=== PATIENT | female | born 1960 | race Caucasian/White ===

== ENCOUNTER 2016-05-03 05:48 | Outpatient (CLI) | payer OTHER ==
[~2016-05-03] VITALS: Ht 165.1 cm; Wt 91.6 kg
[~2016-05-03 05:48] MED LIST: ASPI-983 PO; CYAN100T PO; DULO60CA6 PO; ESTR1TAB27 PO; GABA-488 PO; LISI1TAB6 PO; MELO7.5T46 PO; MILN100T PO; MULT1TAB69 PO; NITR0.4T SL; OMEG-160 PO; ONDN4T PO; OXYC5TAB71 PO; PANT40TA2 PO; PANT40TA3 PO; PRAV20TA3 PO; SUCR1ORA5 PO; TRAM50TA2 PO
--- OUTSIDE RECORDS SUMMARY | 2016-05-03 05:52 | XMS REPORT | Continuity of Care Document ---
Author Author [facility] Organization [facility] Address Unknown Phone Unavailable Care Team Providers Care Artist'S Model Name Role Phone Seth Goodman PCP [phone] Source Comments Some departments are not documenting in the electronic medical record. If you do not see the information that you expected, contact Release of Information in the Health Information Management department at [phone] for further assistance in locating additional records.[facility] Active Allergies and Adverse Reactions Allergen Noted Date Severity Reactions Comments Penicillins 09/01/2013 HIVES Patient states has tolerated keflex Sulfa (Sulfonamide 09/01/2013 HIVES Antibiotics) Current Medications Prescription Sig. Disp. Refills Start End Date Status Date traMADol (ULTRAM) 50 mg Take 50 mg by mouth every Active tablet 6 hours as needed. milnacipran(+) (SAVELLA) Take 100 mg by mouth Active 100 mg tablet twice daily. pseudoephedrine (SUDAFED) Take 60 mg by mouth every Active 60 mg tablet 6 hours as needed. gabapentin (NEURONTIN) Take 300 mg by mouth Active 300 mg capsule twice daily. DULoxetine DR (CYMBALTA) Take 60 mg by mouth twice Active 60 mg capsule daily. meloxicam (MOBIC) 7.5 mg Take 7.5 mg by mouth Active tablet daily. ondansetron (ZOFRAN) 4 mg Take 4 mg by mouth every Active tablet 8 hours as needed. loratadine (CLARITIN) 10 Take 10 mg by mouth daily Active mg tablet as needed. fish oil /omega-3 fatty Take 1 Cap by mouth Active acids (SEA-OMEGA) daily. 340/1000 mg capsule aspirin EC 81 mg tablet Take 81 mg by mouth Active daily. cyanocobalamin(+) Take 100 mcg by mouth Active (VITAMIN B-12) 100 mcg daily. tablet sucralfate (CARAFATE) 1 Take 1 g by mouth four Active gram tablet times daily. vitamins, multiple cap Take 1 Cap by mouth Active daily. senna/docusate Take 1 Tab by mouth twice 60 Tab 1 09/17/19 Active (SENOKOT-S) 8.6/50 mg daily. 14 tablet oxyCODONE (ROXICODONE) 5 Take 1-3 Tabs by mouth 60 Tab 0 10/08/19 Active mg tablet every 4 hours as needed 14 for Pain estradiol (ESTRACE) 1 mg Take 1 Tab by mouth 90 Tab 3 03/15/20 Active tablet daily. 14 PANTOPRAZOLE SODIUM Take by mouth daily. Active (PROTONIX PO) NITROGLYCERIN (NITRO-TIME Take 0.4 mg by mouth as Active PO) Needed. lisinopril (PRINIVIL; Take 1 Tab by mouth 30 Tab 11 09/27/19 Active ZESTRIL) 10 mg tablet daily. 16 metoprolol tartrate Take 1 Tab by mouth twice 180 Tab 3 12/13/19 Active (LOPRESSOR) 50 mg tablet daily. 16 levothyroxine (SYNTHROID) Take 1 Tab by mouth 30 Tab 3 12/13/19 Active 50 mcg tablet daily. 16 potassium chloride SR Take 10 mEq by mouth 01/30/20 Active (K-DUR) 20 mEq tablet daily. Take with a meal 16 and a full glass of water. Active Problems Problem Noted Date Residual hemorrhoidal skin tags 04/20/2016 Hematuria 04/20/2016 Left lower quadrant pain 09/16/2015 Intractable vomiting with nausea 09/16/2015 Palpitation 09/09/2015 Overview: 09/09/15 Holter Monitor: 48-hour Holter monitor demonstrates underlying sinus rhythm with a heart rate between 53 and 142 beat per minute with an average heart rate of 83 beats per minute. Frequent atrial ectopy (862 in 48 hours) with 11 runs of supraventricular tachycardia, the longest run was 14 beats and maximum heart rate was 177 beats per minute. These appear to be atrial tachycardia. There was frequent ventricular ectopy (436 in 48 hours). No episodes of atrial flutter, atrial fibrillation or ventricular tachycardia. No diary was submitted. Essential hypertension with goal blood pressure less than 140/90 09/09/2015 Family history of heart disease 09/09/2015 Overview: Sister ICD in her 60's and mother ICD in her 50's Chest pain 09/06/2015 Overview: 09/08/13 Echo ([facility]): EF 60%. Mild mitral and tricuspid valve regurgitation. PAP=30 mmHg. 09/08/13 Lexiscan Myoview Stress Test ([facility]): EF 57%. Subtle abnormality in the inferoapical segment with no significant ischemia or infarction. 08/22/15 Echo ([facility]): EF 60%. Left atrium is mildly dilated. Mild mitral and tricuspid regurgitation. 08/29/15 Lexiscan Myoview Stress Test ([facility]): EF 67%. No significant ischemia or infarction. 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 History of Present Illness: Sherly Silvestre is a 55 y.o. 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 1. The patient began to have back pain and blood in her urine on August 21, 2013. She was evaluated the next day and work-up for possible kidney stone was begun. CT on August 24, 2013 revealed a moderate hiatal hernia, a massive 30 x 14 x 33 cm complex fluid collection in the abdomen and pelvis as well as right hydronephrosis. No free fluid was noted, and there was no adenopathy. CA-125 level was normal at 22. 2. She was referred here for management and underwent exploratory laparotomy, left salpingo-oophorectomy, removal of the right pelvic sidewall cyst, and biopsy of the sigmoid colon epiploica on September 14, 2013. Frozen section indicated a benign process, but final pathology revealed a focus of borderline malignancy. 3. The patient presents today for routine cancer surveillance. Denies bleeding, discharge, pain and bloating. NO changes in bowel or urianry habits. Continues to have intermittent chest pain (h/o angina) and found to have irregular heartbeat at PCP on EKG. Being referred to [facility] in [place]. Lab Results Component Value Date CA125 15 09/16/2015 Mammo: 03/2015 birad 1 DEXA: 06/17/15 normal Colonoscopy: 12/18/13 negative with repeat 5 years. PCP: Dr. Goodman PLAN: 1. Ms. Edward Silvestre is a 55 yo female with h/o borderline tumor of the L ovary. 2. Presents for 2.5 year surveillance visit. 3. RUBEN today. 4. CA125 is 5. Discussed possible symptoms of cancer recurrence, such as cough, chest pain, early satiety, abdominal pain/bloating, N/V, vaginal bleeding/discharge or change in bowel/bladder habits, dizziness, WALTER. 6. Recommend daily exercise, diet high in fruits and vegetables, annual visits with PCP including updated vaccination and routine screening (mammogram, DEXA and colonoscopy). 7. RV 6 months Constipation 10/07/2013 Resolved Problems Problem Noted Date Resolved Date Edema 12/14/2014 03/25/2015 Mucinous cystadenoma 09/14/2013 03/25/2015 Other screening mammogram 09/11/2013 03/25/2015 Most Recent Encounters Date Type Specialty Providers Description 05/02/2016 Telephone Oncology Pratibha Matamoros PA 05/02/2016 Telephone Oncology Pratibha Matamoros PA Patient Questions - Sherly would like the name and phone number of who Pratibha wants her to see for her bladder issues. 04/23/2016 Telephone Oncology Pratibha Matamoros PA Results - Sherly called to ask that most recent lab, radiology, and office note be faxed to Dr. Nam's office as he is who she will see for the recommended colonoscopy. I told ehr that this would be done this AM as requested. 04/20/2016 Telephone Oncology Pratibha Matamoros PA Results 04/19/2016 Hospital Radiology Pratibha Matamoros PA Encounter 04/19/2016 Office Visit Oncology Pratibha Matamoros PA Hematuria ( Primary Dx); Lower abdominal pain; Abnormal finding on imaging; Ovarian cancer, unspecified laterality (HCC); Residual hemorrhoidal skin tags 04/19/2016 Screening Form 04/10/2016 Orders Only Oncology Pratibha Matamoros PA Ovarian ca, unspecified laterality (HCC) (Primary Dx) 02/28/2016 Telephone Oncology Brooks Vasquez MD Appointment - reschedule MD to SENIOR ACCOUNT CLERK. 02/16/2016 Telephone Cardiology Agnieszka Ambrosio RN Follow-up Phone Call - overdue labs-BMP (lab orders mailed, phone disconnected) Social History Tobacco Use Types Packs/Day Years Used Date Current Every Day Smoker Cigarettes 0.5 5 Smokeless Tobacco: Never Used Tobacco Cessation: Counseling Given: Yes Comments: Alcohol Use Drinks/Week oz/Week Comments No 0 Standard 0.0 about 1-2 times per year drinks or equivalent Last Filed Vital Signs Vital Sign Reading Time Taken Blood Pressure 125/75 04/19/2016 12:49 PM SENIOR MANAGER Pulse 108 04/19/2016 12:49 PM SENIOR MANAGER Temperature 37.1 C (98.8 F) 04/19/2016 12:49 PM SENIOR MANAGER Respiratory Rate 18 06/23/2014 11:04 AM CDT Height 1.6 m (5' 3") 04/19/2016 12:49 PM SENIOR MANAGER Weight 91.445 kg (201 lb 9.6 oz) 04/19/2016 12:49 PM SENIOR MANAGER Body Mass Index 35.72 04/19/2016 12:49 PM SENIOR MANAGER Oxygen Saturation 100% 04/19/2016 12:49 PM SENIOR MANAGER Plan of Care Date Type Specialty Providers Description 05/25/2016 Appointment Cardiology Garrett Suárez MD [address] [place] [address] [phone] (Fax) 05/28/2016 Appointment Oncology 05/28/2016 Appointment Oncology Pratibha Matamoros PA [address] [place] [address] [phone] (Fax) Health Maintenance Due Date Last Done Comments Hepatitis C Screening 1960 Physical (Comprehensive) 07/12/1966 Exam Pertussis Vaccine 07/12/1970 Tetanus Vaccine 07/12/1976 Cervical Cancer Screening 07/12/1980 Influenza Vaccine 12/15/2015 Breast Cancer Screening 03/25/2016 03/25/2015, 09/14/2013 Colorectal Cancer 12/19/2023 12/18/2013 Screening Results from Last [address] CHEST W CONTRAST (04/19/2016 3:18 PM) Impressions CHEST: 1.Unchanged size of the right middle lobe pulmonary nodule which is unchanged dating back to 2013 compatible with a small noncalcified granuloma or scar. Two additional pulmonary nodules are identified, which may represent additional small noncalcified granulomas or scarring. Although, no prior CT chest is available for comparison. Follow-up CT chest in 6-12 months recommended to evaluate for more long-term stability. 2.No thoracic lymphadenopathy. 3.Moderate hiatal hernia with fluid-filled esophagus suggestive of reflux. 4.Increased attenuation 1.6 cm nodule within the left thyroid lobe, incompletely characterized by CT. Correlation with thyroid ultrasound is recommended for further evaluation. ABDOMEN AND PELVIS: 1.Previous hysterectomy. No discrete pelvic mass or abdominopelvic lymphadenopathy. 2.Development of 1 cm low-attenuation lesion about the inferior pole of the right kidney which is too small to characterize. This may be a small renal cyst or renal neoplasm. Follow-up CT or renal ultrasound in 6 months recommended to evaluate for stability. By my electronic signature, I attest that I have personally reviewed the images for this examination and formulated the interpretations and opinions expressed in this report Finalized by DANIEL WISDOM M.D. on 04/19/2016 4:52 PM. Dictated by Max Azevedo M.D. on 04/19/2016 3:[address] CHEST, ABDOMEN AND PELVIS WITH CONTRAST CLINICAL HISTORY: 55-year-old female, ovarian cancer (unspecified laterality) lower abdominal pain , hematuria, lung nodules seen on CT in 2015. TECHNIQUE: Multiple contiguous axial images were obtained through the chest, abdomen and pelvis following the administration of IV contrast material. Noncontrast as well as portal venous and delayed phase imaging was obtained through the abdomen. Post processing coronal and sagittal reconstruction images were made from the axial images. COMPARISON: CT the abdomen and pelvis from December 14, 2014. IV CONTRAST: Isovue-370 BOWEL CONTRAST: Water CHEST FINDINGS: Lower Neck: Partially visualized 1.6 cm increased attenuation nodule within the left thyroid lobe (series 4 image one). Axilla, Mediastinum and Farideh: No axillary, mediastinal, or hilar lymphadenopathy. Fluid distends the majority of the esophagus. There is a moderate-sized hiatal hernia with mildly distended, fluid-filled esophagus. Heart and Great Vessels: The heart is normal in size. The thoracic aorta is normal in caliber. No pericardial effusion. Airway, Lungs and Pleura: The central airways are widely patent. There has been no change in size of a 0.5 cm pulmonary nodule within the anterior right middle lobe since at least 08/24/2013 (series 4 image 35) compatible with benign scar or noncalcified granuloma. Two additional sub-5 mm nodules are noted (series 4 image 20 and 23). No pleural effusion, pneumothorax, or lobar consolidation. Mild bibasilar atelectasis. Chest Wall and Osseous Structures: Thoracic spondylosis with right convex curvature centered at the T10 vertebral body. No destructive osseous lesions are identified. ABDOMEN AND PELVIS FINDINGS: Liver and Biliary system: The liver is normal in size. No focal hepatic lesions are identified. There is redemonstration of a geographic area of low density along the fissure ligamentum teres hepatis, which remains compatible with an area of focal fatty infiltration or benign perfusion alteration. The gallbladder is surgically absent. There is unchanged minimal biliary ductal ectasia. The main portal vein is patent. Spleen: Unremarkable. Adrenal Glands and Kidneys: The adrenal glands are unremarkable. Unchanged right mid pole renal cyst and cortical scarring in the lower pole right kidney. Resolution of right hydronephrosis. There has been development of 1.0 cm, exophytic, low-attenuation lesion about the inferior pole of the right kidney, which is too small to characterize (series 4 image 90). The left kidney is unremarkable. Pancreas and Retroperitoneum: The pancreas is unremarkable. No retroperitoneal lymphadenopathy. Aorta and Major Vessels: The abdominal aorta and major branch vessels are normal in caliber, with trace atherosclerotic plaque.. Bowel, Mesentery and Peritoneal space: Hiatal hernia. Loops of large and small bowel are normal in caliber. No obstruction or ascites. Pelvis: The mildly distended urinary bladder is unremarkable. Previous hysterectomy. The vaginal cuff is unremarkable. No pelvic lymphadenopathy is identified. Abdominal wall and Osseous Structures: There is mild diastasis of the rectus abdominous muscles, with herniation of nonobstructed large and small bowel, as well as a small amount of omental fat through the defect. Small, fat-containing umbilical hernia. There is moderate thoracolumbar spondylosis. Procedure Note Interface, Radiant Results - Jes Apr 19, 2016 4:[address] CHEST, ABDOMEN AND PELVIS WITH CONTRAST CLINICAL HISTORY: 55-year-old female, ovarian cancer (unspecified laterality) lower abdominal pain, hematuria, lung nodules seen on CT in 2014. TECHNIQUE: Multiple contiguous axial images were obtained through the chest, abdomen and pelvis following the administration of IV contrast material. Noncontrast as well as portal venous and delayed phase imaging was obtained through the abdomen. Post processing coronal and sagittal reconstruction images were made from the axial images. COMPARISON: CT the abdomen and pelvis from December 14, 2014. IV CONTRAST: Isovue-370 BOWEL CONTRAST: Water CHEST FINDINGS: Lower Neck: Partially visualized 1.6 cm increased attenuation nodule within the left thyroid lobe (series 4 image one). Axilla, Mediastinum and Farideh: No axillary, mediastinal, or hilar lymphadenopathy. Fluid distends the majority of the esophagus. There is a moderate-sized hiatal hernia with mildly distended, fluid-filled esophagus. Heart and Great Vessels: The heart is normal in size. The thoracic aorta is normal in caliber. No pericardial effusion. Airway, Lungs and Pleura: The central airways are widely patent. There has been no change in size of a 0.5 cm pulmonary nodule within the anterior right middle lobe since at least 08/24/2013 (series 4 image 35) compatible with benign scar or noncalcified granuloma. Two additional sub-5 mm nodules are noted (series 4 image 20 and 23). No pleural effusion, pneumothorax, or lobar consolidation. Mild bibasilar atelectasis. Chest Wall and Osseous Structures: Thoracic spondylosis with right convex curvature centered at the T10 vertebral body. No destructive osseous lesions are identified. ABDOMEN AND PELVIS FINDINGS: Liver and Biliary system: The liver is normal in size. No focal hepatic lesions are identified. There is redemonstration of a geographic area of low density along the fissure ligamentum teres hepatis, which remains compatible with an area of focal fatty infiltration or benign perfusion alteration. The gallbladder is surgically absent. There is unchanged minimal biliary ductal ectasia. The main portal vein is patent. Spleen: Unremarkable. Adrenal Glands and Kidneys: The adrenal glands are unremarkable. Unchanged right mid pole renal cyst and cortical scarring in the lower pole right kidney. Resolution of right hydronephrosis. There has been development of 1.0 cm, exophytic, low-attenuation lesion about the inferior pole of the right kidney, which is too small to characterize (series 4 image 90). The left kidney is unremarkable. Pancreas and Retroperitoneum: The pancreas is unremarkable. No retroperitoneal lymphadenopathy. Aorta and Major Vessels: The abdominal aorta and major branch vessels are normal in caliber, with trace atherosclerotic plaque.. Bowel, Mesentery and Peritoneal space: Hiatal hernia. Loops of large and small bowel are normal in caliber. No obstruction or ascites. Pelvis: The mildly distended urinary bladder is unremarkable. Previous hysterectomy. The vaginal cuff is unremarkable. No pelvic lymphadenopathy is identified. Abdominal wall and Osseous Structures: There is mild diastasis of the rectus abdominous muscles, with herniation of nonobstructed large and small bowel, as well as a small amount of omental fat through the defect. Small, fat-containing umbilical hernia. There is moderate thoracolumbar spondylosis. IMPRESSION CHEST: 1. Unchanged size of the right middle lobe pulmonary nodule which is unchanged dating back to 2013 compatible with a small noncalcified granuloma or scar. Two additional pulmonary nodules are identified, which may represent additional small noncalcified granulomas or scarring. Although, no prior CT chest is available for comparison. Follow-up CT chest in 6-12 months recommended to evaluate for more long-term stability. 2. No thoracic lymphadenopathy. 3. Moderate hiatal hernia with fluid-filled esophagus suggestive of reflux. 4. Increased attenuation 1.6 cm nodule within the left thyroid lobe, incompletely characterized by CT. Correlation with thyroid ultrasound is recommended for further evaluation. ABDOMEN AND PELVIS: 1. Previous hysterectomy. No discrete pelvic mass or abdominopelvic lymphadenopathy. 2. Development of 1 cm low-attenuation lesion about the inferior pole of the right kidney which is too small to characterize. This may be a small renal cyst or renal neoplasm. Follow-up CT or renal ultrasound in 6 months recommended to evaluate for stability. By my electronic signature, I attest that I have personally reviewed the images for this examination and formulated the interpretations and opinions expressed in this report Finalized by DANIEL WISDOM M.D. on 04/19/2016 4:52 PM. Dictated by Max Azevedo M.D. on 04/19/2016 3:[address] ABD/PELV W CONTRAST (04/19/2016 3:18 PM) Impressions CHEST: 1.Unchanged size of the right middle lobe pulmonary nodule which is unchanged dating back to 2013 compatible with a small noncalcified granuloma or scar. Two additional pulmonary nodules are identified, which may represent additional small noncalcified granulomas or scarring. Although, no prior CT chest is available for comparison. Follow-up CT chest in 6-12 months recommended to evaluate for more long-term stability. 2.No thoracic lymphadenopathy. 3.Moderate hiatal hernia with fluid-filled esophagus suggestive of reflux. 4.Increased attenuation 1.6 cm nodule within the left thyroid lobe, incompletely characterized by CT. Correlation with thyroid ultrasound is recommended for further evaluation. ABDOMEN AND PELVIS: 1.Previous hysterectomy. No discrete pelvic mass or abdominopelvic lymphadenopathy. 2.Development of 1 cm low-attenuation lesion about the inferior pole of the right kidney which is too small to characterize. This may be a small renal cyst or renal neoplasm. Follow-up CT or renal ultrasound in 6 months recommended to evaluate for stability. By my electronic signature, I attest that I have personally reviewed the images for this examination and formulated the interpretations and opinions expressed in this report Finalized by DANIEL WISDOM M.D. on 04/19/2016 4:52 PM. Dictated by Max Azevedo M.D. on 04/19/2016 3:[address] CHEST, ABDOMEN AND PELVIS WITH CONTRAST CLINICAL HISTORY: 55-year-old female, ovarian cancer (unspecified laterality) lower abdominal pain , hematuria, lung nodules seen on CT in 2014. TECHNIQUE: Multiple contiguous axial images were obtained through the chest, abdomen and pelvis following the administration of IV contrast material. Noncontrast as well as portal venous and delayed phase imaging was obtained through the abdomen. Post processing coronal and sagittal reconstruction images were made from the axial images. COMPARISON: CT the abdomen and pelvis from December 14, 2014. IV CONTRAST: Isovue-370 BOWEL CONTRAST: Water CHEST FINDINGS: Lower Neck: Partially visualized 1.6 cm increased attenuation nodule within the left thyroid lobe (series 4 image one). Axilla, Mediastinum and Farideh: No axillary, mediastinal, or hilar lymphadenopathy. Fluid distends the majority of the esophagus. There is a moderate-sized hiatal hernia with mildly distended, fluid-filled esophagus. Heart and Great Vessels: The heart is normal in size. The thoracic aorta is normal in caliber. No pericardial effusion. Airway, Lungs and Pleura: The central airways are widely patent. There has been no change in size of a 0.5 cm pulmonary nodule within the anterior right middle lobe since at least 08/24/2013 (series 4 image 35) compatible with benign scar or noncalcified granuloma. Two additional sub-5 mm nodules are noted (series 4 image 20 and 23). No pleural effusion, pneumothorax, or lobar consolidation. Mild bibasilar atelectasis. Chest Wall and Osseous Structures: Thoracic spondylosis with right convex curvature centered at the T10 vertebral body. No destructive osseous lesions are identified. ABDOMEN AND PELVIS FINDINGS: Liver and Biliary system: The liver is normal in size. No focal hepatic lesions are identified. There is redemonstration of a geographic area of low density along the fissure ligamentum teres hepatis, which remains compatible with an area of focal fatty infiltration or benign perfusion alteration. The gallbladder is surgically absent. There is unchanged minimal biliary ductal ectasia. The main portal vein is patent. Spleen: Unremarkable. Adrenal Glands and Kidneys: The adrenal glands are unremarkable. Unchanged right mid pole renal cyst and cortical scarring in the lower pole right kidney. Resolution of right hydronephrosis. There has been development of 1.0 cm, exophytic, low-attenuation lesion about the inferior pole of the right kidney, which is too small to characterize (series 4 image 90). The left kidney is unremarkable. Pancreas and Retroperitoneum: The pancreas is unremarkable. No retroperitoneal lymphadenopathy. Aorta and Major Vessels: The abdominal aorta and major branch vessels are normal in caliber, with trace atherosclerotic plaque.. Bowel, Mesentery and Peritoneal space: Hiatal hernia. Loops of large and small bowel are normal in caliber. No obstruction or ascites. Pelvis: The mildly distended urinary bladder is unremarkable. Previous hysterectomy. The vaginal cuff is unremarkable. No pelvic lymphadenopathy is identified. Abdominal wall and Osseous Structures: There is mild diastasis of the rectus abdominous muscles, with herniation of nonobstructed large and small bowel, as well as a small amount of omental fat through the defect. Small, fat-containing umbilical hernia. There is moderate thoracolumbar spondylosis. Procedure Note Interface, Radiant Results - [facility] Apr 19, 2016 4:[address] CHEST, ABDOMEN AND PELVIS WITH CONTRAST CLINICAL HISTORY: 55-year-old female, ovarian cancer (unspecified laterality) lower abdominal pain, hematuria, lung nodules seen on CT in 2014. TECHNIQUE: Multiple contiguous axial images were obtained through the chest, abdomen and pelvis following the administration of IV contrast material. Noncontrast as well as portal venous and delayed phase imaging was obtained through the abdomen. Post processing coronal and sagittal reconstruction images were made from the axial images. COMPARISON: CT the abdomen and pelvis from December 14, 2014. IV CONTRAST: [id number] BOWEL CONTRAST: Water CHEST FINDINGS: Lower Neck: Partially visualized 1.6 cm increased attenuation nodule within the left thyroid lobe (series 4 image one). Axilla, Mediastinum and Farideh: No axillary, mediastinal, or hilar lymphadenopathy. Fluid distends the majority of the esophagus. There is a moderate-sized hiatal hernia with mildly distended, fluid-filled esophagus. Heart and Great Vessels: The heart is normal in size. The thoracic aorta is normal in caliber. No pericardial effusion. Airway, Lungs and Pleura: The central airways are widely patent. There has been no change in size of a 0.5 cm pulmonary nodule within the anterior right middle lobe since at least 08/24/2013 (series 4 image 35) compatible with benign scar or noncalcified granuloma. Two additional sub-5 mm nodules are noted (series 4 image 20 and 23). No pleural effusion, pneumothorax, or lobar consolidation. Mild bibasilar atelectasis. Chest Wall and Osseous Structures: Thoracic spondylosis with right convex curvature centered at the T10 vertebral body. No destructive osseous lesions are identified. ABDOMEN AND PELVIS FINDINGS: Liver and Biliary system: The liver is normal in size. No focal hepatic lesions are identified. There is redemonstration of a geographic area of low density along the fissure ligamentum teres hepatis, which remains compatible with an area of focal fatty infiltration or benign perfusion alteration. The gallbladder is surgically absent. There is unchanged minimal biliary ductal ectasia. The main portal vein is patent. Spleen: Unremarkable. Adrenal Glands and Kidneys: The adrenal glands are unremarkable. Unchanged right mid pole renal cyst and cortical scarring in the lower pole right kidney. Resolution of right hydronephrosis. There has been development of 1.0 cm, exophytic, low-attenuation lesion about the inferior pole of the right kidney, which is too small to characterize (series 4 image 90). The left kidney is unremarkable. Pancreas and Retroperitoneum: The pancreas is unremarkable. No retroperitoneal lymphadenopathy. Aorta and Major Vessels: The abdominal aorta and major branch vessels are normal in caliber, with trace atherosclerotic plaque.. Bowel, Mesentery and Peritoneal space: Hiatal hernia. Loops of large and small bowel are normal in caliber. No obstruction or ascites. Pelvis: The mildly distended urinary bladder is unremarkable. Previous hysterectomy. The vaginal cuff is unremarkable. No pelvic lymphadenopathy is identified. Abdominal wall and Osseous Structures: There is mild diastasis of the rectus abdominous muscles, with herniation of nonobstructed large and small bowel, as well as a small amount of omental fat through the defect. Small, fat-containing umbilical hernia. There is moderate thoracolumbar spondylosis. IMPRESSION CHEST: 1. Unchanged size of the right middle lobe pulmonary nodule which is unchanged dating back to 2014 compatible with a small noncalcified granuloma or scar. Two additional pulmonary nodules are identified, which may represent additional small noncalcified granulomas or scarring. Although, no prior CT chest is available for comparison. Follow-up CT chest in 6-12 months recommended to evaluate for more long-term stability. 2. No thoracic lymphadenopathy. 3. Moderate hiatal hernia with fluid-filled esophagus suggestive of reflux. 4. Increased attenuation 1.6 cm nodule within the left thyroid lobe, incompletely characterized by CT. Correlation with thyroid ultrasound is recommended for further evaluation. ABDOMEN AND PELVIS: 1. Previous hysterectomy. No discrete pelvic mass or abdominopelvic lymphadenopathy. 2. Development of 1 cm low-attenuation lesion about the inferior pole of the right kidney which is too small to characterize. This may be a small renal cyst or renal neoplasm. Follow-up CT or renal ultrasound in 6 months recommended to evaluate for stability. By my electronic signature, I attest that I have personally reviewed the images for this examination and formulated the interpretations and opinions expressed in this report Finalized by DANIEL WISDOM M.D. on 04/19/2016 4:52 PM. Dictated by Mxa Azevedo M.D. on 04/19/2016 3:49 PM. URINALYSIS, MICROSCOPIC (04/19/2016 12:29 PM) Component Value Range WBCs,UA 0-2 0-2 /HPF RBCs,UA 0-2 0-3 /HPF MucousUA TRACE Bacteria,UA FEW (A) NEG-NEG Squamous Epithelial Cells 0-2 0-5 Hyaline Cast 0-2 URINALYSIS DIPSTICK (04/19/2016 12:29 PM) Component Value Range Color,UA YELLOW Turbidity,UA CLEAR CLEAR-CLEAR Specific [place]-Urine 1.020 1.003-1.035 pH,UA 5.0 5.0-8.0 Protein,UA NEG NEG-NEG Glucose,UA NEG NEG-NEG Ketones,UA NEG NEG-NEG Bilirubin,UA NEG NEG-NEG Blood,UA 1+ (A) NEG-NEG Urobilinogen,UA NORMAL NORM-NORMAL Nitrite,UA NEG NEG-NEG Leukocytes,UA NEG NEG-NEG Urine Ascorbic Acid, UA NEG NEG-NEG CBC AND DIFF (04/19/2016 12:29 PM) Component Value Range White Blood Cells 12.2 (H) 4.5-11.0 K/UL RBC 5.31 (H) 4.0-5.0 M/UL Hemoglobin 14.3 12.0-15.0 GM/DL Hematocrit 43.5 36-45 % MCV 81.9 80-100 FL MCH 26.8 26-34 PG MCHC 32.7 32.0-36.0 G/DL RDW 12.8 11-15 % Platelet Count 310 150-400 K/UL MPV 7.4 7-11 FL Neutrophils 77 41-77 % Lymphocytes 15 (L) 24-44 % Monocytes 7 4-12 % Eosinophils 1 0-5 % Basophils 0 0-2 % Absolute Neutrophil Count 9.30 (H) 1.8-7.0 K/UL Absolute Lymph Count 1.80 1.0-4.8 K/UL Absolute Monocyte Count 0.80 0-0.80 K/UL Absolute Eosinophil Count 0.20 0-0.45 K/UL Absolute Basophil Count 0.10 0-0.20 K/UL Specimen Blood CA125 (04/19/2016 12:29 PM) Component Value Range CA-125 20 <35 U/ml Specimen Blood BASIC METABOLIC PANEL (04/19/2016 12:29 PM) Component Value Range Sodium 133 (L) 137-147 MMOL/L Potassium 4.1 3.5-5.1 MMOL/L Chloride 101 98-110 MMOL/L CO2 27 21-30 MMOL/L Anion Gap 5 3-12 Glucose 104 (H) 70-100 MG/DL Blood Urea Nitrogen 17 7-25 MG/DL Creatinine 0.91 0.4-1.00 MG/DL Calcium 9.5 8.5-10.6 MG/DL eGFR Non >60Comment: >60 mL/min The eGFR is not validated for use in drug dosing adjustments. Continue to use estimated creatinine clearance per dosing reference text. Please contact the Clinical Pharmacist for questions. eGFR >60Comment: >60 mL/min The eGFR is not validated for use in drug dosing adjustments. Continue to use estimated creatinine clearance per dosing reference text. Please contact the Clinical Pharmacist for questions. Specimen Blood
[2016-05-03] MEDS ORDERED: PANT40TA3 PO (15:28)
[2016-05-03] MEDS ORDERED: METO-451 PO (15:28)
[2016-05-03] MEDS ORDERED: POTA-51 PO (15:28)
[2016-05-03] MEDS ORDERED: LORA10CA PO (15:28)
[2016-05-03] MEDS ORDERED: LEVO50TA6 PO (15:28)
== END 2016-05-03 15:29 ==
LOC: PREOP 05:48
PROVIDERS: ATTEND Surgery
DX: Z01.818 Encounter for other preprocedural examination (principal); Z12.11 Encounter for screening for malignant neoplasm of colon

== ENCOUNTER 2016-05-08 07:25 | Day surgery (SDC) | payer OTHER ==
[~2016-05-08] VITALS: Ht 165.1 cm; Wt 91.6 kg
[~2016-05-08 07:25] MED LIST changes: +LEVO50TA6 PO; +LORA10CA PO; +METO-451 PO; +NS IV 1000 ML 1,000 ML ONE; +POTA-51 PO
--- OUTSIDE RECORDS SUMMARY | 2016-05-08 07:29 | XMS REPORT | Continuity of Care Document ---
Author Author [facility] Organization [facility] Address Unknown Phone Unavailable Care Team Providers Care Wicker Molded Candles Name Role Phone Seth Goodman PCP [phone] Source Comments Some departments are not documenting in the electronic medical record. If you do not see the information that you expected, contact Release of Information in the Health Information Management department at [phone] for further assistance in locating additional records.[facility] Active Allergies and Adverse Reactions Allergen Noted [...] Chest pain 09/06/2015 Overview: 09/08/13 Echo ([facility]): EF 60%. Mild mitral and tricuspid valve regurgitation. PAP=30 mmHg. 09/08/13 Lexiscan Myoview Stress Test ([facility]): EF 57%. Subtle abnormality in the inferoapical segment with no significant ischemia or infarction. 08/22/15 Echo ([facility]): EF 60%. Left atrium is mildly dilated. Mild mitral and tricuspid regurgitation. 08/29/15 Lexiscan Myoview Stress Test ([facility]): EF 67%. No significant ischemia or [...] at PCP on EKG. Being referred to [facility] in [place]. Lab Results Component Value Date CA125 15 [...] Vasquez MD Appointment - reschedule MD to MEDICAL OFFICE MANAGER. 02/16/2016 Telephone Cardiology Agnieszka Ambrosio RN Follow-up [...] Taken Blood Pressure 125/75 04/19/2016 12:49 PM CODE INSPECTOR Pulse 108 04/19/2016 12:49 PM CODE INSPECTOR Temperature 37.1 C (98.8 F) 04/19/2016 12:49 PM CODE INSPECTOR Respiratory Rate 18 06/23/2014 11:04 AM CDT Height 1.6 m (5' 3") 04/19/2016 12:49 PM CODE INSPECTOR Weight 91.445 kg (201 lb 9.6 oz) 04/19/2016 12:49 PM CODE INSPECTOR Body Mass Index 35.72 04/19/2016 12:49 PM CODE INSPECTOR Oxygen Saturation 100% 04/19/2016 12:49 PM CODE INSPECTOR Plan of Care Date Type Specialty Providers Description 05/25/2016 Appointment Cardiology Garrett Suárez MD [address] [place] [address] [phone] (Fax) 05/28/2016 Appointment Oncology 05/28/2016 Appointment Oncology Pratibha Matamoros PA [address] [place] [address] [phone] (Fax) Health Maintenance Due Date Last Done [...] - Jes Apr 19, 2016 4:[address] CHEST, ABDOMEN AND PELVIS WITH CONTRAST [...] spondylosis. Procedure Note Interface, Radiant Results - [facility] Apr 19, 2016 4:[address] CHEST, ABDOMEN AND PELVIS WITH CONTRAST [...] Max Azevedo M.D. on 04/19/2016 3:49 PM. URINALYSIS, MICROSCOPIC (04/19/2016 12:29 PM) Component Value Range WBCs,UA 0-2 0-2 /HPF RBCs,UA 0-2 0-3 /HPF MucousUA TRACE Bacteria,UA FEW (A) NEG-NEG Squamous Epithelial Cells 0-2 0-5 Hyaline Cast 0-2 URINALYSIS DIPSTICK (04/19/2016 12:29 PM) Component Value Range Color,UA YELLOW Turbidity,UA CLEAR CLEAR-CLEAR Specific [place]-Urine 1.020 1.003-1.035 pH,UA 5.0 5.0-8.0 Protein,UA NEG [...]
--- OUTSIDE RECORDS SUMMARY | 2016-05-08 07:30 | XMS REPORT | Continuity of Care Document ---
Author Author [facility] Organization [facility] Address Unknown Phone Unavailable Care Team Providers Care Substitute Nurse Name Role Phone Seth Goodman PCP [phone] Source Comments Some departments are not documenting in the electronic medical record. If you do not see the information that you expected, contact Release of Information in the Health Information Management department at [phone] for further assistance in locating additional records.[facility] Active Allergies and Adverse Reactions Allergen [...] Chest pain 09/06/2015 Overview: 09/08/13 Echo ([facility]): EF 60%. Mild mitral and tricuspid valve regurgitation. PAP=30 mmHg. 09/08/13 Lexiscan Myoview Stress Test ([facility]): EF 57%. Subtle abnormality in the inferoapical segment with no significant ischemia or infarction. 08/22/15 Echo ([facility]): EF 60%. Left atrium is mildly dilated. Mild mitral and tricuspid regurgitation. 08/29/15 Lexiscan Myoview Stress Test ([facility]): EF 67%. No significant ischemia or [...] at PCP on EKG. Being referred to [facility] in [place]. Lab Results Component Value Date CA125 15 [...] Vasquez MD Appointment - reschedule MD to RESIN MAKER. 02/16/2016 Telephone Cardiology Agnieszka Ambrosio RN Follow-up [...] Taken Blood Pressure 125/75 04/19/2016 12:49 PM HISTORIOGRAPHY PROFESSOR Pulse 108 04/19/2016 12:49 PM HISTORIOGRAPHY PROFESSOR Temperature 37.1 C (98.8 F) 04/19/2016 12:49 PM HISTORIOGRAPHY PROFESSOR Respiratory Rate 18 06/23/2014 11:04 AM CDT Height 1.6 m (5' 3") 04/19/2016 12:49 PM HISTORIOGRAPHY PROFESSOR Weight 91.445 kg (201 lb 9.6 oz) 04/19/2016 12:49 PM HISTORIOGRAPHY PROFESSOR Body Mass Index 35.72 04/19/2016 12:49 PM HISTORIOGRAPHY PROFESSOR Oxygen Saturation 100% 04/19/2016 12:49 PM HISTORIOGRAPHY PROFESSOR Plan of Care Date Type Specialty Providers Description 05/25/2016 Appointment Cardiology Garrett Suárez MD [address] [place] [address] [phone] (Fax) 05/28/2016 Appointment Oncology 05/28/2016 Appointment Oncology Pratibha Matamoros PA [address] [place] [address] [phone] (Fax) Health Maintenance Due Date Last Done [...] - Jes Apr 19, 2016 4:[address] CHEST, ABDOMEN AND PELVIS WITH CONTRAST [...] spondylosis. Procedure Note Interface, Radiant Results - [facility] Apr 19, 2016 4:[address] CHEST, ABDOMEN AND PELVIS WITH CONTRAST [...] Range Color,UA YELLOW Turbidity,UA CLEAR CLEAR-CLEAR Specific [place]-Urine 1.020 1.003-1.035 pH,UA 5.0 5.0-8.0 Protein,UA NEG [...]
[2016-05-08] MEDS ORDERED: NS IV 1000 ML 1,000 ML IV STA (07:47)
[2016-05-08 08:05] VITALS: BP 135/84
[2016-05-08] MEDS ORDERED: proPOfol 200 MG/20 ML (DIPRIVAN) VIAL IV ONE (08:07)
[2016-05-08] MEDS ORDERED: MIDAZOLAM 2 MG/2 ML (VERSED) VIAL ONE (08:07)
[2016-05-08] MEDS ORDERED: ESMOLOL 100 MG/10 ML (BREVIBLOC) VIAL ONE (08:08)
--- NOTE | 2016-05-08 08:17 | Progress Note-Pre Operative ---
Pre-Operative Progress Note H&P Reviewed The H&P was reviewed, patient examined and no changes noted. Date H&P Reviewed: May 08, 2016 Time H&P Reviewed: 08:16 Pre-Operative Diagnosis: history ovarian cancer, hematuria YARELY PALEMR DO May 08, 2016 08:17
--- NOTE | 2016-05-08 08:46 | Progress Note-Post Operative ---
Post-Operative Progess Note Pre-Operative Diagnosis history ovarian cancer, hematuria Post-Operative Diagnosis normal colon Post-Op Procedure Note Date of Procedure: May 08, 2016 Name of Procedure: colonoscopy Procedure Note/Findings see note Anesthesia Type per block chopper hand Estimated blood loss (mL): none YARELY PALMER DO May 08, 2016 08:45
--- NOTE | 2016-05-08 08:48 | Discharge Inst-Simple/Standard ---
Discharge Inst-Standard Patient Instructions/Follow Up Plan of Care/Instructions/FU: Repeat colonoscopy in 10 years unless family history of colon cancer or personal history of colon polyps which would be 5 years. Any problems before that be seen at that time. Activity as Tolerated: Yes Discharge Diet: Regular Diet YARELY PALMER DO May 08, 2016 08:48
[2016-05-08 09:05] VITALS: BP 117/82
[2016-05-08 09:30] VITALS: BP 128/70
[2016-05-08 09:36] VITALS: BP 128/70
--- NOTE | 2016-05-08 10:41 | OPERATIVE REPORT ---
PROCEDURE PHYSICIAN: YARELY PALMER DATE OF PROCEDURE: 05/08/2016 PREOPERATIVE DIAGNOSIS: History of ovarian cancer and hematuria. POSTOPERATIVE DIAGNOSIS: Normal colon. PROCEDURE: Colonoscopy. SURGEON: Cyril. ANESTHESIA: Per TANNING CONSULTANT. ESTIMATED BLOOD LOSS: None. COMPLICATIONS: None. INDICATIONS: The patient is a 55-year-old female with a history of ovarian cancer. The patient's oncologist is requesting a colonoscopy be performed. The patient was explained risk and benefits of the procedure and wished to proceed with the procedure. Consent was signed on the chart. PROCEDURE: The patient was taken to the endoscopy suite, placed in left lateral recumbent position. Timeout was performed. The scope was inserted in the rectum and advanced all the way cecum with minimal difficulty. Prep was adequate. There were no polyps, masses, ulcerations within the cecum. The scope was then slowly retracted back. There were no polyps, masses, ulcerations within the, ascending colon, transverse colon, descending colon and sigmoid colon. The scope was continued be retracted back in the rectum, where it was also retroflexed noting no further pathology. The scope was returned to the scope was returned to its normal position and slowly withdrawn until completely removed. The patient tolerated the procedure well without any complications. She was taken to recovery room in stable condition. RECOMMENDATIONS: The patient needs repeat colonoscopy in 10 years unless family history of colon cancer or personal history of polyps which would then be 5 years. If she has any problems prior to that, she should be reevaluated at that time. Job ID: [id number] Dictated Date: 05/08/2016 08:50:56 Warehouse Incentive Selector Date: 05/08/2016 10:37:58 / dora
== END 2016-05-08 09:35 | disposition home or self-care (01) ==
LOC: SDC 07:25
PROVIDERS: ATTEND Surgery
DX: Z12.11 Encounter for screening for malignant neoplasm of colon (principal); R31.9 Hematuria, unspecified; Z85.43 Personal history of malignant neoplasm of ovary

== ENCOUNTER 2016-09-10 12:40 | Inpatient (IN) | payer OTHER ==
[2016-09-10] VITALS (7 sets, daily range): BP systolic 113–158; BP diastolic 74–106
[~2016-09-10] VITALS: Ht 165.1 cm; Wt 96.6 kg
[~2016-09-10 12:40] MED LIST changes: -NS IV 1000 ML 1,000 ML ONE
[2016-09-10 13:01] LABS: BASOPHILS % (AUTO) 0 % (0-10); EOSINOPHILS # (AUTO) 0.2 10^3/uL (0.0-0.3); EOSINOPHILS % (AUTO) 4 % (0-10); LYMPHOCYTES # (AUTO) 1.6 X 10^3 (1.0-4.0); LYMPHOCYTES % (AUTO) 32 % (12-44); MEAN CORPUSCULAR HEMOGLOBIN 28 PG (25-34); MEAN CORPUSCULAR HGB CONC 33 G/DL (32-36); MEAN CORPUSCULAR VOLUME 83 FL (80-99); MEAN PLATELET VOLUME 9.4 FL (7.4-10.4); MONOCYTES # (AUTO) 0.4 X 10^3 (0.0-1.0); MONOCYTES % (AUTO) 8 % (0-12); NEUTROPHILS # (AUTO) 2.9 X 10^3 (1.8-7.8); NEUTROPHILS % (AUTO) 57 % (42-75); PLATELET COUNT 231 10^3/uL (130-400); RED BLOOD COUNT 4.97 10^6/uL (4.35-5.85); RED CELL DISTRIBUTION WIDTH 13.1 % (10.0-14.5); WHITE BLOOD COUNT 5.2 10^3/uL (4.3-11.0)
[2016-09-10 13:10] LABS: PROTHROMBIN TIME PATIENT 13.2 SEC (12.2-14.7)
--- NOTE | 2016-09-10 13:14 | Diagnostic Imaging Report ---
CLINICAL INDICATION: Patient with weakness and blurred vision x2 days. EXAM: Portable chest x-ray upright view. COMPARISONS: Chest x-ray dated 09/28/2015. FINDINGS: Lungs/pleura: Slight low lung volumes are seen. Lungs are clear. There is no pneumothorax. There is no pleural effusion. Mediastinum: Unremarkable. Pulmonary vasculature: Unremarkable. Heart: Unremarkable. Bones/extrathoracic soft tissue: Unremarkable. IMPRESSION: Slight low lung volumes are seen. Otherwise, there is no radiographic evidence of acute cardiopulmonary process. Dictated by: Dictated on workstation # [id number]
[2016-09-10 13:20] LABS: ALANINE AMINOTRANSFERASE 18 U/L (0-55); ALBUMIN 3.9 G/DL (3.2-4.5); ANION GAP 11 MMOL/L (5-14); ASPARTATE AMINO TRANSFERASE 19 U/L (5-34); BILIRUBIN,TOTAL 0.5 MG/DL (0.1-1.0); BLOOD UREA NITROGEN 6 MG/DL (7-18); BUN/CREATININE RATIO 8; CALCIUM 9.1 MG/DL (8.5-10.1); CARBON DIOXIDE 22 MMOL/L (21-32); CHLORIDE 110 MMOL/L (98-107); CREATININE SERUM 0.71 MG/DL (0.60-1.30); GFR ESTIMATED > 60; GLUCOSE 127 MG/DL (70-105); POTASSIUM 2.8 MMOL/L (3.6-5.0); SODIUM 143 MMOL/L (135-145); TOTAL PROTEIN 6.9 G/DL (6.4-8.2)
--- NOTE | 2016-09-10 13:20 | Diagnostic Imaging Report ---
EXAMINATION: CT of the head without contrast. INDICATION: Weakness, blurred vision. TECHNIQUE: Contiguous axial sections were taken through the skull. COMPARISON: There are no prior studies available for comparison. FINDINGS: There is no mass, shift of the midline, or hemorrhage to suggest an acute intracranial abnormality. The normal tentorial blush is noted. There is no sign of an asymmetric hyperdense vessel. The ventricles are not abnormally dilated. There is mild cortical atrophy present. The degree of atrophy is consistent with the patient's age. The bone windows show no sign of a fracture or of a destructive lesion. The orbits are symmetrical and within normal limits. The sinuses were not visualized in their entirety. Where visualized, there is no acute abnormality. IMPRESSION: 1. There is no evidence for an acute intracranial abnormality and there is no sign of a mass lesion. 2. If clinical concern regarding an underlying abnormality persists, then MRI would be recommended for further study. Dictated by: Dictated on workstation # [id number]
[2016-09-10 13:26] LABS: TROPONIN I < 0.30 NG/ML (<0.30)
[2016-09-10] MEDS ORDERED: SENN-40 PO (13:52)
[2016-09-10 14:09] LABS: BILIRUBIN,URINE NEGATIVE (NEGATIVE); KETONES,URINE NEGATIVE (NEGATIVE); LEUKOCYTE ESTERASE ,URINE 1+ (NEGATIVE); NITRITE,URINE NEGATIVE (NEGATIVE); PH,URINE 6 (5-9); PROTEIN,URINE 1+ (NEGATIVE); UROBILINOGEN,URINE NORMAL (NORMAL)
[2016-09-10] MEDS ORDERED: NS W/KCL 20 MEQ/L 1,000 ML IV ONE (15:00)
[2016-09-10] MEDS ORDERED: ONDANSETRON 4 MG/2 ML (SDV) Z0FRAN ONE (15:29)
[2016-09-10 15:47] LABS: THYROID STIMULATING HORMONE 4.4 UIU/ML (0.35-4.94)
--- NOTE | 2016-09-10 15:48 | Diagnostic Imaging Report ---
CLINICAL INDICATION: Patient brought in for weakness status post fall left shoulder pain and left knee pain. EXAM: X-ray of the pelvis AP view. COMPARISON: None. FINDINGS: There is no evidence of acute fracture or dislocation. There is no significant bone or joint abnormality. Sacroiliac joints are unremarkable. Likely phleboliths seen in the pelvis. IMPRESSION: There is no acute fracture or dislocation. Dictated by: Dictated on workstation # [id number]
--- NOTE | 2016-09-10 15:51 | Diagnostic Imaging Report ---
CLINICAL INDICATION: Patient brought in for weakness. Patient is status post fall. EXAMINATION: X-ray of the left knee, three views. COMPARISON: CT scan of the left lower extremity dated 01/20/2015. FINDINGS: There are postop changes to the left knee with screws involving the distal femur and proximal tibia regions consistent with ACL repair. There appears that the proximal is partially within the bone is noted on the prior CT scan and appears similar. There is no acute fracture or dislocation. There are severely hypertrophic tricompartmental spurs seen. There is [id number] medial compartment narrowing and mild lateral compartment narrowing. There is no significant left knee effusion. There is prepatellar soft tissue swelling. Again seen large cystic mass posterior to the knee noted on the prior CT scan. There is chronic calcification seen posterior to the knee and adjacent to medial and lateral compartments which may represent loose bodies. There is increased calcification in medial and lateral meniscal regions which can be seen with chondrocalcinosis and is noted on the prior CT scan. IMPRESSION: 1: There is no evidence of acute fracture or dislocation. 2: There is severe tricompartmental osteoarthritis of the left knee. 3: Again noted postop changes to the left knee consistent with ACL repair. Of note the femoral screw is partially within the bone. 4: Again seen complex cystic mass posterior to the knee seen on prior imaging. Dictated by: Dictated on workstation # [id number]
--- NOTE | 2016-09-10 15:55 | Diagnostic Imaging Report ---
EXAM: Left shoulder at 3:25. INDICATION: Left shoulder pain. 3 views were obtained. FINDINGS: There is no fracture, dislocation or acute bony abnormality evident. There is only mild degenerative disease of the glenohumeral joint but the humeral head is somewhat more superior in position with respect to the glenoid than usually seen. This appearance may be secondary to an injury to the rotator cuff. There is also at least moderate degenerative disease of the acromioclavicular joint. The soft tissues are unremarkable. IMPRESSION: 1. There is no evidence for acute bony abnormality. 2. If there is clinical concern regarding injury to the rotator cuff, then MRI would be recommended for further study. Dictated by: Dictated on workstation # [id number]
--- NOTE | 2016-09-10 16:04 | Diagnostic Imaging Report ---
CLINICAL INDICATION: Patient status post fall three days ago. EXAM: Axial CT scan of cervical spine without contrast. Coronal and sagittal reformatted images are created. COMPARISON: None. FINDINGS: There is no acute cervical spine fracture or dislocation. There is small anterior spurs involving the mid to lower cervical spine. There is no significant central spinal canal or bony neural foramen narrowing. There is no significant neck soft tissue abnormality. There is no prevertebral soft tissue swelling. Lung apices are clear. IMPRESSION: 1: Minimal cervical spine degenerative disease with no acute fracture or dislocation. Dictated by: Dictated on workstation # [id number]
[2016-09-10] MEDS ORDERED: PROMETHAZINE INJ 25 MG/ML (PHENERGAN) AMP IVP ONE (16:15)
--- NOTE | 2016-09-10 16:27 | ED Neurological Problem ---
General Chief Complaint: Neurological Problems Stated Complaint: FALL, DAZED, SLURRED SPEECH Nursing Triage Note: Pt. has been experiencing left sided weakness x 3 days that has become progressively worse. Pt. advises she fell asleep and believes she awoke on saturday. Pt. is A&O at this time but lethargic. Pt. was taken to CT upon inital arrival to the department at 1243. Nursing Sepsis Screen: No Definite Risk Source: patient, family Exam Limitations: no limitations History of Present Illness Time seen by provider: 12:43 Initial Comments This 56-year-old woman presents to the emergency room accompanied by family with complaints of left-sided weakness and slurred speech. Stroke activation was paged and patient was taken promptly to CT. Patient believes her symptoms actually started on evening (3 or 4 days ago). She remembers attending a local [employer] and returning home. As far as she can recollect she fell asleep on and did not wake up until Saturday. She has a lapse of memory during that period of time. She assumes that she fell as she has left shoulder pain, left knee pain, and sore spots on her head. She also reports neck pain. Her cervical spine was tender on palpation and a c-collar was placed. She believes she ate and changed her clothes on Saturday and Saturday. She remembers being functional within the home on Saturday. Her son came to the home today and patient would not come to the door. After some effort, he was able to get her to unlock the back door. She was ambulatory at that time but son reports her speech was slurred, she appeared dizzy and weak, and was very drowsy. Patient denies any drug or alcohol use. She does take narcotics but denies overuse. She reports feeling diaphoretic and chilled on Saturday but denies any other symptoms of acute infectious illness. NIH stroke score was 8. Patient's family reports she had a visit to nephrology at [facility] last week for hematuria. Allergies and Home Medications Allergies Coded Allergies: Penicillins (Verified Allergy, Intermediate, RASH, 09/10/16) Uncoded Allergies: SULFA (Allergy, Mild, diarrhea, 09/10/16) Home Medications Aspirin 81 Mg Tablet.dr, 81 MG PO HS, (Reported) Cyanocobalamin 100 Mcg Tablet, 100 MCG PO DAILY, (Reported) Duloxetine HCl 60 Mg Capsule.dr, 60 MG PO BID, (Reported) Estradiol 1 Mg Tablet, 1 MG PO HS, (Reported) Gabapentin 300 Mg Capsule, 300 MG PO BID, (Reported) Levothyroxine Sodium 50 Mcg Tablet, 50 MCG PO DAILY, (Reported) Lisinopril/Hydrochlorothiazide 1 Each Tablet, 1 TAB PO HS, (Reported) Loratadine 10 Mg Capsule, 10 MG PO DAILY PRN for allergy, (Reported) Meloxicam 7.5 Mg Tablet, 7.5 MG PO HS, (Reported) Metoprolol Tartrate 50 Mg Tablet, 50 MG PO DAILY, (Reported) Milnacipran HCl 100 Mg Tablet, 100 MG PO BID, (Reported) Multivitamin 1 Each Tablet, 1 TAB PO HS, (Reported) Nitroglycerin 0.4 Mg Tab.subl, 0.4 MG SL UD PRN for CHEST PAIN, (Reported) DISSOLVE 1 TAB UNDER TONGUE EVERY 5 MINUTES / NOT TO EXCEED 3 DOSES IN 15 MINUTES Collins-3/Dha/Epa/Fish Oil 1 Each Capsule, 1,000 MG PO DAILY, (Reported) Ondansetron HCl 4 Mg Tab, 4 MG PO Q8H PRN for NAUSEA/VOMITING, (Reported) Oxycodone HCl 5 Mg Tablet, 5 MG PO Q6H PRN for PAIN, (Reported) Pantoprazole Sodium 40 Mg Tablet.dr, 40 MG PO BID, (Reported) Potassium Chloride 20 Meq Tablet.er, 20 MEQ PO DAILY, (Reported) Pravastatin Sodium 20 Mg Tablet, 20 MG PO DAILY, (Reported) Sennosides/Docusate Sodium 1 Each Tablet, 1 EACH PO, (Reported) Sucralfate 1 Gm/10 Ml Oral.susp, 10 ML PO BID, (Reported) Tramadol HCl 50 Mg Tablet, 50 MG PO Q6H PRN for PAIN, (Reported) Constitutional: see HPI Eyes: No Symptoms Reported Ears, Nose, Mouth, Throat: no symptoms reported Respiratory: no symptoms reported Cardiovascular: no symptoms reported Gastrointestinal: no symptoms reported Genitourinary: no symptoms reported : No Musculoskeletal: see HPI Skin: no symptoms reported Psychiatric/Neurological: See HPI Endocrine: No Symptoms Reported Hematologic/Lymphatic: No Symptoms Reported Past Arerpcu-Eofmbc-Yfxqrr Hx Patient Social History Alcohol Use: Denies Use Recreational Drug Use: No Smoking Status: Current Everyday Smoker Type Used: Cigarettes Recent Foreign Travel: No Contact w/Someone Who Travel: No Recent Infectious Disease Expo: No Recent Hopitalizations: No Seasonal Allergies Seasonal Allergies: Yes Surgeries HX Surgeries: Yes (left knee reconstruction, Ovarian tumor removed) Surgeries: Gallbladder, Hysterectomy Respiratory Hx Respiratory Disorders: No Cardiovascular Hx Cardiac Disorders: Yes Cardiac Disorders: Coronary Artery Disease, Hypertension Neurological Hx Neurological Disorders: Yes Neurological Disorders: TIA Genitourinary Hx Genitourinary Disorders: Yes (Hematuria) Gastrointestinal Hx Gastrointestinal Disorders: Yes Gastrointestinal Disorders: Gastroesophageal Reflux, Hiatal Hernia, Irritable Bowel Musculoskeletal Hx Musculoskeletal Disorders: No Endocrine Hx Endocrine Disorders: Yes Endocrine Disorders: Hypothyroidsim HEENT HX ENT Disorders: No Cancer Hx Cancer: Yes Cancer: Ovarian (Ovarian tumor resected, unknown if malignant) Psychosocial Hx Psychiatric Problems: Yes Behavioral Health Disorders: Depression Integumentary HX Skin/Integumentary Disorder: No Blood Transfusions Hx Blood Disorders: Yes (elevated red blood cells) Physical Exam Vital Signs Vital Sign - Last 12Hours 09/10/16 13:04 Temp 98.9 Pulse 91 Resp 14 B/P (MAP) 147/106 Pulse Ox 98 O2 Delivery Room Air Capillary Refill : Less Than 3 Seconds General Appearance: WD/WN, no apparent distress HEENT: PERRL/EOMI, normal ENT inspection, TMs normal, pharynx normal Neck: supple, normal inspection, No carotid bruit, tender midline (Over cervical spine) Respiratory: lungs clear, normal breath sounds, no respiratory distress, no accessory muscle use Cardiovascular: regular rate, rhythm, no edema, no murmur Gastrointestinal: normal bowel sounds, non tender, soft Back: normal inspection Extremities: no pedal edema, other (Left knee with mild tenderness over the joint space and mild pain with range of motion. Left shoulder with mild tenderness to palpation and mild pain with range of motion.) Neurologic/Psychiatric: alert, normal mood/affect, oriented x 3, motor weakness , No sensory deficit Crainal Nerves: normal hearing, normal speech, PERRL Coordination/Gait: ABN nose to finger (L) Motor/Sensory: weak motor strength LUE, weak motor strength LLE Skin: normal color, warm/dry Stroke NIH Stroke Scale Assessment Level of Consciousness: 0=Alert Level of Consciousness-Questio: 0=Answers both month/age LOC Commands: 0=Performs both tasks Gaze: 0=Normal Visual Garcia: 0=No visual loss Facial Movement (Facial Paresi: 2=Partial paralysis Motor Function-Arms Right: 0=No drift Motor Function-Arms Left: 1=Drift Motor Function-Legs Right: 0=No drift Motor Function-Legs Left: 2=Some effort/gravity Limb Ataxia: 1=Present in one limb Sensory: 1=Mild to Moderate loss Best Language: 0=No aphasia Dysarthria: 1=Mild to moderate loss Extinction & Inattention: 0=No abnormality NIH Stroke Scale Score: 8 Progress/Results/Core Measures Results/Orders Lab Results Laboratory Tests Test 09/10/16 12:54 09/10/16 13:00 09/10/16 14:03 Range/Units White Blood Count 5.2 4.3-11.0 10^3/uL Red Blood Count 4.97 4.35-5.85 10^6/uL Hemoglobin 13.8 11.5-16.0 G/DL Hematocrit 41 35-52 % Mean Corpuscular Volume 83 80-99 FL Mean Corpuscular Hemoglobin 28 25-34 PG Mean Corpuscular Hemoglobin Concent 33 32-36 G/DL Red Cell Distribution Width 13.1 10.0-14.5 % Platelet Count 231 130-400 10^3/uL Mean Platelet Volume 9.4 7.4-10.4 FL Neutrophils (%) (Auto) 57 42-75 % Lymphocytes (%) (Auto) 32 12-44 % Monocytes (%) (Auto) 8 0-12 % Eosinophils (%) (Auto) 4 0-10 % Basophils (%) (Auto) 0 0-10 % Neutrophils # (Auto) 2.9 1.8-7.8 X 10^3 Lymphocytes # (Auto) 1.6 1.0-4.0 X 10^3 Monocytes # (Auto) 0.4 0.0-1.0 X 10^3 Eosinophils # (Auto) 0.2 0.0-0.3 10^3/uL Basophils # (Auto) 0.0 0.0-0.1 10^3/uL Prothrombin Time 13.2 12.2-14.7 SEC INR Comment 1.0 0.8-1.4 Activated Partial Thromboplast Time 27 24-35 SEC D-Dimer 0.70 H 0.00-0.49 UG/ML Sodium Level 143 135-145 MMOL/L Potassium Level 2.8 L 3.6-5.0 MMOL/L Chloride Level 110 H 98-107 MMOL/L Carbon Dioxide Level 22 21-32 MMOL/L Anion Gap 11 5-14 MMOL/L Blood Urea Nitrogen 6 L 7-18 MG/DL Creatinine 0.71 0.60-1.30 MG/DL Estimat Glomerular Filtration Rate > 60 BUN/Creatinine Ratio 8 Glucose Level 127 H 70-105 MG/DL Calcium Level 9.1 8.5-10.1 MG/DL Total Bilirubin 0.5 0.1-1.0 MG/DL Aspartate Amino Transf (AST/SGOT) 19 5-34 U/L Alanine Aminotransferase (ALT/SGPT) 18 0-55 U/L Alkaline Phosphatase 65 40-136 U/L Total Creatine Kinase 42 29-168 U/L Troponin I < 0.30 <0.30 NG/ML Total Protein 6.9 6.4-8.2 G/DL Albumin 3.9 3.2-4.5 G/DL Thyroid Stimulating Hormone (TSH) 4.40 0.35-4.94 UIU/ML Free Thyroxine 1.05 0.70-1.48 NG/DL Glucometer 121 H 70-110 MG/DL Urine Color YELLOW Urine Clarity CLEAR Urine pH 6 5-9 Urine Specific [place] 1.025 H 1.016-1.022 Urine Protein 1+ H NEGATIVE Urine Glucose (UA) NEGATIVE NEGATIVE Urine Ketones NEGATIVE NEGATIVE Urine Nitrite NEGATIVE NEGATIVE Urine Bilirubin NEGATIVE NEGATIVE Urine Urobilinogen NORMAL NORMAL MG/DL Urine Leukocyte Esterase 1+ H NEGATIVE Urine RBC (Auto) 2+ H NEGATIVE Urine RBC RARE /HPF Urine WBC NONE /HPF Urine Crystals N /LPF Urine Bacteria TRACE /HPF Urine Casts NONE /LPF Urine Mucus NEGATIVE /LPF Urine Culture Indicated NO Urine Opiates Screen NEGATIVE NEGATIVE Urine Oxycodone Screen NEGATIVE NEGATIVE Urine Methadone Screen NEGATIVE NEGATIVE Urine Propoxyphene Screen NEGATIVE NEGATIVE Urine Barbiturates Screen NEGATIVE NEGATIVE Ur Tricyclic Antidepressants Screen NEGATIVE NEGATIVE Urine Phencyclidine Screen NEGATIVE NEGATIVE Urine Amphetamines Screen NEGATIVE NEGATIVE Urine Methamphetamines Screen NEGATIVE NEGATIVE Urine Benzodiazepines Screen NEGATIVE NEGATIVE Urine Cocaine Screen NEGATIVE NEGATIVE Urine Cannabinoids Screen NEGATIVE NEGATIVE My Orders Orders - ALVA MARCUS MD Cbc With Automated Diff (09/10/16 12:47) Protime With Inr (09/10/16 12:47) Partial Thromboplastin Time (09/10/16 12:47) Comprehensive Metabolic Panel (09/10/16 12:47) Fibrin Degradation Products (09/10/16 12:47) Troponin I (09/10/16 12:47) Ua Culture If Indicated (09/10/16 12:47) Chest 1 View, Ap/Pa Only (09/10/16 12:47) Accucheck Stat ONCE (09/10/16 12:47) Saline Lock/Iv-Start (09/10/16 12:47) Vital Signs-Stroke Q1H (09/10/16 12:47) O2 (09/10/16 12:47) Intake & Output 06,14,22 (09/10/16 12:47) Monitor-Rhythm Ecg Trace Only (09/10/16 12:47) Dysphagia Screening Tool (09/10/16 12:47) Ns W/Kcl 20 Meq/L (Ns Iv W/Kcl 20 Meq/L) (09/10/16 15:00) Thyroid Stimulating Hormone (09/10/16 15:06) Free T4 (Free Thyroxine) (09/10/16 15:06) Creatine Kinase (09/10/16 15:06) Shoulder, Left, 3 Views (09/10/16 15:06) Knee, Left, 3 Views (09/10/16 15:06) Pelvis (09/10/16 15:06) Drug Screen Stat (Urine) (09/10/16 15:06) Ct Cervical Spine Wo (09/10/16 15:12) Ondansetron Injection (Zofran Injectio (09/10/16 15:29) Promethazine Injection (Phenergan Injec (09/10/16 16:15) Medications Given in ED Current Medications Medications Dose Ordered Sig/Damion Route Start Time Stop Time Status Last Admin Dose Admin Ondansetron HCl 4 mg STK-MED ONCE .ROUTE 09/10/16 15:29 09/10/16 15:33 DC 09/10/16 15:56 8 MG Potassium Chloride/Sodium Chloride 1,000 ml @ 500 mls/hr Q2H ONCE IV 09/10/16 15:00 09/10/16 16:59 DC 09/10/16 15:02 500 MLS/HR Promethazine HCl 12.5 mg ONCE ONCE IVP 09/10/16 16:15 09/10/16 16:16 DC 09/10/16 16:26 12.5 MG Vital Signs/I&O Vital Sign - Last 12Hours 09/10/16 09/10/16 09/10/16 13:04 13:04 13:04 Temp 98.9 Pulse 91 81 Resp 14 14 B/P (MAP) 147/106 147/106 Pulse Ox 98 98 98 O2 Delivery Room Air Room Air Blood Pressure Mean: 120 Point of Care Testing Finger Stick Blood Glucose: 121 Progress Note : Progress Note CT imaging was negative. Patient was found to have a significant hypokalemia. IV replacement was initiated in the ER. Patient had left-sided weakness of both the upper and lower extremity. Left shoulder and left knee were also sore. They were x-rayed and no acute injuries were identified. Patient did not have any slurred speech for this provider. NIH stroke score was 8 as obtained by nursing staff. Repeat was the same. Patient was not a TPA candidate as onset of symptoms may have been as long as 3 or 4 days ago. Patient's symptoms seem to be improving at the time of admission. Her weakness may be multifactorial. An acute neurologic event has not been ruled out but hypokalemia may be a contributing factor. Narcotic use may also be a contributing factor. Case was reviewed with Dr. Edwards who agrees with admission. MRI of the head with contrast will be ordered in the morning. Since no pathology on the ovarian tumor resected is available, small neoplasm of the head should be ruled out with MRI with contrast. Patient had been taken directly to CT upon presentation. After returning to the room and assessment was complete, a c-collar was placed. She was sent back to CT to have the C- spine cleared because of history of possible fall and neck pain. ECG Initial ECG Impression Date: September 10, 2016 Initial ECG Impression Time: 12:58 Initial ECG Rate: 73 Initial ECG Rhythm: Normal Sinus Initial ECG Intervals: Normal Initial ECG Impression: Normal Diagnostic Imaging Diagonstic Imaging: CT Plain Films/CT/US/NM/MRI: head Comments CT head viewed by me and report reviewed. See report below: NAME: JESSICA EATON [facility] REC#: [id number] PT STATUS: ADM IN : 1960 PHYSICIAN: GIAN OCHOA ADMIT DATE: 09/10/16 Signed Date of Exam: 09/10/16 CT HEAD WO-R/O STROKE EXAMINATION: CT of the head without contrast. INDICATION: Weakness, blurred vision. TECHNIQUE: Contiguous axial sections were taken through the skull. COMPARISON: There are no prior studies available for comparison. FINDINGS: There is no mass, shift of the midline, or hemorrhage to suggest an acute intracranial abnormality. The normal tentorial blush is noted. There is no sign of an asymmetric hyperdense vessel. The ventricles are not abnormally dilated. There is mild cortical atrophy present. The degree of atrophy is consistent with the patient's age. The bone windows show no sign of a fracture or of a destructive lesion. The orbits are symmetrical and within normal limits. The sinuses were not visualized in their entirety. Where visualized, there is no acute abnormality. IMPRESSION: 1. There is no evidence for an acute intracranial abnormality and there is no sign of a mass lesion. 2. If clinical concern regarding an underlying abnormality persists, then MRI would be recommended for further study. Dictated by: Dictated on workstation # [id number] Dict: 09/10/16 1312 Trans: 09/10/161808 Interpreted by: THEODORE GALLAGHER MD Electronically signed by: THEODORE GALLAGHER MD 09/10/161808 Diagonstic Imaging: Xray Plain Films/CT/US/NM/MRI: chest Comments Chest x-ray viewed by me and report reviewed. See report below: NAME: JESSICA EATON [facility] REC#: [id number] PT STATUS: ADM IN : 1960 PHYSICIAN: ALVA MARCUS MD ADMIT DATE: 09/10/16 Signed Date of Exam: 09/10/16 CHEST 1 VIEW, AP/PA ONLY CLINICAL INDICATION: Patient with weakness and blurred vision x2 days. EXAM: Portable chest x-ray upright view. COMPARISONS: Chest x-ray dated 09/28/2015. FINDINGS: Lungs/pleura: Slight low lung volumes are seen. Lungs are clear. There is no pneumothorax. There is no pleural effusion. Mediastinum: Unremarkable. Pulmonary vasculature: Unremarkable. Heart: Unremarkable. Bones/extrathoracic soft tissue: Unremarkable. IMPRESSION: Slight low lung volumes are seen. Otherwise, there is no radiographic evidence of acute cardiopulmonary process. Dictated by: Dictated on workstation # [id number] Dict: 09/10/16 1310 Trans: 09/10/161757 Interpreted by: ROHIT JUSTICE MD Electronically signed by: ROHIT JUSTICE MD 09/10/161757 Diagonstic Imaging: Xray Plain Films/CT/US/NM/MRI: other (Left shoulder) Comments Left shoulder x-ray viewed by me and report reviewed. See report below: NAME: JESSICA EATON [facility] REC#: [id number] PT STATUS: ADM IN : 1960 PHYSICIAN: ALVA MARCUS MD ADMIT DATE: 09/10/16 Signed Date of Exam: 09/10/16 SHOULDER, LEFT, 3 VIEWS EXAM: Left shoulder at 3:25. INDICATION: Left shoulder pain. 3 views were obtained. FINDINGS: There is no fracture, dislocation or acute bony abnormality evident. There is only mild degenerative disease of the glenohumeral joint but the humeral head is somewhat more superior in position with respect to the glenoid than usually seen. This appearance may be secondary to an injury to the rotator cuff. There is also at least moderate degenerative disease of the acromioclavicular joint. The soft tissues are unremarkable. IMPRESSION: 1. There is no evidence for acute bony abnormality. 2. If there is clinical concern regarding injury to the rotator cuff, then MRI would be recommended for further study. Dictated by: Dictated on workstation # [id number] Dict: 09/10/16 1537 Trans: 09/10/16 183 Interpreted by: THEODORE GALLAGHER MD Electronically signed by: THEODORE GALLAGHER MD 09/10/16 183 Diagonstic Imaging: Xray Plain Films/CT/US/NM/MRI: pelvis Comments Pelvis x-ray viewed by me and report reviewed. See report below: NAME: JESSICA EATON [facility] REC#: [id number] PT STATUS: ADM IN : 1960 PHYSICIAN: ALVA MARCUS MD ADMIT DATE: 09/10/16 Signed Date of Exam: 09/10/16 PELVIS CLINICAL INDICATION: Patient brought in for weakness status post fall left shoulder pain and left knee pain. EXAM: X-ray of the pelvis AP view. COMPARISON: None. FINDINGS: There is no evidence of acute fracture or dislocation. There is no significant bone or joint abnormality. Sacroiliac joints are unremarkable. Likely phleboliths seen in the pelvis. IMPRESSION: There is no acute fracture or dislocation. Dictated by: Dictated on workstation # [id number] Dict: 09/10/16 1540 Trans: 09/10/161806 Interpreted by: ROHIT JUSTICE MD Electronically signed by: ROHIT JUSTICE MD 09/10/161806 Diagonstic Imaging: Xray Plain Films/CT/US/NM/MRI: knee Comments Left knee x-ray viewed by me and report reviewed. See report below: NAME: JESSICA EATON [facility] REC#: [id number] PT STATUS: ADM IN : 1960 PHYSICIAN: ALVA MARCUS MD ADMIT DATE: 09/10/16 Signed Date of Exam: 09/10/16 KNEE, LEFT, 3 VIEWS CLINICAL INDICATION: Patient brought in for weakness. Patient is status post fall. EXAMINATION: X-ray of the left knee, three views. COMPARISON: CT scan of the left lower extremity dated 01/20/2015. FINDINGS: There are postop changes to the left knee with screws involving the distal femur and proximal tibia regions consistent with ACL repair. There appears that the proximal is partially within the bone is noted on the prior CT scan and appears similar. There is no acute fracture or dislocation. There are severely hypertrophic tricompartmental spurs seen. There is [id number]-[id number] medial compartment narrowing and mild lateral compartment narrowing. There is no significant left knee effusion. There is prepatellar soft tissue swelling. Again seen large cystic mass posterior to the knee noted on the prior CT scan. There is chronic calcification seen posterior to the knee and adjacent to medial and lateral compartments which may represent loose bodies. There is increased calcification in medial and lateral meniscal regions which can be seen with chondrocalcinosis and is noted on the prior CT scan. IMPRESSION: 1: There is no evidence of acute fracture or dislocation. 2: There is severe tricompartmental osteoarthritis of the left knee. 3: Again noted postop changes to the left knee consistent with ACL repair. Of note the femoral screw is partially within the bone. 4: Again seen complex cystic mass posterior to the knee seen on prior imaging. Dictated by: Dictated on workstation # [id number] Dict: 09/10/16 1534 Trans: 09/10/161806 Interpreted by: ROHIT JUSTICE MD Electronically signed by: ROHIT JUSTICE MD 09/10/161806 Diagonstic Imaging: CT Plain Films/CT/US/NM/MRI: c-spine Comments CT C-spine viewed by me and report reviewed. See report below: NAME: JESISCA EATON [facility] REC#: [id number] PT STATUS: ADM IN : 1960 PHYSICIAN: ALVA MARCUS MD ADMIT DATE: 09/10/16 Signed Date of Exam: 09/10/16 CT CERVICAL SPINE WO CLINICAL INDICATION: Patient status post fall three days ago. EXAM: Axial CT scan of cervical spine without contrast. Coronal and sagittal reformatted images are created. COMPARISON: None. FINDINGS: There is no acute cervical spine fracture or dislocation. There is small anterior spurs involving the mid to lower cervical spine. There is no significant central spinal canal or bony neural foramen narrowing. There is no significant neck soft tissue abnormality. There is no prevertebral soft tissue swelling. Lung apices are clear. IMPRESSION: 1: Minimal cervical spine degenerative disease with no acute fracture or dislocation. Dictated by: Dictated on workstation # [id number] Dict: 09/10/16 1556 Trans: 09/10/161758 Interpreted by: ROHIT JUSTICE MD Electronically signed by: ROHIT JUSTICE MD 09/10/161758 Departure Communication Time/Spoke to Admitting Phy: 16:[address] Rika Edwards Impression Impression: Primary Impression: Left-sided weakness Additional Impressions: Hypokalemia Nausea Neck pain Left shoulder pain Qualified Codes: M25.512 - Pain in left shoulder Left knee pain Qualified Codes: M25.562 - Pain in left knee Retrograde amnesia Disposition: ADMITTED INPATIENT Condition: Improved Decision to Admit Reason: Admit from ER (General) Decision to Admit/Date: September 10, 2016 Departure-Patient Inst. Decision time for Depature: 15:30 Referrals: MUSHTAQ QUINTANA MD (PCP/Family) Primary Care Physician ALVA MARCUS MD September 10, 2016 16:27
[2016-09-10] MEDS ORDERED: PROMETHAZINE INJ 25 MG/ML (PHENERGAN) AMP IVP PRN ×2 (18:00→22:00)
[2016-09-10] MEDS ORDERED: ASPIRIN 325 MG (5 GR) TABLET PO ONE (18:00)
[2016-09-10] MEDS ORDERED: ONDANSETRON 4 MG/2 ML (SDV) Z0FRAN IVP PRN (18:00)
[2016-09-10] MEDS ORDERED: D5 1/2 NS W/KCL 40 MEQ/L 1,000 ML IV ONE (20:06)
[2016-09-10] MEDS ORDERED: CATHETER FLUSH 10 ML SYR IV PRN (21:30)
[2016-09-10] MEDS: D5 1/2 NS W/KCL 40 MEQ/L 1,000 ML IV SCH (22:23)
[2016-09-10] MEDS: CATHETER FLUSH 10 ML SYR IV SCH (22:23)
[2016-09-11] MEDS ORDERED: PROMETHAZINE INJ 25 MG/ML (PHENERGAN) AMP IVP PRN
[2016-09-11 03:55] VITALS: BP 112/73
[2016-09-11] MEDS: D5 1/2 NS W/KCL 40 MEQ/L 1,000 ML IV SCH ×4 (04:25→22:04)
[2016-09-11 05:37] LABS: BASOPHILS % (AUTO) 0 % (0-10); EOSINOPHILS # (AUTO) 0.2 10^3/uL (0.0-0.3); EOSINOPHILS % (AUTO) 4 % (0-10); LYMPHOCYTES # (AUTO) 1.7 X 10^3 (1.0-4.0); LYMPHOCYTES % (AUTO) 37 % (12-44); MEAN CORPUSCULAR HEMOGLOBIN 28 PG (25-34); MEAN CORPUSCULAR HGB CONC 33 G/DL (32-36); MEAN CORPUSCULAR VOLUME 85 FL (80-99); MEAN PLATELET VOLUME 10.2 FL (7.4-10.4); MONOCYTES # (AUTO) 0.4 X 10^3 (0.0-1.0); MONOCYTES % (AUTO) 9 % (0-12); NEUTROPHILS # (AUTO) 2.3 X 10^3 (1.8-7.8); NEUTROPHILS % (AUTO) 50 % (42-75); PLATELET COUNT 205 10^3/uL (130-400); RED BLOOD COUNT 3.95 10^6/uL (4.35-5.85); WHITE BLOOD COUNT 4.5 10^3/uL (4.3-11.0)
[2016-09-11 06:02] LABS: ANION GAP 7 MMOL/L (5-14); BLOOD UREA NITROGEN 7 MG/DL (7-18); BUN/CREATININE RATIO 10; CALCIUM 8.2 MG/DL (8.5-10.1); CARBON DIOXIDE 23 MMOL/L (21-32); CHLORIDE 113 MMOL/L (98-107); CREATININE SERUM 0.68 MG/DL (0.60-1.30); GFR ESTIMATED > 60; GLUCOSE 108 MG/DL (70-105); POTASSIUM 3.5 MMOL/L (3.6-5.0); SODIUM 143 MMOL/L (135-145)
[2016-09-11] MEDS: CATHETER FLUSH 10 ML SYR IV SCH ×2 (06:27→13:13)
[2016-09-11 08:00] VITALS: BP 130/74
[2016-09-11] MEDS ORDERED: ASPIRIN 325 MG (5 GR) TABLET PO SCH (09:00)
[2016-09-11] MEDS ORDERED: GADOBUTROL 10 MMOL/10 ML (GADAVIST) VIAL IV ONE (09:45)
--- NOTE | 2016-09-11 10:17 | Diagnostic Imaging Report ---
PROCEDURE: MR imaging of the brain with and without contrast. TECHNIQUE: Multiplanar, multisequence MR imaging of the brain was performed with and without contrast. INDICATION: Left-sided weakness. CONTRAST: 9 mL of Gadovist was administered intravenously. FINDINGS: There is no diffusion restriction to suggest an acute infarct or other diffusion abnormality. The brain parenchyma demonstrates normal signal in the hidalgo and white matter. There is no hydrocephalus. No extra-axial fluid collection. No enhancing mass is seen. The pituitary gland is normal in size. No hypothalamic or pineal region mass. The central vascular flow-voids appear grossly unremarkable. The internal auditory canals and inner ear structures appear grossly unremarkable. IMPRESSION: No acute infarct or enhancing mass. Unremarkable exam. Dictated by: Dictated on workstation # [id number]
--- NOTE | 2016-09-11 10:21 | History & Physical-Hospitalist ---
HPI History of Present Illness: HPI/Chief Complaint CC: Left-sided weakness with possible fall HPI: This is a 56-year-old white female of [facility] but smokes actively the presented to the emergency room with left-sided weakness of unknown duration. Apparently the family found her down had a possible fall at home and was unable to obtain any exact details regarding when the neurological deficit occurred that she reported left-sided weakness that was not there before and was assessed in the emergency room found to be not a TPA thrombolytic candidate so she was admitted placed nothing by mouth MRI has just been completed and neurological deficit the remains his left upper and lower extremity weakness 3/5. I counseled her on smoking cessation and ordered carotid ultrasound in cardiology consultation. Source: patient Exam Limitations: no limitations Date Seen 09/11/16 Attending Physician Rika Edwards MD PCP Seth Goodman MD Referring Physician Date of Admission September 10, 2016 at 16:28 Home Medications & Allergies Home Medications Reviewed patient Home Medication Reconciliation Form Allergies Allergies Coded Allergies Penicillins (Verified Allergy, Intermediate, RASH, 09/10/16) Uncoded Allergies SULFA ( Allergy, Mild, diarrhea, 09/10/16) Past [id number] Hx Patient Social History Employed/Student: unemployed Alcohol Use: Denies Use Recreational Drug Use: No Smoking Status: Current Everyday Smoker Type Used: Cigarettes Physical Abuse Screen: No Sexual Abuse: No Recent Foreign Travel: No Contact w/other who traveled: No Recent Hopitalizations: No Recent Infectious Disease Expo: No Seasonal Allergies Seasonal Allergies: Yes Surgeries HX Surgeries: Yes (left knee reconstruction, Ovarian tumor removed) Surgeries: Gallbladder, Hysterectomy Respiratory Hx Respiratory Disorders: No Cardiovascular Hx Cardiovascular Disorders: Yes Cardiac Disorders: Coronary Artery Disease, Hypertension Neurological Hx Neurological Disorders: Yes Neurological Disorders: TIA Reproductive System Female Reproductive Disorders: Ovarian Cyst Genitourinary Hx Genitourinary Disorders: Yes (Hematuria) Gastrointestinal Hx Gastrointestinal Disorders: Yes Gastrointestinal Disorders: Gastroesophageal Reflux, Hiatal Hernia, Irritable Bowel Musculoskeletal Hx Musculoskeletal Disorders: No Musculoskeletal Disorders: Fibromyalgia Endocrine Hx Endocrine Disorders: Yes Endocrine Disorders: Hypothyroidsim HEENT HX ENT Disorders: No Cancer Hx Cancer: Yes Cancer: Ovarian (Ovarian tumor resected, unknown if malignant) Psychosocial Hx Psychiatric Problems: Yes Behavioral Health Disorders: Depression Integumentary HX Skin/Integumentary Disorder: No Blood Transfusions Hx Blood Disorders: Yes (elevated red blood cells) Family Medical History Family Hx: Cardiovascular disease 19 MOTHER Diabetes mellitus 19 MOTHER Psychosocial problem 19 MOTHER daughter Review of Systems Constitutional: see HPI EENTM: no symptoms reported Respiratory: no symptoms reported, dyspnea on exertion Gastrointestinal: no symptoms reported Genitourinary: no symptoms reported Musculoskeletal: joint pain Skin: no symptoms reported Psychiatric/Neurological: Weakness (left arm and leg) All Other Systems Reviewed Negative Unless Noted: Yes Physical Exam Physical Exam Vital Signs Vital Sign - Last 12Hours 09/10/16 13:04 Temp 98.9 Pulse 91 Resp 14 B/P (MAP) 147/106 Pulse Ox 98 O2 Delivery Room Air Capillary Refill : Less Than 3 Seconds General Appearance: No Apparent Distress, WD/WN, Chronically ill Eyes: Bilateral Eye Normal Inspection, Bilateral Eye PERRL HEENT: PERRL/EOMI, Normal ENT Inspection, Pharynx Normal Neck: Full Range of Motion, Normal Inspection, Non Tender, Supple, Carotid Bruit Respiratory: Chest Non Tender, Lungs Clear, Normal Breath Sounds, No Accessory Muscle Use, No Respiratory Distress Cardiovascular: Regular Rate, Rhythm, No Edema, No Gallop, No JVD, No Murmur, Normal Peripheral Pulses Gastrointestinal: Normal Bowel Sounds, No Organomegaly, No Pulsatile Mass, Non Tender, Soft Back: Normal Inspection, No CVA Tenderness, No Vertebral Tenderness Extremity: Normal Capillary Refill, Normal Inspection, Normal Range of Motion, Non Tender, No Calf Tenderness, No Pedal Edema Neurologic/Psychiatric: Alert, Oriented x3, No Motor/Sensory Deficits, Normal Mood/Affect, Motor Weakness (left arm and left leg 3/5 strength) Skin: Normal Color, Warm/Dry Lymphatic: No Adenopathy Results Results/Procedures Lab Laboratory Tests 09/10/16 12:54 09/11/16 04:25 Assessment/Plan Admission Diagnosis Assessment: Subacute left-sided arm and leg weakness MRI pending not a TPA thrombolytic candidate Active smoker Hyperlipidemia Hypertension TIA in the past Assessment and Plan Plan: Follow up on MRI results PT/OT Inpatient rehabilitation eval Reconcile all home meds Pain control Carotid ultrasound Cardiology consultation Clinical Quality Measures DVT/VTE Risk/Contraindication: Risk Factor Score Per Nursin RFS Level Per Nursing on Admit: 3=High DUC KENNEY DO September 11, 2016 10:21
[2016-09-11 10:35] LABS: CHOLESTEROL 154 MG/DL (< 200); DIRECT LDL 100 MG/DL (1-129); TRIGLYCERIDES 151 MG/DL (<150); VLDL CHOLESTEROL 30 MG/DL (5-40)
[2016-09-11 12:00] VITALS: BP 136/80
[2016-09-11] MEDS ORDERED: NITROGLYCERIN SUBLINGUAL 0.4 MG TAB (NITROSTAT) SL PRN (12:15)
[2016-09-11] MEDS ORDERED: SENNA W/DOCUSATE (SENOKOT S) TABLET PO PRN (12:15)
--- NOTE | 2016-09-11 13:17 | Diagnostic Imaging Report ---
PROCEDURE: US Carotid Duplex Bilateral. TECHNIQUE: Multiple real-time grayscale images were obtained over the carotid arteries in various projections bilaterally. Additional duplex Doppler and color Doppler images were also obtained. INDICATION: Left-sided weakness, possible CVA. COMPARISON: None. DISCUSSION: Sonographic evaluation of the common and internal carotid arteries and bilateral vertebral arteries was performed with a linear transducer. Images were assessed for grayscale appearance, spectral and color Doppler blood flow. No significant atherosclerotic plaque identified within either carotid bifurcation. Normal flow velocities are present bilaterally. Normal antegrade flow within the bilateral vertebral arteries. Normal ICA/CCA ratios measuring 1.1 on the right and 1.1 on the left. IMPRESSION: 1. The bilateral carotid bifurcations are widely patent. Dictated by: Dictated on workstation # [id number]
--- NOTE | 2016-09-11 15:02 | Occupational Therapy Eval ---
OT Evaluation-General/PLF Medical Diagnosis Admission Date September 10, 2016 at 16:28 Medical Diagnosis: CVA with left sided weakness Onset Date: September 10, 2016 Therapy Diagnosis Therapy Diagnosis: Decreased ADL skills Height/Weight Height (Feet): 5 Height (Inches): 5.00 Weight (Pounds): 213 Weight (Ounces): 0.0 Precautions Precautions/Isolations: Fall Prevention, Standard Precautions Referral Physician: Dr. Rodriguez Referral Reason: Activity Tolerance, Self Care, Evaluation/Treatment, Strengthening/ROM Medical History Pertinent Medical History: CAD, GERD, HTN Additional Medical History Left knee reconstruction, hysterectomy Current History Pt. states that she does not remember how she got here, or what happened to her. Admit note states that she was found face down at home. Reviewed History: Yes Social History Home: Single Level Current Living Status: Alone Entry Into Home: Stairs With Railing Steps Into Home: 4 ADL-Prior Level of Function ADL PLOF Comments Pt. states that she was independent with ADLs and daily living prior to this event. Does not work. DME/Equipment: Tub/Shower DME/Equipment Comments Pt. states that she does have a walker, but does not have anything else, and does not use her walker. Drive Self: Yes OT Current Status Subjective Pt. states that she is "sore all over." Does not give a pain level. States that she feels that she maybe hit her head, or her left arm. Appearance Pt. in bed. Awake and alert. Agrees to shower. Mental Status/Objective Patient Orientation: Person, Place Current Glasses/Contacts: Yes Hand Dominance: Right Upper Extremity ROM Right- WFL Left- slow and only able to flex shoulder to approximately 90 degrees. Upper Extremity Coordination right- intact lefty-impaired. Upper Extremity Strength Right- WFL Left- 2+/5 proximally 3/5 distally ADL-Treatment Functional [place] Measure 0=Not Assessed/NA 4=Minimal Assistance 1=Total Assistance 5=Supervision or Setup 2=Maximal Assistance 6=Modified [place] 3=Moderate Assistance 7=Complete IndependenceIRFPAI Quality Coding Scale 6 Independent with activity with or without an assistive device 5 Patient requires set up or clean up by helper. Patient completes activity by themselves 4 Supervision or touching assist (CGA). [place] provide cues , steadying assist 3 The helper provides less than half the effort to complete the activity 2 The helper provides more than half the effort to complete the activity 1 Dependent. The helper does all the effort to complete an activity 7 Patient refused to complete or attempt activity 9 The patient did not perform the activity before the current illness or injury 88 Not attempted due to Medical conditions or safety concerns Grooming (FIM): 5 (Pt. is able to brush hair after set up.) Bathing (FIM): 4 (Pt. requires CGA during standing tasks for balance.) Upper Body Dressing (FIM): 5 (SBA to doff shirt and bra.) Lower Body Dressing (FIM): 5 (Pt. able to doff and don socks, but is slow and requires increased time and tries.) Toileting (FIM): 5 Transfers (B, C, W/C) (FIM): 4 (CGA with IV pole for support.) Toilet/Commode Transfer (FIM): 4 Shower Transfer (FIM): 4 Other Treatments Pt. demonstrates left sided weakness and difficulty safely ambulating. Requires CGA and supervision for safety. Pt. requires increased time with ADL tasks. Education OT Patient Education: Correct positioning, Modified ADL techniques, Progress toward Goal/Update tx plan, Purpose of tx/functional activities, Reviewed precautions, Rehab process, Transfer techniques Teaching Recipient: Patient Teaching Methods: Demonstration, Discussion Response to Teaching: Verbalize Understanding, Return Demonstration OT Short Term Goals Short Term Goals 1=Demonstrate adherence to instructed precautions during ADL tasks. 2=Patient will verbalize/demonstrate understanding of assistive devices/ modifications for ADL. 3=Patient will improve strength/tolerance for activity to enable patient to perform ADL's. OT Fdc Goals It Architecture Analyst Goals Time Frame: Sep 18, 2016 Eating (FIM): 6 Grooming(FIM): 6 Bathing(FIM): 6 Upper Body Dressing(FIM): 6 Lower Body Dressing(FIM): 6 Toileting(FIM): 6 Transfers (B,C,W/C) (FIM): 6 Toilet/Commode Transfer(FIM): 6 Shower Transfer(FIM): 6 Additional Goals: 1-Demonstrate ADL Tasks, 2-Verbalize Understanding, 3- ImproveStrength/Joe 1=Demonstrate adherence to instructed precautions during ADL tasks. 2=Patient will verbalize/demonstrate understanding of assistive devices/ modifications for ADL. 3=Patient will improve strength/tolerance for activity to enable patient to perform ADL's. OT Education/Plan Problem List/Assessment Assessment: Decreased Activ Tolerance, Decreased UE Strength, Dependent Transfers, Impaired Coordination, Impaired Funct Balance, Impaired I ADL's, Impaired Self-Care Skills, Restricted Funct UE ROM Discharge Recommendations Plan/Recommendations: Continue POC Therapy D/C Recommendations: Home w/ Family Support, Occupational Therapy Home Care, Scheduled Assistance Equpiment Recommendations-D/C: Extended Bath Bench Target Placement Pt. would benefit from another week of therapy. Pt. would benefit from inpatient rehab, or home with family and therapy if family is able to be with her. Treatment Plan/Plan of Care Treatment,Training & Education: Yes Patient would benefit from OT for education, treatment and training to promote independence in ADL's, mobility, safety and/or upper extremity function for ADL' s. Plan of Care: ADL Retraining, Functional Mobility, UE Funct Exercise/Act Treatment Duration: Sep 18, 2016 Visits Per Week: 5-6 Rehab Potential: Good Time/GCodes Start Time: 13:15 Stop Time: 14:05 Total Time Billed (hr/min): 50 Billed Treatment Time 1, EVmod x 15minutes, ADL x 35minutes MIA ESCALANTE OT September 11, 2016 15:02
--- NOTE | 2016-09-11 15:12 | Physical Therapy Evaluation ---
PT Evaluation-General Medical Diagnosis Admission Date September 10, 2016 at 16:28 Medical Diagnosis: hypokalemia Onset Date: September 10, 2016 Therapy Diagnosis Therapy Diagnosis: generalized weakness/debility Height/Weight Height (Feet): 5 Height (Inches): 5.00 Weight (Pounds): 213 Weight (Ounces): 0.0 Precautions Precautions/Isolations: Fall Prevention, Standard Precautions Referral Physician: Michael Reason for Referral: Evaluation/Treatment Medical History Pertinent Medical History: CAD, GERD, HTN, Hypothroidism Additional Medical History TIA Current History left sided weakness x 3 days, slurred speech; does not remember 3 days with left sided pain secondary to a possible fall; appears drowsy Reviewed History: Yes Social History Home: Single Level Current Living Status: Alone Entry Into Home: Stairs With Railing PT Steps Into Home: 3 Prior/Core FIM Prior Level of Function Functional [place] Measure 0=Not Assessed/NA 4=Minimal Assistance 1=Total Assistance 5=Supervision or Setup 2=Maximal Assistance 6=Modified [place] 3=Moderate Assistance 7=Complete [place] Bed Mobility: 7 Transfers (B,C,W/C) (FIM): 7 Gait: 7 Locomotion: 7 PT Evaluation-Current Subjective Patient agrees to PT. Patient states she is feeling better than when she came in. Pain Numeric Pain Scale: 5-Moderate Pain Location: Left Location Body Site: Knee Pain Description: Ache, Acute Pt/Family Goals return to home Objective Patient Orientation: Normal For Age Problem Solving: Good Attachments: IV ROM/Strength ROM Lower Extremities bilateral LE WFL Strenght Lower Extremities right knee flexion/extension 4+/5; hip flexion 4+/5; ankle dorsi/plantarflexion 4+/5 left knee flexion/extension 3/5; hip flexion 3/5; ankle dorsi/plantarflexion 3/5 Integumentary/Posture Integumentary refer to nursing notes Bowel Incontinence: No Bladder Incontinence: No Posture slightly kyphotic with head lean to left in sit and stand Neuromuscular (Tone, Coordination, Reflexes) diminished coordination left LE with ambulation and all mobility Sensory Vision: Functional (reading glasses) Hearing: Functional Hand Dominance: Right Sensation Right Lower Extremit: Intact Sensation Left Lower Extremity: Intact Transfers Functional [place] Measure 0=Not Assessed/NA 4=Minimal Assistance 1=Total Assistance 5=Supervision or Setup 2=Maximal Assistance 6=Modified [place] 3=Moderate Assistance 7=Complete [place] Transfers (B, C, W/C) (FIM): 3 Scootin Rollin Supine to/from Sit: 3 Sit to/from Stand: 4 assist with bilateral LE's into bed; CGA with sit to stand for safety Gait Mode of Locomotion: Walk Anticipated Mode of Locomotion: Walk Gait (FIM): 4 Distance (FIM): 3=150 ft Distance: 150' Gait Level of Assist: 4 Gait Persons Needed: 1 Gait Assistive Device: FWW Comments/Gait Description slow; slight left LE lag with step to pattern Balance Sitting Static: Normal Sitting Dynamic: Normal Standing Static: Fair Standing Dynamic: Fair Assessment/Needs 56 y.o. female, with previous TIA, will benefit from skilled PT to address functional strength and mobility to improve current LOF and to safely return to home at independent LOF. From a PT standpoint, patient has noted deficit in left LE and with gross motor skills to safely return to home at this time. Rehab Potential: Good PT Palliative Care Coordinator Goals Alf Goals PT Palliative Care Coordinator Goals Time Frame: Sep 25, 2016 Transfers (B,C,W/C) (FIM): 7 Gait (FIM): 7 Gait distance (FIM): 3=150 ft Gait Level of Assist: 7 Gait Assistive Device: None Stairs (FIM): 7 # of Steps: 12 Stairs Level Of Assist: 7 PT Plan Problem List Problem List: Activity Tolerance, Functional Strength, Balance, Gait, Bed Mobility Treatment/Plan Treatment Plan: Continue Plan of Care Treatment Plan: Bed Mobility, Education, Functional Activity Joe, Functional Strength, Gait, Safety, Therapeutic Exercise, Transfers Treatment Duration: Sep 25, 2016 # of days/week 6 Visits Per Week: 11 Pt/Family Agrees w/Plan: Yes Safety Risks/Education Patient Education: Safety Issues Teaching Recipient: Patient, Family Teaching Methods: Discussion Response to Teaching: Verbalize Understanding Discharge Recommendations Therapy D/C Recommendations: Acute Rehab Time/GCodes Time In: 1445 Time Out: 1505 Total Billed Treatment Time: 20 Total Billed Treatment 1 visit EVModC 20 min CHAYA [place]NA[place] PT September 11, 2016 15:11
[2016-09-11 15:36] VITALS: BP 145/78
--- NOTE | 2016-09-11 16:31 | Consultation-Cardiology ---
HPI-Cardiology Cardiology Consultation: Date of Consultation 09/11/16 Date of Admission Attending Physician Rika Edwards MD Admitting Physician Seth Goodman MD Consulting Physician Frantz SIMMONS MD HPI: Chief Complaint: Possible stroke This is a 56-year-old lady who has history of hyperlipidemia and hypertension. She presents with unclear history of unconsciousness for 2 days. She has left- sided weakness which apparently has been there from before as well. She was not found to be a TPA candidate. Carotid ultrasound is negative and brain MRI does not show any acute stroke. She denies any cardiac symptoms at present. However she's had palpitations in the past. Review of Systems-Cardiology Review of Systems Constitutional: No As described under HPI, No no symptoms reported, No chills, No fever, No lightheadedness, No malaise, No tiredness, No weight loss, No weight gain, No other Eyes: No As described under HPI, No no symptoms reported, No blindness, No blurred vision, No contact lenses, No drainage, No decreased acuity, No foreign body sensation, No glasses, No inflammation, No pain, No photophobia, No previous injury, No shadows, No tunnel vision, No other, No vision change Ears/Nose/Throat: No As described under HPI, No no symptoms reported, No chronic hearing loss, No epistaxis, No ear discharge, No ear pain, No loose teeth, No mouth pain, No mouth swelling, No nasal drainage, No nose pain, No recent hearing loss, No throat pain, No throat swelling, No ulcerations, No other Respiratory: No no symptoms reported, No As described under HPI, No cough, No orthopnea, No shortness of breath, No SOB with excertion, No SOB at rest, No stridor, No wheezing, No other Cardiovascular: palpitations Gastrointestinal: No no symptoms reported, No As described under HPI, No abdomen distended, No abdominal pain, No blood streaked bowels, No constipation , No diarrhea, No difficulty swallowing, No nausea, No poor appetite, No poor fluid intake, No rectal bleeding, No vomiting, No other, No nausea/vomiting/ diarrhea, No stool coloration changes Genitourinary: No no symptoms reported, No As described under HPI, No burning, No dysuria, No discharge, No frequency, No flank pain, No hematuria, No incontinence, No pain, No urgency, No other, No urine frequency changes, No urine coloration changes : No Skin: No no symptoms reported, No As described under HPI, No change in color, No change in hair/nails, No dryness, No lesions, No lumps, No rash, No other, No skin related problems, No ulcerations, No rash on exposed areas, No ulcerations on exposed areas Psychiatric/Neurological: As described under HPI All Other Systems Reviewed Negative Unless Noted: Yes BTV-Frpzyj-Guiozs Hx Patient Social History Employed/Student: unemployed Alcohol Use: Denies Use Recreational Drug Use: No Smoking Status: Current Everyday Smoker Type Used: Cigarettes Recent Foreign Travel: No Recent Infectious Disease Expo: No Physical Abuse Screen: No Sexual Abuse: No Past Medical History PMH As described under Assessment. Family Medical History Family History: Cardiovascular disease 19 MOTHER Diabetes mellitus 19 MOTHER Psychosocial problem 19 MOTHER daughter Allergies and Home Medications Allergies Coded Allergies: Penicillins (Verified Allergy, Intermediate, RASH, 09/10/16) Uncoded Allergies: SULFA (Allergy, Mild, diarrhea, 09/10/16) Home Medications Aspirin 81 Mg Tablet.dr, 81 MG PO HS, (Reported) Cyanocobalamin 100 Mcg Tablet, 100 MCG PO DAILY, (Reported) Duloxetine HCl 60 Mg Capsule.dr, 60 MG PO BID, (Reported) Estradiol 1 Mg Tablet, 1 MG PO HS, (Reported) Gabapentin 300 Mg Capsule, 300 MG PO BID, (Reported) Levothyroxine Sodium 50 Mcg Tablet, 50 MCG PO DAILY, (Reported) Lisinopril/Hydrochlorothiazide 1 Each Tablet, 1 TAB PO HS, (Reported) Loratadine 10 Mg Capsule, 10 MG PO DAILY PRN for ALLERGIES, (Reported) Meloxicam 7.5 Mg Tablet, 7.5 MG PO HS, (Reported) LAST FILLED 07/28/16 #30 Metoprolol Tartrate 50 Mg Tablet, 50 MG PO BID, (Reported) Milnacipran HCl 100 Mg Tablet, 100 MG PO BID, (Reported) Multivitamin 1 Each Tablet, 1 TAB PO HS, (Reported) Nitroglycerin 0.4 Mg Tab.subl, 0.4 MG SL UD PRN for CHEST PAIN, (Reported) DISSOLVE 1 TAB UNDER TONGUE EVERY 5 MINUTES / NOT TO EXCEED 3 DOSES IN 15 MINUTES [place]-3/Dha/Epa/Fish Oil 1 Each Capsule, 1,000 MG PO DAILY, (Reported) Pantoprazole Sodium 40 Mg Tablet.dr, 40 MG PO BID, (Reported) LAST FILLED 07/28/16 #60 Potassium Chloride 20 Meq Tablet.er, 20 MEQ PO DAILY, (Reported) Pravastatin Sodium 20 Mg Tablet, 20 MG PO DAILY, (Reported) Sennosides/Docusate Sodium 1 Each Tablet, 1 TAB PO DAILY PRN for CONSTIPATION- 6TH LINE, (Reported) Sucralfate 1 Gm/10 Ml Oral.susp, 10 ML PO BID, (Reported) Physical Exam-Cardiology Physical Exam Vital Signs/I&O Vital Sign - Last 12Hours 09/11/16 09/11/16 09/11/16 09/11/16 07:47 08:00 12:00 12:48 Temp 98.2 97.1 Pulse 68 63 53 57 Resp 20 20 B/P (MAP) 130/74 136/80 Pulse Ox 97 100 09/11/16 15:36 Temp 96.6 Pulse 79 Resp 20 B/P (MAP) 145/78 Pulse Ox 99 Intake and Output 09/11/16 00:00 Intake Total 1100 ml Output Total 400 ml Balance 700 ml Capillary Refill : Less Than 3 Seconds Constitutional: No appears stated age, No AAO x 3, No apparent distress, No PERRL, No well-developed, No well-nourished, No other HEENT: No PERRL, No normal ENT inspection, No TMs normal, No pharynx normal, No scleral icterus (R), No scleral icterus (L), No pale conjunctivae (R), No pale conjunctivae (L), No photophobia, No TM abnormal (R), No TM abnormal (L), No pharyngeal erythema, No tonsillar exudate, No other, No discharge, No EOMI, No hearing is well preserved, No hard of hearing, No oral hygience is good, No ulceration, No xanthelasmas are seen Neck: No non-tender, No full range of motion, No supple, No normal inspection, No carotid bruit, No limited range of motion, No lymphadenopathy (R), No lymphadenopathy (L), No tender lateral, No tender midline, No thyromegaly, No other, No carotid pulses are 2 + bilaterally, No with good upstrokes Respiratory: No accessory muscle use, No respiratory distress, No chest tender , No chest expansion is symmetric, No chest is bilaterally symmetric, No lungs clear to percussion, No lungs clear to auscultation, No crackles, No rhonchi, No rales, No stridor, No wheezing, No pleural rub, No other Cardiovascular: No regular rate-rhythm, No irregularly irregular, No extra beats, No parasternal heave is noted, No JVD, No edema, No bradycardia, No tachycardia, No point of maximal impulse, No cardiac thrills are palpable, No S1 and S2, No gallop/S3, No gallop/S4, No diastolic murmur, No systolic murmur, No friction rub, No click, No other Gastrointestinal: No tender, No soft, No round, No distended, No pulsatile mass , No organomegaly, No guarding, No rebound, No tenderness, No hernia, No mass, No audible bowel sounds, No abnormal bowel sounds, No abdominal bruits, No spleenomegaly, No other Rectal: deferred Extremities: No normal range of motion, No non-tender, No normal inspection, No pedal edema, No calf tenderness, No normal capillary refill, No pelvis stable , No calf tenderness, No inflammation, No pedal edema, No slow capillary refill , No swelling, No other, No abrasion, No clubbing, No cyanosis, No ecchymosis, No laceration, No no lower extremity edema bilateral, No significant edema, No tenderness, No wound Neurologic/Psychiatric: No tinter photograph II-XII nml as tested, No no motor/sensory deficits, No alert, No normal mood/affect, No oriented x 3, No abnormal cerebellar tests, No abnormal tinter photograph II-XII, No abnormal gait, No aphasia, No EOM palsy, No facial droop, No motor weakness, No sensory deficit, No depressed affect, No disoriented x 3, No other, No grossly intact, No power is 5/5 both on sides Skin: No normal color, No warm/dry, No cyanosis, No cool, No diaphoresis, No damp, No ecchymosis, No jaundice, No mottled, No pallor, No rash, No tattoos/ piercings, No ulcerations, No rash on exposed areas, No ulcerations on exposed areas, No other Data Review Labs Laboratory Tests 09/11/16 04:25: White Blood Count 4.5, Red Blood Count 3.95L, Hemoglobin 11.1L, Hematocrit 34L, Mean Corpuscular Volume 85, Mean Corpuscular Hemoglobin 28, Mean Corpuscular Hemoglobin Concent 33, Red Cell Distribution Width 13.0, Platelet Count 205, Mean Platelet Volume 10.2, Neutrophils (%) (Auto) 50, Lymphocytes (%) (Auto) 37 , Monocytes (%) (Auto) 9, Eosinophils (%) (Auto) 4, Basophils (%) (Auto) 0, Neutrophils # (Auto) 2.3, Lymphocytes # (Auto) 1.7, Monocytes # (Auto) 0.4, Eosinophils # (Auto) 0.2, Basophils # (Auto) 0.0, Sodium Level 143, Potassium Level 3.5L, Chloride Level 113H, Carbon Dioxide Level 23, Anion Gap 7, Blood Urea Nitrogen 7, Creatinine 0.68, Estimat Glomerular Filtration Rate > 60, BUN/ Creatinine Ratio 10, Glucose Level 108H, Calcium Level 8.2L, Triglycerides Level 151H, Cholesterol Level 154, LDL Cholesterol Direct 100, VLDL Cholesterol 30, HDL Cholesterol 26L A/P-Cardiology Assessment/Admission Diagnosis History of loss of consciousness, questionable stroke. Plan Physical 56-year-old lady with history of hypertension and hyperlipidemia. Questionable history of loss of consciousness, questionable history of stroke. Brain MRI does not show acute stroke. Carotid ultrasound negative. Unclear diagnosis. I will defer to the primary team for directions on what the primary diagnosis is. If the primary diagnoses as cryptogenic stroke then she may need to be on a 30 day event monitor as an outpatient. Continue same treatment for hypertension and hyperlipidemia. Cardiology will continue to follow. Thank you for your consultation. Please call me if you have any questions. Ahmet Simmons MD, FACP, FACC, FSCAI, FHRS, CCDS Interventional Cardiology Cardiac Electrophysiology Vascular Medicine and Endovascular Interventions Clinical Quality Measures DVT/VTE Risk/Contraindication: Risk Factor Score Per Nursin RFS Level Per Nursing on Admit: 3=High Frantz SIMMONS MD September 11, 2016 4:31 pm
--- NOTE | 2016-09-11 19:25 | ECHOCARDIOGRAPHY REPORT ---
DATE OF SERVICE: 09/11/2016 ATTENDING PHYSICIAN: Dr. Rika Edwards ORDERING PHYSICIAN: Dr. Mckeon PRIMARY PHYSICIAN: Dr. Seth Goodman DIAGNOSIS: Possible stroke. FINDINGS: 1. This is a technically difficult study with various images which are limited. 2. Sinus rhythm. 3. Left atrial dimensions are normal. 4. Left ventricular systolic function is preserved. Left ventricular ejection fraction is 55%. No LVH is present. 5. There are no wall motion abnormalities. 6. Right heart dimensions are normal. Right ventricular function is normal. 7. There is no evidence of pericardial effusion. 8. Diastolic function is normal. 9. IVC is normal. VALVULAR STRUCTURE OF THE HEART: There is mild tricuspid regurgitation. PA pressure was not measured. There is no significant mitral or aortic valve pathology. The pulmonic valve is not well visualized. CONCLUSION: 1. This is a technically difficult study. 2. LV and RV size and function is normal. 3. LVEF is normal. 4. There is no significant valvular heart disease. 5. Transthoracic echocardiogram has moderate sensitivity to rule out cardiac source of embolization. If there is high clinical suspicion, then transesophageal echocardiogram is recommended. Job ID: [id number] DocumentID: [id number] Dictated Date: 09/11/2016 15:48:34 Trials Manager Date: 09/11/2016 18:27:16 Dictated By: JERICA MCKEON MD [facility]
[2016-09-11 19:41] VITALS: BP 149/89
[2016-09-11] MEDS: DULoxetine 30 MG (CYMBALTA) CAP PO SCH (20:11)
[2016-09-11] MEDS: PANTOPRAZOLE 40 MG (PROTONIX) TAB PO SCH (20:12)
[2016-09-11] MEDS: GABAPENTIN 300 MG (NEURONTIN) CAP PO SCH (20:12)
[2016-09-11] MEDS: SUCRALFATE 1 GM (CARAFATE) TAB PO SCH (20:12)
[2016-09-11] MEDS: meTOprolol TARTRATE 50 MG (LOPRESSOR) TAB PO SCH (20:13)
[2016-09-11] MEDS ORDERED: MULTIVIT W/MINERALS TAB (THERAGRAN M) PO SCH (21:00)
[2016-09-11] MEDS ORDERED: MELOXICAM 7.5 MG (MOBIC) TABLET PO SCH (21:00)
[2016-09-11] MEDS ORDERED: lisINopril 10 MG (PRINIVIL) TAB PO SCH (21:00)
[2016-09-11] MEDS ORDERED: ASPIRIN E.C. 81 MG (ECOTRIN) TAB PO SCH (21:00)
[2016-09-11] MEDS ORDERED: SIMvastatin 10 MG (ZOCOR) TAB PO SCH (21:00)
[2016-09-11] MEDS ORDERED: ESTRADIOL 1 MG TAB (ESTRACE) PO SCH (21:00)
[2016-09-11] MEDS ORDERED: NON-FORMULARY MEDICATION 1 EA EA (Milnacipran HCl (Savella) 100 MG) PO SCH (21:00)
[2016-09-11] MEDS ORDERED: HYDROCHLOROTHIAZIDE 12.5 MG (HCTZ) CAP PO SCH (21:00)
[2016-09-12 00:10] VITALS: BP 158/80
[2016-09-12] MEDS: CATHETER FLUSH 10 ML SYR IV SCH ×2 (00:26→06:04)
[2016-09-12 04:45] VITALS: BP 154/82
[2016-09-12] MEDS: D5 1/2 NS W/KCL 40 MEQ/L 1,000 ML IV SCH (06:04)
[2016-09-12] MEDS ORDERED: THIAMINE 100 MG (VITAMIN B-1) TAB PO SCH (07:00)
[2016-09-12] MEDS ORDERED: KCL 20 MEQ TAB (K-DUR) PO SCH (07:00)
--- NOTE | 2016-09-12 07:47 | Discharge Summary-Hospitalist ---
Diagnosis/Chief Complaint Date of Admission September 10, 2016 at 16:28 Date of Discharge Admission Diagnosis Assessment: Subacute left-sided arm and leg weakness MRI pending not a TPA thrombolytic candidate Active smoker Hyperlipidemia Hypertension TIA in the past Discharge Diagnosis Assessment: Subacute left-sided arm and leg weakness MRI negative not a TPA thrombolytic candidate but classified with neurology assessment via phone call as TIA extension on same site as previous TIA and/or RHIND Active smoker Hyperlipidemia Hypertension TIA in the past affecting the same side Plan: Follow up on MRI results PT/OT Inpatient rehabilitation eval Reconcile all home meds Pain control Carotid ultrasound Cardiology consultation plavix addition Reason Hospital Visit/Course CC: Left-sided weakness with possible fall HPI: This is a 56-year-old white female of [facility] but smokes actively the presented to the emergency room with left-sided weakness of unknown duration. Apparently the family found her down had a possible fall at home and was unable to obtain any exact details regarding when the neurological deficit occurred that she reported left-sided weakness that was not there before and was assessed in the emergency room found to be not a TPA thrombolytic candidate so she was admitted placed nothing by mouth MRI has just been completed and neurological deficit the remains his left upper and lower extremity weakness 3/5. I counseled her on smoking cessation and ordered carotid ultrasound in cardiology consultation. Note from 09/12/16: Pt about the same and has been approved to go to IRU so those orders were placed. Updated daughter and patient regarding the extension of the TIA she has had in the past and gave copies of MRI and carotid USG and also conferred with Neurology Dr Cao who graciously provided his expertise in classifying this as extension of the TIA she has had in the past and add Plavix and aggressively cease smoking. I answered all of the patient's questions and daughter was taking notes while I was updating them and RN was in room. Discharge Summary Discharge Physical Examination Allergies: Coded Allergies: Penicillins (Verified Allergy, Intermediate, RASH, 09/10/16) Uncoded Allergies: SULFA (Allergy, Mild, diarrhea, 09/10/16) Vitals & I&Os Vital Signs Date Time Temp Pulse Resp B/P (MAP) Pulse Ox O2 Delivery O2 Flow Rate FiO2 09/12/16 08:00 97.7 53 16 126/68 97 09/10/16 13:04 Room Air Discharge Home Medications: Active Scripts Active Plavix (Clopidogrel Bisulfate) 75 Mg Tablet 75 Mg PO DAILY 30 Days Reported Senokot-S Tablet (Sennosides/Docusate Sodium) 1 Each Tablet 1 Tab PO DAILY PRN Potassium Chloride 20 Meq Tablet.er 20 Meq PO DAILY Lopressor (Metoprolol Tartrate) 50 Mg Tablet 50 Mg PO BID Claritin (Loratadine) 10 Mg Capsule 10 Mg PO DAILY PRN Levothyroxine Sodium 50 Mcg Tablet 50 Mcg PO DAILY Pantoprazole Sodium 40 Mg Tablet.dr 40 Mg PO BID LAST FILLED 07/28/16 #60 Gabapentin 300 Mg Capsule 300 Mg PO BID Pravastatin Sodium 20 Mg Tablet 20 Mg PO DAILY Meloxicam 7.5 Mg Tablet 7.5 Mg PO HS LAST FILLED 07/28/16 #30 Nitrostat (Nitroglycerin) 0.4 Mg Tab.subl 0.4 Mg SL UD PRN DISSOLVE 1 TAB UNDER TONGUE EVERY 5 MINUTES / NOT TO EXCEED 3 DOSES IN 15 MINUTES Estrace Tablet (Estradiol) 1 Mg Tablet 1 Mg PO HS Lisinopril-Hctz 10-12.5 mg Tab (Lisinopril/Hydrochlorothiazide) 1 Each Tablet 1 Tab PO HS Cymbalta (Duloxetine HCl) 60 Mg Capsule.dr 60 Mg PO BID Carafate (Sucralfate) 1 Gm/10 Ml Oral.susp 10 Ml PO BID Aspirin EC (Aspirin) 81 Mg Tablet.dr 81 Mg PO HS Multivitamins (Multivitamin) 1 Each Tablet 1 Tab PO HS Vitamin B-12 (Cyanocobalamin) 100 Mcg Tablet 100 Mcg PO DAILY Savella (Milnacipran HCl) 100 Mg Tablet 100 Mg PO BID Fish Oil 1,000 mg Softgel ([place]-3/Dha/Epa/Fish Oil) 1 Each Capsule 1,000 Mg PO DAILY Instructions to patient/family Please see electonic discharge instructions given to patient. Clinical Quality Measures DVT/VTE Risk/Contraindication: Risk Factor Score Per Nursin RFS Level Per Nursing on Admit: 3=High DUC KENNEY DO September 12, 2016 07:47
[2016-09-12] MEDS ORDERED: CLOP75TA69 PO (07:49)
[2016-09-12] MEDS: meTOprolol TARTRATE 50 MG (LOPRESSOR) TAB PO SCH (07:58)
[2016-09-12] MEDS: GABAPENTIN 300 MG (NEURONTIN) CAP PO SCH (07:58)
[2016-09-12] MEDS: SUCRALFATE 1 GM (CARAFATE) TAB PO SCH (07:58)
[2016-09-12] MEDS: PANTOPRAZOLE 40 MG (PROTONIX) TAB PO SCH (07:59)
[2016-09-12 08:00] VITALS: BP 126/68
[2016-09-12] MEDS: DULoxetine 30 MG (CYMBALTA) CAP PO SCH (08:04)
[2016-09-12] MEDS ORDERED: LEVOTHYROXINE 50 MCG (LEVOTHROID) TAB PO SCH (09:00)
[2016-09-12] MEDS ORDERED: OMEGA 3 (FISH OIL) 1000 MG CAP PO SCH (09:00)
[2016-09-12] MEDS ORDERED: LORATADINE (CLARITIN) 10 MG TAB PO PRN (09:00)
[2016-09-13] MEDS ORDERED: LEVOTHYROXINE 50 MCG (LEVOTHROID) TAB PO SCH (06:00)
== END 2016-09-12 10:30 | DRG 69 ==
LOC: EDUNIT# 12:40 → ER 12:42 → 4TH 16:28
PROVIDERS: ADMIT Pediatrics; ATTEND Pediatrics
DX: G45.9 Transient cerebral ischemic attack, unspecified (principal); M62.81 Muscle weakness (generalized); I25.10 Atherosclerotic heart disease of native coronary artery without angina pectoris; I10 Essential (primary) hypertension; Z86.73 Personal history of transient ischemic attack (TIA), and cerebral infarction without residual deficits; F17.210 Nicotine dependence, cigarettes, uncomplicated; K21.9 Gastro-esophageal reflux disease without esophagitis; E03.9 Hypothyroidism, unspecified; F32.9 Major depressive disorder, single episode, unspecified; E78.5 Hyperlipidemia, unspecified; E87.6 Hypokalemia; M54.2 Cervicalgia; M25.512 Pain in left shoulder; M25.562 Pain in left knee; R41.2 Retrograde amnesia
CPT/HCPCS: 36415; 70450; 70553; 71010; 72125; 72170; 73030; 73562; 80048; 80053; 80061; 80306; 81000; 82550; 82962; 84439; 84443; 84484; 85025; 85379; 85610; 85730; 93005; 93041; 93306; 93880

== ENCOUNTER 2016-09-12 10:15 | Inpatient (IN) | payer OTHER ==
[~2016-09-12] VITALS: Ht 165.1 cm; Wt 94.8 kg
[~2016-09-12 10:15] MED LIST changes: +CLOP75TA69 PO; +SENN-40 PO
[2016-09-12] MEDS ORDERED: NITROGLYCERIN SUBLINGUAL 0.4 MG TAB (NITROSTAT) SL PRN (11:45)
[2016-09-12] MEDS ORDERED: LORATADINE (CLARITIN) 10 MG TAB PO PRN (11:45)
[2016-09-12] MEDS ORDERED: D5 1/2 NS W/KCL 40 MEQ/L 1,000 ML IV SCH (11:45)
--- NOTE | 2016-09-12 12:10 | Physical Therapy Evaluation ---
PT Evaluation-General Medical Diagnosis Admission Date September 12, 2016 at 10:50 Medical Diagnosis: TIA/CVA Onset Date: September 10, 2016 Therapy Diagnosis Therapy Diagnosis: weakness; abn gait Height/Weight Height (Feet): 5 Height (Inches): 5.00 Weight (Pounds): 213 Weight (Ounces): 0.0 Referral Physician: Saturnino Reason for Referral: Evaluation/Treatment Medical History Pertinent Medical History: CAD, CVA (2005), GERD, HTN, Hypothroidism Additional Medical History IBS, depression, every day smoker Current History Presented to ED with Stroke like symptoms with left sided weakness; had fallen, unsure of time lapse. Reviewed History: Yes Social History Home: Single Level Current Living Status: Alone Entry Into Home: Stairs Without Railing PT Steps Into Home: 5 Prior/Core FIM Prior Level of Function Functional [place] Measure 0=Not Assessed/NA 4=Minimal Assistance 1=Total Assistance 5=Supervision or Setup 2=Maximal Assistance 6=Modified S[place]ent 3=Moderate Assistance 7=Complete [place] Bed Mobility: 7 Transfers (B,C,W/C) (FIM): 7 Gait: 7 Community ambulator, still drives; active. PT Evaluation-Current Subjective Agrees to PT. Reports she feels stiff, which she attributes to the fall. Objective Patient Orientation: Person, Place, Time, Situation Problem Solving: Fair ROM/Strength ROM Lower Extremities WFL Strenght Lower Extremities Right LE strength is grossly 5/5; left LE strength is grossly 3/5 except DF is 2 /5. Integumentary/Posture Integumentary Intact Bowel Incontinence: No Bladder Incontinence: No Posture Rounded shoulders and head down with ambulation; in bed, presents with head tilted to the left. She is able to correct with cuing. Neuromuscular (Tone, Coordination, Reflexes) No noted increased tone; diminished functional coordination L LE; reflexes intact. Sensory Vision: Functional Hearing: Functional Hand Dominance: Right Sensation Right Lower Extremit: Intact Sensation Left Lower Extremity: Impaired Transfers Functional [place] Measure 0=Not Assessed/NA 4=Minimal Assistance 1=Total Assistance 5=Supervision or Setup 2=Maximal Assistance 6=Modified [place] 3=Moderate Assistance 7=Complete IndependenceIRFPAI Quality Coding Scale 6 Independent with activity with or without an assistive device 5 Patient requires set up or clean up by helper. Patient completes activity by themselves 4 Supervision or touching assist (CGA). [place] provide cues , steadying assist 3 The helper provides less than half the effort to complete the activity 2 The helper provides more than half the effort to complete the activity 1 Dependent. The helper does all the effort to complete an activity 7 Patient refused to complete or attempt activity 9 The patient did not perform the activity before the current illness or injury 88 Not attempted due to Medical conditions or safety concerns Transfers (B, C, W/C) (FIM): 3 Scootin Roll Left to Right (QC): 4 Supine to/from Sit: 3 (Min assist to sit up and mod assist to get both legs into bed. ) Sit to/from Stand: 4 (close CGA) Sit to Lying (QC): 3 Lying to Sitting/Side of Bed(Q: 4 Sit to Stand (QC): 4 Chair/Arw-ni-Roxni Xfer(QC): 4 Car Transfer (QC): 88 Safety cues required. Slow with functional transfers. Dyscoordinated movement L LE Gait Does the Patient Walk?: Yes Mode of Locomotion: Walk Anticipated Mode of Locomotion: Walk Gait (FIM): 2 Distance (FIM): 9=237-28 ft Walk 10 feet (QC): 4 (in room and in / out of bathroom) Walk 50 ft with 2 Turns(QC): 4 Walk 150 ft (QC): 88 Walking 10ft/uneven surface-QC: 88 (unsafe to attempt) Gait Assistive Device: FWW Comments/Gait Description close CGA and noted strength L LE with weight bearing. Forward flexed, rounded shoulders and head down during gait with heavy reliance on FWW; Able to correct with skilled cuing. Wheelchair Training Does the Pt Use a Wheelchair?: No Stairs Stairs (FIM): 1 #of Steps: 1 1 Step (curb) (QC): 4 (close CGA and skilled cues for sequencing) 4 Steps (QC): 88 (unsafe due to left LE weakness) Assistive Device: Walker 12 Steps (QC): 88 Balance Sitting Static: Fair Sitting Dynamic: Fair Standing Static: Fair Standing Dynamic: Fair Picking up an Object (QC): 88 (unsafe) Treatment gait in room and in/out of bathroom with fWW with close CGA and skilled cues for posture and safety. Worked on functional sit to/from stand transfers and bed mobility. B LE ther ex sitting EOB for functional strength to improve transfers and gait. Assessment/Needs Post CVA/TIA with residual left sided weakness and impaired functional mobility. Pt is unsafe to ambulate or transfer without assist and has strength , balance, gait, safety and functional activity tolerance deficits. She will benefit from skilled PT intervnetion to address deficits and allow her to return home as before. Evaluation of moderate intensity. Rehab Potential: Good PT Short Term Goals Short Term Goals Time Frame: Sep 19, 2016 Transfers (B,C,W/C) (FIM): 4 Gait (FIM): 4 Stairs (FIM): 4 PT Snf Goals Customer Advisor Goals PT Customer Advisor Goals Time Frame: Oct 03, 2016 Transfers (B,C,W/C) (FIM): 7 Sit to Lying (QC): 6 Lying-Sitting on Side/Bed(QC): 6 Sit to Stand (QC): 6 Roll Left to Right (QC): 6 Chair/Zva-gv-Vkvpl Xfer(QC): 6 Car Transfer (QC): 6 Does the Patient Walk: Yes Gait (FIM): 6 Gait distance (FIM): 3=150 ft Walk 10 feet (QC): 6 Walk 10ft-Uneven Surface(QC): 6 Walk 50ft with 2 Turns (QC): 6 Walk 150 ft (QC): 6 Gait Assistive Device: FWW Does the Pt use WC or Scooter?: No Stairs (FIM): 6 # of Steps: 12 1 Step (curb) (QC): 6 4 Steps (QC): 6 12 Steps (QC): 6 Picking up an Object (QC): 5 All LTG's set with plan for her to return home alone and mobilize without assist in her home. PT Plan Problem List Problem List: Activity Tolerance, Functional Strength, Safety, Balance, Gait, Transfer, Bed Mobility Treatment/Plan Treatment Plan: Continue Plan of Care Treatment Plan: Bed Mobility, Education, Functional Activity Joe, Functional Strength, Group Therapy, Gait, Safety, Therapeutic Exercise, Transfers Treatment Duration: Oct 03, 2016 # of days/week 5-6 Visits Per Week: 10-15 Minutes/Day (M-F): 60-90 Minutes/Day (Sat/Naqvi): prn Pt/Family Agrees w/Plan: Yes Safety Risks/Education Patient Education: Transfer Techniques, Safety Issues Teaching Recipient: Patient, Family Teaching Methods: Demonstration, Discussion Response to Teaching: Reinforcement Needed Time/GCodes Time In: 1020 Time Out: 1120 Total Billed Treatment Time: 60 Total Billed Treatment visit EVM 15 GT 15 FA 15 EX 15 CRISTIANA TORRES PT September 12, 2016 12:10
--- NOTE | 2016-09-12 13:39 | ST Cognitive Linguistic Eval ---
Speech Evaluation-General Medical Diagnosis TIA/CVA Onset Date: September 10, 2016 Therapy Diagnosis Therapy Diagnosis: Mild Cognitive Impairment Referral Referring Physician: Dr. Garrison Roque Reason for Referral: Evaluation/Treatment Cognitive Evaluation Medical History Pertinent Medical History: CAD, CVA (2006), GERD, HTN, Hypothroidism Reviewed History: Yes Social History Home: Single Level (5 stairs on the back porch, two steps on the front porch) Current Living Status: Alone Speech PLF-Current Status Prior Level of Function The patient denied cognitive linguistic challenges prior to her recent admission. Subjective The patient was recently admitted to [facility] following a possible TIA resulting in left sided weakness and confusion. The patient greeted the clinician appropriately and was agreeable to participation in the cognitive evaluation. Language Eval: Auditory Comprehends Simple Yes/No Ques: Functional Indent/Objects Multiple Garcia: Functional Ident/Pics in Multiple Garcia: Functional Follows 1-Step Commands: Functional Follows Complex Directions: Mild (Repetition required for improved accuracy.) Follows General Conversations: Functional Language Eval: Verbal Language Completes Spontaneous Greeting: Functional Produces Auto, Serial Info: Functional Imitates Simple Words/Phrases: Functional Word Finding: Mild Requests Basic Needs: Functional States Basic Personal Info: Functional Expresses Complex Ideas: Mild Cognitive Patient Orientation The patient was oriented to date, month, year, day, place, and city ( independently). Objective Cognitive Domain Attention: Mild Memory: WNL Problem Solving: Mild Objective Oral Motor/Speech Production The patient demonstrated slightly decreased rate of speech, however, remained 100% intelligible in known and unknown contexts. Impression The patient demonstrated mild cognitive deficits in the areas of attention and functional problem solving. Communication/Social Cognition Comprehension: 4 Expression: 4 Social Interaction: 4 Problem Solvin Memory: 4 Speech Patient Assess Expression of Ideas/Wants: Exhibits (3) Understanding [place] Content: Usually Understands (3) Brief Interview-Mental Status: Yes Repetition of Three Words: Three (3) Temporal Orientation: Year: Correct (3) Temporal Orientation: Month: Accurate within 5 days(2) Temporal Orientation: Day: Correct (1) Recall : Wear to say "Sock": Yes, no cue required (2) Recall : Color: Yes, no cue required (2) Recall : Bed: Yes, no cue required (2) Speech Short Term Goals Short Term Goals Short Term Goals 1. The patient will recall and demonstrate two functional memory strategies for use at home (independently). 2. The patient will demonstrated 90% accuracy (independently) with safety problem solving. 3. The patient will recall three to five items immediately and following a five minute delay. 4. The patient will accurately sequence ADL's with 80% accuracy and mild clinician cueing. Time Frame-STG: Two Weeks Speech Fdc Goals Fdc Goals 1. The patient will demonstrate improved cognitive linguistic skills for increased function and safety with ADL's in the least restrictive setting. Time Frame: Four Weeks Comprehension: 5 Expression: 5 Social Interaction: 6 Problem Solvin Memory: 4 Speech-Plan Treatment Plan Speech Therapy Treatment Plan: Continue Plan of Care Continue skilled speech pathology to target functional memory, problem solving, and attention. Treatment Duration: Oct 10, 2016 # of days/week Four to five. Visits Per Week: Four to five. Minutes/Day (M-F): 30 Rehab Potential: Good Safety Risks/Education Teaching Recipient: Patient Teaching Methods: Discussion Response to Teaching: Verbalize Understanding Education Topics Provided: Results, Recommendations, Plan of Care Time Speech Therapy Time In: 13:21 Speech Therapy Time Out: 13:36 Total Billed Time: 15 Billed Treatment Time 1, LETITIA STEELE September 12, 2016 13:39
--- NOTE | 2016-09-12 15:08 | Occupational Therapy Eval ---
OT Evaluation-General/PLF Medical Diagnosis Admission Date September 12, 2016 at 10:50 Medical Diagnosis: TIA/CVA Onset Date: September 10, 2016 Therapy Diagnosis Therapy Diagnosis: Impaired self care skills Height/Weight Height (Feet): 5 Height (Inches): 5.00 Weight (Pounds): 213 Weight (Ounces): 0.0 Referral Physician: [place] Medical History Pertinent Medical History: CAD, CVA (2005), GERD, HTN, Hypothroidism Additional Medical History left knee reconstruction Reviewed History: Yes Social History Home: Single Level Current Living Status: Alone Entry Into Home: Stairs Without Railing Steps Into Home: 5 ADL-Prior Level of Function ADL PLOF Comments Pt reports being independent with self care and mobility. DME/Equipment: Tub/Shower OT Current Status Subjective Pt in bed, agrees to therapy. Pt has no c/o pain, but states she feels "stiff" Mental Status/Objective Patient Orientation: Person, Place, Time, Situation Current Glasses/Contacts: Yes (contacts and reading glasses) Hearing Aids: No Dentures/Partials: No Hand Dominance: Right Upper Extremity ROM Right UE WFL Left UE: shoulder ROM actively to approximately 90degrees Upper Extremity Coordination Decreased left UE Upper Extremity Strength Right UE WFL Left UE: 2+/5 proximally, 3/5 distally ADL-Treatment ADL-Current Supine to sit with minimal assistance. Pt sat EOB with good balance during UE assessment. Pt agrees to shower this am. Sit to stand with close CGA. Gait to restroom with FWW. Pt has rounded shoulders and has increased weight bearing through UE during gait. Transfer to walk in shower with bench with minimal assistance and cues for safety. Located within [facility] gown and socks with SBA. Upper body bathing completed with set up. Pt has slow movement of left UE, but is able to use it for functional tasks. Pt able to wash bilateral LE and tonia area with SBA. CGA required for balance while washing buttocks. Don pullover shirt with set up. Pt donned underwear and pants with minimal assistance for balance during standing for pant hike. Donned socks with CGA for balance. Pt fatigues with activity and requires occasional rest breaks during ADL tasks. Pt returned to bed. Sit to supine with assist for left LE. Pt in bed with needs met and daughter present after session. Functional [place] Measure 0=Not Assessed/NA 4=Minimal Assistance 1=Total Assistance 5=Supervision or Setup 2=Maximal Assistance 6=Modified [place] 3=Moderate Assistance 7=Complete IndependenceIRFPAI Quality Coding Scale 6 Independent with activity with or without an assistive device 5 Patient requires set up or clean up by helper. Patient completes activity by themselves 4 Supervision or touching assist (CGA). [place] provide cues , steadying assist 3 The helper provides less than half the effort to complete the activity 2 The helper provides more than half the effort to complete the activity 1 Dependent. The helper does all the effort to complete an activity 7 Patient refused to complete or attempt activity 9 The patient did not perform the activity before the current illness or injury 88 Not attempted due to Medical conditions or safety concerns Eating (FIM): 5 (Daughter reports assisting with set up) Eating (QC): 5 Bathing (FIM): 4 Shower/Bathe Self (QC): 3 Upper Body Dressing (FIM): 5 Upper Body Dressing (QC): 5 Lower Body Dressing (FIM): 4 Lower Body Dressing (QC): 3 On/Off Footwear (QC): 4 (CGA) Shower Transfer (FIM): 4 Education OT Patient Education: Rehab process Teaching Recipient: Patient Teaching Methods: Discussion Response to Teaching: Verbalize Understanding OT Short Term Goals Short Term Goals Time Frame: Sep 19, 2016 Bathing(FIM): 5 Lower Body Dressing(FIM): 5 Toileting(FIM): 5 Toilet/Commode Transfer(FIM): 5 Shower Transfer(FIM): 5 Additional Short Term Goals: 1-Demonstrate ADL Tasks, 2-Verbalize Understanding , 3-ImproveStrength/Joe 1=Demonstrate adherence to instructed precautions during ADL tasks. 2=Patient will verbalize/demonstrate understanding of assistive devices/ modifications for ADL. 3=Patient will improve strength/tolerance for activity to enable patient to perform ADL's. OT Inside Sales Manager Goals Inside Sales Manager Goals Time Frame: Oct 03, 2016 Eating (FIM): 6 Eating (QC): 6 Groomin Oral Hygiene (QC): 6 Bathing(FIM): 6 Shower/Bathe Self (QC): 6 Upper Body Dressing(FIM): 6 Upper Body Dressing (QC): 6 Lower Body Dressing(FIM): 6 Lower Body Dressing (QC): 6 On/Off Footwear (QC): 6 Toileting(FIM): 6 Toileting Hygiene (QC): 6 Toilet/Commode Transfer(FIM): 6 Toilet/Commode Transfer (QC): 6 Shower Transfer(FIM): 6 Additional Goals: 1-Demonstrate ADL Tasks, 2-Verbalize Understanding, 3- ImproveStrength/Joe 1=Demonstrate adherence to instructed precautions during ADL tasks. 2=Patient will verbalize/demonstrate understanding of assistive devices/ modifications for ADL. 3=Patient will improve strength/tolerance for activity to enable patient to perform ADL's. Goals established to improve level of independence and allow safe return home. OT Education/Plan Problem List/Assessment Assessment: Decreased Activ Tolerance, Decreased UE Strength, Dependent Transfers, Impaired Coordination, Impaired Funct Balance, Impaired I ADL's, Impaired Self-Care Skills Pt admitted with CVA with left side deficits. Pt demonstrates decreased mobility , strength, coordination, activity tolerance and ADL performance. Pt to benefit from skilled OT intervention for ADL training, transfers, strengthening, and safety education to maximize level of function and allow safe return home. Discharge Recommendations Plan/Recommendations: Continue POC Treatment Plan/Plan of Care Treatment,Training & Education: Yes Patient would benefit from OT for education, treatment and training to promote independence in ADL's, mobility, safety and/or upper extremity function for ADL' s. Plan of Care: ADL Retraining, Functional Mobility, Group Exercise/Act as Ind, UE Funct Exercise/Act, UE Neuromus Re-Ed/Coord Treatment Duration: Oct 03, 2016 # of days/week 5-6 Visits Per Week: 10-12 Minutes/Day (M-F): 60-90 Minutes/Day (Sat/Naqvi): PRN Agreement: Yes Rehab Potential: Good Time/GCodes Start Time: 11:20 Stop Time: 12:20 Total Time Billed (hr/min): 60 Billed Treatment Time 1 visit, EVM(15minutes), ADLx3(45minutes) ALVIN RIVERA OT September 12, 2016 15:08
[2016-09-12] MEDS ORDERED: CALCIUM CARBONATE 500 MG (TUMS) TAB.CHEW PO PRN (15:15)
--- NOTE | 2016-09-12 15:42 | Occupational Ther Daily Note ---
OT Current Status-Daily Note Subjective Pt in bed, agrees to treatment. Mental Status/Objective Functional [place] Measure 0=Not Assessed/NA 4=Minimal Assistance 1=Total Assistance 5=Supervision or Setup 2=Maximal Assistance 6=Modified [place] 3=Moderate Assistance 7=Complete [place] ADL-Treatment Pt supine to sit with supervision. Sit to stand with close CGA. Gait to restroom with FWW, cues for safety. Transfer to toilet with minimal assistance for safety. Pt able to complete toileting hygiene without assistance. Requires minimal assistance for balance during clothing management. Pt stood at stink to complete grooming tasks. Pt washed hands with SBA. Pt able to brush teeth with SBA for standing balance. Pt returned to bed with minimal assistance for left LE. Functional [place] Measure 0=Not Assessed/NA 4=Minimal Assistance 1=Total Assistance 5=Supervision or Setup 2=Maximal Assistance 6=Modified [place] 3=Moderate Assistance 7=Complete IndependenceIRFPAI Quality Coding Scale 6 Independent with activity with or without an assistive device 5 Patient requires set up or clean up by helper. Patient completes activity by themselves 4 Supervision or touching assist (CGA). [place] provide cues , steadying assist 3 The helper provides less than half the effort to complete the activity 2 The helper provides more than half the effort to complete the activity 1 Dependent. The helper does all the effort to complete an activity 7 Patient refused to complete or attempt activity 9 The patient did not perform the activity before the current illness or injury 88 Not attempted due to Medical conditions or safety concerns Grooming (FIM): 5 Oral Hygiene (QC): 4 Toileting (FIM): 4 Toileting Hygiene (QC): 3 Toilet/Commode Transfer (FIM): 4 Other Treatment Pt completed left shoulder ROM exercises to increase active ROM and strength. Pt moves very slowly and requires minimal assistance for ROM. Left UE hand claim processing specialist exercises x10 reps with minimal resistance therapy foam. Pt resting in bed with needs met and friend present after session. OT Short Term Goals Short Term Goals Time Frame: Sep 19, 2016 Bathing(FIM): 5 Lower Body Dressing(FIM): 5 Toileting(FIM): 5 Toilet/Commode Transfer(FIM): 5 Shower Transfer(FIM): 5 Additional Short Term Goals: 1-Demonstrate ADL Tasks, 2-Verbalize Understanding , 3-ImproveStrength/Joe 1=Demonstrate adherence to instructed precautions during ADL tasks. 2=Patient will verbalize/demonstrate understanding of assistive devices/ modifications for ADL. 3=Patient will improve strength/tolerance for activity to enable patient to perform ADL's. OT Penitent[facility] Goals Supervisor Chassis Assembly Goals Time Frame: Oct 03, 2016 Eating (FIM): 6 Eating (QC): 6 Groomin Oral Hygiene (QC): 6 Bathing(FIM): 6 Shower/Bathe Self (QC): 6 Upper Body Dressing(FIM): 6 Upper Body Dressing (QC): 6 Lower Body Dressing(FIM): 6 Lower Body Dressing (QC): 6 On/Off Footwear (QC): 6 Toileting(FIM): 6 Toileting Hygiene (QC): 6 Toilet/Commode Transfer(FIM): 6 Toilet/Commode Transfer (QC): 6 Shower Transfer(FIM): 6 Comprehension(FIM): 5 Expression (FIM): 5 Social Interaction(FIM): 6 Problem Solving(FIM): 4 Memory(FIM): 4 Additional Goals: 1-Demonstrate ADL Tasks, 2-Verbalize Understanding, 3- ImproveStrength/Joe 1=Demonstrate adherence to instructed precautions during ADL tasks. 2=Patient will verbalize/demonstrate understanding of assistive devices/ modifications for ADL. 3=Patient will improve strength/tolerance for activity to enable patient to perform ADL's. OT Education/Plan Problem List/Assessment Pt admitted with CVA with left side deficits. Pt demonstrates decreased mobility , strength, coordination, activity tolerance and ADL performance. Pt to benefit from skilled OT intervention for ADL training, transfers, strengthening, and safety education to maximize level of function and allow safe return home. Discharge Recommendations Plan/Recommendations: Continue POC Treatment Plan/Plan of Care Patient would benefit from OT for education, treatment and training to promote independence in ADL's, mobility, safety and/or upper extremity function for ADL' s. Plan of Care: ADL Retraining, Functional Mobility, Group Exercise/Act as Ind, UE Funct Exercise/Act, UE Neuromus Re-Ed/Coord Treatment Duration: Oct 03, 2016 Visits Per Week: 10-12 Minutes/Day (M-F): 60-90 Minutes/Day (Sat/Naqvi): PRN Agreement: Yes Rehab Potential: Good Time/GCodes Start Time: 14:00 Stop Time: 14:30 Total Time Billed (hr/min): 30 Billed Treatment Time 1 visit, ADL(20minutes), EX(10minutes) ALVIN RIVERA OT September 12, 2016 15:42
[2016-09-12 15:44] VITALS: BP 176/83
--- NOTE | 2016-09-12 16:24 | Physical Therapy Daily Note ---
PT Daily Note-Current Subjective Pt is sitting up in bed upon arrival with daughter present. Pt agrees to PT. Mental Status Patient Orientation: Person, Place, Situation Transfers Functional [place] Measure 0=Not Assessed/NA 4=Minimal Assistance 1=Total Assistance 5=Supervision or Setup 2=Maximal Assistance 6=Modified [place] 3=Moderate Assistance 7=Complete IndependenceIRFPAI Quality Coding Scale 6 Independent with activity with or without an assistive device 5 Patient requires set up or clean up by helper. Patient completes activity by themselves 4 Supervision or touching assist (CGA). [place] provide cues , steadying assist 3 The helper provides less than half the effort to complete the activity 2 The helper provides more than half the effort to complete the activity 1 Dependent. The helper does all the effort to complete an activity 7 Patient refused to complete or attempt activity 9 The patient did not perform the activity before the current illness or injury 88 Not attempted due to Medical conditions or safety concerns Scootin Rollin Roll Left to Right (QC): 5 Sit to/from Stand: 4 Sit to Lying (QC): 4 Sit to Stand (QC): 4 Weight Bearing Weight Bearing Restriction: Full Weight Bearing Location Restriction: LE Bilateral Gait Training Does the Patient Walk?: Yes Distance (FIM): 1=up to 49 ft Distance: 40' Walk 10 feet (QC): 4 Gait Level of Assist: 4 Gait Persons Needed: 1 Gait Assistive Device: FWW Pt is CGA-Min A for safety due to weakness on L side, knee buckle. Wheelchair Training Does the Pt Use a Wheelchair?: No Exercises Supine Ex: Ankle pumps, Quad Set, Heel Slides, Hip abd/add Supine Reps: 20 Treatments Pt completes Supine Ex in bed. PT, pt & daughter go over pt ed items such as what happens or is affected during TIA/CVA, what happens during ARU stay and weekly Saturday meeting at Rehab team can help prepare pt for and equipment that might need. Pt then reports needing to use restroom so ambulates using FWW at CGA-Min A. Pt returns to bed to rest with all needs met at end of tx. Assessment Current Status: Fair Progress Pt is willing to work hard and wants to get back home. Pt completes Ex and gait although needs assistance with both. PT Short Term Goals Short Term Goals Time Frame: Sep 19, 2016 Gait (FIM): 4 Stairs (FIM): 4 PT Cushion Mat Maker Goals Cushion Mat Maker Goals PT Nursing Home Goals Time Frame: Oct 03, 2016 Transfers (B,C,W/C) (FIM): 7 Sit to Lying (QC): 6 Lying-Sitting on Side/Bed(QC): 6 Sit to Stand (QC): 6 Roll Left to Right (QC): 6 Chair/Jaq-wo-Ckumk Xfer(QC): 6 Car Transfer (QC): 6 Does the Patient Walk: Yes Gait (FIM): 6 Gait distance (FIM): 3=150 ft Walk 10 feet (QC): 6 Walk 10ft-Uneven Surface(QC): 6 Walk 50ft with 2 Turns (QC): 6 Walk 150 ft (QC): 6 Gait Assistive Device: FWW Does the Pt use WC or Scooter?: No Stairs (FIM): 6 # of Steps: 12 1 Step (curb) (QC): 6 4 Steps (QC): 6 12 Steps (QC): 6 Picking up an Object (QC): 5 PT Plan Problem List Problem List: Activity Tolerance, Functional Strength, Safety, Balance, Gait, Transfer, Bed Mobility Treatment/Plan Treatment Plan: Continue Plan of Care Treatment Plan: Bed Mobility, Education, Functional Activity Joe, Functional Strength, Group Therapy, Gait, Safety, Therapeutic Exercise, Transfers Treatment Duration: Oct 03, 2016 Visits Per Week: 10-15 Minutes/Day (M-F): 60-90 Minutes/Day (Sat/Naqvi): prn Safety Risks/Education Patient Education: Gait Training, Transfer Techniques, Reviewed Precautions, Correct Positioning, Disease Process, Safety Issues Teaching Recipient: Patient, Family Teaching Methods: Discussion Response to Teaching: Verbalize Understanding Time/GCodes Time In: 1500 Time Out: 1530 Total Billed Treatment Time: 30 Total Billed Treatment visit, EX (15m) & FA (15m) ANUEL HASTINGS PTA September 12, 2016 16:24
[2016-09-12] MEDS: PANTOPRAZOLE 40 MG (PROTONIX) TAB PO SCH (17:24)
[2016-09-12 17:26] VITALS: BP 124/75
[2016-09-12] MEDS: SUCRALFATE 1 GM (CARAFATE) TAB PO SCH (18:37)
[2016-09-12] MEDS: MULTIVIT W/MINERALS TAB (THERAGRAN M) PO SCH (20:04)
[2016-09-12] MEDS: SIMvastatin 10 MG (ZOCOR) TAB PO SCH (20:04)
[2016-09-12] MEDS: lisINopril 10 MG (PRINIVIL) TAB PO SCH (20:04)
[2016-09-12] MEDS: GABAPENTIN 300 MG (NEURONTIN) CAP PO SCH (20:05)
[2016-09-12] MEDS: ASPIRIN E.C. 81 MG (ECOTRIN) TAB PO SCH (20:05)
[2016-09-12] MEDS: meTOprolol TARTRATE 50 MG (LOPRESSOR) TAB PO SCH (20:05)
[2016-09-12] MEDS: ESTRADIOL 1 MG TAB (ESTRACE) PO SCH (20:05)
[2016-09-12] MEDS: DULoxetine 30 MG (CYMBALTA) CAP PO SCH (20:05)
[2016-09-12] MEDS: HYDROCHLOROTHIAZIDE 12.5 MG (HCTZ) CAP PO SCH (20:05)
[2016-09-12] MEDS: MELOXICAM 7.5 MG (MOBIC) TABLET PO SCH (20:06)
[2016-09-13 06:04] VITALS: BP 111/70
[2016-09-13] MEDS: KCL 20 MEQ TAB (K-DUR) PO SCH (06:04)
[2016-09-13] MEDS: LEVOTHYROXINE 50 MCG (LEVOTHROID) TAB PO SCH (06:04)
[2016-09-13] MEDS: PANTOPRAZOLE 40 MG (PROTONIX) TAB PO SCH ×2 (06:04→16:16)
[2016-09-13] MEDS: SUCRALFATE 1 GM (CARAFATE) TAB PO SCH ×2 (06:04→16:16)
[2016-09-13 08:55] VITALS: BP 115/75
--- NOTE | 2016-09-13 08:55 | Physical Therapy Daily Note ---
PT Daily Note-Current Subjective Patient in bed pre tx, agrees to PT, very tired but no complaints of pain. Appearance Patient BTB post tx with nurse call, phone, tray, all needs met. Mental Status Patient Orientation: Person, Place, Situation Transfers Functional [place] Measure 0=Not Assessed/NA 4=Minimal Assistance 1=Total Assistance 5=Supervision or Setup 2=Maximal Assistance 6=Modified [place] 3=Moderate Assistance 7=Complete IndependenceIRFPAI Quality Coding Scale 6 Independent with activity with or without an assistive device 5 Patient requires set up or clean up by helper. Patient completes activity by themselves 4 Supervision or touching assist (CGA). [place] provide cues , steadying assist 3 The helper provides less than half the effort to complete the activity 2 The helper provides more than half the effort to complete the activity 1 Dependent. The helper does all the effort to complete an activity 7 Patient refused to complete or attempt activity 9 The patient did not perform the activity before the current illness or injury 88 Not attempted due to Medical conditions or safety concerns Transfers (B, C, W/C) (FIM): 4 Scootin Rollin Supine to/from Sit: 4 Sit to/from Stand: 4 Patient needed min assist getting her left leg into and out of bed. Gait Training Gait (FIM): 4 Distance: 150', 75'x2 Gait Level of Assist: 4 Gait Persons Needed: 1 Gait Assistive Device: FWW Patient slumps forward during ambulation, left knee is prone to giving out but not completely, no actual LOB, needs cues to lean more to the right side. Apparently patient has some shoes here, she could use an AFO for the left side for ambulation. Very slow ambulation. Exercises LAQ alternating for 5 min. NuStep Minutes: 15 NuStep Workload: 5 Treatments bed mobility and transfers, ambulation, functional strengthening Assessment Current Status: Fair Progress improved endurance and bed mobility, patient still needs rest breaks between activities, fatigues quickly. PT Short Term Goals Short Term Goals Time Frame: Sep 19, 2016 Gait (FIM): 4 Stairs (FIM): 4 PT Intermediate Goals Intermediate Goals PT Intermediate Goals Time Frame: Oct 03, 2016 Transfers (B,C,W/C) (FIM): 7 Sit to Lying (QC): 6 Lying-Sitting on Side/Bed(QC): 6 Sit to Stand (QC): 6 Rollin Roll Left to Right (QC): 6 Chair/Hvf-vv-Pqrxh Xfer(QC): 6 Car Transfer (QC): 6 Does the Patient Walk: Yes Gait (FIM): 6 Gait distance (FIM): 3=150 ft Walk 10 feet (QC): 6 Walk 10ft-Uneven Surface(QC): 6 Walk 50ft with 2 Turns (QC): 6 Walk 150 ft (QC): 6 Gait Assistive Device: FWW Does the Pt use WC or Scooter?: No Stairs (FIM): 6 # of Steps: 12 1 Step (curb) (QC): 6 4 Steps (QC): 6 12 Steps (QC): 6 Picking up an Object (QC): 5 PT Plan Problem List Problem List: Activity Tolerance, Functional Strength, Safety, Balance, Gait, Transfer, Bed Mobility Treatment/Plan Treatment Plan: Continue Plan of Care Treatment Plan: Bed Mobility, Education, Functional Activity Joe, Functional Strength, Group Therapy, Gait, Safety, Therapeutic Exercise, Transfers Treatment Duration: Oct 03, 2016 Visits Per Week: 10-15 Minutes/Day (M-F): 60-90 Minutes/Day (Sat/Naqvi): prn Safety Risks/Education Patient Education: Gait Training, Transfer Techniques, Correct Positioning, Safety Issues Teaching Recipient: Patient Teaching Methods: Demonstration, Discussion Response to Teaching: Reinforcement Needed Time/GCodes Time In: 800 Time Out: 850 Total Billed Treatment Time: 50 Total Billed Treatment 1 visit EX 20' GT 30' JENARO ESTRADA PT Sep 13, 2016 08:55
[2016-09-13] MEDS: OMEGA 3 (FISH OIL) 1000 MG CAP PO SCH (08:56)
[2016-09-13] MEDS: SENNOSIDES 8.6 MG (SENOKOT) TAB PO SCH (08:56)
[2016-09-13] MEDS: CLOPIDOGREL 75 MG (PLAVIX) TABLET PO SCH (08:56)
[2016-09-13] MEDS: DULoxetine 30 MG (CYMBALTA) CAP PO SCH ×2 (08:56→20:09)
[2016-09-13] MEDS: meTOprolol TARTRATE 50 MG (LOPRESSOR) TAB PO SCH ×2 (08:57→20:10)
[2016-09-13] MEDS: GABAPENTIN 300 MG (NEURONTIN) CAP PO SCH ×2 (08:57→20:10)
--- NOTE | 2016-09-13 09:50 | Speech Therapy Daily Note ---
Speech Daily Progress Note Subjective The patient was laying in bed upon entrance. The patient greeted the clinician appropriately and was agreeable to cognitive therapy on this date. To note, the patient stated her level of confusion is improving, however, she continues to struggle with functional memory (such as recalling e-mail passwords). Objective Continued cognitive evaluation occurred on this date with the patient being administered the Duncan Cognitive Assessment (MoCA). The patient demonstrated the following results: - Visuospatial/Executive: The patient demonstrated 100% accuracy with trail- making, cube copying, and clock drawing. - Naming: The patient named three of three black and white photographs accurately. - Memory: The patient was able to recall four of five items immediately and four of five items following a five minute delay. - Attention: The patient was able to repeat five digits forward and three digits in reverse order, identify a specific letter in a string of letters, and display 70% accuracy with serial seven subtraction. - Language: The patient was able to repeat single phrases and find a similarity between two words. - Orientation: The patient was oriented to date, month, year, day, place and city, independently. The patient demonstrated an overall score of +28/30 correlating to cognition grossly within functional limits. Assessment Assessment Current Status: Excellent Progress Treatment Plan Continue Plan of Care Communication Comprehension: 5 Expression: 5 Social Cognition Social Interaction: 5 Problem Solvin Memory: 5 Speech Short Term Goals Short Term Goals Short Term Goals 1. The patient will recall and demonstrate two functional memory strategies for use at home (independently). 2. The patient will demonstrated 90% accuracy (independently) with safety problem solving. 3. The patient will recall three to five items immediately and following a five minute delay. 4. The patient will accurately sequence ADL's with 80% accuracy and mild clinician cueing. Time Frame-STG: Two Weeks Speech Tack Puller Goals Tack Puller Goals 1. The patient will demonstrate improved cognitive linguistic skills for increased function and safety with ADL's in the least restrictive setting. Time Frame: Four Weeks Comprehension: 5 Expression: 5 Social Interaction: 6 Problem Solvin Memory: 4 Speech-Plan Treatment Plan Speech Therapy Treatment Plan: Continue Plan of Care Continue skilled speech pathology to target function word-finding and memory strategies. Treatment Duration: Oct 10, 2016 # of days/week Four to five. Visits Per Week: Four to five. Minutes/Day (M-F): 30 Rehab Potential: Good Safety Risks/Education Teaching Recipient: Patient Teaching Methods: Discussion Response to Teaching: Verbalize Understanding Education Topics Provided: Progression, Plan of Treatment Time Speech Therapy Time In: 09:00 Speech Therapy Time Out: 09:30 Total Billed Time: 30 Billed Treatment Time NOHELIA Sharma [facility] Sep 13, 2016 09:50
--- NOTE | 2016-09-13 13:37 | Occupational Ther Daily Note ---
OT Current Status-Daily Note Subjective Pt in bed, agrees to treatment. Pt reports 3/10 bilateral knee pain. Mental Status/Objective Functional [place] Measure 0=Not Assessed/NA 4=Minimal Assistance 1=Total Assistance 5=Supervision or Setup 2=Maximal Assistance 6=Modified [place] 3=Moderate Assistance 7=Complete [place] ADL-Treatment Pt declined bathing this morning, is already dressed. Supine to sit with supervision. Sit to stand with CGA. Gait to restroom with FWW. Pt has flexed posture, relies heavily on FWW. Grooming tasks completed standing at sink. Pt washed face, combed hair, and brushed teeth with SBA. Toilet transfer completed with minimal assistance for safety. Pt able to complete toileting hygiene, but requires minimal assistance for balance during clothing management. Washed hands at sink with SBA. Functional [place] Measure 0=Not Assessed/NA 4=Minimal Assistance 1=Total Assistance 5=Supervision or Setup 2=Maximal Assistance 6=Modified [place] 3=Moderate Assistance 7=Complete IndependenceIRFPAI Quality Coding Scale 6 Independent with activity with or without an assistive device 5 Patient requires set up or clean up by helper. Patient completes activity by themselves 4 Supervision or touching assist (CGA). [place] provide cues , steadying assist 3 The helper provides less than half the effort to complete the activity 2 The helper provides more than half the effort to complete the activity 1 Dependent. The helper does all the effort to complete an activity 7 Patient refused to complete or attempt activity 9 The patient did not perform the activity before the current illness or injury 88 Not attempted due to Medical conditions or safety concerns Grooming (FIM): 5 Toileting (FIM): 4 Toilet/Commode Transfer (FIM): 4 Other Treatment Gait to therapy gym with FWW, slow pace. Pt performed UE exercises to increase active ROM and strength. Pt completed AROM at shoulder x10 reps. Pt able to actively flex and abduct shoulder to 90degrees, requires assist to achieve full ROM. Pt performed shoulder flexion, biceps curls, and wrist flex/ext x10 reps with dowel marlene. Rest breaks between exercises. Pt completed tabletop peg activity with left hand to increase reaching and coordination. Pt has slow, deliberate movements, but is able to complete task without assistance. Increased time required. Pt completed putty activity with left hand to increase strength and coordination. Pt able to remove small beads from putty with increased time. Pt returned to room, transferred to bed with minimal assistance to raise left LE into bed. All needs met. OT Short Term Goals Short Term Goals Time Frame: Sep 19, 2016 Bathing(FIM): 5 Lower Body Dressing(FIM): 5 Toileting(FIM): 5 Toilet/Commode Transfer(FIM): 5 Shower Transfer(FIM): 5 Additional Short Term Goals: 1-Demonstrate ADL Tasks, 2-Verbalize Understanding , 3-ImproveStrength/Joe 1=Demonstrate adherence to instructed precautions during ADL tasks. 2=Patient will verbalize/demonstrate understanding of assistive devices/ modifications for ADL. 3=Patient will improve strength/tolerance for activity to enable patient to perform ADL's. OT Payroll Auditor Goals Fdc Goals Time Frame: Oct 03, 2016 Eating (FIM): 6 Eating (QC): 6 Groomin Oral Hygiene (QC): 6 Bathing(FIM): 6 Shower/Bathe Self (QC): 6 Upper Body Dressing(FIM): 6 Upper Body Dressing (QC): 6 Lower Body Dressing(FIM): 6 Lower Body Dressing (QC): 6 On/Off Footwear (QC): 6 Toileting(FIM): 6 Toileting Hygiene (QC): 6 Toilet/Commode Transfer(FIM): 6 Toilet/Commode Transfer (QC): 6 Shower Transfer(FIM): 6 Comprehension(FIM): 5 Expression (FIM): 5 Social Interaction(FIM): 6 Problem Solving(FIM): 4 Memory(FIM): 4 Additional Goals: 1-Demonstrate ADL Tasks, 2-Verbalize Understanding, 3- ImproveStrength/Joe 1=Demonstrate adherence to instructed precautions during ADL tasks. 2=Patient will verbalize/demonstrate understanding of assistive devices/ modifications for ADL. 3=Patient will improve strength/tolerance for activity to enable patient to perform ADL's. OT Education/Plan Problem List/Assessment Pt admitted with CVA with left side deficits. Pt demonstrates decreased mobility , strength, coordination, activity tolerance and ADL performance. Pt to benefit from skilled OT intervention for ADL training, transfers, strengthening, and safety education to maximize level of function and allow safe return home. Discharge Recommendations Plan/Recommendations: Continue POC Treatment Plan/Plan of Care Patient would benefit from OT for education, treatment and training to promote independence in ADL's, mobility, safety and/or upper extremity function for ADL' s. Plan of Care: ADL Retraining, Functional Mobility, Group Exercise/Act as Ind, UE Funct Exercise/Act, UE Neuromus Re-Ed/Coord Treatment Duration: Oct 03, 2016 Visits Per Week: 10-12 Minutes/Day (M-F): 60-90 Minutes/Day (Sat/Naqvi): PRN Agreement: Yes Rehab Potential: Good Time/GCodes Start Time: 09:30 Stop Time: 10:30 Total Time Billed (hr/min): 60 Billed Treatment Time 1 visit, ADL(20minutes), FA(10minutes), EX(30minutes) ALVIN RIVERA OT Sep 13, 2016 13:37
--- NOTE | 2016-09-13 13:53 | Occupational Ther Daily Note ---
OT Current Status-Daily Note Subjective Pt in bed, agrees to treatment. Mental Status/Objective Functional [place] Measure 0=Not Assessed/NA 4=Minimal Assistance 1=Total Assistance 5=Supervision or Setup 2=Maximal Assistance 6=Modified [place] 3=Moderate Assistance 7=Complete [place] ADL-Treatment Functional [place] Measure 0=Not Assessed/NA 4=Minimal Assistance 1=Total Assistance 5=Supervision or Setup 2=Maximal Assistance 6=Modified [place] 3=Moderate Assistance 7=Complete IndependenceIRFPAI Quality Coding Scale 6 Independent with activity with or without an assistive device 5 Patient requires set up or clean up by helper. Patient completes activity by themselves 4 Supervision or touching assist (CGA). [place] provide cues , steadying assist 3 The helper provides less than half the effort to complete the activity 2 The helper provides more than half the effort to complete the activity 1 Dependent. The helper does all the effort to complete an activity 7 Patient refused to complete or attempt activity 9 The patient did not perform the activity before the current illness or injury 88 Not attempted due to Medical conditions or safety concerns Other Treatment Pt supine to sit with supervision. Sit to stand with CGA. Gait to therapy gym with slow pace and cues for safety and posture. Arm bike x10 minutes to increase overall strength and activity tolerance needed for ADLs and transfers. Pt completed task with minimal resistance and slow pace. No rest breaks needed. 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 Graded clothespin activity with left hand to increase experienced truck driver/pinch strength needed for functional tasks. Pt has difficulty with heavy resistance clothespins and requires use of gross grasp to complete task. Increased time for activity. Pt returned to room, transferred to bed with minimal assistance for left LE. Pt in bed with needs met after session. OT Short Term Goals Short Term Goals Time Frame: Sep 19, 2016 Bathing(FIM): 5 Lower Body Dressing(FIM): 5 Toileting(FIM): 5 Toilet/Commode Transfer(FIM): 5 Shower Transfer(FIM): 5 Additional Short Term Goals: 1-Demonstrate ADL Tasks, 2-Verbalize Understanding , 3-ImproveStrength/Joe 1=Demonstrate adherence to instructed precautions during ADL tasks. 2=Patient will verbalize/demonstrate understanding of assistive devices/ modifications for ADL. 3=Patient will improve strength/tolerance for activity to enable patient to perform ADL's. OT Pay Agent Goals Pay Agent Goals Time Frame: Oct 03, 2016 Eating (FIM): 6 Eating (QC): 6 Groomin Oral Hygiene (QC): 6 Bathing(FIM): 6 Shower/Bathe Self (QC): 6 Upper Body Dressing(FIM): 6 Upper Body Dressing (QC): 6 Lower Body Dressing(FIM): 6 Lower Body Dressing (QC): 6 On/Off Footwear (QC): 6 Toileting(FIM): 6 Toileting Hygiene (QC): 6 Toilet/Commode Transfer(FIM): 6 Toilet/Commode Transfer (QC): 6 Shower Transfer(FIM): 6 Comprehension(FIM): 5 Expression (FIM): 5 Social Interaction(FIM): 6 Problem Solving(FIM): 4 Memory(FIM): 4 Additional Goals: 1-Demonstrate ADL Tasks, 2-Verbalize Understanding, 3- ImproveStrength/Joe 1=Demonstrate adherence to instructed precautions during ADL tasks. 2=Patient will verbalize/demonstrate understanding of assistive devices/ modifications for ADL. 3=Patient will improve strength/tolerance for activity to enable patient to perform ADL's. OT Education/Plan Problem List/Assessment Pt admitted with CVA with left side deficits. Pt demonstrates decreased mobility , strength, coordination, activity tolerance and ADL performance. Pt to benefit from skilled OT intervention for ADL training, transfers, strengthening, and safety education to maximize level of function and allow safe return home. Discharge Recommendations Plan/Recommendations: Continue POC Treatment Plan/Plan of Care Patient would benefit from OT for education, treatment and training to promote independence in ADL's, mobility, safety and/or upper extremity function for ADL' s. Plan of Care: ADL Retraining, Functional Mobility, Group Exercise/Act as Ind, UE Funct Exercise/Act, UE Neuromus Re-Ed/Coord Treatment Duration: Oct 03, 2016 Visits Per Week: 10-12 Minutes/Day (M-F): 60-90 Minutes/Day (Sat/Naqvi): PRN Agreement: Yes Rehab Potential: Good Time/GCodes Start Time: 11:05 Stop Time: 11:35 Total Time Billed (hr/min): 30 Billed Treatment Time 1 visit, EXx2(35minutes) ALVIN RIVERA OT Sep 13, 2016 13:53
--- NOTE | 2016-09-13 15:24 | Physical Therapy Daily Note ---
PT Daily Note-Current Subjective Agreeable to PT. "I'm going to be sore tomorrow!" Mental Status Patient Orientation: Person, Place, Time, Situation Transfers Functional [place] Measure 0=Not Assessed/NA 4=Minimal Assistance 1=Total Assistance 5=Supervision or Setup 2=Maximal Assistance 6=Modified [place] 3=Moderate Assistance 7=Complete IndependenceIRFPAI Quality Coding Scale 6 Independent with activity with or without an assistive device 5 Patient requires set up or clean up by helper. Patient completes activity by themselves 4 Supervision or touching assist (CGA). [place] provide cues , steadying assist 3 The helper provides less than half the effort to complete the activity 2 The helper provides more than half the effort to complete the activity 1 Dependent. The helper does all the effort to complete an activity 7 Patient refused to complete or attempt activity 9 The patient did not perform the activity before the current illness or injury 88 Not attempted due to Medical conditions or safety concerns Treatments Pt ambulated 150 ft x 2 with FWW with close CGA with forward flexion at hips and rounded shoulders and head down with heavy reliance on FWW and decreased quad stability on the left LE. Skilled cues provided for posture and step through gait 50% of the time, pt able to correct. Seated B LE ther ex x 12 for AP, LAQ, hip flex, hip abduct and ham curls for LE strengthening to improve functional transfers and gait; Pt required mod assist to transfer sit to sup in bed post treatment. Pt in bed after treatment with needs met and family present. Assessment Current Status: Good Progress Pt is making good functional progress and is motivated to participate. PT Short Term Goals Short Term Goals Time Frame: Sep 19, 2016 Gait (FIM): 4 Stairs (FIM): 4 PT Correctional Security Officer Goals Prison Goals PT Prison Goals Time Frame: Oct 03, 2016 Transfers (B,C,W/C) (FIM): 7 Sit to Lying (QC): 6 Lying-Sitting on Side/Bed(QC): 6 Sit to Stand (QC): 6 Rollin Roll Left to Right (QC): 6 Chair/[id number] Xfer(QC): 6 Car Transfer (QC): 6 Does the Patient Walk: Yes Gait (FIM): 6 Gait distance (FIM): 3=150 ft Walk 10 feet (QC): 6 Walk 10ft-Uneven Surface(QC): 6 Walk 50ft with 2 Turns (QC): 6 Walk 150 ft (QC): 6 Gait Assistive Device: FWW Does the Pt use WC or Scooter?: No Stairs (FIM): 6 # of Steps: 12 1 Step (curb) (QC): 6 4 Steps (QC): 6 12 Steps (QC): 6 Picking up an Object (QC): 5 PT Plan Problem List Problem List: Activity Tolerance, Functional Strength, Safety, Balance, Gait, Transfer, Bed Mobility Treatment/Plan Treatment Plan: Continue Plan of Care Treatment Plan: Bed Mobility, Education, Functional Activity Joe, Functional Strength, Group Therapy, Gait, Safety, Therapeutic Exercise, Transfers Treatment Duration: Oct 03, 2016 Visits Per Week: 10-15 Minutes/Day (M-F): 60-90 Minutes/Day (Sat/Naqvi): prn Safety Risks/Education Patient Education: Transfer Techniques, Safety Issues Teaching Recipient: Patient Teaching Methods: Demonstration, Discussion Response to Teaching: Verbalize Understanding, Reinforcement Needed Time/GCodes Time In: 1245 Time Out: 1315 Total Billed Treatment Time: 30 Total Billed Treatment visit GT 15 EX 15 CRISTIANA TORRES PT Sep 13, 2016 15:24
--- NOTE | 2016-09-13 16:49 | PM&R Post Admission Assessment ---
Post Admission Physician Asses The preadmission screen agrees with the post admission assessment that the patient is a good candidate for inpatient rehabilitation. The patient will have a comprehensive program of inpatient rehabilitation with a goal of maximizing level of functional independence prior to discharge home with family and HHC. The patient will have PT/OT ninety minutes per day, each discipline, five days a week for gait strengthening, conditioning, balance, ADLs , any patient/family/caregiver training necessary. Speech therapy to do cognitive assessment and treat 3 to 5 times a week for 2 weeks for mild cognitive impairment. Rehabilitation nursing to assist with bowel, bladder, skin , , medication administration, pain management. Brim Blocker to assist with discharge planning, community reentry and to assist patient with obtaining [facility] card if possible. SCD's for DVT prophylaxis. She appears to be well motivated to participate in three hours of therapy a day. She should be able to tolerate three hours of therapy a day from a medical standpoint. She should benefit from the three hours of therapy a day. She has a reasonable discharge plan, reasonable discharge rehabilitation goals and a supportive family. She has various comorbidities that need to be closely monitored with medications and treatments adjusted on a daily basis as needed. 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 Risks for this patient include: 1. Fall 2. Fracture 3. DVT 4. Pulmonary embolism 5. Wound infection 6. Skin breakdown 7. Contractures 8. Poorly controlled pain 9. Urinary retention 10. UTI 11. Respiratory infection 12. Aspiration 13. Poorly controlled HTN 14 Worsening bradycardia Estimated Length of Stay: 14 days Prognosis: Rehab prognosis appears good for goal of discharge home with family with HHC modified independent to supervision for ADLs and mobility skills. BROCK ESTES MD Sep 13, 2016 16:49
[2016-09-13 17:09] VITALS: BP 107/66
[2016-09-13] MEDS ORDERED: PATIENT MAY USE OWN MED,SINGLE MED PO SCH (17:45)
[2016-09-13] MEDS: ESTRADIOL 1 MG TAB (ESTRACE) PO SCH (20:09)
[2016-09-13] MEDS: SIMvastatin 10 MG (ZOCOR) TAB PO SCH (20:09)
[2016-09-13] MEDS: MULTIVIT W/MINERALS TAB (THERAGRAN M) PO SCH (20:10)
[2016-09-13] MEDS: ASPIRIN E.C. 81 MG (ECOTRIN) TAB PO SCH (20:10)
[2016-09-13] MEDS: HYDROCHLOROTHIAZIDE 12.5 MG (HCTZ) CAP PO SCH (20:10)
[2016-09-13] MEDS: lisINopril 10 MG (PRINIVIL) TAB PO SCH (20:10)
[2016-09-13] MEDS: MELOXICAM 7.5 MG (MOBIC) TABLET PO SCH (20:11)
[2016-09-14 05:25] VITALS: BP 106/68
[2016-09-14] MEDS: SUCRALFATE 1 GM (CARAFATE) TAB PO SCH ×2 (06:08→16:48)
[2016-09-14] MEDS: KCL 20 MEQ TAB (K-DUR) PO SCH (06:08)
[2016-09-14] MEDS: LEVOTHYROXINE 50 MCG (LEVOTHROID) TAB PO SCH (06:08)
[2016-09-14] MEDS: PANTOPRAZOLE 40 MG (PROTONIX) TAB PO SCH ×2 (06:08→16:48)
--- NOTE | 2016-09-14 06:37 | HISTORY AND PHYSICAL ---
DATE OF SERVICE: CHIEF COMPLAINT: Left sided weakness. HISTORY OF PRESENT ILLNESS: The patient is a 56-year-old female patient of [facility] and active smoker who presented to ED with family bringing her with left sided weakness of unknown duration. 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 She currently has no medical insurance. She is . She was not felt to be a thrombolytic candidate. An MRI and CT scan did not reveal specific findings but clinically she was felt to have sustained a stroke with left sided weakness and a decline in her functional independence. Prior level of function : She had been independent prior to this but utilizing Tramadol or Lortab for arthritic pain and fibromyalgia prescribed through the [facility], Dr. Goodman. She has had prior knee surgery on the left with Dr. Watt years ago at [facility] in [place]. Currently she is min assist for transfers and ambulation with a quad cane and with a four wheel walker, has a forward flexed posture. She is setup for eating, min assist for bathing, mod assist for showering, setup for upper body dressing, min assist for lower body dressing. She is reportedly continent of bowel and bladder. PAST MEDICAL HISTORY: Coronary artery disease, reported stroke in 2005 with left sided weakness resolved, GERD, hypertension, hypothyroidism on replacement, fibromyalgia, arthritis, tobaccoism and as per above. PAST SURGICAL HISTORY: Left knee surgery. ALLERGIES: PENICILLIN and SULFA. FAMILY HISTORY: Noncontributory. SOCIAL HISTORY: Essentially as per above, she is , lives alone but has supportive family nearby in [place]. REVIEW OF SYSTEMS: A 10-point review of systems significant for left sided weakness, left knee pain. MEDICATIONS: Fish oil 1000 mg p.o. daily, Senokot 8.6 mg p.o. daily, Plavix 75 mg p.o. daily, K-Dur 20 mEq p.o. daily, levothyroxine 50 mcg p.o. daily, aspirin 81 mg p.o. each day at bedtime, Cymbalta 60 mg p.o. b.i.d., Estrace 1 mg p.o. each day at bedtime, gabapentin 300 mg p.o. b.i.d., hydrochlorothiazide 12.5 mg p.o. each day at bedtime, lisinopril 10 mg p.o. each day at bedtime, meloxicam 7.5 mg p.o. each day at bedtime, multivitamins with minerals 1 tablet p.o. each day at bedtime, Lopressor 50 mg p.o. b.i.d., Zocor 10 mg p.o. each day at bedtime, Carafate 1 gram p.o. b.i.d., Protonix 40 mg p.o. b.i.d., calcium carbonate 500 mg p.o. q. 1 hours p.r.n. indigestion, loratadine 10 mg p.o. daily p.r.n. allergies, nitroglycerine 0.4 mg sublingual p.r.n. chest pain. PHYSICAL EXAMINATION: GENERAL: A pleasant female appearing her stated age, lying in bed in no acute distress. VITAL SIGNS: She is afebrile, pulse is 51, respirations 16, blood pressure 115/75, O2 sat 96% on room air. HEENT: Vision, speech, hearing grossly intact. No oral lesions noted. NECK: Supple without mass. HEART: Regular rate and rhythm. LUNGS: Clear. ABDOMEN: Soft, nontender, bowel sounds present. EXTREMITIES: No leg edema, no calf tenderness. MUSCULOSKELETAL: The patient has functional passive range of motion of all 4 extremities. NEUROLOGIC: She has a very mild left hemiparesis with gait imbalance. Cognition appears grossly intact. Sensation grossly intact to touch. IMPRESSION: 1. Clinical impression of right middle cerebral artery distribution stroke with left sided hemiparesis with negative imaging studies. The patient discussed with Dr. Cao, neurology at [facility] by hospital service and patient placed on Plavix and aspirin and advised to stop smoking. 2. Arthritic pain and fibromyalgia. Will resume tramadol p.r.n. 3. Tobaccoism, currently abstaining. 4. Hyperlipidemia, on statin. 5. Hypertension. Continue home medication. 6. Bradycardia. Will monitor. Ask Dr. Curtis et al., to follow up regarding this. This may be due to Lopressor. The patient is asymptomatic at this time. 7. Hypothyroidism, on replacement. 8. Gastroesophageal reflux disease, on Carafate and Protonix. PLAN: The patient is admitted to inpatient rehabilitation unit for a comprehensive program of inpatient stroke rehabilitation with goal of maximizing level of functional independence prior to discharge home with home health and family to assist as needed. The patient will have PT, OT 60 to 90 minutes per day 5 days a week for 2 weeks for gait, strengthening and conditioning, balance, ADLs, any patient family caregiving training as necessary, any adaptive equipment and training as necessary, neuromuscular reeducation as needed. Speech therapy has noted some mild cognitive impairments and will work with the patient 3 to 5 times a week 30 to 45 minutes per session for cognitive speech/language issues for 1 to 2 weeks. Rehabilitation nursing to assist with bowel, bladder, skin care, medication administration, pain management. workforce services representative will assist with discharge planning and community reentry. Will followup with the social media project manager to see if the patient may be eligible for [place] medical card. Follow up with Dr. Rodriguez as per schedule. Therapy with cardiac and fall precautions.[facility] Goodman upon discharge from [facility]. ESTIMATED LENGTH OF STAY: Two weeks. PROGNOSIS: Rehab prognosis appears good for goal of discharging home modified independent to supervised for ADLs and mobility skills. DIET: Regular. CODE STATUS: Full code. Job ID: [id number] DocumentID: [id number] Dictated Date: 09/13/2016 16:36:33 Bakery Supervisor Date: 09/13/2016 17:37:02 Dictated By: BROCK ESTES MD [facility]
--- NOTE | 2016-09-14 07:38 | Individualized Plan of Care ---
Individualized Plan of Care Rehab Nursing IPOC Order Admission Date September 12, 2016 at 10:50 Current Orders Orders Patient Visit (09/13/16 ) Treat. Speech/Lang/Voice (09/13/16 ) Consult Physician (09/13/16 10:41) Mrsa Screen Physician Request (09/13/16 11:41) Patient Visit (09/13/16 ) Exercise Therap, Ea 15 Min (09/13/16 ) Gait Training, Ea 15 Min (09/13/16 ) Patient Visit (09/13/16 ) Gait Training, Ea 15 Min (09/13/16 ) Exercise Therap, Ea 15 Min (09/13/16 ) Tramadol Tablet (Ultram Tablet) (09/13/16 16:45) Patient May Use Own Med,Single (Patient (09/13/16 17:45) PT IPOC Problem List: Activity Tolerance, Functional Strength, Safety, Balance, Gait, Transfer, Bed Mobility Treatment Plan: Continue Plan of Care Bed Mobility, Education, Functional Activity Joe, Functional Strength, Group Therapy, Gait, Safety, Therapeutic Exercise, Transfers Treatment Duration: Oct 03, 2016 Visits Per Week: 10-15 Minutes/Day (M-F): 60-90 Minutes/Day (Sat/Naqvi): prn OT IPOC Problems: Decreased Activ Tolerance, Decreased UE Strength, Dependent Transfers , Impaired Coordination, Impaired Funct Balance, Impaired I ADL's, Impaired Self -Care Skills OT Problems Pt admitted with CVA with left side deficits. Pt demonstrates decreased mobility , strength, coordination, activity tolerance and ADL performance. Pt to benefit from skilled OT intervention for ADL training, transfers, strengthening, and safety education to maximize level of function and allow safe return home. Plan of Care: ADL Retraining, Functional Mobility, Group Exercise/Act as Ind, UE Funct Exercise/Act, UE Neuromus Re-Ed/Coord Treatment Duration: Oct 03, 2016 Visits Per Week: 10-12 Minutes/Day (M-F): 60-90 Minutes/Day (Sat/Naqvi): PRN ST IPOC Speech Therapy Treatment Plan: Continue Plan of Care Treatment Duration: Oct 10, 2016 Visits Per Week: Four to five. Minutes/Day (M-F): 30 Physician IPOC Medical Issues being managed closely and that require the 24 hour availability of a physician:HTN Bradycardia smoking cessation Pain management Medical Issues: DVT Prophylaxis, Falls Precautions, Fluid/Electrolyte/ Nutrition Balance, Pain Management, Other (List) (as per above) Brief Synthesis of Preadmission Screen, Post-Admission Evaluation, and Therapy Evaluations: 56 yo female with hx of prior TIA/Stroke with resilved Left sided weakness who developed Left sided weakness again Outside of TPA window when seen in ED Imaging studies negative but clinical presentation is recurrent stroke with residual Left sided weakness and gait imbalance and mild cognitive impairment Currently unemployed and lives alone but had been Indpendent without a gait aide Patient started on plavix and [facility];ist following patient Patient on med for HTN has Bradycardia appears asymptomatic at this time Will f/ u with medical service re this.Participating in therapies Patient utilized Tramodol and an antidepressant for management of chronic knee pain and fibromyalgia Medical Prognosis: good Anticipated Length of Stay: 10/03/16 Rehab Goals Modified Independent for adls and mobility skills Anticipated discharge destinat: Home with family and [facility] BROCK ESTES MD Sep 14, 2016 07:38
[2016-09-14] MEDS: SENNOSIDES 8.6 MG (SENOKOT) TAB PO SCH ×2 (09:07→21:29)
[2016-09-14] MEDS: CLOPIDOGREL 75 MG (PLAVIX) TABLET PO SCH (09:07)
[2016-09-14] MEDS: DULoxetine 30 MG (CYMBALTA) CAP PO SCH ×2 (09:07→21:29)
[2016-09-14] MEDS: OMEGA 3 (FISH OIL) 1000 MG CAP PO SCH (09:07)
[2016-09-14] MEDS: GABAPENTIN 300 MG (NEURONTIN) CAP PO SCH ×2 (09:07→21:28)
[2016-09-14] MEDS: meTOprolol TARTRATE 50 MG (LOPRESSOR) TAB PO SCH ×2 (09:08→21:28)
--- NOTE | 2016-09-14 10:48 | Speech Therapy Daily Note ---
Speech Daily Progress Note Subjective The patient was seated upright in bed upon entrance. The patient greeted the clinician appropriately and was agreeable to participation in the cognitive treatment session. To note, the patient's son and three grandchildren were present for the close of the treatment. Objective Functional Memory Task: During the previous session, the patient reported difficulty recalling passwords to several online accounts (e-mail, Facebook). Due to this, the clinician reviewed and discussed sequencing necessary to retrieve account information. The patient demonstrated high accuracy with sequencing task, as she was able to successfully locate her e-mail account. The patient continued to struggle with the password required for her Facebook account, however, was able to navigate to the "requesting to reset password" screen with mild clinician verbal prompting. The clinician suggested the patient record her passwords to aid in her recall at a later time. Orientation: The patient was oriented to name, location, city, month, date, day of week, and year (independently). Assessment Assessment Current Status: Good Progress Treatment Plan Continue Plan of Care Communication Comprehension: 5 Expression: 5 Social Cognition Social Interaction: 5 Problem Solvin Memory: 5 Speech Short Term Goals Short Term Goals Short Term Goals 1. The patient will recall and demonstrate two functional memory strategies for use at home (independently). 2. The patient will demonstrated 90% accuracy (independently) with safety problem solving. 3. The patient will recall three to five items immediately and following a five minute delay. 4. The patient will accurately sequence ADL's with 80% accuracy and mild clinician cueing. PROGRESSING. 09/14/2016 Time Frame-STG: Two Weeks Speech Care Home Goals Admitting Clerk Goals 1. The patient will demonstrate improved cognitive linguistic skills for increased function and safety with ADL's in the least restrictive setting. Time Frame: Four Weeks Comprehension: 5 Expression: 5 Social Interaction: 6 Problem Solvin Memory: 4 Speech-Plan Treatment Plan Speech Therapy Treatment Plan: Continue Plan of Care Continue skilled speech pathology to target functional problem solving and memory strategies. Treatment Duration: Oct 10, 2016 # of days/week Four to five. Visits Per Week: Four to five. Minutes/Day (M-F): 30 Rehab Potential: Good Safety Risks/Education Teaching Recipient: Patient Teaching Methods: Demonstration, Discussion Response to Teaching: Return Demonstration Education Topics Provided: External Memory Strategies Time Speech Therapy Time In: 09:00 Speech Therapy Time Out: 09:30 Total Billed Time: 30 Billed Treatment Time 1, LETITIA BENAVIDES Sep 14, 2016 10:48
--- NOTE | 2016-09-14 11:14 | Occupational Ther Daily Note ---
OT Current Status-Daily Note Subjective Pt in bed, agrees to treatment. Pt states she is not having pain, but reports "muscle soreness" Mental Status/Objective Functional [place] Measure 0=Not Assessed/NA 4=Minimal Assistance 1=Total Assistance 5=Supervision or Setup 2=Maximal Assistance 6=Modified [place] 3=Moderate Assistance 7=Complete [place] ADL-Treatment Supine to sit with supervision. Sit to stand with close supervision. Pt requests shower this morning. Gait to restroom with FWW, slow pace and flexed posture. Transfer to toilet with CGA using grab bars. Pt able to complete toileting hygiene, requires CGA for balance during clothing management. Transfer to walk in shower with CGA. Pt completed seated bathing with increased time. Pt able to wash all areas with SBA. Weight shifts side to side to wash buttocks rather than standing. Pt able to dry all areas. Don pullover shirt with set up. Pt donned underwear and pants with CGA for standing balance during pant hike. Don socks and shoes with set up. Grooming tasks completed standing at sink with SBA. Functional [place] Measure 0=Not Assessed/NA 4=Minimal Assistance 1=Total Assistance 5=Supervision or Setup 2=Maximal Assistance 6=Modified [place] 3=Moderate Assistance 7=Complete IndependenceIRFPAI Quality Coding Scale 6 Independent with activity with or without an assistive device 5 Patient requires set up or clean up by helper. Patient completes activity by themselves 4 Supervision or touching assist (CGA). [place] provide cues , steadying assist 3 The helper provides less than half the effort to complete the activity 2 The helper provides more than half the effort to complete the activity 1 Dependent. The helper does all the effort to complete an activity 7 Patient refused to complete or attempt activity 9 The patient did not perform the activity before the current illness or injury 88 Not attempted due to Medical conditions or safety concerns Grooming (FIM): 5 Oral Hygiene (QC): 4 Bathing (FIM): 5 Shower/Bathe Self (QC): 4 Upper Body (FIM): 5 Upper Body Dressing (QC): 5 Lower Body Dressing (FIM): 4 (CGA) Lower Body Dressing (QC): 4 On/Off Footwear (QC): 5 Toileting (FIM): 4 (CGA) Toileting Hygiene (QC): 4 Toilet/Commode Transfer (FIM): 4 (CGA) Shower Transfer(FIM): 4 (CGA) Other Treatment Gait to therapy gym with FWW, cues for posture and safety. Pt completed arm bike activity x10 minutes to increase strength and ROM needed for functional tasks. Pt completed task with minimal resistance and slow pace. No rest breaks needed. Pt able to maintain grasp with left hand without difficulty. Pt returned to room, sitting in chair with needs met after session. OT Short Term Goals Short Term Goals Time Frame: Sep 19, 2016 Bathing(FIM): 5 Lower Body Dressing(FIM): 5 Toileting(FIM): 5 Toilet/Commode Transfer(FIM): 5 Shower Transfer(FIM): 5 Additional Short Term Goals: 1-Demonstrate ADL Tasks, 2-Verbalize Understanding , 3-ImproveStrength/Joe 1=Demonstrate adherence to instructed precautions during ADL tasks. 2=Patient will verbalize/demonstrate understanding of assistive devices/ modifications for ADL. 3=Patient will improve strength/tolerance for activity to enable patient to perform ADL's. OT Finance Assistant Goals Fpc Goals Time Frame: Oct 03, 2016 Eating (FIM): 6 Eating (QC): 6 Groomin Oral Hygiene (QC): 6 Bathing(FIM): 6 Shower/Bathe Self (QC): 6 Upper Body Dressing(FIM): 6 Upper Body Dressing (QC): 6 Lower Body Dressing(FIM): 6 Lower Body Dressing (QC): 6 On/Off Footwear (QC): 6 Toileting(FIM): 6 Toileting Hygiene (QC): 6 Toilet/Commode Transfer(FIM): 6 Toilet/Commode Transfer (QC): 6 Shower Transfer(FIM): 6 Comprehension(FIM): 5 Expression (FIM): 5 Social Interaction(FIM): 6 Problem Solving(FIM): 4 Memory(FIM): 4 Additional Goals: 1-Demonstrate ADL Tasks, 2-Verbalize Understanding, 3- ImproveStrength/Joe 1=Demonstrate adherence to instructed precautions during ADL tasks. 2=Patient will verbalize/demonstrate understanding of assistive devices/ modifications for ADL. 3=Patient will improve strength/tolerance for activity to enable patient to perform ADL's. OT Education/Plan Problem List/Assessment Pt admitted with CVA with left side deficits. Pt demonstrates decreased mobility , strength, coordination, activity tolerance and ADL performance. Pt to benefit from skilled OT intervention for ADL training, transfers, strengthening, and safety education to maximize level of function and allow safe return home. Discharge Recommendations Plan/Recommendations: Continue POC Treatment Plan/Plan of Care Patient would benefit from OT for education, treatment and training to promote independence in ADL's, mobility, safety and/or upper extremity function for ADL' s. Plan of Care: ADL Retraining, Functional Mobility, Group Exercise/Act as Ind, UE Funct Exercise/Act, UE Neuromus Re-Ed/Coord Treatment Duration: Oct 03, 2016 Visits Per Week: 10-12 Minutes/Day (M-F): 60-90 Minutes/Day (Sat/Naqvi): PRN Agreement: Yes Rehab Potential: Good Time/GCodes Start Time: 09:35 Stop Time: 10:50 Total Time Billed (hr/min): 75 Billed Treatment Time 1 visit, ADLx4(55minutes), EX(20minutes) ALVIN RIVERA OT Sep 14, 2016 11:13
--- NOTE | 2016-09-14 11:51 | Physical Therapy Daily Note ---
PT Daily Note-Current Subjective Patient in recliner pre tx, agrees to PT, no complaints of pain. Appearance Patient in recliner post tx with nurse call, phone, tray, all needs met. Mental Status Patient Orientation: Normal For Age Transfers Functional [place] Measure 0=Not Assessed/NA 4=Minimal Assistance 1=Total Assistance 5=Supervision or Setup 2=Maximal Assistance 6=Modified [place] 3=Moderate Assistance 7=Complete IndependenceIRFPAI Quality Coding Scale 6 Independent with activity with or without an assistive device 5 Patient requires set up or clean up by helper. Patient completes activity by themselves 4 Supervision or touching assist (CGA). [place] provide cues , steadying assist 3 The helper provides less than half the effort to complete the activity 2 The helper provides more than half the effort to complete the activity 1 Dependent. The helper does all the effort to complete an activity 7 Patient refused to complete or attempt activity 9 The patient did not perform the activity before the current illness or injury 88 Not attempted due to Medical conditions or safety concerns Transfers (B, C, W/C) (FIM): 4 Scootin Rollin Supine to/from Sit: 4 Sit to/from Stand: 4 Patient needs min assist getting her left leg into bed, CGA for sit to stand Gait Training Gait (FIM): 4 Distance: 150'x2 Gait Level of Assist: 4 Gait Persons Needed: 1 Gait Assistive Device: FWW CGA, better stepping and heel strike, very slow, patient needs cues to stand strait, tends to slump Exercises Supine Ex: Ankle pumps, Quad Set, Glut sets, Heel Slides, Short Arc Quads, Straight leg raise, Hip abd/add Supine Reps: 20 NuStep Minutes: 15 NuStep Workload: 5 Treatments bed mobility and transfers, ambulation, functional strengthening Assessment Current Status: Fair Progress improved ambulation, still fatigues quickly and needs frequent rest breaks PT Short Term Goals Short Term Goals Time Frame: Sep 19, 2016 Gait (FIM): 4 Stairs (FIM): 4 PT Alf Goals Alf Goals PT Alf Goals Time Frame: Oct 03, 2016 Transfers (B,C,W/C) (FIM): 7 Sit to Lying (QC): 6 Lying-Sitting on Side/Bed(QC): 6 Sit to Stand (QC): 6 Rollin Roll Left to Right (QC): 6 Chair/Nso-pe-Nmtww Xfer(QC): 6 Car Transfer (QC): 6 Does the Patient Walk: Yes Gait (FIM): 6 Gait distance (FIM): 3=150 ft Walk 10 feet (QC): 6 Walk 10ft-Uneven Surface(QC): 6 Walk 50ft with 2 Turns (QC): 6 Walk 150 ft (QC): 6 Gait Assistive Device: FWW Does the Pt use WC or Scooter?: No Stairs (FIM): 6 # of Steps: 12 1 Step (curb) (QC): 6 4 Steps (QC): 6 12 Steps (QC): 6 Picking up an Object (QC): 5 PT Plan Problem List Problem List: Activity Tolerance, Functional Strength, Safety, Balance, Gait, Transfer, Bed Mobility Treatment/Plan Treatment Plan: Continue Plan of Care Treatment Plan: Bed Mobility, Education, Functional Activity Joe, Functional Strength, Group Therapy, Gait, Safety, Therapeutic Exercise, Transfers Treatment Duration: Oct 03, 2016 Visits Per Week: 10-15 Minutes/Day (M-F): 60-90 Minutes/Day (Sat/Naqvi): prn Safety Risks/Education Patient Education: Gait Training, Transfer Techniques, Correct Positioning, Safety Issues Teaching Recipient: Patient Teaching Methods: Demonstration, Discussion Response to Teaching: Reinforcement Needed Time/GCodes Time In: 1100 Time Out: 1150 Total Billed Treatment Time: 50 Total Billed Treatment 1 visit GT 15' EX 35' JENARO ESTRADA PT Sep 14, 2016 11:51
--- NOTE | 2016-09-14 14:01 | Physical Therapy Daily Note ---
PT Daily Note-Current Subjective Patient in recliner pre tx, has pain of 4/10 in left arm and both knees. Appearance Patient in recliner post tx with nurse call, phone, tray, all needs met. Mental Status Patient Orientation: Normal For Age Transfers Functional [place] Measure 0=Not Assessed/NA 4=Minimal Assistance 1=Total Assistance 5=Supervision or Setup 2=Maximal Assistance 6=Modified [place] 3=Moderate Assistance 7=Complete IndependenceIRFPAI Quality Coding Scale 6 Independent with activity with or without an assistive device 5 Patient requires set up or clean up by helper. Patient completes activity by themselves 4 Supervision or touching assist (CGA). [place] provide cues , steadying assist 3 The helper provides less than half the effort to complete the activity 2 The helper provides more than half the effort to complete the activity 1 Dependent. The helper does all the effort to complete an activity 7 Patient refused to complete or attempt activity 9 The patient did not perform the activity before the current illness or injury 88 Not attempted due to Medical conditions or safety concerns Transfers (B, C, W/C) (FIM): 5 Sit to/from Stand: 5 Gait Training Gait (FIM): 4 Distance: 250'x2 Gait Level of Assist: 4 Gait Persons Needed: 1 Gait Assistive Device: FWW Patient needed CGA mostly on the turns, slow ambulation Treatments transfers, ambulation Assessment Current Status: Fair Progress improving endurance PT Short Term Goals Short Term Goals Time Frame: Sep 19, 2016 Gait (FIM): 4 Stairs (FIM): 4 PT Fdc Goals Fdc Goals PT Fdc Goals Time Frame: Oct 03, 2016 Transfers (B,C,W/C) (FIM): 7 Sit to Lying (QC): 6 Lying-Sitting on Side/Bed(QC): 6 Sit to Stand (QC): 6 Rollin Roll Left to Right (QC): 6 Chair/Piy-dj-Nxfgr Xfer(QC): 6 Car Transfer (QC): 6 Does the Patient Walk: Yes Gait (FIM): 6 Gait distance (FIM): 3=150 ft Walk 10 feet (QC): 6 Walk 10ft-Uneven Surface(QC): 6 Walk 50ft with 2 Turns (QC): 6 Walk 150 ft (QC): 6 Gait Assistive Device: FWW Does the Pt use WC or Scooter?: No Stairs (FIM): 6 # of Steps: 12 1 Step (curb) (QC): 6 4 Steps (QC): 6 12 Steps (QC): 6 Picking up an Object (QC): 5 PT Plan Problem List Problem List: Activity Tolerance, Functional Strength, Safety, Balance, Gait, Transfer, Bed Mobility, ROM Treatment/Plan Treatment Plan: Continue Plan of Care Treatment Plan: Bed Mobility, Education, Functional Activity Joe, Functional Strength, Group Therapy, Gait, Safety, Therapeutic Exercise, Transfers Treatment Duration: Oct 03, 2016 Visits Per Week: 10-15 Minutes/Day (M-F): 60-90 Minutes/Day (Sat/Naqvi): prn Safety Risks/Education Patient Education: Gait Training, Transfer Techniques, Safety Issues Teaching Recipient: Patient Teaching Methods: Demonstration, Discussion Response to Teaching: Reinforcement Needed Time/GCodes Time In: 1330 Time Out: 1400 Total Billed Treatment Time: 30 Total Billed Treatment 1 visit GT 30' JENARO ESTRADA PT Sep 14, 2016 14:01
[2016-09-14 18:04] VITALS: BP 109/74
[2016-09-14] MEDS ORDERED: MILK OF MAGNESIA 400 MG/5 ML 30 ML UDC ONE (18:15)
[2016-09-14] MEDS ORDERED: MILK OF MAGNESIA 400 MG/5 ML 30 ML UDC PO PRN (18:15)
[2016-09-14] MEDS: MULTIVIT W/MINERALS TAB (THERAGRAN M) PO SCH (21:28)
[2016-09-14] MEDS: ESTRADIOL 1 MG TAB (ESTRACE) PO SCH (21:28)
[2016-09-14] MEDS: lisINopril 10 MG (PRINIVIL) TAB PO SCH (21:28)
[2016-09-14] MEDS: SIMvastatin 10 MG (ZOCOR) TAB PO SCH (21:28)
[2016-09-14] MEDS: ASPIRIN E.C. 81 MG (ECOTRIN) TAB PO SCH (21:28)
[2016-09-14] MEDS: HYDROCHLOROTHIAZIDE 12.5 MG (HCTZ) CAP PO SCH (21:29)
[2016-09-14] MEDS: MELOXICAM 7.5 MG (MOBIC) TABLET PO SCH (21:29)
[2016-09-14] MEDS: MUPIROCIN 2% OINT 22 GM (BACTROBAN) TUBE TOP SCH (21:30)
[2016-09-15 05:06] VITALS: BP 118/72
[2016-09-15] MEDS: LEVOTHYROXINE 50 MCG (LEVOTHROID) TAB PO SCH (06:32)
[2016-09-15] MEDS: KCL 20 MEQ TAB (K-DUR) PO SCH (07:39)
[2016-09-15] MEDS: PANTOPRAZOLE 40 MG (PROTONIX) TAB PO SCH ×2 (07:39→16:46)
[2016-09-15] MEDS: SUCRALFATE 1 GM (CARAFATE) TAB PO SCH ×2 (07:42→16:46)
[2016-09-15] MEDS: DULoxetine 30 MG (CYMBALTA) CAP PO SCH ×2 (08:57→20:56)
[2016-09-15] MEDS: CLOPIDOGREL 75 MG (PLAVIX) TABLET PO SCH (08:57)
[2016-09-15] MEDS: OMEGA 3 (FISH OIL) 1000 MG CAP PO SCH (08:57)
[2016-09-15] MEDS: SENNOSIDES 8.6 MG (SENOKOT) TAB PO SCH ×2 (08:57→20:57)
[2016-09-15] MEDS: meTOprolol TARTRATE 50 MG (LOPRESSOR) TAB PO SCH ×2 (08:57→20:56)
[2016-09-15] MEDS: GABAPENTIN 300 MG (NEURONTIN) CAP PO SCH ×2 (08:57→20:56)
[2016-09-15] MEDS: MUPIROCIN 2% OINT 22 GM (BACTROBAN) TUBE TOP SCH ×2 (08:58→20:58)
[2016-09-15 10:33] LABS: RED BLOOD COUNT 4.9 10^6/uL (4.35-5.85); RED CELL DISTRIBUTION WIDTH 13.2 % (10.0-14.5); WHITE BLOOD COUNT 6.6 10^3/uL (4.3-11.0)
[2016-09-15 10:50] LABS: CALCIUM 9.4 MG/DL (8.5-10.1); CREATININE SERUM 0.96 MG/DL (0.60-1.30); POTASSIUM 4.3 MMOL/L (3.6-5.0)
--- NOTE | 2016-09-15 11:08 | Physical Therapy Daily Note ---
PT Daily Note-Current Subjective Pt sitting at EOB upon arrival. Pt agrees to PT. Pain Location: Left Location Body Site: Hip Pain Description: Ache, Tightness Mental Status Patient Orientation: Person, Place, Situation Transfers Functional [place] Measure 0=Not Assessed/NA 4=Minimal Assistance 1=Total Assistance 5=Supervision or Setup 2=Maximal Assistance 6=Modified [place] 3=Moderate Assistance 7=Complete IndependenceIRFPAI Quality Coding Scale 6 Independent with activity with or without an assistive device 5 Patient requires set up or clean up by helper. Patient completes activity by themselves 4 Supervision or touching assist (CGA). [place] provide cues , steadying assist 3 The helper provides less than half the effort to complete the activity 2 The helper provides more than half the effort to complete the activity 1 Dependent. The helper does all the effort to complete an activity 7 Patient refused to complete or attempt activity 9 The patient did not perform the activity before the current illness or injury 88 Not attempted due to Medical conditions or safety concerns Scootin Sit to/from Stand: 5 Sit to Stand (QC): 5 Weight Bearing Weight Bearing Restriction: Full Weight Bearing Location Restriction: LE Bilateral Gait Training Does the Patient Walk?: Yes Distance (FIM): 3=150 ft Distance: 250' Walk 10 feet (QC): 4 Walk 50 ft with 2 Turns(QC): 4 Walk 150 ft (QC): 4 Gait Level of Assist: 4 Gait Persons Needed: 1 Gait Assistive Device: FWW Pt walks slow but steady, no LOB. Pt WB more through UE then LE and PT encourages pt to WB more through LE to normalize gait. Wheelchair Training Does the Pt Use a Wheelchair?: No Treatments Pt transfers to standing from EOB using FWW at SBA. Pt ambulates in hallway using FWW at [facility] for safety. Pt returns to rest at EOB. Lab is present to draw blood. Pt is sitting at EOB with Lab at end of tx with all needs met. Assessment Current Status: Good Progress Pt has improved with strength and activity tolerance but will continue to work on normalizing gait by WB more through LE. PT Short Term Goals Short Term Goals Time Frame: Sep 19, 2016 Gait (FIM): 4 Stairs (FIM): 4 PT Community Relations Assistant Goals Community Relations Assistant Goals PT Community Relations Assistant Goals Time Frame: Oct 03, 2016 Transfers (B,C,W/C) (FIM): 7 Sit to Lying (QC): 6 Lying-Sitting on Side/Bed(QC): 6 Sit to Stand (QC): 6 Rollin Roll Left to Right (QC): 6 Chair/Gqu-ir-Fksvq Xfer(QC): 6 Car Transfer (QC): 6 Does the Patient Walk: Yes Gait (FIM): 6 Gait distance (FIM): 3=150 ft Walk 10 feet (QC): 6 Walk 10ft-Uneven Surface(QC): 6 Walk 50ft with 2 Turns (QC): 6 Walk 150 ft (QC): 6 Gait Assistive Device: FWW Does the Pt use WC or Scooter?: No Stairs (FIM): 6 # of Steps: 12 1 Step (curb) (QC): 6 4 Steps (QC): 6 12 Steps (QC): 6 Picking up an Object (QC): 5 PT Plan Problem List Problem List: Activity Tolerance, Functional Strength, Safety, Balance, Gait, Transfer Treatment/Plan Treatment Plan: Continue Plan of Care Treatment Plan: Bed Mobility, Education, Functional Activity Joe, Functional Strength, Group Therapy, Gait, Safety, Therapeutic Exercise, Transfers Treatment Duration: Oct 03, 2016 Visits Per Week: 10-15 Minutes/Day (M-F): 60-90 Minutes/Day (Sat/Naqvi): prn Safety Risks/Education Patient Education: Gait Training, Transfer Techniques, Correct Positioning, Safety Issues Teaching Recipient: Patient Teaching Methods: Discussion Response to Teaching: Verbalize Understanding Time/GCodes Time In: 1005 Time Out: 1020 Total Billed Treatment Time: 15 Total Billed Treatment visit, GT (15m) ANUEL HASTINGS PTA Sep 15, 2016 11:07
[2016-09-15 18:00] VITALS: BP 112/68
[2016-09-15] MEDS: HYDROCHLOROTHIAZIDE 12.5 MG (HCTZ) CAP PO SCH (20:56)
[2016-09-15] MEDS: MULTIVIT W/MINERALS TAB (THERAGRAN M) PO SCH (20:56)
[2016-09-15] MEDS: SIMvastatin 10 MG (ZOCOR) TAB PO SCH (20:56)
[2016-09-15] MEDS: MELOXICAM 7.5 MG (MOBIC) TABLET PO SCH (20:57)
[2016-09-15] MEDS: lisINopril 10 MG (PRINIVIL) TAB PO SCH (20:57)
[2016-09-15] MEDS: ESTRADIOL 1 MG TAB (ESTRACE) PO SCH (20:57)
[2016-09-15] MEDS: ASPIRIN E.C. 81 MG (ECOTRIN) TAB PO SCH (21:00)
[2016-09-16 05:07] VITALS: BP 108/68
[2016-09-16] MEDS: LEVOTHYROXINE 50 MCG (LEVOTHROID) TAB PO SCH (06:23)
[2016-09-16] MEDS: PANTOPRAZOLE 40 MG (PROTONIX) TAB PO SCH ×2 (07:31→17:05)
[2016-09-16] MEDS: SUCRALFATE 1 GM (CARAFATE) TAB PO SCH ×2 (07:31→17:06)
[2016-09-16] MEDS: KCL 20 MEQ TAB (K-DUR) PO SCH (07:31)
[2016-09-16] MEDS: MUPIROCIN 2% OINT 22 GM (BACTROBAN) TUBE TOP SCH ×2 (08:47→20:19)
[2016-09-16] MEDS: SENNOSIDES 8.6 MG (SENOKOT) TAB PO SCH ×2 (08:47→20:18)
[2016-09-16] MEDS: GABAPENTIN 300 MG (NEURONTIN) CAP PO SCH ×2 (08:47→20:18)
[2016-09-16] MEDS: DULoxetine 30 MG (CYMBALTA) CAP PO SCH ×2 (08:47→20:18)
[2016-09-16] MEDS: OMEGA 3 (FISH OIL) 1000 MG CAP PO SCH (08:47)
[2016-09-16] MEDS: meTOprolol TARTRATE 50 MG (LOPRESSOR) TAB PO SCH ×2 (08:47→20:18)
[2016-09-16] MEDS: CLOPIDOGREL 75 MG (PLAVIX) TABLET PO SCH (08:47)
[2016-09-16 18:00] VITALS: BP 109/70
[2016-09-16] MEDS: lisINopril 10 MG (PRINIVIL) TAB PO SCH (20:18)
[2016-09-16] MEDS: SIMvastatin 10 MG (ZOCOR) TAB PO SCH (20:18)
[2016-09-16] MEDS: ASPIRIN E.C. 81 MG (ECOTRIN) TAB PO SCH (20:18)
[2016-09-16] MEDS: MULTIVIT W/MINERALS TAB (THERAGRAN M) PO SCH (20:18)
[2016-09-16] MEDS: HYDROCHLOROTHIAZIDE 12.5 MG (HCTZ) CAP PO SCH (20:18)
[2016-09-16] MEDS: MELOXICAM 7.5 MG (MOBIC) TABLET PO SCH (20:18)
[2016-09-16] MEDS: ESTRADIOL 1 MG TAB (ESTRACE) PO SCH (20:18)
[2016-09-17 06:03] VITALS: BP 116/73
[2016-09-17] MEDS: LEVOTHYROXINE 50 MCG (LEVOTHROID) TAB PO SCH (06:07)
[2016-09-17] MEDS: SUCRALFATE 1 GM (CARAFATE) TAB PO SCH ×2 (06:56→16:22)
[2016-09-17] MEDS: PANTOPRAZOLE 40 MG (PROTONIX) TAB PO SCH ×2 (06:56→16:22)
[2016-09-17] MEDS: KCL 20 MEQ TAB (K-DUR) PO SCH (06:56)
[2016-09-17] MEDS: meTOprolol TARTRATE 50 MG (LOPRESSOR) TAB PO SCH ×2 (08:42→20:51)
[2016-09-17] MEDS: CLOPIDOGREL 75 MG (PLAVIX) TABLET PO SCH (08:42)
[2016-09-17] MEDS: MUPIROCIN 2% OINT 22 GM (BACTROBAN) TUBE TOP SCH ×2 (08:42→20:50)
[2016-09-17] MEDS: DULoxetine 30 MG (CYMBALTA) CAP PO SCH ×2 (08:42→20:51)
[2016-09-17] MEDS: OMEGA 3 (FISH OIL) 1000 MG CAP PO SCH (08:42)
[2016-09-17] MEDS: GABAPENTIN 300 MG (NEURONTIN) CAP PO SCH ×2 (08:42→20:50)
[2016-09-17] MEDS: SENNOSIDES 8.6 MG (SENOKOT) TAB PO SCH ×2 (08:42→20:51)
[2016-09-17 08:44] VITALS: BP 111/64
--- NOTE | 2016-09-17 08:47 | Physical Therapy Daily Note ---
PT Daily Note-Current Subjective Patient just getting off of toilet pre tx, agrees to PT, needs to wash her hands and groom and she does so at the sink with SBA. Patient has pain of 2-3/ 10 in her left shoulder and both knees. Appearance Patient in bed post tx with nurse call, phone, tray, all needs met. Nurse in the room. Mental Status Patient Orientation: Normal For Age Transfers Functional [place] Measure 0=Not Assessed/NA 4=Minimal Assistance 1=Total Assistance 5=Supervision or Setup 2=Maximal Assistance 6=Modified [place] 3=Moderate Assistance 7=Complete IndependenceIRFPAI Quality Coding Scale 6 Independent with activity with or without an assistive device 5 Patient requires set up or clean up by helper. Patient completes activity by themselves 4 Supervision or touching assist (CGA). [employer] provide cues , steadying assist 3 The helper provides less than half the effort to complete the activity 2 The helper provides more than half the effort to complete the activity 1 Dependent. The helper does all the effort to complete an activity 7 Patient refused to complete or attempt activity 9 The patient did not perform the activity before the current illness or injury 88 Not attempted due to Medical conditions or safety concerns Transfers (B, C, W/C) (FIM): 5 Scootin Rollin Supine to/from Sit: 5 Sit to/from Stand: 5 Patient was finally able to get both legs into bed without assist. Gait Training Gait (FIM): 5 Distance: 250'x2 Gait Level of Assist: 5 Gait Persons Needed: 1 Gait Assistive Device: FWW close supervision, very slow ambulation, standing more upright today, left arm and leg are more steady/stronger Exercises NuStep Minutes: 15 NuStep Workload: 5 Treatments bed mobility and transfers, ambulation, functional strengthening Assessment Current Status: Fair Progress improving strength and ambulation PT Short Term Goals Short Term Goals Time Frame: Sep 19, 2016 Gait (FIM): 4 Stairs (FIM): 4 PT Senior Living Goals Senior Living Goals PT Senior Living Goals Time Frame: Oct 03, 2016 Transfers (B,C,W/C) (FIM): 7 Sit to Lying (QC): 6 Lying-Sitting on Side/Bed(QC): 6 Sit to Stand (QC): 6 Rollin Roll Left to Right (QC): 6 Chair/Aca-ea-Iklzy Xfer(QC): 6 Car Transfer (QC): 6 Does the Patient Walk: Yes Gait (FIM): 6 Gait distance (FIM): 3=150 ft Walk 10 feet (QC): 6 Walk 10ft-Uneven Surface(QC): 6 Walk 50ft with 2 Turns (QC): 6 Walk 150 ft (QC): 6 Gait Assistive Device: FWW Does the Pt use WC or Scooter?: No Stairs (FIM): 6 # of Steps: 12 1 Step (curb) (QC): 6 4 Steps (QC): 6 12 Steps (QC): 6 Picking up an Object (QC): 5 PT Plan Problem List Problem List: Activity Tolerance, Functional Strength, Safety, Balance, Gait, Transfer, Bed Mobility Treatment/Plan Treatment Plan: Continue Plan of Care Treatment Plan: Bed Mobility, Education, Functional Activity Joe, Functional Strength, Group Therapy, Gait, Safety, Therapeutic Exercise, Transfers Treatment Duration: Oct 03, 2016 Visits Per Week: 10-15 Minutes/Day (M-F): 60-90 Minutes/Day (Sat/Naqvi): prn Safety Risks/Education Patient Education: Gait Training, Transfer Techniques, Correct Positioning, Safety Issues Teaching Recipient: Patient Teaching Methods: Demonstration, Discussion Response to Teaching: Reinforcement Needed Time/GCodes Time In: 800 Time Out: 845 Total Billed Treatment Time: 45 Total Billed Treatment 1 visit EX 15' GT 30' JENARO ESTRADA PT Sep 17, 2016 08:47
--- NOTE | 2016-09-17 09:51 | Speech Therapy Daily Note ---
Speech Daily Progress Note Subjective The patient greeted the clinician and was agreeable to participation in the cognitive treatment session on this date. Objective Functional Memory Tasks: The patient was asked to recall her password to re- enter her e-mail account on this date. The patient used her strategy from the previous session and used the piece of paper she recorded her password on. The patient successfully entered and navigated her account, independently. Safety Problem Solving: The patient was provided pictures depicting safety issues in a home environment. The patient was asked to identify the safety risk and provide an appropriate solution. The patient demonstrated 100% accuracy, independently. Assessment Assessment Current Status: Good Progress Communication Comprehension: 4 Expression: 5 Social Cognition Social Interaction: 5 Problem Solvin Memory: 4 Speech Short Term Goals Short Term Goals Short Term Goals 1. The patient will recall and demonstrate two functional memory strategies for use at home (independently). 2. The patient will demonstrated 90% accuracy (independently) with safety problem solving. 3. The patient will recall three to five items immediately and following a five minute delay. 4. The patient will accurately sequence ADL's with 80% accuracy and mild clinician cueing. PROGRESSING. 09/14/2016 Time Frame-STG: Two Weeks Speech Registered Dental Assistant Rda Goals [facility] Goals 1. The patient will demonstrate improved cognitive linguistic skills for increased function and safety with ADL's in the least restrictive setting. Time Frame: Four Weeks Comprehension: 5 Expression: 5 Social Interaction: 6 Problem Solvin Memory: 4 Speech-Plan Treatment Plan Speech Therapy Treatment Plan: Continue Plan of Care Continue skilled speech pathology to target functional problem solving and memory strategies. Treatment Duration: Oct 10, 2016 # of days/week Four to five. Visits Per Week: Four to five. Minutes/Day (M-F): 30 Rehab Potential: Good Safety Risks/Education Teaching Recipient: Patient Teaching Methods: Discussion Response to Teaching: Verbalize Understanding Education Topics Provided: Safety Problem Solving Time Speech Therapy Time In: 08:45 Speech Therapy Time Out: 09:15 Total Billed Time: 30 Billed Treatment Time ZacharyNOHELIA ELIZABETH ST Sep 17, 2016 09:51
--- NOTE | 2016-09-17 11:27 | Occupational Ther Daily Note ---
OT Current Status-Daily Note Subjective Pt in bed, agrees to treatment. Pt requests to shower this morning. Mental Status/Objective Functional [place] Measure 0=Not Assessed/NA 4=Minimal Assistance 1=Total Assistance 5=Supervision or Setup 2=Maximal Assistance 6=Modified [place] 3=Moderate Assistance 7=Complete [place] ADL-Treatment Supine to sit with supervision. Sit to stand with supervision. Gait to restroom with FWW. Transfer to walk in shower with close supervision. [place] clothing with SBA. Pt able to wash/dry all areas with SBA and increased time. Don pullover shirt with set up. Pt donned underwear and pants with SBA for balance during standing for pant hike. Pt donned socks and shoes with set up. Pt able to tie shoes without assistance. Grooming tasks completed standing at sink. Pt brushed teeth and combed hair with SBA for standing balance. Pt fatigues with activity and requires occasional rest breaks throughout treatment. Functional [place] Measure 0=Not Assessed/NA 4=Minimal Assistance 1=Total Assistance 5=Supervision or Setup 2=Maximal Assistance 6=Modified [place] 3=Moderate Assistance 7=Complete IndependenceIRFPAI Quality Coding Scale 6 Independent with activity with or without an assistive device 5 Patient requires set up or clean up by helper. Patient completes activity by themselves 4 Supervision or touching assist (CGA). [place] provide cues , steadying assist 3 The helper provides less than half the effort to complete the activity 2 The helper provides more than half the effort to complete the activity 1 Dependent. The helper does all the effort to complete an activity 7 Patient refused to complete or attempt activity 9 The patient did not perform the activity before the current illness or injury 88 Not attempted due to Medical conditions or safety concerns Grooming (FIM): 5 Bathing (FIM): 5 Shower/Bathe Self (QC): 4 Upper Body (FIM): 5 Upper Body Dressing (QC): 5 Lower Body Dressing (FIM): 5 Lower Body Dressing (QC): 4 On/Off Footwear (QC): 5 Shower Transfer(FIM): 5 Other Treatment Pt performed gait to therapy gym with FWW, slow pace. Pt requires cues for posture and FWW use. Rest break required once in gym. Pt performed left UE exercises to promote increased AROM and strength needed for functional tasks. Pt performed shoulder ROM. Is able to actively flex and abduct shoulder to 90 degrees, AAROM completed to increase ROM. Pt reports minimal shoulder pain with left UE movement. Pt performed active scapular retraction and elbow, wrist, and finger flex/ext x10 reps. Rest breaks between exercises. Pt completed grooved pegboard activity with left hand to increase coordination/manipulation skills for ADLs. Pt has slow movements, but is able to complete task without assistance. Pt returned to room, resting in bed with needs met after session. OT Short Term Goals Short Term Goals Time Frame: Sep 19, 2016 Bathing(FIM): 5 Lower Body Dressing(FIM): 5 Toileting(FIM): 5 Toilet/Commode Transfer(FIM): 5 Shower Transfer(FIM): 5 Additional Short Term Goals: 1-Demonstrate ADL Tasks, 2-Verbalize Understanding , 3-ImproveStrength/Joe 1=Demonstrate adherence to instructed precautions during ADL tasks. 2=Patient will verbalize/demonstrate understanding of assistive devices/ modifications for ADL. 3=Patient will improve strength/tolerance for activity to enable patient to perform ADL's. OT Senior Care Goals Senior Care Goals Time Frame: Oct 03, 2016 Eating (FIM): 6 Eating (QC): 6 Groomin Oral Hygiene (QC): 6 Bathing(FIM): 6 Shower/Bathe Self (QC): 6 Upper Body Dressing(FIM): 6 Upper Body Dressing (QC): 6 Lower Body Dressing(FIM): 6 Lower Body Dressing (QC): 6 On/Off Footwear (QC): 6 Toileting(FIM): 6 Toileting Hygiene (QC): 6 Toilet/Commode Transfer(FIM): 6 Toilet/Commode Transfer (QC): 6 Shower Transfer(FIM): 6 Comprehension(FIM): 5 Expression (FIM): 5 Social Interaction(FIM): 6 Problem Solving(FIM): 4 Memory(FIM): 4 Additional Goals: 1-Demonstrate ADL Tasks, 2-Verbalize Understanding, 3- ImproveStrength/Joe 1=Demonstrate adherence to instructed precautions during ADL tasks. 2=Patient will verbalize/demonstrate understanding of assistive devices/ modifications for ADL. 3=Patient will improve strength/tolerance for activity to enable patient to perform ADL's. OT Education/Plan Problem List/Assessment Pt admitted with CVA with left side deficits. Pt demonstrates decreased mobility , strength, coordination, activity tolerance and ADL performance. Pt to benefit from skilled OT intervention for ADL training, transfers, strengthening, and safety education to maximize level of function and allow safe return home. Discharge Recommendations Plan/Recommendations: Continue POC Treatment Plan/Plan of Care Patient would benefit from OT for education, treatment and training to promote independence in ADL's, mobility, safety and/or upper extremity function for ADL' s. Plan of Care: ADL Retraining, Functional Mobility, Group Exercise/Act as Ind, UE Funct Exercise/Act, UE Neuromus Re-Ed/Coord Treatment Duration: Oct 03, 2016 Visits Per Week: 10-12 Minutes/Day (M-F): 60-90 Minutes/Day (Sat/Naqvi): PRN Agreement: Yes Rehab Potential: Good Time/GCodes Start Time: 09:15 Stop Time: 10:30 Total Time Billed (hr/min): 75 Billed Treatment Time 1 visit, ADLx3(45minutes), EXx2(30minutes) ALVIN RIVERA OT Sep 17, 2016 11:27
--- NOTE | 2016-09-17 13:33 | Physical Therapy Daily Note ---
PT Daily Note-Current Subjective Patient on toilet pre tx, agrees to PT, has pain of 2-3/10 in her left shoulder and both knees. Appearance Patient BTB post tx with nurse call, phone, tray, all needs met. Mental Status Patient Orientation: Normal For Age Transfers Functional [place] Measure 0=Not Assessed/NA 4=Minimal Assistance 1=Total Assistance 5=Supervision or Setup 2=Maximal Assistance 6=Modified [place] 3=Moderate Assistance 7=Complete IndependenceIRFPAI Quality Coding Scale 6 Independent with activity with or without an assistive device 5 Patient requires set up or clean up by helper. Patient completes activity by themselves 4 Supervision or touching assist (CGA). [place] provide cues , steadying assist 3 The helper provides less than half the effort to complete the activity 2 The helper provides more than half the effort to complete the activity 1 Dependent. The helper does all the effort to complete an activity 7 Patient refused to complete or attempt activity 9 The patient did not perform the activity before the current illness or injury 88 Not attempted due to Medical conditions or safety concerns Transfers (B, C, W/C) (FIM): 5 Scootin Rollin Supine to/from Sit: 5 Sit to/from Stand: 5 Gait Training Gait (FIM): 5 Distance: 150'x2 Gait Level of Assist: 5 Gait Persons Needed: 1 Gait Assistive Device: FWW Very slow ambulation. Patient also ambulated 20'x2 with a quad cane with CGA, cues for step pattern and safety. Treatments bed mobility and transfers, ambulation Assessment Current Status: Fair Progress improving ambulation and balance PT Short Term Goals Short Term Goals Time Frame: Sep 19, 2016 Gait (FIM): 4 Stairs (FIM): 4 PT Jail Goals [employer] Operator Goals PT Jail Goals Time Frame: Oct 03, 2016 Transfers (B,C,W/C) (FIM): 7 Sit to Lying (QC): 6 Lying-Sitting on Side/Bed(QC): 6 Sit to Stand (QC): 6 Rollin Roll Left to Right (QC): 6 Chair/Zoa-ck-Eumlf Xfer(QC): 6 Car Transfer (QC): 6 Does the Patient Walk: Yes Gait (FIM): 6 Gait distance (FIM): 3=150 ft Walk 10 feet (QC): 6 Walk 10ft-Uneven Surface(QC): 6 Walk 50ft with 2 Turns (QC): 6 Walk 150 ft (QC): 6 Gait Assistive Device: FWW Does the Pt use WC or Scooter?: No Stairs (FIM): 6 # of Steps: 12 1 Step (curb) (QC): 6 4 Steps (QC): 6 12 Steps (QC): 6 Picking up an Object (QC): 5 PT Plan Problem List Problem List: Activity Tolerance, Functional Strength, Safety, Balance, Gait, Transfer, Bed Mobility Treatment/Plan Treatment Plan: Continue Plan of Care Treatment Plan: Bed Mobility, Education, Functional Activity Joe, Functional Strength, Group Therapy, Gait, Safety, Therapeutic Exercise, Transfers Treatment Duration: Oct 03, 2016 Visits Per Week: 10-15 Minutes/Day (M-F): 60-90 Minutes/Day (Sat/Naqvi): prn Safety Risks/Education Patient Education: Gait Training, Transfer Techniques, Correct Positioning, Safety Issues Teaching Recipient: Patient Teaching Methods: Demonstration, Discussion Response to Teaching: Reinforcement Needed Time/GCodes Time In: 1300 Time Out: 1330 Total Billed Treatment Time: 30 Total Billed Treatment 1 visit GT 30' JENARO ESTRADA PT Sep 17, 2016 13:33
--- NOTE | 2016-09-17 13:47 | Speech Therapy Progress Note ---
Therapy Progress Note Date Seen by Provider: Sep 17, 2016 Time Seen by Provider: 13:45 Dysphagia consultation received and chart reviewed. Following chart review, the clinician deemed it appropriate to complete the patient's clinical swallow evaluation during the subsequent day's treatment session. If patient's dysphagia worsens, please contact speech pathology. Recommendations pending completion of swallow evaluation. Thank you. LETITIA CASILLAS Sep 17, 2016 13:47
--- NOTE | 2016-09-17 15:38 | Consultation ([facility]) ---
HPI History of Present Illness: Patient admitted to rehab for left sided weakness after presumed stroke although imaging failed to demonstrate pathology. She is doing well in therapy and denies concerns today except that she is coughing a lot after she eats, which she states is new. Attending Physician Navdeep Matamoros MD PCP Seth Goodman MD Consult Date of Admission September 12, 2016 at 10:50 Home Medications Home Medications Reviewed patient Home Medication Reconciliation Form Allergies Coded Allergies: Penicillins (Verified Allergy, Intermediate, RASH, 09/10/16) Sulfa (Sulfonamide Antibiotics) (Unverified Adverse Reaction, Mild, DIARRHEA, 09/14/16) [id number]-Nblisg Hx Patient Social History Alcohol Use: Denies Use Recreational Drug Use: No Smoking Status: Current Everyday Smoker Type Used: Cigarettes Recent Foreign Travel: No Contact w/other who traveled: No Recent Hopitalizations: No Recent Infectious Disease Expo: No Physical Abuse Screen: No Sexual Abuse: No Past Medical History PMHx: Fibromyalgia HTN HLD Osteoarthritis GERD SurgHx: Left knee surgery Family Medical History Significant Family History: Diabetes, Vascular Disease Review of Systems ([facility]) Date Seen by Provider: Sep 17, 2016 Time Seen by Provider: 12:00 Constitutional: no symptoms reported EENTM: no symptoms reported Respiratory: No cough, No short of breath Cardiovascular: No chest pain Gastrointestinal: constipation, diarrhea Genitourinary: no symptoms reported Musculoskeletal: joint pain Skin: no symptoms reported Psychiatric/Neurological: No Symptoms Reported Physical Exam-([facility]) Physical Exam Vital Signs VS - Last 72 Hours, by Label 09/15/16 09/15/16 09/15/16 09/16/16 05:06 18:00 20:55 05:07 Temp 97.3 97.2 97.1 Pulse 60 54 60 50 Resp 18 18 18 B/P (MAP) 118/72 112/68 108/68 Pulse Ox 96 96 96 09/16/16 09/17/16 09/17/16 09/17/16 18:00 06:03 08:44 18:14 Temp 97.4 97.5 97.8 Pulse 56 58 59 51 Resp 18 20 16 B/P (MAP) 109/70 116/73 111/64 110/71 Pulse Ox 96 97 98 09/17/16 20:48 Pulse 64 Capillary Refill : General Appearance: WD/WN, no apparent distress Respiratory: lungs clear, normal breath sounds Cardiovascular: regular rate, rhythm Gastrointestinal: normal bowel sounds, non tender, soft Extremities: no pedal edema Neurologic/Psychiatric: alert, normal mood/affect Skin: normal color, warm/dry Assessment/Plan Assessment/Plan Admission Dx Left sided weakness/CVA HTN GERD Fibromyalgia Osteoarthritis Hypothyroidism Postmenopausal hot flashes Plan Left sided weakness/CVA -Rehab including speech therapy (discussed report of coughing after eating and request assessment) -On aspirin and plavix HTN -Lisinopril, HCTZ and metoprolol- has been bradycardic and with relatively low BP, will decrease metoprolol to 25 mg BID GERD PPI, carafate Fibromyalgia Continue Savella, gabapentin, cymbalta Osteoarthritis On meloxicam, tramadol Hypothyroidism On levothyroxine Postmenopausal hot flashes On estrogen- given concern for stroke, recommend discontinuing, she is hesitant but willing to try starting with decreased dose Diagnosis/Problems: Clinical Quality Measures DVT/VTE Risk/Contraindication: Risk Factor Score Per Nursin RFS Level Per Nursing on Admit: 4+=Very High SUE ARIAS MD Sep 17, 2016 3:38 pm
[2016-09-17 18:14] VITALS: BP 110/71
[2016-09-17] MEDS: lisINopril 10 MG (PRINIVIL) TAB PO SCH (20:50)
[2016-09-17] MEDS: HYDROCHLOROTHIAZIDE 12.5 MG (HCTZ) CAP PO SCH (20:50)
[2016-09-17] MEDS: ESTRADIOL 1 MG TAB (ESTRACE) PO SCH (20:50)
[2016-09-17] MEDS: SIMvastatin 10 MG (ZOCOR) TAB PO SCH (20:51)
[2016-09-17] MEDS: MULTIVIT W/MINERALS TAB (THERAGRAN M) PO SCH (20:51)
[2016-09-17] MEDS: MELOXICAM 7.5 MG (MOBIC) TABLET PO SCH (20:51)
[2016-09-17] MEDS: ASPIRIN E.C. 81 MG (ECOTRIN) TAB PO SCH (20:51)
[2016-09-18 05:06] VITALS: BP 98/61
[2016-09-18] MEDS: LEVOTHYROXINE 50 MCG (LEVOTHROID) TAB PO SCH (05:56)
[2016-09-18] MEDS: KCL 20 MEQ TAB (K-DUR) PO SCH (06:46)
[2016-09-18] MEDS: PANTOPRAZOLE 40 MG (PROTONIX) TAB PO SCH ×2 (06:46→16:15)
[2016-09-18] MEDS: SUCRALFATE 1 GM (CARAFATE) TAB PO SCH ×2 (06:46→16:15)
[2016-09-18 08:02] VITALS: BP 114/74
[2016-09-18] MEDS: GABAPENTIN 300 MG (NEURONTIN) CAP PO SCH ×2 (08:04→20:23)
[2016-09-18] MEDS: OMEGA 3 (FISH OIL) 1000 MG CAP PO SCH (08:04)
[2016-09-18] MEDS: DULoxetine 30 MG (CYMBALTA) CAP PO SCH ×2 (08:04→20:23)
[2016-09-18] MEDS: CLOPIDOGREL 75 MG (PLAVIX) TABLET PO SCH (08:04)
[2016-09-18] MEDS: MUPIROCIN 2% OINT 22 GM (BACTROBAN) TUBE TOP SCH ×2 (08:05→20:24)
[2016-09-18] MEDS: meTOprolol TARTRATE 50 MG (LOPRESSOR) TAB PO SCH ×2 (08:05→20:22)
[2016-09-18] MEDS: SENNOSIDES 8.6 MG (SENOKOT) TAB PO SCH ×2 (08:07→20:24)
--- NOTE | 2016-09-18 09:33 | Speech Therapy Daily Note ---
Speech Daily Progress Note Subjective Date Seen by Provider: Sep 18, 2016 Time Seen by Provider: 08:52 The patient was seated upright in the recliner upon entrance. The patient greeted the clinician appropriately and was agreeable to participation in cognitive treatment on this date. Objective Functional Memory: The patient was read short paragraphs (three to four sentences in length) by the clinician. Following the reading, the patient was asked to recall specific information regarding the previous reading. The patient demonstrated 100% accuracy with immediate recall of information. The patient demonstrated 90% accuracy with delayed recall of information ( approximately 15 minutes following the initial presentation). Orientation: The patient was 100% oriented, independently. Assessment Assessment Current Status: Excellent Progress Treatment Plan Continue Plan of Care Communication Comprehension: 5 Expression: 6 Social Cognition Social Interaction: 5 Problem Solvin Memory: 4 Speech Short Term Goals Short Term Goals Short Term Goals 1. The patient will recall and demonstrate two functional memory strategies for use at home (independently). 2. The patient will demonstrated 90% accuracy (independently) with safety problem solving. 3. The patient will recall three to five items immediately and following a five minute delay. 4. The patient will accurately sequence ADL's with 80% accuracy and mild clinician cueing. PROGRESSING. 09/14/2016 Time Frame-STG: Two Weeks Speech Press Maintainer Goals Custodial Goals 1. The patient will demonstrate improved cognitive linguistic skills for increased function and safety with ADL's in the least restrictive setting. Time Frame: Four Weeks Comprehension: 5 Expression: 5 Social Interaction: 6 Problem Solvin Memory: 4 Speech-Plan Treatment Plan Speech Therapy Treatment Plan: Continue Plan of Care Continue skilled speech pathology to target functional memory strategies and problem solving. Treatment Duration: Oct 10, 2016 # of days/week Four to five. Visits Per Week: Four to five. Minutes/Day (M-F): 30 Rehab Potential: Good Safety Risks/Education Teaching Recipient: Patient Teaching Methods: Discussion Response to Teaching: Verbalize Understanding, Return Demonstration Education Topics Provided: Internal Memory Strategies Time Speech Therapy Time In: 08:52 Speech Therapy Time Out: 09:15 Total Billed Time: 23 Billed Treatment Time ZacharyNOHELIALETITIA ST Sep 18, 2016 09:33
--- NOTE | 2016-09-18 09:40 | ST Dysphagia Evaluation ---
Speech Evaluation-General Medical Diagnosis TIA/CVA Onset Date: September 10, 2016 Therapy Diagnosis Therapy Diagnosis: Oropharyngeal Swallow WFL Precautions Precautions/Isolations: Fall Prevention, Standard Precautions Referral Referring Physician: Dr. Nikkie Ro Reason for Referral: Evaluation/Treatment Clinical Bedside Swallowing Evaluation Medical History Pertinent Medical History: CAD, CVA (2006), GERD, HTN, Hypothroidism Reviewed History: Yes Social History Home: Single Level (5 stairs on the back porch, two steps on the front porch) Current Living Status: Alone Speech PLF/Current-Dysphagia Prior Level of Function The patient denied previous swallowing challenges prior to admission (with the exception of "extreme GERD"). The patient consumed a regular diet with thin liquids prior to her most recent hospital stay. Subjective The patient was recently admitted to [facility] following a possible TIA/CVA resulting in left sided weakness. Per patient, approximately four to five days ago she began experiencing coughing following eating. The patient reported the coughing does not occur immediately following the swallow, however, several minutes later with solid consistencies, only. The patient denied a globus sensation or odynophagia with any consistency she currently consumes. Cognitive Status Patient Orientation: Person, Place, Time, Situation, Normal For Age Oral Motor Skills Dentition: Natural Current Food Consistancy: Regular, Thin Liquids Ability to Follow Directions: Excellent Oral Expression Ability: No Impairment Voice Voice Phonatory-Based Quality: Normal Voice Pitch: Normal Voice Loudness: Normal Face Facial Symmetry: Symmetrical (Patient does report slightly reduced sensation on the left.) Oral-Facial Assessment Oral-Facial Dentition: Normal Labial Seal Description: Normal Smile: Normal Puff Cheeks: Normal Lingual Protrusion: Normal Lingual ROM: Normal Lingual Strength: Normal Pharynx Velopharyngeal Move.: Normal Volitional Dry Swallow: Yes Dysphagia Evaluation Consistencies Presented: Regular, Thin Liquid, Pureed - No oral deficits were noted during the swallow evaluation. - No pharyngeal impairments were noted throughout the evaluation. - Thin Liquids (ice chip, teaspoon, cup sip, straw sip), Puree, Solid: No signs /symptoms of aspiration were demonstrated with multiple trials of each consistency tested. The patient's vocal quality remained clear throughout the assessment. Dietary Recommendations: Regular Liquid Recommendations: Thin Swallowing Precautions: Alternate Liquids/Solids, Small Bites and Sips, Sitting 90 Degrees 30 Post Intake Dysphagia Evaluation Summary The patient demonstrated an oropharyngeal swallow function within normal limits. Due to the patient's reports of coughing "minutes after" she has been eating, as well as, her history of "extreme GERD," the clinician recommends consideration of an esophagram to further study esophageal functioning. Speech Short Term Goals Short Term Goals Short Term Goals 1. The patient will recall and demonstrate two functional memory strategies for use at home (independently). 2. The patient will demonstrated 90% accuracy (independently) with safety problem solving. 3. The patient will recall three to five items immediately and following a five minute delay. 4. The patient will accurately sequence ADL's with 80% accuracy and mild clinician cueing. PROGRESSING. 09/14/2016 Time Frame-STG: Two Weeks Speech Shelter Goals [place] Worker Goals 1. The patient will demonstrate improved cognitive linguistic skills for increased function and safety with ADL's in the least restrictive setting. Time Frame: Four Weeks Comprehension: 5 Expression: 5 Social Interaction: 6 Problem Solvin Memory: 4 Speech-Plan Treatment Plan Speech Therapy Treatment Plan: Discontinue ST Evaluation, only. Treatment Duration: Oct 10, 2016 # of days/week Four to five. Visits Per Week: Four to five. Minutes/Day (M-F): 30 Rehab Potential: Good Safety Risks/Education Teaching Recipient: Patient Teaching Methods: Discussion Response to Teaching: Verbalize Understanding Education Topics Provided: Results, Recommendations, Plan of Care, Signs/Symptoms of Aspiration Time Speech Therapy Time In: 08:30 Speech Therapy Time Out: 08:52 Total Billed Time: 22 Billed Treatment Time 1 LETITIA HAAS Sep 18, 2016 09:40
--- NOTE | 2016-09-18 10:45 | Occupational Ther Daily Note ---
OT Current Status-Daily Note Subjective Pt alert, sitting in recliner. Pt stated that she had a shower yesterday and she didn't need one today. She had already put new clothes on with PT and didn' t need to change. No c/o pain. Agreed to therapy. Mental Status/Objective Functional [place] Measure 0=Not Assessed/NA 4=Minimal Assistance 1=Total Assistance 5=Supervision or Setup 2=Maximal Assistance 6=Modified [place] 3=Moderate Assistance 7=Complete [place] ADL-Treatment Functional [place] Measure 0=Not Assessed/NA 4=Minimal Assistance 1=Total Assistance 5=Supervision or Setup 2=Maximal Assistance 6=Modified [place] 3=Moderate Assistance 7=Complete IndependenceIRFPAI Quality Coding Scale 6 Independent with activity with or without an assistive device 5 Patient requires set up or clean up by helper. Patient completes activity by themselves 4 Supervision or touching assist (CGA). [place] provide cues , steadying assist 3 The helper provides less than half the effort to complete the activity 2 The helper provides more than half the effort to complete the activity 1 Dependent. The helper does all the effort to complete an activity 7 Patient refused to complete or attempt activity 9 The patient did not perform the activity before the current illness or injury 88 Not attempted due to Medical conditions or safety concerns Grooming (FIM): 5 (With SBA using FWW to station captain front of sink, pt was able to complete grooming by self. No LOB noted.) Attempted to have pt wash clothes, but washer and dryer was in use. Pt ambulated from room to laundry room then to therapy gym with SBA using FWW. Other Treatment Completed arm bike 15 min at 20 méndez resistance to increase strength and activity tolerance for daily functional tasks. Pt took 1 lengthy break due to numbness and tingling in first 3 digits of hand. TELLEZ used stretch and massage to lastimus around lower anterior angle of scapula. Pt was educated on stretch to assist in decreasing tightness in area. After massage/stretch pt was able to complete arm bike without numbness and tingling in hand. Pt instructed to continue with stretch throughout the day holding stretch for 10-20 seconds. Pt then completed pinch strengthening tasks with clothespins using L hand. Pt ambulated to room using FWW and transferred into chair with SBA. Call light/ phone in reach. All needs met in room. OT Short Term Goals Short Term Goals Time Frame: Sep 19, 2016 Bathing(FIM): 5 Lower Body Dressing(FIM): 5 Toileting(FIM): 5 Toilet/Commode Transfer(FIM): 5 Shower Transfer(FIM): 5 Additional Short Term Goals: 1-Demonstrate ADL Tasks, 2-Verbalize Understanding , 3-ImproveStrength/Joe 1=Demonstrate adherence to instructed precautions during ADL tasks. 2=Patient will verbalize/demonstrate understanding of assistive devices/ modifications for ADL. 3=Patient will improve strength/tolerance for activity to enable patient to perform ADL's. OT Intermediate Goals Automatic Mounter Goals Time Frame: Oct 03, 2016 Eating (FIM): 6 Eating (QC): 6 Groomin Oral Hygiene (QC): 6 Bathing(FIM): 6 Shower/Bathe Self (QC): 6 Upper Body Dressing(FIM): 6 Upper Body Dressing (QC): 6 Lower Body Dressing(FIM): 6 Lower Body Dressing (QC): 6 On/Off Footwear (QC): 6 Toileting(FIM): 6 Toileting Hygiene (QC): 6 Toilet/Commode Transfer(FIM): 6 Toilet/Commode Transfer (QC): 6 Shower Transfer(FIM): 6 Comprehension(FIM): 5 Expression (FIM): 5 Social Interaction(FIM): 6 Problem Solving(FIM): 4 Memory(FIM): 4 Additional Goals: 1-Demonstrate ADL Tasks, 2-Verbalize Understanding, 3- ImproveStrength/Joe 1=Demonstrate adherence to instructed precautions during ADL tasks. 2=Patient will verbalize/demonstrate understanding of assistive devices/ modifications for ADL. 3=Patient will improve strength/tolerance for activity to enable patient to perform ADL's. OT Education/Plan Problem List/Assessment Pt admitted with CVA with left side deficits. Pt demonstrates decreased mobility , strength, coordination, activity tolerance and ADL performance. Pt to benefit from skilled OT intervention for ADL training, transfers, strengthening, and safety education to maximize level of function and allow safe return home. Discharge Recommendations Plan/Recommendations: Continue POC Treatment Plan/Plan of Care Patient would benefit from OT for education, treatment and training to promote independence in ADL's, mobility, safety and/or upper extremity function for ADL' s. Plan of Care: ADL Retraining, Functional Mobility, Group Exercise/Act as Ind, UE Funct Exercise/Act, UE Neuromus Re-Ed/Coord Treatment Duration: Oct 03, 2016 Visits Per Week: 10-12 Minutes/Day (M-F): 60-90 Minutes/Day (Sat/Naqvi): PRN Agreement: Yes Rehab Potential: Good Time/GCodes Start Time: 09:15 Stop Time: 10:15 Total Time Billed (hr/min): 60 Billed Treatment Time 1 visit-ADL 3 (45 min) FA 1 (15 min) CRISTIANA HORTON Sep 18, 2016 10:45
--- NOTE | 2016-09-18 10:56 | Physical Therapy Daily Note ---
PT Daily Note-Current Subjective Pt sitting at EOB getting dressed with nursing present upon arrival. Pt agrees to PT. Pain Numeric Pain Scale: 3 Location: Left Location Body Site: Shoulder Pain Description: Ache Mental Status Patient Orientation: Person, Place, Situation Transfers Functional [place] Measure 0=Not Assessed/NA 4=Minimal Assistance 1=Total Assistance 5=Supervision or Setup 2=Maximal Assistance 6=Modified [place] 3=Moderate Assistance 7=Complete IndependenceIRFPAI Quality Coding Scale 6 Independent with activity with or without an assistive device 5 Patient requires set up or clean up by helper. Patient completes activity by themselves 4 Supervision or touching assist (CGA). [place] provide cues , steadying assist 3 The helper provides less than half the effort to complete the activity 2 The helper provides more than half the effort to complete the activity 1 Dependent. The helper does all the effort to complete an activity 7 Patient refused to complete or attempt activity 9 The patient did not perform the activity before the current illness or injury 88 Not attempted due to Medical conditions or safety concerns Scootin Sit to/from Stand: 5 Sit to Stand (QC): 5 Weight Bearing Weight Bearing Restriction: Full Weight Bearing Location Restriction: LE Bilateral Gait Training Does the Patient Walk?: Yes Distance (FIM): 3=150 ft Distance: 350' Walk 10 feet (QC): 5 Walk 50 ft with 2 Turns(QC): 5 Walk 150 ft (QC): 5 Gait Level of Assist: 5 Gait Persons Needed: 1 Gait Assistive Device: FWW Pt walks with stiff gait and WB through UE more than needed so PT encourages pt to increase WB through LE and take pressure off UE. Pt has slow but steady loulou, no LOB. Wheelchair Training Does the Pt Use a Wheelchair?: No Treatments Pt finishes getting dressed with PT present. Pt then transfers to standing using FWW at SBA and ambulates to restroom. After finishing, pt ambulates in hallway using FWW at SBA. Pt rests once before returning to room at end of tx. Pt sits in recliner at end of tx with all needs met and ST present. Assessment Current Status: Good Progress Pt is improving with strength, activity tolerance, balance and independence with transfers and ambulation. PT Short Term Goals Short Term Goals Time Frame: Sep 19, 2016 Gait (FIM): 4 Stairs (FIM): 4 PT Manager Law Goals Manager Law Goals PT Manager Law Goals Time Frame: Oct 03, 2016 Transfers (B,C,W/C) (FIM): 7 Sit to Lying (QC): 6 Lying-Sitting on Side/Bed(QC): 6 Sit to Stand (QC): 6 Rollin Roll Left to Right (QC): 6 Chair/Lcz-jz-Ommcd Xfer(QC): 6 Car Transfer (QC): 6 Does the Patient Walk: Yes Gait (FIM): 6 Gait distance (FIM): 3=150 ft Walk 10 feet (QC): 6 Walk 10ft-Uneven Surface(QC): 6 Walk 50ft with 2 Turns (QC): 6 Walk 150 ft (QC): 6 Gait Assistive Device: FWW Does the Pt use WC or Scooter?: No Stairs (FIM): 6 # of Steps: 12 1 Step (curb) (QC): 6 4 Steps (QC): 6 12 Steps (QC): 6 Picking up an Object (QC): 5 PT Plan Problem List Problem List: Activity Tolerance, Functional Strength, Safety, Balance Treatment/Plan Treatment Plan: Continue Plan of Care Treatment Plan: Bed Mobility, Education, Functional Activity Joe, Functional Strength, Group Therapy, Gait, Safety, Therapeutic Exercise, Transfers Treatment Duration: Oct 03, 2016 Visits Per Week: 10-15 Minutes/Day (M-F): 60-90 Minutes/Day (Sat/Naqvi): prn Safety Risks/Education Patient Education: Gait Training, Transfer Techniques, Correct Positioning, Safety Issues Teaching Recipient: Patient Teaching Methods: Discussion Response to Teaching: Verbalize Understanding Time/GCodes Time In: 805 Time Out: 835 Total Billed Treatment Time: 30 Total Billed Treatment visit, FA (10m) & GT (20m) ANUEL HASTINGS PTA Sep 18, 2016 10:56
--- NOTE | 2016-09-18 11:21 | Physical Therapy Daily Note ---
PT Daily Note-Current Subjective Patient in recliner pre tx, agrees to PT, states she has pain of 4/10 in her left shoulder and both knees. Appearance Patient sitting EOB post tx with nurse call, phone, tray, all needs met. Mental Status Patient Orientation: Normal For Age Transfers Functional [place] Measure 0=Not Assessed/NA 4=Minimal Assistance 1=Total Assistance 5=Supervision or Setup 2=Maximal Assistance 6=Modified [place] 3=Moderate Assistance 7=Complete IndependenceIRFPAI Quality Coding Scale 6 Independent with activity with or without an assistive device 5 Patient requires set up or clean up by helper. Patient completes activity by themselves 4 Supervision or touching assist (CGA). [place] provide cues , steadying assist 3 The helper provides less than half the effort to complete the activity 2 The helper provides more than half the effort to complete the activity 1 Dependent. The helper does all the effort to complete an activity 7 Patient refused to complete or attempt activity 9 The patient did not perform the activity before the current illness or injury 88 Not attempted due to Medical conditions or safety concerns Transfers (B, C, W/C) (FIM): 5 Sit to/from Stand: 5 Gait Training Gait (FIM): 5 Distance: 250'x2 Gait Level of Assist: 5 Gait Persons Needed: 1 Gait Assistive Device: FWW better strength on left side, increased gait speed but still very slow ambulation Exercises NuStep Minutes: 15 NuStep Workload: 5 Treatments transfers, ambulation, functional strengthening Assessment Current Status: Fair Progress improving strength and ambulation PT Short Term Goals Short Term Goals Time Frame: Sep 19, 2016 Gait (FIM): 4 Stairs (FIM): 4 PT Care Home Goals Care Home Goals PT [place] Hand Line Goals Time Frame: Oct 03, 2016 Transfers (B,C,W/C) (FIM): 7 Sit to Lying (QC): 6 Lying-Sitting on Side/Bed(QC): 6 Sit to Stand (QC): 6 Rollin Roll Left to Right (QC): 6 Chair/Uxm-su-Wwrvc Xfer(QC): 6 Car Transfer (QC): 6 Does the Patient Walk: Yes Gait (FIM): 6 Gait distance (FIM): 3=150 ft Walk 10 feet (QC): 6 Walk 10ft-Uneven Surface(QC): 6 Walk 50ft with 2 Turns (QC): 6 Walk 150 ft (QC): 6 Gait Assistive Device: FWW Does the Pt use WC or Scooter?: No Stairs (FIM): 6 # of Steps: 12 1 Step (curb) (QC): 6 4 Steps (QC): 6 12 Steps (QC): 6 Picking up an Object (QC): 5 PT Plan Problem List Problem List: Activity Tolerance, Functional Strength, Safety, Balance, Gait, Transfer, Bed Mobility Treatment/Plan Treatment Plan: Continue Plan of Care Treatment Plan: Bed Mobility, Education, Functional Activity Joe, Functional Strength, Group Therapy, Gait, Safety, Therapeutic Exercise, Transfers Treatment Duration: Oct 03, 2016 Visits Per Week: 10-15 Minutes/Day (M-F): 60-90 Minutes/Day (Sat/Naqvi): prn Safety Risks/Education Patient Education: Gait Training, Transfer Techniques, Safety Issues Teaching Recipient: Patient Teaching Methods: Demonstration, Discussion Response to Teaching: Reinforcement Needed Time/GCodes Time In: 1045 Time Out: 1115 Total Billed Treatment Time: 30 Total Billed Treatment 1 visit EX 15' GT 15' JENARO ESTRADA PT Sep 18, 2016 11:21
--- NOTE | 2016-09-18 14:57 | Physical Therapy Daily Note ---
PT Daily Note-Current Subjective Patient in bed pre tx, agrees to PT, will perform exercises in bed. Patient has pain of 4/10 in left shoulder, and both knees. Appearance Patient in bed post tx with nurse call, phone, tray, all needs met. Mental Status Patient Orientation: Normal For Age Transfers Functional [place] Measure 0=Not Assessed/NA 4=Minimal Assistance 1=Total Assistance 5=Supervision or Setup 2=Maximal Assistance 6=Modified [place] 3=Moderate Assistance 7=Complete IndependenceIRFPAI Quality Coding Scale 6 Independent with activity with or without an assistive device 5 Patient requires set up or clean up by helper. Patient completes activity by themselves 4 Supervision or touching assist (CGA). [place] provide cues , steadying assist 3 The helper provides less than half the effort to complete the activity 2 The helper provides more than half the effort to complete the activity 1 Dependent. The helper does all the effort to complete an activity 7 Patient refused to complete or attempt activity 9 The patient did not perform the activity before the current illness or injury 88 Not attempted due to Medical conditions or safety concerns Exercises Supine Ex: Ankle pumps, Quad Set, Glut sets, Heel Slides, Short Arc Quads, Straight leg raise Supine Reps: 20 Patient needed AAROM on the left side with strait leg raises. Treatments bilateral lower extremity strengthening Assessment Current Status: Fair Progress PT Short Term Goals Short Term Goals Time Frame: Sep 19, 2016 Gait (FIM): 4 Stairs (FIM): 4 PT Usp Goals Usp Goals PT Usp Goals Time Frame: Oct 03, 2016 Transfers (B,C,W/C) (FIM): 7 Sit to Lying (QC): 6 Lying-Sitting on Side/Bed(QC): 6 Sit to Stand (QC): 6 Rollin Roll Left to Right (QC): 6 Chair/Kly-qi-Igefj Xfer(QC): 6 Car Transfer (QC): 6 Does the Patient Walk: Yes Gait (FIM): 6 Gait distance (FIM): 3=150 ft Walk 10 feet (QC): 6 Walk 10ft-Uneven Surface(QC): 6 Walk 50ft with 2 Turns (QC): 6 Walk 150 ft (QC): 6 Gait Assistive Device: FWW Does the Pt use WC or Scooter?: No Stairs (FIM): 6 # of Steps: 12 1 Step (curb) (QC): 6 4 Steps (QC): 6 12 Steps (QC): 6 Picking up an Object (QC): 5 PT Plan Problem List Problem List: Activity Tolerance, Functional Strength, Safety, Balance, Gait, Transfer, Bed Mobility Treatment/Plan Treatment Plan: Continue Plan of Care Treatment Plan: Bed Mobility, Education, Functional Activity Joe, Functional Strength, Group Therapy, Gait, Safety, Therapeutic Exercise, Transfers Treatment Duration: Oct 03, 2016 Visits Per Week: 10-15 Minutes/Day (M-F): 60-90 Minutes/Day (Sat/Naqvi): prn Safety Risks/Education Patient Education: Disease Process, Safety Issues Teaching Recipient: Patient Teaching Methods: Demonstration, Discussion Response to Teaching: Reinforcement Needed talked about home safety and discharge planning. Time/GCodes Time In: 1440 Time Out: 1455 Total Billed Treatment Time: 15 Total Billed Treatment 1 visit EX Tim[place]' JENARO ESTRADA PT Sep 18, 2016 14:57
[2016-09-18 18:24] VITALS: BP 96/58
--- NOTE | 2016-09-18 18:42 | PM & R (SOAP) Progress Note ---
Subjective Time Seen by Provider: 07:35 Subjective/Events-last exam Patient was seen in her room this AM Progressing wel with therapies Patient SBA for transfers Objective Exam Last Set of Vital Signs Vital Signs Date Time Temp Pulse Resp B/P (MAP) Pulse Ox O2 Delivery O2 Flow Rate FiO2 09/18/16 08:02 61 114/74 99 09/18/16 05:06 97.0 18 Capillary Refill : I&O Intake and Output 09/17/16 23:59 Intake Total 1620 ml Balance 1620 ml Intake Oral 1620 ml # Voids 11 # Bowel Movements 3 General: Alert, Oriented X3, Cooperative, No Acute Distress HEENT: Atraumatic, PERRLA, EOMI, Mucous Memb Moist/[place] Neck: Supple, No JVD Lungs: Clear to Auscultation Heart: Regular Rate Abdomen: Normal Bowel Sounds, Soft, No Tenderness Extremities: No Edema Neuro: Other (mild left HP) Results Lab Microbiology 09/13/16 MRSA Screen - Final, Complete Assessment/Plan Assessment rt cva with Left HP HTN controlled Constipation improved with RX Plan Continue PT/OT Team Conference in AM F/U with Hospitalist service BROCK Barreto MD Sep 18, 2016 18:42
[2016-09-18 20:20] VITALS: BP 111/72
[2016-09-18] MEDS: MULTIVIT W/MINERALS TAB (THERAGRAN M) PO SCH (20:23)
[2016-09-18] MEDS: lisINopril 10 MG (PRINIVIL) TAB PO SCH (20:23)
[2016-09-18] MEDS: ESTRADIOL 1 MG TAB (ESTRACE) PO SCH (20:23)
[2016-09-18] MEDS: SIMvastatin 10 MG (ZOCOR) TAB PO SCH (20:23)
[2016-09-18] MEDS: ASPIRIN E.C. 81 MG (ECOTRIN) TAB PO SCH (20:23)
[2016-09-18] MEDS: HYDROCHLOROTHIAZIDE 12.5 MG (HCTZ) CAP PO SCH (20:23)
[2016-09-18] MEDS: MELOXICAM 7.5 MG (MOBIC) TABLET PO SCH (20:23)
[2016-09-19 05:02] VITALS: BP 110/72
--- NOTE | 2016-09-19 08:40 | Occupational Ther Daily Note ---
OT Current Status-Daily Note Subjective Pt alert, lying in bed. Pt to go to a procedure this am. Pt agreed to therapy. No c/o pain at this time. Mental Status/Objective Patient Orientation: Person, Place, Time, Situation Functional [place] Measure 0=Not Assessed/NA 4=Minimal Assistance 1=Total Assistance 5=Supervision or Setup 2=Maximal Assistance 6=Modified [place] 3=Moderate Assistance 7=Complete [place] ADL-Treatment Functional [place] Measure 0=Not Assessed/NA 4=Minimal Assistance 1=Total Assistance 5=Supervision or Setup 2=Maximal Assistance 6=Modified [place] 3=Moderate Assistance 7=Complete IndependenceIRFPAI Quality Coding Scale 6 Independent with activity with or without an assistive device 5 Patient requires set up or clean up by helper. Patient completes activity by themselves 4 Supervision or touching assist (CGA). [place] provide cues , steadying assist 3 The helper provides less than half the effort to complete the activity 2 The helper provides more than half the effort to complete the activity 1 Dependent. The helper does all the effort to complete an activity 7 Patient refused to complete or attempt activity 9 The patient did not perform the activity before the current illness or injury 88 Not attempted due to Medical conditions or safety concerns Grooming (FIM): 5 (Standing at sink with supervision using FWW.) Bathing (FIM): 5 (Using shower bench, hand held shower and grabbars pt is able to complete with SBA.) Bathing Location: L Arm, R Arm, L Upper Leg, R Upper Leg, L Lower Leg ( including foot), R Lower Leg (including foot), Chest, Abdomen, Buttocks, Perineal Area Upper Body (FIM): 5 (After set up, pt is able to complete donning/doffing upper body clothing.) Lower Body Dressing (FIM): 5 (After set up, pt is able to don/doff lower body clothing with SBA.) Transfers (B, C, W/C) (FIM): 5 (Using FWW, pt is SBA for transfers.) Shower Transfer(FIM): 5 (Using shower bench, grabbars and hand held shower pt is able to complete with SBA.) Other Treatment Discussed energy conservation during daily living tasks. Pt has tub/shower at home. Does not have grabbars or tub seat or transfer bench to get into shower. After therapy, pt in care of radiology. OT Short Term Goals Short Term Goals Time Frame: Sep 19, 2016 Bathing(FIM): 5 Lower Body Dressing(FIM): 5 Toileting(FIM): 5 Toilet/Commode Transfer(FIM): 5 Shower Transfer(FIM): 5 Additional Short Term Goals: 1-Demonstrate ADL Tasks, 2-Verbalize Understanding , 3-ImproveStrength/Joe 1=Demonstrate adherence to instructed precautions during ADL tasks. 2=Patient will verbalize/demonstrate understanding of assistive devices/ modifications for ADL. 3=Patient will improve strength/tolerance for activity to enable patient to perform ADL's. OT [facility] Goals [facility] Goals Time Frame: Oct 03, 2016 Eating (FIM): 6 Eating (QC): 6 Groomin Oral Hygiene (QC): 6 Bathing(FIM): 6 Shower/Bathe Self (QC): 6 Upper Body Dressing(FIM): 6 Upper Body Dressing (QC): 6 Lower Body Dressing(FIM): 6 Lower Body Dressing (QC): 6 On/Off Footwear (QC): 6 Toileting(FIM): 6 Toileting Hygiene (QC): 6 Toilet/Commode Transfer(FIM): 6 Toilet/Commode Transfer (QC): 6 Shower Transfer(FIM): 6 Comprehension(FIM): 5 Expression (FIM): 5 Social Interaction(FIM): 6 Problem Solving(FIM): 4 Memory(FIM): 4 Additional Goals: 1-Demonstrate ADL Tasks, 2-Verbalize Understanding, 3- ImproveStrength/Joe 1=Demonstrate adherence to instructed precautions during ADL tasks. 2=Patient will verbalize/demonstrate understanding of assistive devices/ modifications for ADL. 3=Patient will improve strength/tolerance for activity to enable patient to perform ADL's. OT Education/Plan Problem List/Assessment Pt admitted with CVA with left side deficits. Pt demonstrates decreased mobility , strength, coordination, activity tolerance and ADL performance. Pt to benefit from skilled OT intervention for ADL training, transfers, strengthening, and safety education to maximize level of function and allow safe return home. Discharge Recommendations Plan/Recommendations: Continue POC Treatment Plan/Plan of Care Patient would benefit from OT for education, treatment and training to promote independence in ADL's, mobility, safety and/or upper extremity function for ADL' s. Plan of Care: ADL Retraining, Functional Mobility, Group Exercise/Act as Ind, UE Funct Exercise/Act, UE Neuromus Re-Ed/Coord Treatment Duration: Oct 03, 2016 Visits Per Week: 10-12 Minutes/Day (M-F): 60-90 Minutes/Day (Sat/Naqvi): PRN Agreement: Yes Rehab Potential: Good Time/GCodes Start Time: 08:00 Stop Time: 08:45 Total Time Billed (hr/min): 45 Billed Treatment Time 1 visit-ADL 2 (30 min) FA 1 (15 min) CRISTIANA HORTON Sep 19, 2016 08:40
[2016-09-19] MEDS: DULoxetine 30 MG (CYMBALTA) CAP PO SCH ×2 (10:07→20:12)
[2016-09-19] MEDS: SUCRALFATE 1 GM (CARAFATE) TAB PO SCH ×2 (10:07→16:56)
[2016-09-19] MEDS: SENNOSIDES 8.6 MG (SENOKOT) TAB PO SCH ×2 (10:07→20:12)
[2016-09-19] MEDS: PANTOPRAZOLE 40 MG (PROTONIX) TAB PO SCH ×2 (10:07→16:56)
[2016-09-19] MEDS: OMEGA 3 (FISH OIL) 1000 MG CAP PO SCH (10:07)
[2016-09-19] MEDS: LEVOTHYROXINE 50 MCG (LEVOTHROID) TAB PO SCH (10:07)
[2016-09-19] MEDS: CLOPIDOGREL 75 MG (PLAVIX) TABLET PO SCH (10:08)
[2016-09-19] MEDS: GABAPENTIN 300 MG (NEURONTIN) CAP PO SCH ×2 (10:08→20:12)
[2016-09-19] MEDS: KCL 20 MEQ TAB (K-DUR) PO SCH (10:08)
[2016-09-19] MEDS: MUPIROCIN 2% OINT 22 GM (BACTROBAN) TUBE TOP SCH ×2 (10:12→20:15)
--- NOTE | 2016-09-19 11:00 | Speech Therapy Daily Note ---
Speech Daily Progress Note Subjective Date Seen by Provider: Sep 19, 2016 Time Seen by Provider: 09:45 The patient was seated upright in recliner upon entrance. The patient greeted the clinician appropriately and was agreeable to participation in cognitive therapy. Prior to the session, the patient shared apprehensions with the clinician regarding discharge. The patient stated her bathroom is not set up appropriately and she is fearful due to the absence of grab bars and shower seats. The clinician agreed to request an upcoming visit with social work. Objective Due to the patient's excellent progression with therapy, a re-evaluation took place on this date with the below results: - Memory: The patient was able to recall five single words immediately, five single words following a five minute delay, and five single words following a ten minute delay. - Attention: The patient was able to complete serial seven subtraction with 100 % accuracy. - Abstraction: The patient was able to identify similarities between two single items. - Orientation: The patient was oriented to date, month, year, day, place, and city. - Language: The patient was able to repeat short phrases and identify black and white photographs. - The patient demonstrated a score of +25/25 on the Lester Cognitive Assessment (MoCA). The patient does feel her confusion has cleared and does agree with discharge from skilled speech pathology services at this time. Assessment Assessment Current Status: Good Progress Treatment Plan Discontinue ST, Goals Met Communication Comprehension: 5 Expression: 6 Social Cognition Social Interaction: 6 Problem Solvin Memory: 5 Speech Short Term Goals Short Term Goals Short Term Goals 1. The patient will recall and demonstrate two functional memory strategies for use at home (independently). 2. The patient will demonstrated 90% accuracy (independently) with safety problem solving. 3. The patient will recall three to five items immediately and following a five minute delay. 4. The patient will accurately sequence ADL's with 80% accuracy and mild clinician cueing. PROGRESSING. 09/14/2016 Time Frame-STG: Two Weeks Speech Detention Goals Detention Goals 1. The patient will demonstrate improved cognitive linguistic skills for increased function and safety with ADL's in the least restrictive setting. Time Frame: Four Weeks Comprehension: 5 Expression: 5 Social Interaction: 6 Problem Solvin Memory: 4 Speech-Plan Treatment Plan Speech Therapy Treatment Plan: Discontinue ST, Goals Met As the patient has met all goals initially placed, she will be discharged from skilled speech pathology services at this time. Treatment Duration: Oct 10, 2016 # of days/week Four to five. Visits Per Week: Four to five. Minutes/Day (M-F): 30 Rehab Potential: Good Safety Risks/Education Teaching Recipient: Patient Teaching Methods: Discussion Response to Teaching: Verbalize Understanding Education Topics Provided: Plan of Care, Progression Time Speech Therapy Time In: 09:45 Speech Therapy Time Out: 10:15 Total Billed Time: 30 Billed Treatment Time 1NOHELIA ELIZABETH ST Sep 19, 2016 11:00
--- NOTE | 2016-09-19 11:07 | Therapy Team Discharge Summary ---
Therapy Discharge Summary Discharge Recommendations Date of Discharge Speech-Language Pathology The patient was recently admitted to [facility] with a diagnosis of left sided weakness secondary to a possible TIA/CVA. Skilled speech pathology focused on functional memory strategies, as well as, safety problem solving. The patient demonstrated excellent progress and has met or exceeded all speech pathology goals initially placed. At this time, the patient feels her confusion has greatly improved, as well as, her orientation. The patient will be discharged from skilled speech pathology services at this time. No further speech services are warranted. PT [facility] Goals Developer Advocate Goals PT [facility] Goals Time Frame: Oct 03, 2016 Transfers (B,C,W/C) (FIM): 7 Roll Left to Right (QC): 6 Sit to Lying (QC): 6 Lying-Sitting on Side/Bed(QC): 6 Sit to Stand (QC): 6 Chair/Fdv-fq-Hwoex Xfer(QC): 6 Car Transfer (QC): 6 Does the Patient Walk: Yes Gait (FIM): 6 Gait distance (FIM): 3=150 ft Walk 10 feet (QC): 6 Walk 10ft-Uneven Surface(QC): 6 Walk 50ft with 2 Turns (QC): 6 Walk 150 ft (QC): 6 Gait Assistive Device: FWW Does the Pt use WC or Scooter?: No Stairs (FIM): 6 # of Steps: 12 1 Step (curb) (QC): 6 4 Steps (QC): 6 12 Steps (QC): 6 Picking up an Object (QC): 5 OT [facility] Goals Developer Advocate Goals Time Frame: Oct 03, 2016 Eating (FIM): 6 Eating (QC): 6 Oral Hygiene (QC): 6 Grooming(FIM): 6 Bathing(FIM): 6 Shower/Bathe Self (QC): 6 Upper Body Dressing(FIM): 6 Upper Body Dressing (QC): 6 Lower Body Dressing(FIM): 6 Lower Body Dressing (QC): 6 On/Off Footwear (QC): 6 Toileting(FIM): 6 Toileting Hygiene (QC): 6 Toilet/Commode Transfer(FIM): 6 Toilet/Commode Transfer (QC): 6 Shower Transfer(FIM): 6 Comprehension(FIM): 5 Expression (FIM): 5 Social Interaction(FIM): 6 Problem Solving(FIM): 4 Memory(FIM): 4 Additional Goals: 1-Demonstrate ADL Tasks, 2-Verbalize Understanding, 3- ImproveStrength/Joe 1=Demonstrate adherence to instructed precautions during ADL tasks. 2=Patient will verbalize/demonstrate understanding of assistive devices/ modifications for ADL. 3=Patient will improve strength/tolerance for activity to enable patient to perform ADL's. Speech [facility]sp Goals Usp Goals 1. The patient will demonstrate improved cognitive linguistic skills for increased function and safety with ADL's in the least restrictive setting. Time Frame: Four Weeks Comprehension: 5 (MET) Expression: 5 (MET) Social Interaction: 6 (MET) Problem Solvin (MET) Memory: 4 (MET) LETITIA CASILLAS Sep 19, 2016 11:07
--- NOTE | 2016-09-19 11:20 | Diagnostic Imaging Report ---
EXAMINATION: Barium swallow double-contrast. INDICATION: Dysphagia Fluoroscopy time: One minute and 27 seconds TECHNIQUE: Hide Paster image of the chest was performed. Subsequently, the patient was given gas forming granules for oral ingestion followed by thick and thin barium to drink. Swallowing through the esophagus was observed with fluoroscopy and overhead images, as well as multiple spot images in the upright and prone positions, were taken. FINDINGS: Hide Paster image of the chest demonstrate mild left basilar atelectasis. No significant reflux is seen during the study. Normal motility seen. The esophagus is normal in caliber and contour. There is no mucosal abnormality, diverticulum or filling defect to suggest a mass. There is moderate sized, fixed paraesophageal hiatal hernia. IMPRESSION: There is paraesophageal hiatal hernia of moderate size. Dictated by: Dictated on workstation # [id number]
--- NOTE | 2016-09-19 15:05 | Therapy Group Daily Note ---
Therapy Daily Group Note Patient Education Topic Other List Below (Education on exercises to do in room) Exercises LE Seated Exercise, UE Exercise Other/Notes Pt ambulated to OT/PT group using FWW. Group consisted of introductions (name, place living, favorite summer activity), ARU description/expectations, UE/LE seat exercises, inspirational words/word of encouragement and education on bed exercises to complete between therapy sessions. Pt contributed to group discussions appropriately. Verbalized understanding of ARU. Completed UE/LE seated exercises without difficulty. Pt ambulated with FWW back to room. After therapy, pt lying in bed with call light/phone in reach. All needs met in room. Start Time: 13:00 Stop Time: 14:10 Total Billed Treatment Time: 70 Total Billed Treatment 1-GRP CRISTIANA HORTON Sep 19, 2016 15:05
--- NOTE | 2016-09-19 15:50 | Physical Therapy Daily Note ---
PT Daily Note-Current Subjective Pt sitting in recliner upon arrival. Pt agrees to PT. Mental Status Patient Orientation: Person, Place, Situation Transfers Functional [place] Measure 0=Not Assessed/NA 4=Minimal Assistance 1=Total Assistance 5=Supervision or Setup 2=Maximal Assistance 6=Modified [place] 3=Moderate Assistance 7=Complete IndependenceIRFPAI Quality Coding Scale 6 Independent with activity with or without an assistive device 5 Patient requires set up or clean up by helper. Patient completes activity by themselves 4 Supervision or touching assist (CGA). [place] provide cues , steadying assist 3 The helper provides less than half the effort to complete the activity 2 The helper provides more than half the effort to complete the activity 1 Dependent. The helper does all the effort to complete an activity 7 Patient refused to complete or attempt activity 9 The patient did not perform the activity before the current illness or injury 88 Not attempted due to Medical conditions or safety concerns Scootin Sit to/from Stand: 5 Sit to Stand (QC): 5 Weight Bearing Weight Bearing Restriction: Full Weight Bearing Location Restriction: LE Bilateral Gait Training Does the Patient Walk?: Yes Distance (FIM): 3=150 ft Distance: 150' Walk 10 feet (QC): 5 Walk 50 ft with 2 Turns(QC): 5 Walk 150 ft (QC): 5 Gait Level of Assist: 5 Gait Persons Needed: 1 Gait Assistive Device: FWW Pt walks with slow and stiff gait pattern especially on RLE. Pt gait improves by end of tx. Wheelchair Training Does the Pt Use a Wheelchair?: No Exercises Seated Therapy Exercises: Ankle pumps, Long arc quads, Hip flexion, Kicking activity, Hip abd/add Seated Reps: 15 NuStep Minutes: 15 NuStep Workload: 3 Treatments Pt transfers from recliner to standing using FWW at SBA. Pt ambulates using FWW at SBA in hallway. Pt uses NuStep for 15m at Workload 3 then rest for short time before completing Seated Ex in chair. Pt returns to room to rest at EOB at end of tx with all needs met. Assessment Current Status: Fair Progress Pt is improving with both cognition and independence/safety of both transfers and mobility. PT Short Term Goals Short Term Goals Time Frame: Sep 19, 2016 Gait (FIM): 4 Stairs (FIM): 4 PT Jail Goals Jail Goals PT Jail Goals Time Frame: Oct 03, 2016 Transfers (B,C,W/C) (FIM): 7 Sit to Lying (QC): 6 Lying-Sitting on Side/Bed(QC): 6 Sit to Stand (QC): 6 Rollin Roll Left to Right (QC): 6 Chair/Dud-jf-Hcfli Xfer(QC): 6 Car Transfer (QC): 6 Does the Patient Walk: Yes Gait (FIM): 6 Gait distance (FIM): 3=150 ft Walk 10 feet (QC): 6 Walk 10ft-Uneven Surface(QC): 6 Walk 50ft with 2 Turns (QC): 6 Walk 150 ft (QC): 6 Gait Assistive Device: FWW Does the Pt use WC or Scooter?: No Stairs (FIM): 6 # of Steps: 12 1 Step (curb) (QC): 6 4 Steps (QC): 6 12 Steps (QC): 6 Picking up an Object (QC): 5 PT Plan Problem List Problem List: Activity Tolerance, Functional Strength, Safety, Balance, Gait, Transfer Treatment/Plan Treatment Plan: Continue Plan of Care Treatment Plan: Bed Mobility, Education, Functional Activity Joe, Functional Strength, Group Therapy, Gait, Safety, Therapeutic Exercise, Transfers Treatment Duration: Oct 03, 2016 Visits Per Week: 10-15 Minutes/Day (M-F): 60-90 Minutes/Day (Sat/Naqvi): prn Safety Risks/Education Patient Education: Gait Training, Transfer Techniques, Correct Positioning, Safety Issues Teaching Recipient: Patient Teaching Methods: Discussion Response to Teaching: Verbalize Understanding Time/GCodes Time In: 1015 Time Out: 1100 Total Billed Treatment Time: 45 Total Billed Treatment visit, GT (15m), EX x2 (30m) ANUEL HASTINGS PTA Sep 19, 2016 15:50
[2016-09-19 17:58] VITALS: BP 113/72
[2016-09-19] MEDS: HYDROCHLOROTHIAZIDE 12.5 MG (HCTZ) CAP PO SCH (20:11)
[2016-09-19] MEDS: ESTRADIOL 1 MG TAB (ESTRACE) PO SCH (20:12)
[2016-09-19] MEDS: SIMvastatin 10 MG (ZOCOR) TAB PO SCH (20:12)
[2016-09-19] MEDS: MELOXICAM 7.5 MG (MOBIC) TABLET PO SCH (20:12)
[2016-09-19] MEDS: MULTIVIT W/MINERALS TAB (THERAGRAN M) PO SCH (20:12)
[2016-09-19] MEDS: lisINopril 10 MG (PRINIVIL) TAB PO SCH (20:12)
[2016-09-19] MEDS: ASPIRIN E.C. 81 MG (ECOTRIN) TAB PO SCH (20:12)
--- NOTE | 2016-09-19 20:18 | PM & R (SOAP) Progress Note ---
Subjective Time Seen by Provider: 08:20 Subjective/Events-last exam Patient was seen in her room earlier today Patient SBA for transfers Appreciate DR stanley note and orders Blood pressure med adjusted for decreasing Blood pressure and bradycardia Objective Exam Last Set of Vital Signs Vital Signs Date Time Temp Pulse Resp B/P (MAP) Pulse Ox O2 Delivery O2 Flow Rate FiO2 09/19/16 17:58 97.6 61 20 113/72 99 Capillary Refill : I&O Intake and Output 09/19/16 00:00 Intake Total 1300 ml Balance 1300 ml Intake Oral 1300 ml # Voids 6 General: Alert, Oriented X3, Cooperative, No Acute Distress HEENT: Atraumatic, PERRLA, EOMI, Mucous Memb Moist/[place] Neck: Supple, No JVD Lungs: Clear to Auscultation Heart: Regular Rate Abdomen: Normal Bowel Sounds, Soft, No Tenderness Extremities: No Edema Neuro: Other (mild left HP) Results Lab Microbiology 09/13/16 MRSA Screen - Final, Complete Assessment/Plan Assessment rt cva with Left HP HTN on 3 meds with decreasing BP DR Ro has adjusted meds Bradycardia-DR Ro has adjusted meds Constipation improved with RX Plan Continue PT/OT Team Conference held earlier today See report for full functional update and POC and ELOS F/U with DR Ro et al prn Trend Blood pressure and Apical pulse and adjust meds as appropriate BROCK ESTES MD Sep 19, 2016 20:18
[2016-09-20 05:13] VITALS: BP 119/76
[2016-09-20] MEDS: KCL 20 MEQ TAB (K-DUR) PO SCH (06:21)
[2016-09-20] MEDS: PANTOPRAZOLE 40 MG (PROTONIX) TAB PO SCH ×2 (06:21→17:40)
[2016-09-20] MEDS: SUCRALFATE 1 GM (CARAFATE) TAB PO SCH ×2 (06:21→17:40)
[2016-09-20] MEDS: LEVOTHYROXINE 50 MCG (LEVOTHROID) TAB PO SCH (06:21)
[2016-09-20] MEDS: DULoxetine 30 MG (CYMBALTA) CAP PO SCH ×2 (08:07→21:28)
[2016-09-20] MEDS: SENNOSIDES 8.6 MG (SENOKOT) TAB PO SCH ×2 (08:07→21:29)
[2016-09-20] MEDS: CLOPIDOGREL 75 MG (PLAVIX) TABLET PO SCH (08:07)
[2016-09-20] MEDS: GABAPENTIN 300 MG (NEURONTIN) CAP PO SCH ×2 (08:07→21:30)
[2016-09-20] MEDS: OMEGA 3 (FISH OIL) 1000 MG CAP PO SCH (08:07)
[2016-09-20] MEDS: MUPIROCIN 2% OINT 22 GM (BACTROBAN) TUBE TOP SCH (08:11)
--- NOTE | 2016-09-20 10:20 | Occupational Ther Daily Note ---
OT Current Status-Daily Note Subjective Pt alert, sitting in recliner. Pt agreed to therapy. No c/o pain. Mental Status/Objective Patient Orientation: Person, Place, Time, Situation Functional [place] Measure 0=Not Assessed/NA 4=Minimal Assistance 1=Total Assistance 5=Supervision or Setup 2=Maximal Assistance 6=Modified [place] 3=Moderate Assistance 7=Complete [place] ADL-Treatment Functional [place] Measure 0=Not Assessed/NA 4=Minimal Assistance 1=Total Assistance 5=Supervision or Setup 2=Maximal Assistance 6=Modified [place] 3=Moderate Assistance 7=Complete IndependenceIRFPAI Quality Coding Scale 6 Independent with activity with or without an assistive device 5 Patient requires set up or clean up by helper. Patient completes activity by themselves 4 Supervision or touching assist (CGA). [place] provide cues , steadying assist 3 The helper provides less than half the effort to complete the activity 2 The helper provides more than half the effort to complete the activity 1 Dependent. The helper does all the effort to complete an activity 7 Patient refused to complete or attempt activity 9 The patient did not perform the activity before the current illness or injury 88 Not attempted due to Medical conditions or safety concerns Other Treatment Pt declined shower today. Pt ambulated to therapy gym and completed arm bike. Duration 15 min at 20 méndez resistance to increase strength and activity tolerance for daily functional tasks. Pt c/o shldr tightness, stretching and trigger point massage to area. Increase in AROM and decrease in pain at end ranges. TELLEZ gave pt AE magazine and discussed home equipment and safety. Pt ambulated to ARU shower room to work on tub bench transfer and stepping into tub. Pt was able to step into tub with grabbar and min A. Tub transfer bench with supervision. Pt does not have any equipment at this time in her home for safe transfers into tub/shower. After therapy, pt sitting in recliner in room with call light/phone in reach. All needs met in room. Education OT Patient Education: Safety issues, Transfer techniques, Use of adapted equipment Teaching Recipient: Patient Teaching Methods: Demonstration, Handout, Discussion Response to Teaching: Verbalize Understanding, Return Demonstration OT Short Term Goals Short Term Goals Time Frame: Sep 19, 2016 Bathing(FIM): 5 Lower Body Dressing(FIM): 5 Toileting(FIM): 5 Toilet/Commode Transfer(FIM): 5 Shower Transfer(FIM): 5 Additional Short Term Goals: 1-Demonstrate ADL Tasks, 2-Verbalize Understanding , 3-ImproveStrength/Joe 1=Demonstrate adherence to instructed precautions during ADL tasks. 2=Patient will verbalize/demonstrate understanding of assistive devices/ modifications for ADL. 3=Patient will improve strength/tolerance for activity to enable patient to perform ADL's. OT Group Home Goals Group Home Goals Time Frame: Oct 03, 2016 Eating (FIM): 6 Eating (QC): 6 Groomin Oral Hygiene (QC): 6 Bathing(FIM): 6 Shower/Bathe Self (QC): 6 Upper Body Dressing(FIM): 6 Upper Body Dressing (QC): 6 Lower Body Dressing(FIM): 6 Lower Body Dressing (QC): 6 On/Off Footwear (QC): 6 Toileting(FIM): 6 Toileting Hygiene (QC): 6 Toilet/Commode Transfer(FIM): 6 Toilet/Commode Transfer (QC): 6 Shower Transfer(FIM): 6 Comprehension(FIM): 5 (MET) Expression (FIM): 5 (MET) Social Interaction(FIM): 6 (MET) Problem Solving(FIM): 4 (MET) Memory(FIM): 4 (MET) Additional Goals: 1-Demonstrate ADL Tasks, 2-Verbalize Understanding, 3- ImproveStrength/Joe 1=Demonstrate adherence to instructed precautions during ADL tasks. 2=Patient will verbalize/demonstrate understanding of assistive devices/ modifications for ADL. 3=Patient will improve strength/tolerance for activity to enable patient to perform ADL's. OT Education/Plan Problem List/Assessment Pt admitted with CVA with left side deficits. Pt demonstrates decreased mobility , strength, coordination, activity tolerance and ADL performance. Pt to benefit from skilled OT intervention for ADL training, transfers, strengthening, and safety education to maximize level of function and allow safe return home. Discharge Recommendations Plan/Recommendations: Continue POC Treatment Plan/Plan of Care Patient would benefit from OT for education, treatment and training to promote independence in ADL's, mobility, safety and/or upper extremity function for ADL' s. Plan of Care: ADL Retraining, Functional Mobility, Group Exercise/Act as Ind, UE Funct Exercise/Act, UE Neuromus Re-Ed/Coord Treatment Duration: Oct 03, 2016 Visits Per Week: 10-12 Minutes/Day (M-F): 60-90 Minutes/Day (Sat/Naqvi): PRN Agreement: Yes Rehab Potential: Good Time/GCodes Start Time: 10:00 Stop Time: 11:00 Total Time Billed (hr/min): 60 Billed Treatment Time 1 visit-EX 2 (30 min) FA 2 (30 min) CRISTIANA HORTON Sep 20, 2016 10:20
--- NOTE | 2016-09-20 12:50 | Physical Therapy Daily Note ---
PT Daily Note-Current Subjective Pt laying Supine in bed upon arrival. Pt agrees to PT. Pain Numeric Pain Scale: 5-Moderate Pain Location: Left Location Body Site: Shoulder Pain Description: Ache Mental Status Patient Orientation: Person, Place, Time, Situation Transfers Functional [place] Measure 0=Not Assessed/NA 4=Minimal Assistance 1=Total Assistance 5=Supervision or Setup 2=Maximal Assistance 6=Modified [place] 3=Moderate Assistance 7=Complete IndependenceIRFPAI Quality Coding Scale 6 Independent with activity with or without an assistive device 5 Patient requires set up or clean up by helper. Patient completes activity by themselves 4 Supervision or touching assist (CGA). [place] provide cues , steadying assist 3 The helper provides less than half the effort to complete the activity 2 The helper provides more than half the effort to complete the activity 1 Dependent. The helper does all the effort to complete an activity 7 Patient refused to complete or attempt activity 9 The patient did not perform the activity before the current illness or injury 88 Not attempted due to Medical conditions or safety concerns Scootin Rollin Roll Left to Right (QC): 5 Supine to/from Sit: 5 Sit to/from Stand: 5 Sit to Stand (QC): 5 Weight Bearing Weight Bearing Restriction: Full Weight Bearing Location Restriction: LE Bilateral Gait Training Does the Patient Walk?: Yes Distance (FIM): 3=150 ft Distance: 250' Walk 10 feet (QC): 5 Walk 50 ft with 2 Turns(QC): 5 Walk 150 ft (QC): 5 Gait Level of Assist: 5 Gait Persons Needed: 1 Gait Assistive Device: FWW Pt walks with slow loulou and stiff gait pattern due to tight hamstrings. This loosens as tx continues. Wheelchair Training Does the Pt Use a Wheelchair?: No Exercises Seated Therapy Exercises: Ankle pumps, Long arc quads, Hip flexion, Kicking activity Seated Reps: 15 Standing: Hip Abduction, Heel/toe raises Standing Reps: 15 Treatments Pt transferred from Supine to EOB to Standing using FWW at SBA. Pt ambulated to restroom to use then got dressed at SBA using FWW. Pt then ambulated in hallway using FWW at SBA. Pt completed Seated Ex then short rest followed by Standing Ex at //bars. Pt returned to room to rest at EOB with all needs met at end of tx. Assessment Current Status: Good Progress Pt's balance and activity tolerance is improved. PT Short Term Goals Short Term Goals Time Frame: Sep 19, 2016 Gait (FIM): 4 Stairs (FIM): 4 PT Table Assembler Metal Goals Mcfp Goals PT Table Assembler Metal Goals Time Frame: Oct 03, 2016 Transfers (B,C,W/C) (FIM): 7 Sit to Lying (QC): 6 Lying-Sitting on Side/Bed(QC): 6 Sit to Stand (QC): 6 Rollin Roll Left to Right (QC): 6 Chair/Lja-su-Xhtdw Xfer(QC): 6 Car Transfer (QC): 6 Does the Patient Walk: Yes Gait (FIM): 6 Gait distance (FIM): 3=150 ft Walk 10 feet (QC): 6 Walk 10ft-Uneven Surface(QC): 6 Walk 50ft with 2 Turns (QC): 6 Walk 150 ft (QC): 6 Gait Assistive Device: FWW Does the Pt use WC or Scooter?: No Stairs (FIM): 6 # of Steps: 12 1 Step (curb) (QC): 6 4 Steps (QC): 6 12 Steps (QC): 6 Picking up an Object (QC): 5 PT Plan Problem List Problem List: Activity Tolerance, Functional Strength, Safety, Balance, Gait Treatment/Plan Treatment Plan: Continue Plan of Care Treatment Plan: Bed Mobility, Education, Functional Activity Joe, Functional Strength, Group Therapy, Gait, Safety, Therapeutic Exercise, Transfers Treatment Duration: Oct 03, 2016 Visits Per Week: 10-15 Minutes/Day (M-F): 60-90 Minutes/Day (Sat/Naqvi): prn Safety Risks/Education Patient Education: Gait Training, Transfer Techniques, Correct Positioning, Safety Issues Teaching Recipient: Patient Teaching Methods: Discussion Response to Teaching: Verbalize Understanding Time/GCodes Time In: 815 Time Out: 915 Total Billed Treatment Time: 60 Total Billed Treatment visit, GT (15m), EX x2 (30m) & FA (15m) ANUEL HASTINGS SPECIAL EDUCATION CURRICULUM SPECIALIST Sep 20, 2016 12:50
--- NOTE | 2016-09-20 16:08 | Therapy Group Daily Note ---
Therapy Daily Group Note Exercises UE Exercise Other/Notes Pt ambulated to PT/OT Group in [facility] using FWW at [facility]. Group consisted of Introductions (Name, Where you are from and Childhood Memory), Socialization, Activities focused on Problem Solving, Memory, Sequencing, UE reaching and grasping, Core Strengthening while sitting and Fine Motor. Pt actively participated in Group by participating in activity by Exercising as needed for task and Socializing with other patients during task. Pt returned to room to rest in bed with all needs met at end of tx. Start Time: 13:00 Stop Time: 14:10 Total Billed Treatment Time: 70 Total Billed Treatment 1,GRP ENRIQUEANUEL KENNEDY DEPARTMENT EDITOR Sep 20, 2016 16:07
[2016-09-20 18:55] VITALS: BP 133/67
[2016-09-20] MEDS: MULTIVIT W/MINERALS TAB (THERAGRAN M) PO SCH (21:29)
[2016-09-20] MEDS: ESTRADIOL 1 MG TAB (ESTRACE) PO SCH (21:29)
[2016-09-20] MEDS: HYDROCHLOROTHIAZIDE 12.5 MG (HCTZ) CAP PO SCH (21:29)
[2016-09-20] MEDS: ASPIRIN E.C. 81 MG (ECOTRIN) TAB PO SCH (21:29)
[2016-09-20] MEDS: lisINopril 10 MG (PRINIVIL) TAB PO SCH (21:30)
[2016-09-20] MEDS: MELOXICAM 7.5 MG (MOBIC) TABLET PO SCH (21:30)
[2016-09-20] MEDS: SIMvastatin 10 MG (ZOCOR) TAB PO SCH (21:30)
[2016-09-21 05:07] VITALS: BP 110/71
[2016-09-21] MEDS: LEVOTHYROXINE 50 MCG (LEVOTHROID) TAB PO SCH (06:00)
[2016-09-21] MEDS: KCL 20 MEQ TAB (K-DUR) PO SCH (06:00)
[2016-09-21] MEDS: PANTOPRAZOLE 40 MG (PROTONIX) TAB PO SCH ×2 (06:00→16:58)
[2016-09-21] MEDS: SUCRALFATE 1 GM (CARAFATE) TAB PO SCH ×2 (06:00→16:58)
[2016-09-21] MEDS: SENNOSIDES 8.6 MG (SENOKOT) TAB PO SCH ×2 (08:19→20:05)
[2016-09-21] MEDS: GABAPENTIN 300 MG (NEURONTIN) CAP PO SCH ×2 (08:19→20:05)
[2016-09-21] MEDS: CLOPIDOGREL 75 MG (PLAVIX) TABLET PO SCH (08:19)
[2016-09-21] MEDS: DULoxetine 30 MG (CYMBALTA) CAP PO SCH ×2 (08:19→20:04)
[2016-09-21] MEDS: OMEGA 3 (FISH OIL) 1000 MG CAP PO SCH (08:19)
--- NOTE | 2016-09-21 09:07 | Physical Therapy Daily Note ---
PT Daily Note-Current Subjective Pt. agrees to Rx. States she feels she is making progress but gets tired quickly. States she has stairs at home with no rails and is looking for a place with either no steps or has rails Pain Numeric Pain Scale: 0-No Pain Appearance awake, alert and pleasant Mental Status Patient Orientation: Normal For Age Transfers Functional [place] Measure 0=Not Assessed/NA 4=Minimal Assistance 1=Total Assistance 5=Supervision or Setup 2=Maximal Assistance 6=Modified [place] 3=Moderate Assistance 7=Complete IndependenceIRFPAI Quality Coding Scale 6 Independent with activity with or without an assistive device 5 Patient requires set up or clean up by helper. Patient completes activity by themselves 4 Supervision or touching assist (CGA). [place] provide cues , steadying assist 3 The helper provides less than half the effort to complete the activity 2 The helper provides more than half the effort to complete the activity 1 Dependent. The helper does all the effort to complete an activity 7 Patient refused to complete or attempt activity 9 The patient did not perform the activity before the current illness or injury 88 Not attempted due to Medical conditions or safety concerns Transfers (B, C, W/C) (FIM): 6 Scootin Rollin Supine to/from Sit: 6 Sit to/from Stand: 6 Bed to/from Chair: 5 Gait Training Does the Patient Walk?: Yes Gait (FIM): 5 Distance (FIM): 3=150 ft (x2) Gait Level of Assist: 5 Gait Persons Needed: 1 Gait Assistive Device: Cane Single Point pt. states she feels most comfortable with the FWW secondary to some instability as well as denisha knee pain, but is feeling more comfortable with hurry cane. pt. managed better with break down step by step for gait pattern with SPC Stair Training Stair Training: Handrails/: 2 handrails Stairs (FIM): 2 #of Steps: 4 Stairs: Pattern: Step to Level of Assist: 4 Exercises Supine Ex: Bridging, Ankle pumps, Quad Set, Rolling, Glut sets, Heel Slides, Short Arc Quads, Scooting, Straight leg raise, Hip abd/add Supine Reps: 15 Seated Therapy Exercises: Ankle pumps, Long arc quads Seated Reps: 12 Treatments toileted managing pants and clean up indep, donned socks and shoes indep Assessment Current Status: Excellent Progress PT Short Term Goals Short Term Goals Time Frame: Sep 19, 2016 Gait (FIM): 4 Stairs (FIM): 4 PT Air Route Controller Goals Skilled Nursing Goals PT Air Route Controller Goals Time Frame: Oct 03, 2016 Transfers (B,C,W/C) (FIM): 7 Sit to Lying (QC): 6 Lying-Sitting on Side/Bed(QC): 6 Sit to Stand (QC): 6 Rollin Roll Left to Right (QC): 6 Chair/Rwb-xq-Ubcti Xfer(QC): 6 Car Transfer (QC): 6 Does the Patient Walk: Yes Gait (FIM): 6 Gait distance (FIM): 3=150 ft Walk 10 feet (QC): 6 Walk 10ft-Uneven Surface(QC): 6 Walk 50ft with 2 Turns (QC): 6 Walk 150 ft (QC): 6 Gait Assistive Device: FWW Does the Pt use WC or Scooter?: No Stairs (FIM): 6 # of Steps: 12 1 Step (curb) (QC): 6 4 Steps (QC): 6 12 Steps (QC): 6 Picking up an Object (QC): 5 PT Plan Treatment/Plan Treatment Plan: Continue Plan of Care Treatment Plan: Bed Mobility, Education, Functional Activity Joe, Functional Strength, Group Therapy, Gait, Safety, Therapeutic Exercise, Transfers Treatment Duration: Oct 03, 2016 Visits Per Week: 10-15 Minutes/Day (M-F): 60-90 Minutes/Day (Sat/Naqvi): prn Safety Risks/Education Patient Education: Gait Training, Transfer Techniques, Steps Teaching Recipient: Patient Teaching Methods: Demonstration, Discussion Response to Teaching: Verbalize Understanding, Return Demonstration, Reinforcement Needed Time/GCodes Time In: 800 Time Out: 900 Total Billed Treatment Time: 60 Total Billed Treatment 1,FA15m,GT25m,EX20m G Codes Necessary: No MIKE LARSON TRAINS SERVICE CONDUCTOR Sep 21, 2016 09:07
--- NOTE | 2016-09-21 13:02 | Occupational Ther Daily Note ---
OT Current Status-Daily Note Subjective Pt sitting in chair, agrees to treatment. Pt states she is not having any pain, but is experiencing "muscle soreness" Mental Status/Objective Functional [place] Measure 0=Not Assessed/NA 4=Minimal Assistance 1=Total Assistance 5=Supervision or Setup 2=Maximal Assistance 6=Modified [place] 3=Moderate Assistance 7=Complete [place] ADL-Treatment Pt sit to stand with modified independence. Pt retrieved clothing from closest with FWW with supervision. Gait to restroom with FWW. Transfer to walk in shower with supervision. Doff clothing without assistance. Pt able to complete bathing after set up. Pt able to wash/dry all areas with increased time. Pt donned sports bra and shirt without assistance. Donned underwear and pants with SBA for balance during pant hike. Pt donned socks and shoes without assistance. Stood at sink for grooming tasks with modified independence. Functional [place] Measure 0=Not Assessed/NA 4=Minimal Assistance 1=Total Assistance 5=Supervision or Setup 2=Maximal Assistance 6=Modified [place] 3=Moderate Assistance 7=Complete IndependenceIRFPAI Quality Coding Scale 6 Independent with activity with or without an assistive device 5 Patient requires set up or clean up by helper. Patient completes activity by themselves 4 Supervision or touching assist (CGA). [place] provide cues , steadying assist 3 The helper provides less than half the effort to complete the activity 2 The helper provides more than half the effort to complete the activity 1 Dependent. The helper does all the effort to complete an activity 7 Patient refused to complete or attempt activity 9 The patient did not perform the activity before the current illness or injury 88 Not attempted due to Medical conditions or safety concerns Grooming (FIM): 6 Oral Hygiene (QC): 6 Bathing (FIM): 5 Shower/Bathe Self (QC): 5 Upper Body (FIM): 5 Lower Body Dressing (FIM): 5 On/Off Footwear (QC): 6 Shower Transfer(FIM): 5 Other Treatment Gait to therapy gym with FWW, no LOB noted. Pt performed bilateral UE exercises to increase AROM and strength needed for ADLs and transfers. Pt performed shoulder flexion, forward press, biceps curls, and wrist flex/ext x10 reps with dowel marlene. Pt demonstrates improved active ROM left shoulder. Pt performed active shoulder abduction x10 reps. Increased time required for exercises. Occasional rest breaks needed. Pt returned to room, sitting EOB with needs met after session. OT Short Term Goals Short Term Goals Time Frame: Sep 19, 2016 Bathing(FIM): 5 Lower Body Dressing(FIM): 5 Toileting(FIM): 5 Toilet/Commode Transfer(FIM): 5 Shower Transfer(FIM): 5 Additional Short Term Goals: 1-Demonstrate ADL Tasks, 2-Verbalize Understanding , 3-ImproveStrength/Joe 1=Demonstrate adherence to instructed precautions during ADL tasks. 2=Patient will verbalize/demonstrate understanding of assistive devices/ modifications for ADL. 3=Patient will improve strength/tolerance for activity to enable patient to perform ADL's. OT Enzyme Chemist Goals Enzyme Chemist Goals Time Frame: Oct 03, 2016 Eating (FIM): 6 Eating (QC): 6 Groomin Oral Hygiene (QC): 6 Bathing(FIM): 6 Shower/Bathe Self (QC): 6 Upper Body Dressing(FIM): 6 Upper Body Dressing (QC): 6 Lower Body Dressing(FIM): 6 Lower Body Dressing (QC): 6 On/Off Footwear (QC): 6 Toileting(FIM): 6 Toileting Hygiene (QC): 6 Toilet/Commode Transfer(FIM): 6 Toilet/Commode Transfer (QC): 6 Shower Transfer(FIM): 6 Comprehension(FIM): 5 (MET) Expression (FIM): 5 (MET) Social Interaction(FIM): 6 (MET) Problem Solving(FIM): 4 (MET) Memory(FIM): 4 (MET) Additional Goals: 1-Demonstrate ADL Tasks, 2-Verbalize Understanding, 3- ImproveStrength/Joe 1=Demonstrate adherence to instructed precautions during ADL tasks. 2=Patient will verbalize/demonstrate understanding of assistive devices/ modifications for ADL. 3=Patient will improve strength/tolerance for activity to enable patient to perform ADL's. OT Education/Plan Problem List/Assessment Pt admitted with CVA with left side deficits. Pt demonstrates decreased mobility , strength, coordination, activity tolerance and ADL performance. Pt to benefit from skilled OT intervention for ADL training, transfers, strengthening, and safety education to maximize level of function and allow safe return home. Discharge Recommendations Plan/Recommendations: Continue POC Treatment Plan/Plan of Care Patient would benefit from OT for education, treatment and training to promote independence in ADL's, mobility, safety and/or upper extremity function for ADL' s. Plan of Care: ADL Retraining, Functional Mobility, Group Exercise/Act as Ind, UE Funct Exercise/Act, UE Neuromus Re-Ed/Coord Treatment Duration: Oct 03, 2016 Visits Per Week: 10-12 Minutes/Day (M-F): 60-90 Minutes/Day (Sat/Naqvi): PRN Agreement: Yes Rehab Potential: Good Time/GCodes Start Time: 09:30 Stop Time: 10:30 Total Time Billed (hr/min): 60 Billed Treatment Time 1 visit, ADLx3(40minutes), EX(20minutes) ALVIN RIVERA OT Sep 21, 2016 13:02
[2016-09-21] MEDS ORDERED: CLOP75TA28 PO (13:30)
[2016-09-21] MEDS ORDERED: CLOP75TA69 PO (13:44)
--- NOTE | 2016-09-21 14:22 | Therapy Group Daily Note ---
Therapy Daily Group Note Patient Education Topic Home Safety Exercises Fine Motor, UE Exercise Other/Notes Pt ambulated with FWW to FIRER RETORT/OT lunch group. Pt gathered in [facility] to eat lunch together. Pt's discussed home safety in the kitchen. Topics were of safety awareness while using kitchen appliances, food preparations, kitchen utensils and problem solving safety issues. Pt contributed to discussions appropriately and demonstrated understanding of all areas discussed. Pt was able to complete own set up for lunch then use regular utensils to cook food and feed self. After therapy, pt lying in bed with call light/phone in reach. All needs met in room. Start Time: 11:50 Stop Time: 13:00 Total Billed Treatment Time: 70 Total Billed Treatment 1-GRP CRISTIANA HORTON Sep 21, 2016 14:22
[2016-09-21 17:22] VITALS: BP 130/84
[2016-09-21] MEDS: SIMvastatin 10 MG (ZOCOR) TAB PO SCH (20:04)
[2016-09-21] MEDS: MULTIVIT W/MINERALS TAB (THERAGRAN M) PO SCH (20:04)
[2016-09-21] MEDS: lisINopril 10 MG (PRINIVIL) TAB PO SCH (20:04)
[2016-09-21] MEDS: ESTRADIOL 1 MG TAB (ESTRACE) PO SCH (20:04)
[2016-09-21] MEDS: MELOXICAM 7.5 MG (MOBIC) TABLET PO SCH (20:05)
[2016-09-21] MEDS: ASPIRIN E.C. 81 MG (ECOTRIN) TAB PO SCH (20:05)
[2016-09-21] MEDS: HYDROCHLOROTHIAZIDE 12.5 MG (HCTZ) CAP PO SCH (20:05)
[2016-09-22 05:32] VITALS: BP 115/73
[2016-09-22] MEDS: KCL 20 MEQ TAB (K-DUR) PO SCH (06:01)
[2016-09-22] MEDS: SUCRALFATE 1 GM (CARAFATE) TAB PO SCH ×2 (06:02→16:03)
[2016-09-22] MEDS: PANTOPRAZOLE 40 MG (PROTONIX) TAB PO SCH ×2 (06:02→16:03)
[2016-09-22] MEDS: LEVOTHYROXINE 50 MCG (LEVOTHROID) TAB PO SCH (06:02)
[2016-09-22] MEDS: OMEGA 3 (FISH OIL) 1000 MG CAP PO SCH (09:05)
[2016-09-22] MEDS: CLOPIDOGREL 75 MG (PLAVIX) TABLET PO SCH (09:05)
[2016-09-22] MEDS: SENNOSIDES 8.6 MG (SENOKOT) TAB PO SCH ×2 (09:05→20:47)
[2016-09-22] MEDS: GABAPENTIN 300 MG (NEURONTIN) CAP PO SCH ×2 (09:05→20:47)
[2016-09-22] MEDS: DULoxetine 30 MG (CYMBALTA) CAP PO SCH ×2 (09:06→20:46)
--- NOTE | 2016-09-22 13:00 | Physical Therapy Daily Note ---
PT Daily Note-Current Subjective Agrees to Rx. Mental Status Patient Orientation: Person, Place, Time Transfers Functional [place] Measure 0=Not Assessed/NA 4=Minimal Assistance 1=Total Assistance 5=Supervision or Setup 2=Maximal Assistance 6=Modified [place] 3=Moderate Assistance 7=Complete IndependenceIRFPAI Quality Coding Scale 6 Independent with activity with or without an assistive device 5 Patient requires set up or clean up by helper. Patient completes activity by themselves 4 Supervision or touching assist (CGA). [place] provide cues , steadying assist 3 The helper provides less than half the effort to complete the activity 2 The helper provides more than half the effort to complete the activity 1 Dependent. The helper does all the effort to complete an activity 7 Patient refused to complete or attempt activity 9 The patient did not perform the activity before the current illness or injury 88 Not attempted due to Medical conditions or safety concerns Transfers (B, C, W/C) (FIM): 5 Scootin Rollin Supine to/from Sit: 5 Sit to/from Stand: 6 Bed to/from Chair: 5 Gait Training Does the Patient Walk?: Yes Gait (FIM): 4 Distance (FIM): 3=150 ft (x2) Gait Level of Assist: 4 Gait Persons Needed: 1 Gait Assistive Device: Cane Single Point (with hurry point tip) progress noted for sequence and ease of gait with hurry cane. Exercises NuStep Minutes: 10 NuStep Workload: 2 Assessment Current Status: Good Progress very motivated PT Short Term Goals Short Term Goals Time Frame: Sep 19, 2016 Gait (FIM): 4 Stairs (FIM): 4 PT Tracer Clerk Goals [facility] Goals PT Tracer Clerk Goals Time Frame: Oct 03, 2016 Transfers (B,C,W/C) (FIM): 7 Sit to Lying (QC): 6 Lying-Sitting on Side/Bed(QC): 6 Sit to Stand (QC): 6 Rollin Roll Left to Right (QC): 6 Chair/Dnm-yc-Uztrk Xfer(QC): 6 Car Transfer (QC): 6 Does the Patient Walk: Yes Gait (FIM): 6 Gait distance (FIM): 3=150 ft Walk 10 feet (QC): 6 Walk 10ft-Uneven Surface(QC): 6 Walk 50ft with 2 Turns (QC): 6 Walk 150 ft (QC): 6 Gait Assistive Device: FWW Does the Pt use WC or Scooter?: No Stairs (FIM): 6 # of Steps: 12 1 Step (curb) (QC): 6 4 Steps (QC): 6 12 Steps (QC): 6 Picking up an Object (QC): 5 PT Plan Treatment/Plan Treatment Plan: Continue Plan of Care Treatment Plan: Bed Mobility, Education, Functional Activity Joe, Functional Strength, Group Therapy, Gait, Safety, Therapeutic Exercise, Transfers Treatment Duration: Oct 03, 2016 Visits Per Week: 10-15 Minutes/Day (M-F): 60-90 Minutes/Day (Sat/Naqvi): prn Safety Risks/Education Patient Education: Gait Training, Transfer Techniques, Correct Positioning, Disease Process, Safety Issues Teaching Recipient: Patient Teaching Methods: Demonstration, Discussion Response to Teaching: Verbalize Understanding, Return Demonstration, Reinforcement Needed Time/GCodes Time In: 805 Time Out: 835 Total Billed Treatment Time: 30 Total Billed Treatment 1,EX15m,GT15m G Codes Necessary: MIKE Barker SUPERVISOR LOGGING Sep 22, 2016 13:00
[2016-09-22 18:31] VITALS: BP 122/87
[2016-09-22] MEDS: MELOXICAM 7.5 MG (MOBIC) TABLET PO SCH (20:46)
[2016-09-22] MEDS: MULTIVIT W/MINERALS TAB (THERAGRAN M) PO SCH (20:46)
[2016-09-22] MEDS: SIMvastatin 10 MG (ZOCOR) TAB PO SCH (20:46)
[2016-09-22] MEDS: lisINopril 10 MG (PRINIVIL) TAB PO SCH (20:46)
[2016-09-22] MEDS: HYDROCHLOROTHIAZIDE 12.5 MG (HCTZ) CAP PO SCH (20:46)
[2016-09-22] MEDS: ASPIRIN E.C. 81 MG (ECOTRIN) TAB PO SCH (20:46)
[2016-09-22] MEDS: ESTRADIOL 1 MG TAB (ESTRACE) PO SCH (20:47)
[2016-09-23 05:15] VITALS: BP 114/76
[2016-09-23] MEDS: LEVOTHYROXINE 50 MCG (LEVOTHROID) TAB PO SCH (06:17)
[2016-09-23] MEDS: KCL 20 MEQ TAB (K-DUR) PO SCH (06:17)
[2016-09-23] MEDS: PANTOPRAZOLE 40 MG (PROTONIX) TAB PO SCH ×2 (06:17→16:03)
[2016-09-23] MEDS: SUCRALFATE 1 GM (CARAFATE) TAB PO SCH ×2 (06:17→16:03)
[2016-09-23 09:01] VITALS: BP 123/77
[2016-09-23] MEDS: OMEGA 3 (FISH OIL) 1000 MG CAP PO SCH (09:01)
[2016-09-23] MEDS: DULoxetine 30 MG (CYMBALTA) CAP PO SCH ×2 (09:01→20:01)
[2016-09-23] MEDS: SENNOSIDES 8.6 MG (SENOKOT) TAB PO SCH ×2 (09:02→20:02)
[2016-09-23] MEDS: GABAPENTIN 300 MG (NEURONTIN) CAP PO SCH ×2 (09:02→20:02)
[2016-09-23] MEDS: CLOPIDOGREL 75 MG (PLAVIX) TABLET PO SCH (09:02)
[2016-09-23 17:34] VITALS: BP 134/87
[2016-09-23] MEDS: ESTRADIOL 1 MG TAB (ESTRACE) PO SCH (20:01)
[2016-09-23] MEDS: MELOXICAM 7.5 MG (MOBIC) TABLET PO SCH (20:01)
[2016-09-23] MEDS: HYDROCHLOROTHIAZIDE 12.5 MG (HCTZ) CAP PO SCH (20:02)
[2016-09-23] MEDS: MULTIVIT W/MINERALS TAB (THERAGRAN M) PO SCH (20:02)
[2016-09-23] MEDS: lisINopril 10 MG (PRINIVIL) TAB PO SCH (20:02)
[2016-09-23] MEDS: SIMvastatin 10 MG (ZOCOR) TAB PO SCH (20:02)
[2016-09-23] MEDS: ASPIRIN E.C. 81 MG (ECOTRIN) TAB PO SCH (20:02)
[2016-09-24 05:11] VITALS: BP 162/99
[2016-09-24] MEDS: KCL 20 MEQ TAB (K-DUR) PO SCH (06:10)
[2016-09-24] MEDS: LEVOTHYROXINE 50 MCG (LEVOTHROID) TAB PO SCH (06:10)
[2016-09-24] MEDS: SUCRALFATE 1 GM (CARAFATE) TAB PO SCH ×2 (06:10→16:27)
[2016-09-24] MEDS: PANTOPRAZOLE 40 MG (PROTONIX) TAB PO SCH ×2 (06:10→16:27)
[2016-09-24] MEDS: GABAPENTIN 300 MG (NEURONTIN) CAP PO SCH ×2 (08:00→20:26)
[2016-09-24] MEDS: OMEGA 3 (FISH OIL) 1000 MG CAP PO SCH (08:00)
[2016-09-24] MEDS: DULoxetine 30 MG (CYMBALTA) CAP PO SCH ×2 (08:00→20:26)
[2016-09-24] MEDS: CLOPIDOGREL 75 MG (PLAVIX) TABLET PO SCH (08:00)
[2016-09-24] MEDS: SENNOSIDES 8.6 MG (SENOKOT) TAB PO SCH ×2 (08:04→20:26)
--- NOTE | 2016-09-24 09:11 | Physical Therapy Daily Note ---
PT Daily Note-Current Subjective Pt. states she is doing well , ready to work, states her most prominent problem is still her left knee which is an old orthopedic problem and causes her pain and immobility. Pain Numeric Pain Scale: 2 Location: Left Location Body Site: Knee Pain Description: Throbbing Mental Status Patient Orientation: Normal For Age Transfers Functional [place] Measure 0=Not Assessed/NA 4=Minimal Assistance 1=Total Assistance 5=Supervision or Setup 2=Maximal Assistance 6=Modified [place] 3=Moderate Assistance 7=Complete IndependenceIRFPAI Quality Coding Scale 6 Independent with activity with or without an assistive device 5 Patient requires set up or clean up by helper. Patient completes activity by themselves 4 Supervision or touching assist (CGA). [place] provide cues , steadying assist 3 The helper provides less than half the effort to complete the activity 2 The helper provides more than half the effort to complete the activity 1 Dependent. The helper does all the effort to complete an activity 7 Patient refused to complete or attempt activity 9 The patient did not perform the activity before the current illness or injury 88 Not attempted due to Medical conditions or safety concerns Transfers (B, C, W/C) (FIM): 6 Scootin Rollin Supine to/from Sit: 6 Sit to/from Stand: 6 Bed to/from Chair: 6 Gait Training Does the Patient Walk?: Yes Gait (FIM): 6 Distance (FIM): 3=150 ft (200x2) Gait Level of Assist: 6 Gait Persons Needed: 0 Gait Assistive Device: FWW gait in room up ad jyoti with FWW , gait during Rx SPC with hurry attachment pt. requiring SBA and a few reminders to sing left UE and initially for sequence Exercises Supine Ex: Bridging, Ankle pumps, Quad Set, Rolling, Lower trunk rotation, Heel Slides, Short Arc Quads, Scooting, Straight leg raise, Hip abd/add Supine Reps: 15 Standing: Hip Abduction, Heel/toe raises, Marching, Mini squats Standing Reps: 12 Assessment Current Status: Good Progress PT Short Term Goals Short Term Goals Time Frame: Sep 19, 2016 Gait (FIM): 4 Stairs (FIM): 4 PT Alf Goals Alf Goals PT Alf Goals Time Frame: Oct 03, 2016 Transfers (B,C,W/C) (FIM): 7 Sit to Lying (QC): 6 Lying-Sitting on Side/Bed(QC): 6 Sit to Stand (QC): 6 Rollin Roll Left to Right (QC): 6 Chair/Vtc-rw-Ksvyp Xfer(QC): 6 Car Transfer (QC): 6 Does the Patient Walk: Yes Gait (FIM): 6 Gait distance (FIM): 3=150 ft Walk 10 feet (QC): 6 Walk 10ft-Uneven Surface(QC): 6 Walk 50ft with 2 Turns (QC): 6 Walk 150 ft (QC): 6 Gait Assistive Device: FWW Does the Pt use WC or Scooter?: No Stairs (FIM): 6 # of Steps: 12 1 Step (curb) (QC): 6 4 Steps (QC): 6 12 Steps (QC): 6 Picking up an Object (QC): 5 PT Plan Treatment/Plan Treatment Plan: Continue Plan of Care Treatment Plan: Bed Mobility, Education, Functional Activity Joe, Functional Strength, Group Therapy, Gait, Safety, Therapeutic Exercise, Transfers Treatment Duration: Oct 03, 2016 Visits Per Week: 10-15 Minutes/Day (M-F): 60-90 Minutes/Day (Sat/Naqvi): prn Safety Risks/Education Patient Education: Gait Training, Transfer Techniques Teaching Recipient: Patient Teaching Methods: Demonstration, Discussion Response to Teaching: Verbalize Understanding, Return Demonstration, Reinforcement Needed Time/GCodes Time In: 800 Time Out: 900 Total Billed Treatment Time: 60 Total Billed Treatment 1,EX30m,GT30m G Codes Necessary: MIKE Barker PTA Sep 24, 2016 09:11
--- NOTE | 2016-09-24 11:50 | Occupational Ther Daily Note ---
OT Current Status-Daily Note Subjective Pt sitting on EOB. Pt declined completing shower today stating that she had taken one yesterday. No c/o pain. Pt agreed to therapy. Mental Status/Objective Patient Orientation: Person, Place, Time, Situation Functional [place] Measure 0=Not Assessed/NA 4=Minimal Assistance 1=Total Assistance 5=Supervision or Setup 2=Maximal Assistance 6=Modified [place] 3=Moderate Assistance 7=Complete [place] ADL-Treatment Functional [place] Measure 0=Not Assessed/NA 4=Minimal Assistance 1=Total Assistance 5=Supervision or Setup 2=Maximal Assistance 6=Modified [place] 3=Moderate Assistance 7=Complete IndependenceIRFPAI Quality Coding Scale 6 Independent with activity with or without an assistive device 5 Patient requires set up or clean up by helper. Patient completes activity by themselves 4 Supervision or touching assist (CGA). [place] provide cues , steadying assist 3 The helper provides less than half the effort to complete the activity 2 The helper provides more than half the effort to complete the activity 1 Dependent. The helper does all the effort to complete an activity 7 Patient refused to complete or attempt activity 9 The patient did not perform the activity before the current illness or injury 88 Not attempted due to Medical conditions or safety concerns Other Treatment Using cane, pt was able to ambulate with CGA while maneuvering through doorways , opening doors, reaching and grasping objects, holding object and walking without LOB or dropping object. Pt was able to transfer with cane with SBA. Pt then demonstrated daily functional tasks (making bed) with close SBA. Pt had no LOB during each task and demonstrated good understanding of safety. After therapy, pt sitting in recliner with call light/phone in reach. All needs met in room. Education OT Patient Education: Energy conservation, Purpose of tx/functional activities , Safety issues, Transfer techniques, Use of adapted equipment Teaching Recipient: Patient Teaching Methods: Demonstration, Discussion Response to Teaching: Verbalize Understanding, Return Demonstration OT Short Term Goals Short Term Goals Time Frame: Sep 19, 2016 Bathing(FIM): 5 Lower Body Dressing(FIM): 5 Toileting(FIM): 5 Toilet/Commode Transfer(FIM): 5 Shower Transfer(FIM): 5 Additional Short Term Goals: 1-Demonstrate ADL Tasks, 2-Verbalize Understanding , 3-ImproveStrength/Joe 1=Demonstrate adherence to instructed precautions during ADL tasks. 2=Patient will verbalize/demonstrate understanding of assistive devices/ modifications for ADL. 3=Patient will improve strength/tolerance for activity to enable patient to perform ADL's. OT Fpc Goals Product Support Sales Representative Goals Time Frame: Oct 03, 2016 Eating (FIM): 6 Eating (QC): 6 Groomin Oral Hygiene (QC): 6 Bathing(FIM): 6 Shower/Bathe Self (QC): 6 Upper Body Dressing(FIM): 6 Upper Body Dressing (QC): 6 Lower Body Dressing(FIM): 6 Lower Body Dressing (QC): 6 On/Off Footwear (QC): 6 Toileting(FIM): 6 Toileting Hygiene (QC): 6 Toilet/Commode Transfer(FIM): 6 Toilet/Commode Transfer (QC): 6 Shower Transfer(FIM): 6 Comprehension(FIM): 5 (MET) Expression (FIM): 5 (MET) Social Interaction(FIM): 6 (MET) Problem Solving(FIM): 4 (MET) Memory(FIM): 4 (MET) Additional Goals: 1-Demonstrate ADL Tasks, 2-Verbalize Understanding, 3- ImproveStrength/Joe 1=Demonstrate adherence to instructed precautions during ADL tasks. 2=Patient will verbalize/demonstrate understanding of assistive devices/ modifications for ADL. 3=Patient will improve strength/tolerance for activity to enable patient to perform ADL's. OT Education/Plan Problem List/Assessment Pt admitted with CVA with left side deficits. Pt demonstrates decreased mobility , strength, coordination, activity tolerance and ADL performance. Pt to benefit from skilled OT intervention for ADL training, transfers, strengthening, and safety education to maximize level of function and allow safe return home. Discharge Recommendations Plan/Recommendations: Continue POC Treatment Plan/Plan of Care Patient would benefit from OT for education, treatment and training to promote independence in ADL's, mobility, safety and/or upper extremity function for ADL' s. Plan of Care: ADL Retraining, Functional Mobility, Group Exercise/Act as Ind, UE Funct Exercise/Act, UE Neuromus Re-Ed/Coord Treatment Duration: Oct 03, 2016 Visits Per Week: 10-12 Minutes/Day (M-F): 60-90 Minutes/Day (Sat/Naqvi): PRN Agreement: Yes Rehab Potential: Good Time/GCodes Start Time: 09:00 Stop Time: 10:00 Total Time Billed (hr/min): 60 Billed Treatment Time 1 visit- FA 4 (60 min) CRISTIANA HORTON Sep 24, 2016 11:50
--- NOTE | 2016-09-24 13:42 | Physical Therapy Daily Note ---
PT Daily Note-Current Subjective Pt. explains again her steps/stair situation at home: back steps have semi pillars to hold on to but are very steep and not even deep enough to put the length of her whole foot on (very unsafe) Front steps have 4 std built steps but no rails. This BATTERY CHARGER CONVEYOR LINE and pt discussed using cane in right hand and assist of family at left hand with this BATTERY CHARGER CONVEYOR LINE demonstrating and educating pt on this today and suggesting she have family who will help her at DC into home come for education and training about this. Pain Numeric Pain Scale: 0-No Pain Mental Status Patient Orientation: Normal For Age Transfers Functional [place] Measure 0=Not Assessed/NA 4=Minimal Assistance 1=Total Assistance 5=Supervision or Setup 2=Maximal Assistance 6=Modified [place] 3=Moderate Assistance 7=Complete IndependenceIRFPAI Quality Coding Scale 6 Independent with activity with or without an assistive device 5 Patient requires set up or clean up by helper. Patient completes activity by themselves 4 Supervision or touching assist (CGA). [place] provide cues , steadying assist 3 The helper provides less than half the effort to complete the activity 2 The helper provides more than half the effort to complete the activity 1 Dependent. The helper does all the effort to complete an activity 7 Patient refused to complete or attempt activity 9 The patient did not perform the activity before the current illness or injury 88 Not attempted due to Medical conditions or safety concerns Transfers (B, C, W/C) (FIM): 6 Scootin Rollin Supine to/from Sit: 6 Sit to/from Stand: 6 Bed to/from Chair: 6 Gait Training Does the Patient Walk?: Yes Stair Training Stair Training: Handrails/: uses cane Stairs (FIM): 2 #of Steps: 8 Stairs: Pattern: Step to Level of Assist: 4 up down 8 steps with MANAGER FAST FOOD left and cane right training/demonstrating to pt. how a helper would assist her, no LOB, pts. left knee causing pain with descent but no LOB Exercises NuStep Minutes: 10 NuStep Workload: 2 Assessment Current Status: Excellent Progress did well on steps. PT Short Term Goals Short Term Goals Time Frame: Sep 19, 2016 Gait (FIM): 4 Stairs (FIM): 4 PT School Vocational Educator Goals School Vocational Educator Goals PT School Vocational Educator Goals Time Frame: Oct 03, 2016 Transfers (B,C,W/C) (FIM): 7 Sit to Lying (QC): 6 Lying-Sitting on Side/Bed(QC): 6 Sit to Stand (QC): 6 Rollin Roll Left to Right (QC): 6 Chair/Rwd-if-Hlutd Xfer(QC): 6 Car Transfer (QC): 6 Does the Patient Walk: Yes Gait (FIM): 6 Gait distance (FIM): 3=150 ft Walk 10 feet (QC): 6 Walk 10ft-Uneven Surface(QC): 6 Walk 50ft with 2 Turns (QC): 6 Walk 150 ft (QC): 6 Gait Assistive Device: FWW Does the Pt use WC or Scooter?: No Stairs (FIM): 6 # of Steps: 12 1 Step (curb) (QC): 6 4 Steps (QC): 6 12 Steps (QC): 6 Picking up an Object (QC): 5 PT Plan Treatment/Plan Treatment Plan: Continue Plan of Care Treatment Plan: Bed Mobility, Education, Functional Activity Joe, Functional Strength, Group Therapy, Gait, Safety, Therapeutic Exercise, Transfers Treatment Duration: Oct 03, 2016 Visits Per Week: 10-15 Minutes/Day (M-F): 60-90 Minutes/Day (Sat/Naqvi): prn Safety Risks/Education Patient Education: Gait Training, Transfer Techniques, Steps Teaching Recipient: Patient Teaching Methods: Demonstration, Discussion Response to Teaching: Verbalize Understanding, Return Demonstration, Reinforcement Needed Time/GCodes Time In: 1300 Time Out: 1330 Total Billed Treatment Time: 30 Total Billed Treatment 1,FA20m,EX10m G Codes Necessary: No MIKE LARSON BATTERY CHARGER CONVEYOR LINE Sep 24, 2016 13:42
--- NOTE | 2016-09-24 15:16 | Occupational Ther Daily Note ---
OT Current Status-Daily Note Subjective Took over care of pt in therapy gym from PT. Pt agreed to therapy. No c/o pain. Mental Status/Objective Patient Orientation: Person, Place, Time, Situation Functional [place] Measure 0=Not Assessed/NA 4=Minimal Assistance 1=Total Assistance 5=Supervision or Setup 2=Maximal Assistance 6=Modified [place] 3=Moderate Assistance 7=Complete [place] ADL-Treatment Functional [place] Measure 0=Not Assessed/NA 4=Minimal Assistance 1=Total Assistance 5=Supervision or Setup 2=Maximal Assistance 6=Modified [place] 3=Moderate Assistance 7=Complete IndependenceIRFPAI Quality Coding Scale 6 Independent with activity with or without an assistive device 5 Patient requires set up or clean up by helper. Patient completes activity by themselves 4 Supervision or touching assist (CGA). [place] provide cues , steadying assist 3 The helper provides less than half the effort to complete the activity 2 The helper provides more than half the effort to complete the activity 1 Dependent. The helper does all the effort to complete an activity 7 Patient refused to complete or attempt activity 9 The patient did not perform the activity before the current illness or injury 88 Not attempted due to Medical conditions or safety concerns Other Treatment Pt completed arm bike duration 15 min at 15 méndez resistance to increase strength and activity tolerance for daily functional tasks. No recovery breaks needed, tolerated well. Pt then ambulated with cane to large shower room to work on tub transfers. Pt does not have grabbar or tub seat at home, discussed with social scientist. Using cane, vertical grabbar and tub seat, pt is able to complete tub/shower transfer with CGA. Pt steps into tub forward with strong LE then steps out backwards with strong LE using grabbar and cane for support with CGA. Pt ambulated back to room and sat in recliner. After therapy, pt sitting in recliner with call light/phone in reach. All needs met in room. OT Short Term Goals Short Term Goals Time Frame: Sep 19, 2016 Bathing(FIM): 5 Lower Body Dressing(FIM): 5 Toileting(FIM): 5 Toilet/Commode Transfer(FIM): 5 Shower Transfer(FIM): 5 Additional Short Term Goals: 1-Demonstrate ADL Tasks, 2-Verbalize Understanding , 3-ImproveStrength/Joe 1=Demonstrate adherence to instructed precautions during ADL tasks. 2=Patient will verbalize/demonstrate understanding of assistive devices/ modifications for ADL. 3=Patient will improve strength/tolerance for activity to enable patient to perform ADL's. OT Heel Seat Pounder Goals Residential Goals Time Frame: Oct 03, 2016 Eating (FIM): 6 Eating (QC): 6 Groomin Oral Hygiene (QC): 6 Bathing(FIM): 6 Shower/Bathe Self (QC): 6 Upper Body Dressing(FIM): 6 Upper Body Dressing (QC): 6 Lower Body Dressing(FIM): 6 Lower Body Dressing (QC): 6 On/Off Footwear (QC): 6 Toileting(FIM): 6 Toileting Hygiene (QC): 6 Toilet/Commode Transfer(FIM): 6 Toilet/Commode Transfer (QC): 6 Shower Transfer(FIM): 6 Comprehension(FIM): 5 (MET) Expression (FIM): 5 (MET) Social Interaction(FIM): 6 (MET) Problem Solving(FIM): 4 (MET) Memory(FIM): 4 (MET) Additional Goals: 1-Demonstrate ADL Tasks, 2-Verbalize Understanding, 3- ImproveStrength/Joe 1=Demonstrate adherence to instructed precautions during ADL tasks. 2=Patient will verbalize/demonstrate understanding of assistive devices/ modifications for ADL. 3=Patient will improve strength/tolerance for activity to enable patient to perform ADL's. OT Education/Plan Problem List/Assessment Pt admitted with CVA with left side deficits. Pt demonstrates decreased mobility , strength, coordination, activity tolerance and ADL performance. Pt to benefit from skilled OT intervention for ADL training, transfers, strengthening, and safety education to maximize level of function and allow safe return home. Discharge Recommendations Plan/Recommendations: Continue POC Treatment Plan/Plan of Care Patient would benefit from OT for education, treatment and training to promote independence in ADL's, mobility, safety and/or upper extremity function for ADL' s. Plan of Care: ADL Retraining, Functional Mobility, Group Exercise/Act as Ind, UE Funct Exercise/Act, UE Neuromus Re-Ed/Coord Treatment Duration: Oct 03, 2016 Visits Per Week: 10-12 Minutes/Day (M-F): 60-90 Minutes/Day (Sat/Naqvi): PRN Agreement: Yes Rehab Potential: Good Time/GCodes Start Time: 13:30 Stop Time: 14:00 Total Time Billed (hr/min): 30 Billed Treatment Time 1 visit-EX 1 (15 min) FA 1 (15 min) CRISTIANA HORTON Sep 24, 2016 15:16
[2016-09-24 17:51] VITALS: BP 157/85
[2016-09-24] MEDS: SIMvastatin 10 MG (ZOCOR) TAB PO SCH (20:26)
[2016-09-24] MEDS: ASPIRIN E.C. 81 MG (ECOTRIN) TAB PO SCH (20:26)
[2016-09-24] MEDS: MELOXICAM 7.5 MG (MOBIC) TABLET PO SCH (20:26)
[2016-09-24] MEDS: lisINopril 10 MG (PRINIVIL) TAB PO SCH (20:26)
[2016-09-24] MEDS: ESTRADIOL 1 MG TAB (ESTRACE) PO SCH (20:26)
[2016-09-24] MEDS: MULTIVIT W/MINERALS TAB (THERAGRAN M) PO SCH (20:26)
[2016-09-24] MEDS: HYDROCHLOROTHIAZIDE 12.5 MG (HCTZ) CAP PO SCH (20:26)
[2016-09-25 05:45] VITALS: BP 104/65
[2016-09-25] MEDS: LEVOTHYROXINE 50 MCG (LEVOTHROID) TAB PO SCH (06:08)
[2016-09-25] MEDS: PANTOPRAZOLE 40 MG (PROTONIX) TAB PO SCH ×2 (06:08→16:20)
[2016-09-25] MEDS: KCL 20 MEQ TAB (K-DUR) PO SCH (06:09)
[2016-09-25] MEDS: SUCRALFATE 1 GM (CARAFATE) TAB PO SCH ×2 (06:09→16:20)
[2016-09-25] MEDS: CLOPIDOGREL 75 MG (PLAVIX) TABLET PO SCH (08:03)
[2016-09-25] MEDS: GABAPENTIN 300 MG (NEURONTIN) CAP PO SCH ×2 (08:03→20:40)
[2016-09-25] MEDS: OMEGA 3 (FISH OIL) 1000 MG CAP PO SCH (08:03)
[2016-09-25] MEDS: DULoxetine 30 MG (CYMBALTA) CAP PO SCH ×2 (08:03→20:38)
[2016-09-25] MEDS: SENNOSIDES 8.6 MG (SENOKOT) TAB PO SCH ×2 (08:03→20:39)
--- NOTE | 2016-09-25 08:19 | PM & R (SOAP) Progress Note ---
Subjective Time Seen by Provider: 08:15 Subjective/Events-last exam Patient was seen in her room this AM Patient wishes f/u re Barium swallow done last week This reveals hiatal hernia Patient eating OK Concerned re Thyroid biopsy results done at [facility] She will f/u with them Patient Modified Independent for transfers Strenght has returned on left and patient SBA for gait to laundry room with OT this AM.Reviewed therapy and DR Keenan notes Objective Exam Last Set of Vital Signs Vital Signs Date Time Temp Pulse Resp B/P (MAP) Pulse Ox O2 Delivery O2 Flow Rate FiO2 09/25/16 05:45 96.9 84 18 104/65 97 Room Air Capillary Refill : I&O Intake and Output 09/25/16 00:00 Intake Total 1550 ml Balance 1550 ml Intake Oral 1550 ml # Voids 5 # Bowel Movements 1 General: Alert, Oriented X3, Cooperative, No Acute Distress HEENT: Atraumatic, PERRLA, EOMI, Mucous Memb Moist/[place] Neck: Supple, No JVD Lungs: Clear to Auscultation Heart: Regular Rate Abdomen: Normal Bowel Sounds, Soft, No Tenderness Extremities: No Edema Neuro: Other (Left HP largely resolved) Results Lab Microbiology 09/13/16 MRSA Screen - Final, Complete Assessment/Plan Assessment rt cva with Left HP HTN on 3 meds with decreasing BP DR Ro has adjusted meds-improving Bradycardia-DR Ro has adjusted meds and resolved Constipation improved with RX S/P biopsy thyroid gland [facility] on meds Hiatal hernia on meds Plan Continue PT/OT ST has signed off Team Conference tomorrow Probable discharge later this week F/U with [facility] re Thyroid biopsy studies BROCK ESTES MD Sep 25, 2016 08:19
--- NOTE | 2016-09-25 09:14 | Occupational Ther Daily Note ---
OT Current Status-Daily Note Subjective Pt sleeping in bed, woke easily to name. Pt agreed to therapy. No c/o pain. Mental Status/Objective Patient Orientation: Person, Place, Time, Situation Functional [place] Measure 0=Not Assessed/NA 4=Minimal Assistance 1=Total Assistance 5=Supervision or Setup 2=Maximal Assistance 6=Modified [place] 3=Moderate Assistance 7=Complete [place] ADL-Treatment Standing at sink with FWW, pt is able to complete by self. Safety concerns. Using shower bench, grabbar and hand held shower pt is able to complete shower by self. Using FWW, pt retrieves clothing from closet and drawers then is able to don by self. Safety concerns with balance while backing away from objects and reaching to retrieve objects. Using FWW, pt retrieves clothing from closet and drawers then is able to don by self. Safety concerns with balance while backing away from objects and reaching to retrieve objects. Using grabbar and FWW, pt is able to complete by self. Using FWW, pt is able to complete by self. Using grabbar and FWW, pt is able to complete by self. Using shower bench, FWW and grabbars pt is able to complete on own. Pt then ambulated to laundry room on ARU floor with FWW and placed clothes in washer and started washer with supervision. Then ambulated back to room. After therapy, pt sitting in recliner with call light/phone in reach. Nrsg present. All needs met in room. Functional [place] Measure 0=Not Assessed/NA 4=Minimal Assistance 1=Total Assistance 5=Supervision or Setup 2=Maximal Assistance 6=Modified [place] 3=Moderate Assistance 7=Complete IndependenceIRFPAI Quality Coding Scale 6 Independent with activity with or without an assistive device 5 Patient requires set up or clean up by helper. Patient completes activity by themselves 4 Supervision or touching assist (CGA). [place] provide cues , steadying assist 3 The helper provides less than half the effort to complete the activity 2 The helper provides more than half the effort to complete the activity 1 Dependent. The helper does all the effort to complete an activity 7 Patient refused to complete or attempt activity 9 The patient did not perform the activity before the current illness or injury 88 Not attempted due to Medical conditions or safety concerns Grooming (FIM): 6 Bathing (FIM): 6 Upper Body (FIM): 6 Lower Body Dressing (FIM): 6 Toileting (FIM): 6 Transfers (B, C, W/C) (FIM): 6 Toilet/Commode Transfer (FIM): 6 Shower Transfer(FIM): 6 OT Short Term Goals Short Term Goals Time Frame: Sep 19, 2016 Bathing(FIM): 5 Lower Body Dressing(FIM): 5 Toileting(FIM): 5 Toilet/Commode Transfer(FIM): 5 Shower Transfer(FIM): 5 Additional Short Term Goals: 1-Demonstrate ADL Tasks, 2-Verbalize Understanding , 3-ImproveStrength/Joe 1=Demonstrate adherence to instructed precautions during ADL tasks. 2=Patient will verbalize/demonstrate understanding of assistive devices/ modifications for ADL. 3=Patient will improve strength/tolerance for activity to enable patient to perform ADL's. OT Compressor Stations Superintendent Goals Compressor Stations Superintendent Goals Time Frame: Oct 03, 2016 Eating (FIM): 6 Eating (QC): 6 Groomin Oral Hygiene (QC): 6 Bathing(FIM): 6 Shower/Bathe Self (QC): 6 Upper Body Dressing(FIM): 6 Upper Body Dressing (QC): 6 Lower Body Dressing(FIM): 6 Lower Body Dressing (QC): 6 On/Off Footwear (QC): 6 Toileting(FIM): 6 Toileting Hygiene (QC): 6 Toilet/Commode Transfer(FIM): 6 Toilet/Commode Transfer (QC): 6 Shower Transfer(FIM): 6 Comprehension(FIM): 5 (MET) Expression (FIM): 5 (MET) Social Interaction(FIM): 6 (MET) Problem Solving(FIM): 4 (MET) Memory(FIM): 4 (MET) Additional Goals: 1-Demonstrate ADL Tasks, 2-Verbalize Understanding, 3- ImproveStrength/Joe 1=Demonstrate adherence to instructed precautions during ADL tasks. 2=Patient will verbalize/demonstrate understanding of assistive devices/ modifications for ADL. 3=Patient will improve strength/tolerance for activity to enable patient to perform ADL's. OT Education/Plan Problem List/Assessment Pt admitted with CVA with left side deficits. Pt demonstrates decreased mobility , strength, coordination, activity tolerance and ADL performance. Pt to benefit from skilled OT intervention for ADL training, transfers, strengthening, and safety education to maximize level of function and allow safe return home. Discharge Recommendations Plan/Recommendations: Continue POC Equpiment Recommendations-D/C: Rails on Tub/Shower, Bath Chair Treatment Plan/Plan of Care Patient would benefit from OT for education, treatment and training to promote independence in ADL's, mobility, safety and/or upper extremity function for ADL' s. Plan of Care: ADL Retraining, Functional Mobility, Group Exercise/Act as Ind, UE Funct Exercise/Act, UE Neuromus Re-Ed/Coord Treatment Duration: Oct 03, 2016 Visits Per Week: 10-12 Minutes/Day (M-F): 60-90 Minutes/Day (Sat/Naqvi): PRN Agreement: Yes Rehab Potential: Good Time/GCodes Start Time: 07:00 Stop Time: 08:00 Total Time Billed (hr/min): 60 Billed Treatment Time 1 visit-ADL 3 (45 min) FA 1 (15 min) CRISTIANA HORTON Sep 25, 2016 09:14
--- NOTE | 2016-09-25 12:16 | Physical Therapy Daily Note ---
PT Daily Note-Current Subjective Pt sitting at EOB coloring upon arrival. Pt agrees to PT and reports switching rooms later to room 226 for more independent practice. Mental Status Patient Orientation: Person, Place, Time, Situation Transfers Functional [place] Measure 0=Not Assessed/NA 4=Minimal Assistance 1=Total Assistance 5=Supervision or Setup 2=Maximal Assistance 6=Modified [place] 3=Moderate Assistance 7=Complete IndependenceIRFPAI Quality Coding Scale 6 Independent with activity with or without an assistive device 5 Patient requires set up or clean up by helper. Patient completes activity by themselves 4 Supervision or touching assist (CGA). [place] provide cues , steadying assist 3 The helper provides less than half the effort to complete the activity 2 The helper provides more than half the effort to complete the activity 1 Dependent. The helper does all the effort to complete an activity 7 Patient refused to complete or attempt activity 9 The patient did not perform the activity before the current illness or injury 88 Not attempted due to Medical conditions or safety concerns Scootin Sit to/from Stand: 6 Sit to Stand (QC): 6 Weight Bearing Weight Bearing Restriction: Full Weight Bearing Location Restriction: LE Bilateral Gait Training Does the Patient Walk?: Yes Distance (FIM): 3=150 ft Distance: 300' Walk 10 feet (QC): 6 Walk 50 ft with 2 Turns(QC): 6 Walk 150 ft (QC): 6 Gait Level of Assist: 6 Gait Persons Needed: 1 Gait Assistive Device: Cane Single Point Pt walks with more normalized gait with SPC with hurry attachment during tx and FWW when not with staff. Pt is ad jyoti in room. Wheelchair Training Does the Pt Use a Wheelchair?: No Stair Training Stair Training: Handrails/: uses cane #of Steps: 8 1 Step (curb) (QC): 4 4 Steps (QC): 4 Stairs: Pattern: Step to Level of Assist: 4 Pt continues to work on stairs due to steepness and narrowness of stairs at home and having no handrail. Exercises Standing: Hip Abduction Standing Reps: 15 NuStep Minutes: 10 NuStep Workload: 5 Treatments Pt transfers from EOB to standing using FWW at Mod I. Pt trades FWW for SPC. Pt ambulates in hallway using SPC w/Hurry attachment. Pt attempts stairs with DRAIN LAYER for left hand and cane for right. Pt also completes NuStep for 10m at Workload 5 then Standing Ex at //bars for stretching. Pt then ambulates to laundry room to take laundry out of dryer with staff at [facility]. Pt then returns to new room 226. Pt puts clothes away before resting in recliner at end of tx with all needs met. Assessment Current Status: Good Progress Pt continues to improve with independence of tasks given although will still need more practice with stairs for steadiness. PT Short Term Goals Short Term Goals Time Frame: Sep 19, 2016 Gait (FIM): 4 Stairs (FIM): 4 PT Geospatial Extractor Analysis Goals Geospatial Extractor Analysis Goals PT Intermediate Goals Time Frame: Oct 03, 2016 Transfers (B,C,W/C) (FIM): 7 Sit to Lying (QC): 6 Lying-Sitting on Side/Bed(QC): 6 Sit to Stand (QC): 6 Rollin Roll Left to Right (QC): 6 Chair/Nkf-tw-Wfckb Xfer(QC): 6 Car Transfer (QC): 6 Does the Patient Walk: Yes Gait (FIM): 6 Gait distance (FIM): 3=150 ft Walk 10 feet (QC): 6 Walk 10ft-Uneven Surface(QC): 6 Walk 50ft with 2 Turns (QC): 6 Walk 150 ft (QC): 6 Gait Assistive Device: FWW Does the Pt use WC or Scooter?: No Stairs (FIM): 6 # of Steps: 12 1 Step (curb) (QC): 6 4 Steps (QC): 6 12 Steps (QC): 6 Picking up an Object (QC): 5 PT Plan Problem List Problem List: Safety, Balance, Gait Treatment/Plan Treatment Plan: Continue Plan of Care Treatment Plan: Bed Mobility, Education, Functional Activity Joe, Functional Strength, Group Therapy, Gait, Safety, Therapeutic Exercise, Transfers Treatment Duration: Oct 03, 2016 Visits Per Week: 10-15 Minutes/Day (M-F): 60-90 Minutes/Day (Sat/Naqvi): prn Safety Risks/Education Patient Education: Steps, Correct Positioning, Safety Issues Teaching Recipient: Patient Teaching Methods: Discussion Response to Teaching: Verbalize Understanding Time/GCodes Time In: 1000 Time Out: 1100 Total Billed Treatment Time: 60 Total Billed Treatment visit, GT x2 (30m), FA (15m) & EX (15m) ANUEL HASTINGS BROADCAST CORRESPONDENT Sep 25, 2016 12:16
--- NOTE | 2016-09-25 14:48 | Occupational Ther Daily Note ---
OT Current Status-Daily Note Subjective Pt sitting in recliner, alert. Pt agreed to therapy. No c/o pain. Mental Status/Objective Patient Orientation: Person, Place, Time, Situation Functional [place] Measure 0=Not Assessed/NA 4=Minimal Assistance 1=Total Assistance 5=Supervision or Setup 2=Maximal Assistance 6=Modified [place] 3=Moderate Assistance 7=Complete [place] ADL-Treatment Functional [place] Measure 0=Not Assessed/NA 4=Minimal Assistance 1=Total Assistance 5=Supervision or Setup 2=Maximal Assistance 6=Modified [place] 3=Moderate Assistance 7=Complete IndependenceIRFPAI Quality Coding Scale 6 Independent with activity with or without an assistive device 5 Patient requires set up or clean up by helper. Patient completes activity by themselves 4 Supervision or touching assist (CGA). [place] provide cues , steadying assist 3 The helper provides less than half the effort to complete the activity 2 The helper provides more than half the effort to complete the activity 1 Dependent. The helper does all the effort to complete an activity 7 Patient refused to complete or attempt activity 9 The patient did not perform the activity before the current illness or injury 88 Not attempted due to Medical conditions or safety concerns Other Treatment Pt completed B UE activities for strengthening and activity tolerance for daily functional tasks. Pt tolerated well and demonstrated good problem solving and endurance throughout tasks. After therapy, pt sitting in recliner with family present. Call light/phone in reach. All needs met in room. OT Short Term Goals Short Term Goals Time Frame: Sep 19, 2016 Bathing(FIM): 5 Lower Body Dressing(FIM): 5 Toileting(FIM): 5 Toilet/Commode Transfer(FIM): 5 Shower Transfer(FIM): 5 Additional Short Term Goals: 1-Demonstrate ADL Tasks, 2-Verbalize Understanding , 3-ImproveStrength/Joe 1=Demonstrate adherence to instructed precautions during ADL tasks. 2=Patient will verbalize/demonstrate understanding of assistive devices/ modifications for ADL. 3=Patient will improve strength/tolerance for activity to enable patient to perform ADL's. OT Soil Analyst Goals [facility] Goals Time Frame: Oct 03, 2016 Eating (FIM): 6 Eating (QC): 6 Groomin Oral Hygiene (QC): 6 Bathing(FIM): 6 Shower/Bathe Self (QC): 6 Upper Body Dressing(FIM): 6 Upper Body Dressing (QC): 6 Lower Body Dressing(FIM): 6 Lower Body Dressing (QC): 6 On/Off Footwear (QC): 6 Toileting(FIM): 6 Toileting Hygiene (QC): 6 Toilet/Commode Transfer(FIM): 6 Toilet/Commode Transfer (QC): 6 Shower Transfer(FIM): 6 Comprehension(FIM): 5 (MET) Expression (FIM): 5 (MET) Social Interaction(FIM): 6 (MET) Problem Solving(FIM): 4 (MET) Memory(FIM): 4 (MET) Additional Goals: 1-Demonstrate ADL Tasks, 2-Verbalize Understanding, 3- ImproveStrength/Joe 1=Demonstrate adherence to instructed precautions during ADL tasks. 2=Patient will verbalize/demonstrate understanding of assistive devices/ modifications for ADL. 3=Patient will improve strength/tolerance for activity to enable patient to perform ADL's. OT Education/Plan Problem List/Assessment Pt admitted with CVA with left side deficits. Pt demonstrates decreased mobility , strength, coordination, activity tolerance and ADL performance. Pt to benefit from skilled OT intervention for ADL training, transfers, strengthening, and safety education to maximize level of function and allow safe return home. Discharge Recommendations Plan/Recommendations: Continue POC Treatment Plan/Plan of Care Patient would benefit from OT for education, treatment and training to promote independence in ADL's, mobility, safety and/or upper extremity function for ADL' s. Plan of Care: ADL Retraining, Functional Mobility, Group Exercise/Act as Ind, UE Funct Exercise/Act, UE Neuromus Re-Ed/Coord Treatment Duration: Oct 03, 2016 Visits Per Week: 10-12 Minutes/Day (M-F): 60-90 Minutes/Day (Sat/Naqvi): PRN Agreement: Yes Rehab Potential: Good Time/GCodes Start Time: 13:30 Stop Time: 14:00 Total Time Billed (hr/min): 30 Billed Treatment Time 1 visit-FA 2 (30 min) CRISTIANA HORTON Sep 25, 2016 14:48
--- NOTE | 2016-09-25 15:00 | Physical Therapy Daily Note ---
PT Daily Note-Current Subjective Patient in chair pre tx, agrees to PT, no complaints of pain. Appearance Patient in chair post tx with nurse call, phone, tray, family in the room. Mental Status Patient Orientation: Normal For Age Transfers Functional [place] Measure 0=Not Assessed/NA 4=Minimal Assistance 1=Total Assistance 5=Supervision or Setup 2=Maximal Assistance 6=Modified [place] 3=Moderate Assistance 7=Complete IndependenceIRFPAI Quality Coding Scale 6 Independent with activity with or without an assistive device 5 Patient requires set up or clean up by helper. Patient completes activity by themselves 4 Supervision or touching assist (CGA). [place] provide cues , steadying assist 3 The helper provides less than half the effort to complete the activity 2 The helper provides more than half the effort to complete the activity 1 Dependent. The helper does all the effort to complete an activity 7 Patient refused to complete or attempt activity 9 The patient did not perform the activity before the current illness or injury 88 Not attempted due to Medical conditions or safety concerns Transfers (B, C, W/C) (FIM): 5 Sit to/from Stand: 5 Gait Training Gait (FIM): 4 Distance: 1000'x2 Gait Level of Assist: 4 Gait Persons Needed: 1 Gait Assistive Device: Cane Single Point CGA, ambulated outside over community surfaces (uneven surfaces, sidewalks, ramps) Treatments transfers, ambulation Assessment Current Status: Fair Progress improving endurance, ambulation, balance PT Short Term Goals Short Term Goals Time Frame: Sep 19, 2016 Gait (FIM): 4 Stairs (FIM): [address] Supervisor Goals Detention Goals PT Detention Goals Time Frame: Oct 03, 2016 Transfers (B,C,W/C) (FIM): 7 Sit to Lying (QC): 6 Lying-Sitting on Side/Bed(QC): 6 Sit to Stand (QC): 6 Rollin Roll Left to Right (QC): 6 Chair/Isg-uw-Bbnno Xfer(QC): 6 Car Transfer (QC): 6 Does the Patient Walk: Yes Gait (FIM): 6 Gait distance (FIM): 3=150 ft Walk 10 feet (QC): 6 Walk 10ft-Uneven Surface(QC): 6 Walk 50ft with 2 Turns (QC): 6 Walk 150 ft (QC): 6 Gait Assistive Device: FWW Does the Pt use WC or Scooter?: No Stairs (FIM): 6 # of Steps: 12 1 Step (curb) (QC): 6 4 Steps (QC): 6 12 Steps (QC): 6 Picking up an Object (QC): 5 PT Plan Problem List Problem List: Activity Tolerance, Functional Strength, Safety, Balance, Gait, Transfer, Bed Mobility Treatment/Plan Treatment Plan: Continue Plan of Care Treatment Plan: Bed Mobility, Education, Functional Activity Joe, Functional Strength, Group Therapy, Gait, Safety, Therapeutic Exercise, Transfers Treatment Duration: Oct 03, 2016 Visits Per Week: 10-15 Minutes/Day (M-F): 60-90 Minutes/Day (Sat/Naqvi): prn Safety Risks/Education Patient Education: Gait Training, Transfer Techniques, Safety Issues Teaching Recipient: Patient Teaching Methods: Demonstration, Discussion Response to Teaching: Reinforcement Needed Time/GCodes Time In: 1430 Time Out: 1500 Total Billed Treatment Time: 30 Total Billed Treatment 1 visit GT 30' JENARO ESTRADA PT Sep 25, 2016 15:00
[2016-09-25 18:01] VITALS: BP 127/86
[2016-09-25] MEDS: lisINopril 10 MG (PRINIVIL) TAB PO SCH (20:39)
[2016-09-25] MEDS: MULTIVIT W/MINERALS TAB (THERAGRAN M) PO SCH (20:39)
[2016-09-25] MEDS: ESTRADIOL 1 MG TAB (ESTRACE) PO SCH (20:39)
[2016-09-25] MEDS: ASPIRIN E.C. 81 MG (ECOTRIN) TAB PO SCH (20:39)
[2016-09-25] MEDS: MELOXICAM 7.5 MG (MOBIC) TABLET PO SCH (20:40)
[2016-09-25] MEDS: HYDROCHLOROTHIAZIDE 12.5 MG (HCTZ) CAP PO SCH (20:40)
[2016-09-25] MEDS: SIMvastatin 10 MG (ZOCOR) TAB PO SCH (20:40)
[2016-09-26 04:48] VITALS: BP 130/80
[2016-09-26] MEDS: LEVOTHYROXINE 50 MCG (LEVOTHROID) TAB PO SCH (06:20)
[2016-09-26] MEDS: PANTOPRAZOLE 40 MG (PROTONIX) TAB PO SCH ×2 (06:20→16:33)
[2016-09-26] MEDS: KCL 20 MEQ TAB (K-DUR) PO SCH (06:20)
[2016-09-26] MEDS: SUCRALFATE 1 GM (CARAFATE) TAB PO SCH ×2 (06:20→16:33)
[2016-09-26] MEDS: SENNOSIDES 8.6 MG (SENOKOT) TAB PO SCH ×2 (08:34→20:46)
[2016-09-26] MEDS: DULoxetine 30 MG (CYMBALTA) CAP PO SCH ×2 (08:34→20:45)
[2016-09-26] MEDS: OMEGA 3 (FISH OIL) 1000 MG CAP PO SCH (08:34)
[2016-09-26] MEDS: CLOPIDOGREL 75 MG (PLAVIX) TABLET PO SCH (08:34)
[2016-09-26] MEDS: GABAPENTIN 300 MG (NEURONTIN) CAP PO SCH ×2 (08:34→20:46)
--- NOTE | 2016-09-26 10:11 | Physical Therapy Daily Note ---
PT Daily Note-Current Subjective Likes the indep apt. Agrees to Rx. Pain Numeric Pain Scale: 0-No Pain Mental Status Patient Orientation: Normal For Age Transfers Functional [place] Measure 0=Not Assessed/NA 4=Minimal Assistance 1=Total Assistance 5=Supervision or Setup 2=Maximal Assistance 6=Modified [place] 3=Moderate Assistance 7=Complete IndependenceIRFPAI Quality Coding Scale 6 Independent with activity with or without an assistive device 5 Patient requires set up or clean up by helper. Patient completes activity by themselves 4 Supervision or touching assist (CGA). [place] provide cues , steadying assist 3 The helper provides less than half the effort to complete the activity 2 The helper provides more than half the effort to complete the activity 1 Dependent. The helper does all the effort to complete an activity 7 Patient refused to complete or attempt activity 9 The patient did not perform the activity before the current illness or injury 88 Not attempted due to Medical conditions or safety concerns Transfers (B, C, W/C) (FIM): 6 Scootin Rollin Supine to/from Sit: 6 Sit to/from Stand: 6 Bed to/from Chair: 6 Gait Training Does the Patient Walk?: Yes Gait (FIM): 5 Distance (FIM): 3=150 ft (x2) Gait Level of Assist: 5 Gait Persons Needed: 1 Gait Assistive Device: Cane Single Point pt. up ad jyoti in room with FWW, with PT pt. uses hurry cane and needs CGA to SBA and cuing instruction for left arm swing and sequence Stair Training Stair Training: Handrails/: uses cane (and GRAIN RECEIVER) Stairs (FIM): 3 #of Steps: 12 Stairs: Pattern: Step to Level of Assist: 4 Exercises NuStep Minutes: 8 NuStep Workload: 5 Neuromuscular NICHOLS today 47/56 with cane out doors however pt. states she feels much more safe to be alone Assessment Current Status: Good Progress PT Short Term Goals Short Term Goals Time Frame: Sep 19, 2016 Gait (FIM): 4 Stairs (FIM): 4 PT Fdc Goals Fdc Goals PT Mechanical Maintenance Technician Goals Time Frame: Oct 03, 2016 Transfers (B,C,W/C) (FIM): 7 Sit to Lying (QC): 6 Lying-Sitting on Side/Bed(QC): 6 Sit to Stand (QC): 6 Rollin Roll Left to Right (QC): 6 Chair/Rie-zy-Iqorg Xfer(QC): 6 Car Transfer (QC): 6 Does the Patient Walk: Yes Gait (FIM): 6 Gait distance (FIM): 3=150 ft Walk 10 feet (QC): 6 Walk 10ft-Uneven Surface(QC): 6 Walk 50ft with 2 Turns (QC): 6 Walk 150 ft (QC): 6 Gait Assistive Device: FWW Does the Pt use WC or Scooter?: No Stairs (FIM): 6 # of Steps: 12 1 Step (curb) (QC): 6 4 Steps (QC): 6 12 Steps (QC): 6 Picking up an Object (QC): 5 PT Plan Treatment/Plan Treatment Plan: Continue Plan of Care Treatment Plan: Bed Mobility, Education, Functional Activity Joe, Functional Strength, Group Therapy, Gait, Safety, Therapeutic Exercise, Transfers Treatment Duration: Oct 03, 2016 Visits Per Week: 10-15 Minutes/Day (M-F): 60-90 Minutes/Day (Sat/Naqvi): prn Safety Risks/Education Patient Education: Gait Training, Transfer Techniques, Steps, Correct Positioning, Safety Issues Teaching Recipient: Patient Teaching Methods: Demonstration, Discussion Response to Teaching: Verbalize Understanding, Return Demonstration, Reinforcement Needed Time/GCodes Time In: 900 Time Out: 1000 Total Billed Treatment Time: 60 Total Billed Treatment 1,NM25m,GT20,EX15 G Codes Necessary: MIKE Barker SPECIAL EDUCATOR Sep 26, 2016 10:11
--- NOTE | 2016-09-26 10:47 | Occupational Ther Daily Note ---
OT Current Status-Daily Note Subjective Pt sleeping in bed, woke easily to name. Pt agreed to therapy. No c/o pain at this time. Mental Status/Objective Patient Orientation: Person, Place, Time, Situation Functional [place] Measure 0=Not Assessed/NA 4=Minimal Assistance 1=Total Assistance 5=Supervision or Setup 2=Maximal Assistance 6=Modified [place] 3=Moderate Assistance 7=Complete [place] ADL-Treatment Pt ambulated with FWW into bathroom. Pt used cane and grabbars to step into tub /shower with CGA then sat on tub chair. Pt was able to complete all bathing by self using grabbar and tub seat. Pt used grabbar and cane to step out of tub backwards with CGA, no LOB during transfer. Pt then completed dressing by self using FWW. Standing at sink for grooming by self. Pt then was able to make bed by self, no LOB. Pt ambulated to therapy gym and completed arm bike. Duration 15 min at 20 méndez resistance without breaks to increase strength and activity tolerance for daily functional tasks. Pt has demonstrated improvement with all areas of ADLs. Pt still is working on using cane with mobility during transfers and ADL's and requires close SBA. Pt is able to complete all tasks using FWW with mod I. After therapy, pt sitting in recliner with moist hot pack on back due to increase tightness around shldr girdle which was causing numbness in L fingers. Checked on pt and took off hot pack in 20 minutes. Call light and phone in pt's reach. All needs met in room. Functional [place] Measure 0=Not Assessed/NA 4=Minimal Assistance 1=Total Assistance 5=Supervision or Setup 2=Maximal Assistance 6=Modified [place] 3=Moderate Assistance 7=Complete IndependenceIRFPAI Quality Coding Scale 6 Independent with activity with or without an assistive device 5 Patient requires set up or clean up by helper. Patient completes activity by themselves 4 Supervision or touching assist (CGA). [place] provide cues , steadying assist 3 The helper provides less than half the effort to complete the activity 2 The helper provides more than half the effort to complete the activity 1 Dependent. The helper does all the effort to complete an activity 7 Patient refused to complete or attempt activity 9 The patient did not perform the activity before the current illness or injury 88 Not attempted due to Medical conditions or safety concerns Grooming (FIM): 6 Bathing (FIM): 6 Upper Body (FIM): 6 Lower Body Dressing (FIM): 6 Transfers (B, C, W/C) (FIM): 6 Tub Transfer(FIM): 4 OT Short Term Goals Short Term Goals Time Frame: Sep 19, 2016 Bathing(FIM): 5 Lower Body Dressing(FIM): 5 Toileting(FIM): 5 Toilet/Commode Transfer(FIM): 5 Shower Transfer(FIM): 5 Additional Short Term Goals: 1-Demonstrate ADL Tasks, 2-Verbalize Understanding , 3-ImproveStrength/Joe 1=Demonstrate adherence to instructed precautions during ADL tasks. 2=Patient will verbalize/demonstrate understanding of assistive devices/ modifications for ADL. 3=Patient will improve strength/tolerance for activity to enable patient to perform ADL's. OT [facility] Goals Java Lead Developer Goals Time Frame: Oct 03, 2016 Eating (FIM): 6 Eating (QC): 6 Groomin Oral Hygiene (QC): 6 Bathing(FIM): 6 Shower/Bathe Self (QC): 6 Upper Body Dressing(FIM): 6 Upper Body Dressing (QC): 6 Lower Body Dressing(FIM): 6 Lower Body Dressing (QC): 6 On/Off Footwear (QC): 6 Toileting(FIM): 6 Toileting Hygiene (QC): 6 Toilet/Commode Transfer(FIM): 6 Toilet/Commode Transfer (QC): 6 Shower Transfer(FIM): 6 Comprehension(FIM): 5 (MET) Expression (FIM): 5 (MET) Social Interaction(FIM): 6 (MET) Problem Solving(FIM): 4 (MET) Memory(FIM): 4 (MET) Additional Goals: 1-Demonstrate ADL Tasks, 2-Verbalize Understanding, 3- ImproveStrength/Joe 1=Demonstrate adherence to instructed precautions during ADL tasks. 2=Patient will verbalize/demonstrate understanding of assistive devices/ modifications for ADL. 3=Patient will improve strength/tolerance for activity to enable patient to perform ADL's. OT Education/Plan Problem List/Assessment Pt admitted with CVA with left side deficits. Pt demonstrates decreased mobility , strength, coordination, activity tolerance and ADL performance. Pt to benefit from skilled OT intervention for ADL training, transfers, strengthening, and safety education to maximize level of function and allow safe return home. Discharge Recommendations Plan/Recommendations: Continue POC Therapy D/C Recommendations: Occupational Therapy Home Care Equpiment Recommendations-D/C: Rails on Tub/Shower, Bath Chair Treatment Plan/Plan of Care Patient would benefit from OT for education, treatment and training to promote independence in ADL's, mobility, safety and/or upper extremity function for ADL' s. Plan of Care: ADL Retraining, Functional Mobility, Group Exercise/Act as Ind, UE Funct Exercise/Act, UE Neuromus Re-Ed/Coord Treatment Duration: Oct 03, 2016 Visits Per Week: 10-12 Minutes/Day (M-F): 60-90 Minutes/Day (Sat/Naqvi): PRN Agreement: Yes Rehab Potential: Good Time/GCodes Start Time: 07:00 Stop Time: 08:30 Total Time Billed (hr/min): 90 Billed Treatment Time 1 visit-ADL 3 (45 min) FA 2 (30 min) EX 1 (15 min) CRISTIANA HORTON Sep 26, 2016 10:47
--- NOTE | 2016-09-26 15:18 | Physical Therapy Daily Note ---
PT Daily Note-Current Subjective Pt. agrees to Rx. Wants to walk Pain Numeric Pain Scale: 0-No Pain Mental Status Patient Orientation: Normal For Age Transfers Functional [place] Measure 0=Not Assessed/NA 4=Minimal Assistance 1=Total Assistance 5=Supervision or Setup 2=Maximal Assistance 6=Modified [place] 3=Moderate Assistance 7=Complete IndependenceIRFPAI Quality Coding Scale 6 Independent with activity with or without an assistive device 5 Patient requires set up or clean up by helper. Patient completes activity by themselves 4 Supervision or touching assist (CGA). [place] provide cues , steadying assist 3 The helper provides less than half the effort to complete the activity 2 The helper provides more than half the effort to complete the activity 1 Dependent. The helper does all the effort to complete an activity 7 Patient refused to complete or attempt activity 9 The patient did not perform the activity before the current illness or injury 88 Not attempted due to Medical conditions or safety concerns all TRFs mod I Gait Training Gait Assistive Device: Cane Single Point gait [id number] SBA no LOB, pt. up ad jyoti in room with FWW, with PT pt. using SPC with hurry attachment Exercises Supine Ex: Bridging, Ankle pumps, Quad Set, Rolling, Glut sets, Heel Slides, Short Arc Quads, Scooting, Straight leg raise, Hip abd/add Supine Reps: 15 sidelying and prone: hip abd, hip extension in prone all x15 Treatments pt. in kitchen made coffee with Leo maker with cues only, good balance noted for reaching etc Assessment Current Status: Excellent Progress improved funct mob and balance PT Short Term Goals Short Term Goals Time Frame: Sep 19, 2016 Gait (FIM): 4 Stairs (FIM): 4 PT Blackjack Pit Boss Goals [facility] Goals PT Blackjack Pit Boss Goals Time Frame: Oct 03, 2016 Transfers (B,C,W/C) (FIM): 7 Sit to Lying (QC): 6 Lying-Sitting on Side/Bed(QC): 6 Sit to Stand (QC): 6 Rollin Roll Left to Right (QC): 6 Chair/Gty-yu-Wtgrh Xfer(QC): 6 Car Transfer (QC): 6 Does the Patient Walk: Yes Gait (FIM): 6 Gait distance (FIM): 3=150 ft Walk 10 feet (QC): 6 Walk 10ft-Uneven Surface(QC): 6 Walk 50ft with 2 Turns (QC): 6 Walk 150 ft (QC): 6 Gait Assistive Device: FWW Does the Pt use WC or Scooter?: No Stairs (FIM): 6 # of Steps: 12 1 Step (curb) (QC): 6 4 Steps (QC): 6 12 Steps (QC): 6 Picking up an Object (QC): 5 PT Plan Treatment/Plan Treatment Plan: Continue Plan of Care Treatment Plan: Bed Mobility, Education, Functional Activity Joe, Functional Strength, Group Therapy, Gait, Safety, Therapeutic Exercise, Transfers Treatment Duration: Oct 03, 2016 Visits Per Week: 10-15 Minutes/Day (M-F): 60-90 Minutes/Day (Sat/Naqvi): prn Safety Risks/Education Patient Education: Gait Training, Transfer Techniques, Correct Positioning, Safety Issues Teaching Recipient: Patient Teaching Methods: Demonstration Response to Teaching: Verbalize Understanding, Return Demonstration, Reinforcement Needed Time/GCodes Time In: 1410 Time Out: 1440 Total Billed Treatment Time: 30 Total Billed Treatment 1,FA15m,EX15m G Codes Necessary: MIKE Barker POWER SUPERINTENDENT Sep 26, 2016 15:18
[2016-09-26 17:58] VITALS: BP 108/71
--- NOTE | 2016-09-26 18:48 | PM & R (SOAP) Progress Note ---
Subjective Time Seen by Provider: 07:45 Subjective/Events-last exam Patient was seen in her room this AM Progressing well with therapies Patient Modified Independent for transfers Objective Exam Last Set of Vital Signs Vital Signs Date Time Temp Pulse Resp B/P (MAP) Pulse Ox O2 Delivery O2 Flow Rate FiO2 09/26/16 17:58 98.6 80 18 108/71 98 Room Air Capillary Refill : I&O Intake and Output 09/26/16 00:00 Intake Total 1730 ml Balance 1730 ml Intake Oral 1730 ml # Voids 7 # Bowel Movements 1 General: Alert, Oriented X3, Cooperative, No Acute Distress HEENT: Atraumatic, PERRLA, EOMI, Mucous Memb Moist/[place]: Supple, No JVD Lungs: Clear to Auscultation Heart: Regular Rate Abdomen: Normal Bowel Sounds, Soft, No Tenderness Extremities: No Edema Neuro: Other (Left HP largely resolved) Results Lab Microbiology 09/13/16 MRSA Screen - Final, Complete Assessment/Plan Assessment rt cva with Left HP HTN on 3 meds with decreasing BP DR Ro has adjusted meds-improving Bradycardia-DR Ro has adjusted meds and resolved Constipation improved with RX S/P biopsy thyroid gland [facility] on meds Hiatal hernia on meds Plan Continue PT/OT ST has signed off Team Conference held earlier today-See report for full functional update and POC and ELOS Current labs reviewed TSH WNL F/U with [facility] re Thyroid biopsy studies BROCK ESTES MD Sep 26, 2016 18:48
[2016-09-26] MEDS ORDERED: CYANOCOBALAMIN 500 MCG TAB (VITAMIN B-12) ONE (20:11)
[2016-09-26] MEDS: HYDROCHLOROTHIAZIDE 12.5 MG (HCTZ) CAP PO SCH (20:45)
[2016-09-26] MEDS: MULTIVIT W/MINERALS TAB (THERAGRAN M) PO SCH (20:45)
[2016-09-26] MEDS: lisINopril 10 MG (PRINIVIL) TAB PO SCH (20:46)
[2016-09-26] MEDS: MELOXICAM 7.5 MG (MOBIC) TABLET PO SCH (20:46)
[2016-09-26] MEDS: SIMvastatin 10 MG (ZOCOR) TAB PO SCH (20:46)
[2016-09-26] MEDS: ESTRADIOL 1 MG TAB (ESTRACE) PO SCH (20:46)
[2016-09-26] MEDS: ASPIRIN E.C. 81 MG (ECOTRIN) TAB PO SCH (20:46)
[2016-09-27] MEDS: LEVOTHYROXINE 50 MCG (LEVOTHROID) TAB PO SCH (06:09)
[2016-09-27] MEDS: PANTOPRAZOLE 40 MG (PROTONIX) TAB PO SCH ×2 (06:09→15:56)
[2016-09-27] MEDS: KCL 20 MEQ TAB (K-DUR) PO SCH (06:09)
[2016-09-27] MEDS: SUCRALFATE 1 GM (CARAFATE) TAB PO SCH ×2 (06:09→15:56)
[2016-09-27 06:15] VITALS: BP 108/69
[2016-09-27] MEDS: DULoxetine 30 MG (CYMBALTA) CAP PO SCH ×2 (08:20→20:46)
[2016-09-27] MEDS: GABAPENTIN 300 MG (NEURONTIN) CAP PO SCH ×2 (08:21→20:47)
[2016-09-27] MEDS: CYANOCOBALAMIN 500 MCG TAB (VITAMIN B-12) PO SCH (08:22)
[2016-09-27] MEDS: OMEGA 3 (FISH OIL) 1000 MG CAP PO SCH (08:22)
[2016-09-27] MEDS: CLOPIDOGREL 75 MG (PLAVIX) TABLET PO SCH (08:22)
[2016-09-27] MEDS: SENNOSIDES 8.6 MG (SENOKOT) TAB PO SCH ×2 (08:22→20:48)
--- NOTE | 2016-09-27 08:50 | Occupational Ther Daily Note ---
OT Current Status-Daily Note Subjective Pt sleeping in bed, woke easily to name. Pt agreed to therapy. No c/o pain. Mental Status/Objective Patient Orientation: Person, Place, Time, Situation Functional [place] Measure 0=Not Assessed/NA 4=Minimal Assistance 1=Total Assistance 5=Supervision or Setup 2=Maximal Assistance 6=Modified [place] 3=Moderate Assistance 7=Complete [place] ADL-Treatment Pt was able to get out of bed independently. Pt sat on EOB to don socks/shoes then stood to make the bed, no LOB. Ambulated with FWW to retrieve clothing then transported to bathroom. Pt toileted, donned/doffed clothing and groomed with mod I using FWW and grabbars when needed. Pt is mod I with FWW. Pt continues to work with cane for ambulation with CGA to SBA. Pt ambulated to therapy gym with CGA using cane, no LOB. Functional [place] Measure 0=Not Assessed/NA 4=Minimal Assistance 1=Total Assistance 5=Supervision or Setup 2=Maximal Assistance 6=Modified [place] 3=Moderate Assistance 7=Complete IndependenceIRFPAI Quality Coding Scale 6 Independent with activity with or without an assistive device 5 Patient requires set up or clean up by helper. Patient completes activity by themselves 4 Supervision or touching assist (CGA). [place] provide cues , steadying assist 3 The helper provides less than half the effort to complete the activity 2 The helper provides more than half the effort to complete the activity 1 Dependent. The helper does all the effort to complete an activity 7 Patient refused to complete or attempt activity 9 The patient did not perform the activity before the current illness or injury 88 Not attempted due to Medical conditions or safety concerns Grooming (FIM): 6 Upper Body (FIM): 6 Lower Body Dressing (FIM): 6 Toileting (FIM): 6 Transfers (B, C, W/C) (FIM): 6 Toilet/Commode Transfer (FIM): 6 Other Treatment Completed arm bike 15 min duration at 25 méndez resistance to increase strength and activity tolerance for daily functional tasks. Pt then was able to verbalize understanding and describe correct sequence in picking items up off floor correctly. Pt stated that her shldr felt tight and finger tips were going numb on L hand while completing arm bike. Education on self stretching to assist in decreasing tightness and numbness in fingertips. After therapy, pt sitting in recliner with call light/phone and FWW in reach. All needs met in room. Nrsg present in room. Education OT Patient Education: Home exercise program, Safety issues Teaching Recipient: Patient Teaching Methods: Demonstration, Discussion Response to Teaching: Verbalize Understanding, Return Demonstration OT Short Term Goals Short Term Goals Time Frame: Sep 19, 2016 Bathing(FIM): 5 Lower Body Dressing(FIM): 5 Toileting(FIM): 5 Toilet/Commode Transfer(FIM): 5 Shower Transfer(FIM): 5 Additional Short Term Goals: 1-Demonstrate ADL Tasks, 2-Verbalize Understanding , 3-ImproveStrength/Joe 1=Demonstrate adherence to instructed precautions during ADL tasks. 2=Patient will verbalize/demonstrate understanding of assistive devices/ modifications for ADL. 3=Patient will improve strength/tolerance for activity to enable patient to perform ADL's. OT Front Line Supervisor Goals [facility] Goals Time Frame: Oct 03, 2016 Eating (FIM): 6 Eating (QC): 6 Groomin Oral Hygiene (QC): 6 Bathing(FIM): 6 Shower/Bathe Self (QC): 6 Upper Body Dressing(FIM): 6 Upper Body Dressing (QC): 6 Lower Body Dressing(FIM): 6 Lower Body Dressing (QC): 6 On/Off Footwear (QC): 6 Toileting(FIM): 6 Toileting Hygiene (QC): 6 Toilet/Commode Transfer(FIM): 6 Toilet/Commode Transfer (QC): 6 Shower Transfer(FIM): 6 Comprehension(FIM): 5 (MET) Expression (FIM): 5 (MET) Social Interaction(FIM): 6 (MET) Problem Solving(FIM): 4 (MET) Memory(FIM): 4 (MET) Additional Goals: 1-Demonstrate ADL Tasks, 2-Verbalize Understanding, 3- ImproveStrength/Joe 1=Demonstrate adherence to instructed precautions during ADL tasks. 2=Patient will verbalize/demonstrate understanding of assistive devices/ modifications for ADL. 3=Patient will improve strength/tolerance for activity to enable patient to perform ADL's. OT Education/Plan Problem List/Assessment Pt admitted with CVA with left side deficits. Pt demonstrates decreased mobility , strength, coordination, activity tolerance and ADL performance. Pt to benefit from skilled OT intervention for ADL training, transfers, strengthening, and safety education to maximize level of function and allow safe return home. Discharge Recommendations Plan/Recommendations: Continue POC Therapy D/C Recommendations: Occupational Therapy Home Care Equpiment Recommendations-D/C: Rails on Tub/Shower, Bath Chair Treatment Plan/Plan of Care Patient would benefit from OT for education, treatment and training to promote independence in ADL's, mobility, safety and/or upper extremity function for ADL' s. Plan of Care: ADL Retraining, Functional Mobility, Group Exercise/Act as Ind, UE Funct Exercise/Act, UE Neuromus Re-Ed/Coord Treatment Duration: Oct 03, 2016 Visits Per Week: 10-12 Minutes/Day (M-F): 60-90 Minutes/Day (Sat/Naqvi): PRN Agreement: Yes Rehab Potential: Good Time/GCodes Start Time: 07:00 Stop Time: 08:30 Total Time Billed (hr/min): 90 Billed Treatment Time 1 visit-ADL 3 (45 min) EX 1 (15 min) FA 2 (30 min) CRISTIANA HORTON Sep 27, 2016 08:50
--- NOTE | 2016-09-27 10:57 | Physical Therapy Daily Note ---
PT Daily Note-Current Subjective Patient in recliner pre tx, agrees to PT, has pain of 5/10 in her right knee. Appearance Patient in recliner post tx with nurse call, phone, tray, all needs met. Mental Status Patient Orientation: Normal For Age Transfers Functional [place] Measure 0=Not Assessed/NA 4=Minimal Assistance 1=Total Assistance 5=Supervision or Setup 2=Maximal Assistance 6=Modified [place] 3=Moderate Assistance 7=Complete IndependenceIRFPAI Quality Coding Scale 6 Independent with activity with or without an assistive device 5 Patient requires set up or clean up by helper. Patient completes activity by themselves 4 Supervision or touching assist (CGA). [place] provide cues , steadying assist 3 The helper provides less than half the effort to complete the activity 2 The helper provides more than half the effort to complete the activity 1 Dependent. The helper does all the effort to complete an activity 7 Patient refused to complete or attempt activity 9 The patient did not perform the activity before the current illness or injury 88 Not attempted due to Medical conditions or safety concerns Transfers (B, C, W/C) (FIM): 6 Sit to/from Stand: 6 Gait Training Gait (FIM): 5 Distance: 700', 150'x2 Gait Level of Assist: 5 Gait Persons Needed: 1 Gait Assistive Device: Cane Single Point Stair Training Stair Training: Handrails/: 1 handrail Stairs (FIM): 2 #of Steps: 8 1 Step (curb) (QC): 4 4 Steps (QC): 4 Stairs: Pattern: Step to Level of Assist: 4 CGA, cues for foot placement Exercises LAQ alternating for 5 min with 2# ankle weights NuStep Minutes: 15 NuStep Workload: 5 Treatments transfers, ambulation, functional strengthening to improve mobility and endurance Assessment Current Status: Fair Progress improving strength and mobility and endurance PT Short Term Goals Short Term Goals Time Frame: Sep 19, 2016 Gait (FIM): 4 Stairs (FIM): 4 PT Half-Way Goals Protective Services Officer Goals PT Half-Way Goals Time Frame: Oct 03, 2016 Transfers (B,C,W/C) (FIM): 7 Sit to Lying (QC): 6 Lying-Sitting on Side/Bed(QC): 6 Sit to Stand (QC): 6 Rollin Roll Left to Right (QC): 6 Chair/Agn-jp-Fsmjy Xfer(QC): 6 Car Transfer (QC): 6 Does the Patient Walk: Yes Gait (FIM): 6 Gait distance (FIM): 3=150 ft Walk 10 feet (QC): 6 Walk 10ft-Uneven Surface(QC): 6 Walk 50ft with 2 Turns (QC): 6 Walk 150 ft (QC): 6 Gait Assistive Device: FWW Does the Pt use WC or Scooter?: No Stairs (FIM): 6 # of Steps: 12 1 Step (curb) (QC): 6 4 Steps (QC): 6 12 Steps (QC): 6 Picking up an Object (QC): 5 PT Plan Problem List Problem List: Activity Tolerance, Functional Strength, Safety, Balance, Gait, Transfer Treatment/Plan Treatment Plan: Continue Plan of Care Treatment Plan: Bed Mobility, Education, Functional Activity Joe, Functional Strength, Group Therapy, Gait, Safety, Therapeutic Exercise, Transfers Treatment Duration: Oct 03, 2016 Visits Per Week: 10-15 Minutes/Day (M-F): 60-90 Minutes/Day (Sat/Naqvi): prn Safety Risks/Education Patient Education: Gait Training, Transfer Techniques, Safety Issues Teaching Recipient: Patient Teaching Methods: Demonstration, Discussion Response to Teaching: Reinforcement Needed Time/GCodes Time In: 1000 Time Out: 1100 Total Billed Treatment Time: 60 Total Billed Treatment 1 visit EX 20' GT 40' JENARO ESTRADA PT Sep 27, 2016 10:57
--- OUTSIDE RECORDS SUMMARY | 2016-09-27 13:37 | XMS REPORT | Continuity of Care Document ---
Author Author [facility] Organization [facility] Address Unknown Phone Unavailable Care Team Providers Care Nut Sorter Operator Name Role Phone Kenzie Birmingham PCP [phone] Source Comments Some departments are not documenting in the electronic medical record. If you do not see the information that you expected, contact Release of Information in the Health Information Management department at [phone] for further assistance in locating additional records.[facility] Active Allergies and Adverse Reactions Allergen [...] mouth Active 100 mg tablet twice daily. gabapentin (NEURONTIN) Take 300 mg by mouth [...] Take by mouth daily. Active (PROTONIX PO) lisinopril (PRINIVIL; Take 1 Tab by mouth [...] 16 and a full glass of water. ciprofloxacin (CIPRO) 500 Take 1 Tab by mouth twice 2 Tab 0 07/31/19 Active mg tablet daily. 17 Active Problems Problem Noted Date Thyroid nodule 05/28/2016 Last Assessment & Plan: Per primary service Renal cyst 05/28/[address] nodules on CT 05/28/2016 Last Assessment & Plan: Per primary service Residual hemorrhoidal skin tags 04/20/2016 Hematuria 04/20/2016 Overview: PMH of ovarian cancer and heart disease. Gross hematuria x four months. Denies radiation or chemotherapy with her history of ovarian cancer. Negative hematuria workup (07/30/16) L ast Assessment & Plan: Negative hematuria work-up rtc prn Left lower quadrant pain 09/16/2015 Intractable vomiting [...] Chest pain 09/06/2015 Overview: 09/08/13 Echo ([facility]): EF 60%. Mild mitral and tricuspid valve regurgitation. PAP=30 mmHg. 09/08/13 Lexiscan Myoview Stress Test ([facility]): EF 57%. Subtle abnormality in the inferoapical segment with no significant ischemia or infarction. 08/22/15 Echo ([facility]): EF 60%. Left atrium is mildly dilated. Mild mitral and tricuspid regurgitation. 08/29/15 Lexiscan Myoview Stress Test ([facility]): EF 67%. No significant ischemia [...] at PCP on EKG. Being referred to [facility] in [place]. Lab Results Component Value Date CA125 15 [...] Recent Encounters Date Type Specialty Providers Description 09/06/2016 [facility] Richy Morel MBBS Hematuria, unspecified Encounter 09/05/2016 [facility] Richy Morel MBBS Hematuria, unspecified Encounter 09/05/2016 Office Visit Nephrology Richy oMrel MBBS Hematuria ( Primary Dx); Essential hypertension; Screening for hematuria or proteinuria 08/24/2016 Telephone Endocrinology, Metabolism Anuj Hoyt MD Results & Genetics 08/23/2016 [facility] Anuj Hoyt MD Nontoxic single thyroid Encounter nodule 08/23/2016 Procedure visit Endocrinology, Metabolism Anuj Hoyt MD Thyroid nodule (Primary & Genetics Dx) 08/21/2016 Telephone Endocrinology, Metabolism Car Reeder MD General Question & Genetics 08/02/2016 Telephone Endocrinology, Metabolism Car Reeder MD General Question & Genetics 07/31/2016 Hospital Lab Car Reeder MD Other specified Encounter hypothyroidism 07/31/2016 Office Visit Endocrinology Car Reeder MD Other specified hypothyroidism (Primary Dx); Multinodular goiter 07/30/2016 Procedure visit Urology Dahlia Garcia MD Hematuria ( Primary Dx) 07/30/2016 Hospital Radiology Rashawn Freeman PA-C Encounter 07/30/2016 Screening Form 07/16/2016 Telephone Radiology Brooks Vasquez MD Appointment Social History Tobacco Use Types Packs/Day Years Used Date Former Smoker Cigarettes 0.5 5 Smokeless Tobacco: Never Used Tobacco Cessation: Counseling Given: Yes Comments: Alcohol Use Drinks/Week oz/Week Comments No 0 Standard 0.0 about 1-2 times per year drinks or equivalent Last Filed Vital Signs Vital Sign Reading Time Taken Blood Pressure 132/77 09/05/2016 3:40 PM CDT Pulse 77 09/05/2016 3:40 PM CDT Temperature 37.1 C (98.8 F) 04/19/2016 12:49 PM DIET SUPERVISOR Respiratory Rate 16 05/28/2016 9:15 AM DIET SUPERVISOR Height 1.676 m (5' 6") 09/05/2016 3:38 PM CDT Weight 93.713 kg (206 lb 9.6 oz) 09/05/2016 3:38 PM CDT Body Mass Index 33.36 09/05/2016 3:38 PM CDT Oxygen Saturation 100% 05/28/2016 9:15 AM DIET SUPERVISOR Plan of Care Health Maintenance Due Date Last Done Comments Physical (Comprehensive) 07/12/1966 Exam Pertussis Vaccine 07/12/1970 Tetanus Vaccine 07/12/1976 Cervical Cancer Screening 07/12/1980 Breast Cancer Screening 03/25/2016 03/25/2015, 09/14/2013 Influenza Vaccine 12/14/2016 Colorectal Cancer 12/19/2023 12/18/2013 Screening Hepatitis C Screening Completed 09/05/2016 Procedures from Last 3 Months Procedure Name Priority Date/Time Associated Diagnosis Comments IL FINE NEEDLE ASPIRATION Routine 08/23/2016 Thyroid nodule Results for this WITH IMAGING GUIDANCE 8:55 AM CDT procedure are in the results section. CHG US GUIDANCE NEEDLE Routine 08/23/2016 Thyroid nodule Results for this PLACEMENT IMG S&I 8:55 AM CDT procedure are in the results section. IL CYSTOURETHROSCOPY Routine 07/30/2016 Hematuria Results for this 10:09 AM CDT procedure are in the results section. Results from Last 3 Months * URINALYSIS, MICROSCOPIC (09/06/2016 1:06 PM) Component Value Range WBCs,UA 0-2 0-2 /HPF RBCs,UA NONE 0-3 /HPF MucousUA TRACE Squamous Epithelial Cells 0-2 0-5 Specimen Urine * MYOGLOBIN-URINE RANDOM (09/06/2016 1:06 PM) Component Value Range Myoglobin, Urine 1Comment: <25 NG/ML This test was developed and it's performance characteristics determined by the [facility], [place], [place]. This test has not been cleared for urine by the U.S. Food and Drug Administration. Specimen Urine * MICROALB/CR RATIO-URINE RANDOM (09/06/2016 1:06 PM) Component Value Range Microalbumin, Random 8.7 <19 MCG/ML Creatinine, Random 46 MG/DL Microalbumin/CR ratio 18.91Comment: NOTE NEW REFERENCE RANGES <30 ug/mg Urine Specimen Urine * CREATINE KINASE-CPK (09/05/2016 4:30 PM) Component Value Range Creatine Kinase 80 21-215 U/L Specimen Blood * HEPATITIS B SURFACE AB (09/05/2016 4:30 PM) Component Value Range Anti HBs <2.5Comment: mIU/ml Hepatitis B Surface Antibody Reference Ranges >12.0 Positive 8.0-12.0 Equivocal <8.0 Negative Specimen Blood * HEPATITIS B CORE AB TOT (IGG+IGM) (09/05/2016 4:30 PM) Component Value Range Anti HBc Total NEG Specimen Blood * HEPATITIS C AB (09/05/2016 4:30 PM) Component Value Range Anti HCV NEG Specimen Blood * HEPATITIS B SURFACE AG (09/05/2016 4:30 PM) Component Value Range HBsAg NEG Specimen Blood * GLOMERULR BASEMENT MEMBRNE AB IGG (09/05/2016 4:30 PM) Component Value Range Glomerular Basement <0.2 Membrane AB, IGG Reference range: <1.0 (Negative) Unit: U [facility] Specimen Blood * ANTI-DNA DOUBLE STRAND (09/05/2016 4:30 PM) Component Value Range DNA Double Strand AB <10 <10 TITER Specimen Blood * MPO/IL-3 (09/05/2016 4:30 PM) Component Value Range Myeloperoxidase AB <0.2 Reference range: <0.4 (Negative) Unit: U [facility] Serine Protease3 AB <0.2 Reference range: <0.4 (Negative) Unit: U [facility] Specimen Blood * ANTI-NEUT CYTO AB (ANCA/PANCA) (09/05/2016 4:30 PM) Component Value Range C-ANCA <20,NEGATIVE TITER P-ANCA <20,NEGATIVE TITER Specimen Blood * ANTI-NUCLEAR ANTIBODY(JUANY) (09/05/2016 4:30 PM) Component Value Range JUANY Screen <80 <80 TITER Specimen Blood * C3 COMPLEMENT 3 (09/05/2016 4:30 PM) Component Value Range Complemnt C3 126.0 88-200 MG/DL Specimen Blood * C4 COMPLEMENT 4 (09/05/2016 4:30 PM) Component Value Range Complemnt C4 24.0 10-49 MG/DL Specimen Blood * BASIC METABOLIC PANEL (09/05/2016 4:30 PM) Component Value Range Sodium 139 137-147 MMOL/L Potassium 3.4 (L) 3.5-5.1 MMOL/L Chloride 102 98-110 MMOL/L CO2 29 21-30 MMOL/L Anion Gap 8 3-12 Glucose 109 (H) 70-100 MG/DL Blood Urea Nitrogen 11 7-25 MG/DL Creatinine 0.80 0.4-1.00 MG/DL Calcium 9.7 8.5-10.6 MG/DL eGFR Non >60Comment: >60 mL/min [...] the Clinical Pharmacist for questions. Specimen Blood * POC URINE DIPSTICK AUTO READ (09/05/2016) Component Value Range Urine Glucose POC norm Urine Bilirubin POC 1 Urine Ketone POC 15 Urine Specific [place] 1.025 POC Urine Blood POC neg Urine PH POC 5 Urine Protein POC 30 Urine Urobilinogen POC 4 Urine Nitrite POC neg Urine Leukocytes POC 25 Specimen Urine * FINE NEEDLE ASPIRATE (FNA) (08/23/2016 1:28 PM) Component Value Range Cytology [facility] [email or web address] Merry Solomon MD, Director Cytopathology Department of Pathology and Laboratory Medicine [address] [place] [phone] Surgical Pathology Office: [phone] CYTOLOGY REPORT NAME: SHERLY HUYNH SURG PATH #: [id number] MR #: [id number] ALT ID #: [id number] #: [id number] LOCATION: ENT DATE OF PROCEDURE: 08/23/2016 AGE: 56 SEX: F DATE RECEIVED: 08/23/2016 : 1960 TIME RECEIVED: 13:28 PHYSICIAN: ANUJ HOYT MD DATE OF REPORT: 08/24/2016 COPY TO: DATE OF PRINTIN08/24/2016 Material Received: A: FNA Thyroid-left History: 56 year old woman with history of thyroid nodules. Gross Description: (1tp,2pap,2dq) Rapid determination of adequacy was performed by the electronic warfare linguist, JOAN, on Diff-Quik stained slide(s). Pass 2 was adequate for evaluation. Pass one was not adequate for evaluation. ################################################## ###################### Final Diagnosis: A. Thyroid-left, US FNA: Benign Consistent with lymphocytic (Jaja) thyroiditis in the proper clinical context. Attestation: By this signature, I attest that I have personally formulated the final interpretation expressed in this report and that the above diagnosis is based upon my examination of the slides and/or other material indicated in this report. +++Electronically Signed Out By+++ af/08/24/2016 Interpreted by: Eulalia Shirley MD, Attending Physician Trevor Parson D.O. Fellow * BIOPSY FINE NEEDLE W/IMAGING GUIDANCE (08/23/2016 8:55 AM) Narrative Anuj Hoyt MD 08/23/20168:55 AM Date of services: 08/23/2016 The risks and benefits were explained beforehand and a consent form is signed and is in the chart. Date of procedure: 08/23/2016 Procedure: Thyroid nodule biopsy and Ultrasound guidance for fine needle aspiration biopsy of left thyroid nodule Assisting Physician: Dr Schofield Indication: left thyroid nodule Examination and Procedure: Risks, benefits, alternatives to FNA biopsy were reviewed and explained. Real-time imaging was performed in two planes following informed consent and sterile preparation. Ice was applied for local anesthesia. Fine-needle aspiration biopsy was performed using direct ultrasound guidance to confirm accurate needle placement. Two aspirations were made using 25-gauge needles. Samples were submitted for cytology. The patient tolerated the procedure well without complication. After care instructions were provided. Post biopsy ultrasound done 3 minutes later showed no hematoma. IMPRESSION: 1) Uncomplicated fine needle aspiration biopsy of left thyroid nodule under ultrasound guidance. Specimens sent: slides and needle rinsings She tolerated the procedure well. There were no acute complications. * ANTI-THYROPEROXIDASE (MICROSOMAL)AB (07/31/2016 11:26 AM) Component Value Range Microsomal AB, TPO >1000.00 (H) <5.61 IU/ML Specimen Blood * THYROID STIM IMMUNOGLOBULIN(TSI) (07/31/2016 11:26 AM) Component Value Range TSI <1.0 Reference range: <=1.3 Unit: TSI index [facility] Specimen Blood * FREE T4 (FREE THYROXINE) ONLY (07/31/2016 11:26 AM) Component Value Range T4-Free 1.0 0.6-1.6 NG/DL Specimen Blood * THYROID STIMULATING HORMONE-TSH (07/31/2016 11:26 AM) Component Value Range TSH 2.374 0.35-5.00 MCU/ML Specimen Blood * CYSTOSCOPY (07/30/2016 10:09 AM) Sandra Garcia MD 07/30/2016 10:09 AM Patient was placed supine on the cystoscopy table with their perineum flush with the end of the cystosocpy table. They were prepped and draped in the normal sterile fashion. 1% lidocaine with epinephrine was infused through the urethra for topical anelgesia. A 16F flexible cystoscope was advanced into the urethra. No urethral stricture was noted. The bladder neck is open. The ureteral orifices are in the normal position with clear efflux of urine. There were no tumors, diverticulum,stones, or other foreign bodies noted. Patient tolerated the procedure well. The cystoscope was removed and she was cleaned and dried and returned to the supine position. Assessment: normal cystoscopic examination * CT ABD/PELV WO/W CONTRAST (07/30/2016 9:19 AM) Impressions 1. NO EVIDENCE OF NEPHROLITHIASIS, HYDRONEPHROSIS, URETEROLITHIASIS OR HYDROURETER. 2. DIFFUSE WALL THICKENING OF THE URINARY BLADDER WHICH MAY BE DUE TO INCOMPLETE DISTENTION OR CYSTITIS. CORRELATION WITH URINALYSIS IS RECOMMENDED. 3. PRIOR HYSTERECTOMY WITHOUT EVIDENCE OF RECURRENT PELVIC MASS OR SIGNIFICANT ABDOMINAL/PELVIC ADENOPATHY OR ASCITES. 4. STABLE RIGHT MIDPOLE RENAL CYST AND RIGHT LOWER POLE LOW-DENSITY LESION AND SCARRING. CONTINUED FOLLOW-UP CT OF THE ABDOMEN IS SUGGESTED. Finalized by Indra Sotelo M.D. on 07/30/2016 9:56 AM. Dictated by Indra Sotelo M.D. on 07/30/2016 9:[address] Abdomen and Pelvis Clinical Indication: 56-year-old female gross hematuria. Malignant neoplasm of ovary. Technique:Multiple contiguous axial images were obtained through the abdomen and pelvis following the administration of IV contrast material. Noncontrast as well as portal venous and delayed phase imaging was obtained. Post processing coronal and sagittal reconstruction images were made from the axial images. IV contrast: 100 mL Isovue 370. Bowel contrast:None Comparison: Prior CT of the chest, abdomen pelvis dated 04/19/2016 FINDINGS: Lower Thorax: 0.5 cm pulmonary nodule is again noted along the anterior right middle lobe (image 4/51) and is unchanged since at least 08/24/2013, compatible with nodular scar or noncalcified granuloma. The other smaller pulmonary nodules noted on chest CT are not within the field of view of this study. Mild bibasilar atelectasis and or scarring are again noted. Moderate-sized hiatal hernia is again seen. Liver and Biliary system: The liver remains to be normal in size. Geographic low density area is again noted adjacent to the fissure for the ligamentum teres , compatible with focal fatty infiltration. Prior cholecystectomy. There is unchanged minimal central intrahepatic and extrahepatic choledochal ectasia. The major portal veins and hepatic veins remain to be widely patent. Spleen: The spleen is normal in size with no focal splenic lesion. Adrenal Glands and Kidneys: The bilateral adrenal glands remain unremarkable. There is stable appearance of right posterior mid pole renal cyst and right lower pole renal cortical low-density lesion measuring 1.3 cm in diameter ( image 8/34) unchanged from prior exam and adjacent scarring. No evidence of nephrolithiasis, ureterolithiasis, or hydroureteronephrosis. Pancreas and Retroperitoneum: The pancreas appears unremarkable. Sub-5 mm left para-aortic reactive appearing lymph nodes are again seen. No significant retroperitoneal adenopathy. Aorta and Major Vessels: The abdominal aorta is normal in caliber. Minimal atherosclerotic calcifications are noted about the distal infrarenal abdominal aorta. Bowel: The small and large bowel loops are normal in caliber. Mesentery and Peritoneal space: No significant mesenteric adenopathy. No abdominal ascites. Pelvis: No significant iliac or inguinal adenopathy. Urinary bladder is incompletely distended with diffuse wall thickening. Prior hysterectomy. The vaginal cuff appears unremarkable. Abdominal wall and Osseous Structures: Mild diastases of rectus abdominis musculature again seen with herniation of nonobstructed small bowel loops. Tiny fat-containing umbilical hernia again seen. Moderate thoracolumbar spondylosis again noted. No destructive osseous lesions. Procedure Note Interface, Radiant Results - Mon Jul 30, 2016 9:[address] Abdomen and Pelvis Clinical Indication: 56-year-old female gross hematuria. Malignant neoplasm of ovary. Technique: Multiple contiguous axial images were obtained through the abdomen and pelvis following the administration of IV contrast material. Noncontrast as well as portal venous and delayed phase imaging was obtained. Post processing coronal and sagittal reconstruction images were made from the axial images. IV contrast: 100 mL Isovue 370. Bowel contrast: None Comparison: Prior CT of the chest, abdomen pelvis dated 04/19/2016 FINDINGS: Lower Thorax: 0.5 cm pulmonary nodule is again noted along the anterior right middle lobe (image 4/51) and is unchanged since at least 08/24/2013, compatible with nodular scar or noncalcified granuloma. The other smaller pulmonary nodules noted on chest CT are not within the field of view of this study. Mild bibasilar atelectasis and or scarring are again noted. Moderate-sized hiatal hernia is again seen. Liver and Biliary system: The liver remains to be normal in size. Geographic low density area is again noted adjacent to the fissure for the ligamentum teres , compatible with focal fatty infiltration. Prior cholecystectomy. There is unchanged minimal central intrahepatic and extrahepatic choledochal ectasia. The major portal veins and hepatic veins remain to be widely patent. Spleen: The spleen is normal in size with no focal splenic lesion. Adrenal Glands and Kidneys: The bilateral adrenal glands remain unremarkable. There is stable appearance of right posterior mid pole renal cyst and right lower pole renal cortical low-density lesion measuring 1.3 cm in diameter ( image 8/34) unchanged from prior exam and adjacent scarring. No evidence of nephrolithiasis, ureterolithiasis, or hydroureteronephrosis. Pancreas and Retroperitoneum: The pancreas appears unremarkable. Sub-5 mm left para-aortic reactive appearing lymph nodes are again seen. No significant retroperitoneal adenopathy. Aorta and Major Vessels: The abdominal aorta is normal in caliber. Minimal atherosclerotic calcifications are noted about the distal infrarenal abdominal aorta. Bowel: The small and large bowel loops are normal in caliber. Mesentery and Peritoneal space: No significant mesenteric adenopathy. No abdominal ascites. Pelvis: No significant iliac or inguinal adenopathy. Urinary bladder is incompletely distended with diffuse wall thickening. Prior hysterectomy. The vaginal cuff appears unremarkable. Abdominal wall and Osseous Structures: Mild diastases of rectus abdominis musculature again seen with herniation of nonobstructed small bowel loops. Tiny fat-containing umbilical hernia again seen. Moderate thoracolumbar spondylosis again noted. No destructive osseous lesions. IMPRESSION 1. NO EVIDENCE OF NEPHROLITHIASIS, HYDRONEPHROSIS, URETEROLITHIASIS OR HYDROURETER. 2. DIFFUSE WALL THICKENING OF THE URINARY BLADDER WHICH MAY BE DUE TO INCOMPLETE DISTENTION OR CYSTITIS. CORRELATION WITH URINALYSIS IS RECOMMENDED. 3. PRIOR HYSTERECTOMY WITHOUT EVIDENCE OF RECURRENT PELVIC MASS OR SIGNIFICANT ABDOMINAL/PELVIC ADENOPATHY OR ASCITES. 4. STABLE RIGHT MIDPOLE RENAL CYST AND RIGHT LOWER POLE LOW-DENSITY LESION AND SCARRING. CONTINUED FOLLOW-UP CT OF THE ABDOMEN IS SUGGESTED. Finalized by Indra Sotelo M.D. on 07/30/2016 9:56 AM. Dictated by Indra Sotelo M.D. on 07/30/2016 9:32 AM.
--- OUTSIDE RECORDS SUMMARY | 2016-09-27 13:40 | XMS REPORT | Continuity of Care Document ---
Author Author [facility] Address Unknown Phone Unavailable Allergies Active Description Code Type Severity Reaction Onset Reported/Identified Relationship to Patient Clinical Status Yes Penicillins Drug Allergy 08/05/2009 Yes Penicillins Drug Allergy N/A N/A 08/05/2009 Yes pcn pcn Moderate RASH 09/08/2013 Yes Sulfa (Sulfonamide Antibiotics) Drug Allergy N/A N/A 01/11/2014 Yes Penicillins [id number] Drug Allergy Moderate RASH 09/10/2016 Yes SULFA SULFA Mild diarrhea 09/10/2016 Yes Sulfa (Sulfonamide Antibiotics) [id number] Drug Allergy Mild DIARRHEA 09/14/2016 Medications Problems Date Dx Coded Attending Type Code Diagnosis Diagnosed By 04/28/2009 ASHOK NEGRETE DO 296.33 MO DEPRESSIVE RECURRENT SEVERE W/O PSYCHOTIC BEHAVIOR 04/28/2009 296.33 Mo Depressive Recurrent Severe W/o Psychotic Behavior 04/28/2009 MUSHTAQ QUINTANA MD 296.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 Depressive Recurrent Severe W/o Psychotic Behavior 04/28/2009 296.33 Mo Depressive Recurrent Severe W/o Psychotic Behavior 04/28/2009 MUSHTAQ QUINTANA MD 296.33 Mo Depressive Recurrent Severe W/o Psychotic Behavior 04/28/2009 ASHOK NEGRETE DO 296.33 MO DEPRESSIVE RECURRENT SEVERE W/O PSYCHOTIC BEHAVIOR 04/28/2009 MUSHTAQ QUINTANA MD 296.33 Mo Depressive Recurrent Severe W/o Psychotic Behavior 04/28/2009 MUSHTAQ QUINTANA MD 296.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 Depressive Recurrent Severe W/o Psychotic Behavior 04/28/2009 STEVEN JANG APRN 296.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 Depressive Recurrent Severe W/o Psychotic Behavior 04/28/2009 ASHOK NEGRETE DO 296.33 Mo Depressive Recurrent Severe W/o Psychotic Behavior 04/28/2009 LAKESHA HARRISON APRN R 296.33 Mo Depressive Recurrent Severe W/o Psychotic Behavior 04/28/2009 LAKESHA HARRISON APRN R 296.33 Mo Depressive Recurrent Severe W/o Psychotic Behavior 04/28/2009 АННА IBARRA APRN 296.33 Mo Depressive Recurrent Severe W/o Psychotic Behavior 04/28/2009 NEGRETE DO ASHOK K 296.33 Mo Depressive Recurrent Severe W/o Psychotic Behavior 06/22/2009 NEGRETE DO ASHOK K 296.30 MO DEPRESSIVE RECURRENT UNSPECIFIED 06/22/2009 NEGRETE DO ASHOK K 307.47 SI DYSSOMNIA NOS 06/22/2009 NEGRETE DO ASHOK K V61.10 Counseling For Marital And Partner Problems, Unspecified 06/22/2009 296.30 MO DEPRESSIVE RECURRENT UNSPECIFIED 06/22/2009 307.47 Si Dyssomnia Nos 06/22/2009 V61.10 Counseling For Marital And Partner Problems, Unspecified 06/22/2009 MUHSTAQ QUINTANA MD 296.30 MO DEPRESSIVE RECURRENT UNSPECIFIED 06/22/2009 MUSHTAQ QUINTANA MD 307.47 Si Dyssomnia Nos 06/22/2009 MUSHTAQ QUINTANA MD V61.10 Counseling For Marital And Partner Problems , Unspecified 06/22/2009 296.30 MO DEPRESSIVE RECURRENT UNSPECIFIED 06/22/2009 307.47 Si Dyssomnia Nos 06/22/2009 V61.10 Counseling For Marital And Partner Problems, Unspecified 06/22/2009 MUSHTAQ QUINTANA MD 296.30 MO DEPRESSIVE RECURRENT UNSPECIFIED 06/22/2009 MUSHTAQ QUINTANA MD 307.47 Si Dyssomnia Nos 06/22/2009 MUSHTAQ QUINTANA MD V61.10 Counseling For Marital And Partner Problems , Unspecified 06/22/2009 TAYLOR NEGRETE DOA K 296.30 MO DEPRESSIVE RECURRENT UNSPECIFIED 06/22/2009 ASHOK NEGRETE DO K 307.47 SI DYSSOMNIA NOS 06/22/2009 TAYLOR NEGRETE DOA K V61.10 Counseling For Marital And Partner Problems, Unspecified 06/22/2009 MUSHTAQ QUINTANA MD 296.30 MO DEPRESSIVE RECURRENT UNSPECIFIED 06/22/2009 MUSHTAQ QUINTANA MD 307.47 Si Dyssomnia Nos 06/22/2009 MUSHTAQ QUINTANA MD V61.10 Counseling For Marital And Partner Problems , Unspecified 06/22/2009 MUSHTAQ QUINTANA MD 296.30 MO DEPRESSIVE RECURRENT UNSPECIFIED 06/22/2009 MUSHTAQ QUINTANA MD 307.47 Si Dyssomnia Nos 06/22/2009 MUSHTAQ QUINTANA MD V61.10 Counseling For Marital And Partner Problems , Unspecified 06/22/2009 LAINE LATHE WINDER, STEVEN R 296.30 MO DEPRESSIVE RECURRENT UNSPECIFIED 06/22/2009 LAINE LATHE WINDER, STEVEN R 307.47 Si Dyssomnia Nos 06/22/2009 LAINE LATHE WINDER, STEVEN R V61.10 Counseling For Marital And Partner Problems, Unspecified 06/22/2009 NEGRETE DO, ASHOK K 296.30 MO DEPRESSIVE RECURRENT UNSPECIFIED 06/22/2009 NEGRETE DO, ASHOK K 307.47 Si Dyssomnia Nos 06/22/2009 NEGRETE DO, ASHOK K V61.10 Counseling For Marital And Partner Problems, Unspecified 06/22/2009 HARRISON LATHE WINDER, LAKESHA R 296.30 MO DEPRESSIVE RECURRENT UNSPECIFIED 06/22/2009 HARRISON LATHE WINDER, LAKESHA R 307.47 Si Dyssomnia Nos 06/22/2009 HARRISON LATHE WINDER, LAKESHA R V61.10 Counseling For Marital And Partner Problems, Unspecified 06/22/2009 HUNTER LATHE WINDER LAKESHA R 296.30 MO DEPRESSIVE RECURRENT UNSPECIFIED 06/22/2009 HUNTER LATHE WINDER, LAKESHA R 307.47 Si Dyssomnia Nos 06/22/2009 HARRISON LATHE WINDER, LAKESHA R V61.10 Counseling For Marital And Partner Problems, Unspecified 06/22/2009 STACEY HOWARD АННА S 296.30 MO DEPRESSIVE RECURRENT UNSPECIFIED 06/22/2009 STACEY LATHE WINDER, АННА S 307.47 Si Dyssomnia Nos 06/22/2009 STACEY HOWARD АННА S V61.10 Counseling For Marital And Partner Problems, Unspecified 06/22/2009 NEGRETE DO, ASHOK K 296.30 MO DEPRESSIVE RECURRENT UNSPECIFIED 06/22/2009 NEGRETE DO, ASHOK K 307.47 Si Dyssomnia Nos 06/22/2009 NEGRETE DO, ASHOK K V61.10 Counseling For Marital And Partner Problems, Unspecified 08/05/2009 NEGRETE DO ASHOK K 578.1 Blood In Stool 08/05/2009 NEGRETE DO, ASHOK K 729.1 FIBROMYALGIA 08/05/2009 578.1 Blood In Stool 08/05/2009 729.1 FIBROMYALGIA 08/05/2009 MUSHTAQ QUINTANA MD 578.1 Blood In Stool 08/05/2009 MUSHTAQ QUINTANA MD 729.1 FIBROMYALGIA 08/05/2009 578.1 Blood In Stool 08/05/2009 729.1 FIBROMYALGIA 08/05/2009 MUSHTAQ QUINTANA MD 578.1 Blood In Stool 08/05/2009 MARIANO DOYLE, MUSHTAQ 729.1 FIBROMYALGIA 08/05/2009 CADEN PADILLA ASHOK K 578.1 Blood In Stool 08/05/2009 TAYLOR NEGRETE DOA K 729.1 FIBROMYALGIA 08/05/2009 MUSHTAQ QUINTANA MD 578.1 Blood In Stool 08/05/2009 MUSHTAQ QUINTANA MD 729.1 FIBROMYALGIA 08/05/2009 MUSHTAQ QUINTANA MD 578.1 Blood In Stool 08/05/2009 MUSHTAQ QUINTANA MD 729.1 FIBROMYALGIA 08/05/2009 LAINE HOWARD STEVEN R 578.1 Blood In Stool 08/05/2009 LAINE HOWARD STEVEN R 729.1 FIBROMYALGIA 08/05/2009 TAYLOR NEGRETE DOA K 578.1 Blood In Stool 08/05/2009 TAYLOR NEGRETE DOA K 729.1 FIBROMYALGIA 08/05/2009 HUNTER HOWARD LAKESHA R 578.1 Blood In Stool 08/05/2009 HUNTER LATHE WINDER, LAKESHA R 729.1 FIBROMYALGIA 08/05/2009 HUNTER HOWARD LAKESHA R 578.1 Blood In Stool 08/05/2009 HUNTER HOWARD LAKESHA R 729.1 FIBROMYALGIA 08/05/2009 STACEY HOWARD АННА S 578.1 Blood In Stool 08/05/2009 STACEY HOWARD АННА S 729.1 FIBROMYALGIA 08/05/2009 CADEN PADILLA ASHOK K 578.1 Blood In Stool 08/05/2009 NEGRETE DO ASHOK K 729.1 FIBROMYALGIA 02/28/2010 NEGRETE DO ASHOK K 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 02/28/2010 TAYLOR NEGRETE DOA K 716.90 ARTHRITIS/ ARTHROPATHY, UNSPECIFIED 02/28/2010 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 02/28/2010 716.90 ARTHRITIS/ ARTHROPATHY, UNSPECIFIED 02/28/2010 MUSHTAQ QUINTANA MD 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 02/28/2010 MUSHTAQ QUINTANA MD 716.90 ARTHRITIS/ ARTHROPATHY, UNSPECIFIED 02/28/2010 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 02/28/2010 716.90 ARTHRITIS/ ARTHROPATHY, UNSPECIFIED 02/28/2010 MUSHTAQ QUINTANA MD 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 02/28/2010 MARIANO DOYLE, MUSHTAQ 716.90 ARTHRITIS/ ARTHROPATHY, UNSPECIFIED 02/28/2010 CADEN PADILLA ASHOK K 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 02/28/2010 CADEN PADILLA ASHOK K 716.90 ARTHRITIS/ ARTHROPATHY, UNSPECIFIED 02/28/2010 MARIANO DOYLE, MUSHTAQ 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 02/28/2010 MARIANO DOYLE, MUSHTAQ 716.90 ARTHRITIS/ ARTHROPATHY, UNSPECIFIED 02/28/2010 MARIANO DOYLE, MUSHTAQ 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 02/28/2010 MARIANO DOYLE, MUSHTAQ 716.90 ARTHRITIS/ ARTHROPATHY, UNSPECIFIED 02/28/2010 LAINE ECHAVARRIAN STEVEN R 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 02/28/2010 LAINE ECHAVARRIAN STEVEN R 716.90 ARTHRITIS/ ARTHROPATHY, UNSPECIFIED 02/28/2010 CADEN PADILLA ASHOK K 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 02/28/2010 CADEN PADILLA ASHOK K 716.90 ARTHRITIS/ ARTHROPATHY, UNSPECIFIED 02/28/2010 HUNTER ECHAVARRIAN, LAKESHA R 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 02/28/2010 HUNTER HOWARD, LAKESHA R 716.90 ARTHRITIS/ ARTHROPATHY, UNSPECIFIED 02/28/2010 HUNTER ECHAVARRIAN, LAKESHA R 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 02/28/2010 HUNTER ECHAVARRIAN, LAKESHA R 716.90 ARTHRITIS/ ARTHROPATHY, UNSPECIFIED 02/28/2010 STACEY ECHAVARRIAN, АННА S 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 02/28/2010 STACEY ECHAVARRIAN, АННА S 716.90 ARTHRITIS/ ARTHROPATHY, UNSPECIFIED 02/28/2010 CADEN PADILLA ASHOK K 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 02/28/2010 CADEN PADILLA ASHOK K 716.90 ARTHRITIS/ ARTHROPATHY, UNSPECIFIED 07/17/2010 CADEN PADILLA ASHOK K 278.01 Obesity Morbid Bmi >40 07/17/2010 CADEN PADILLA ASHOK K 381.01 Otitis Media, Acute Serous 07/17/2010 ASHOK NEGRETE DO 401.9 HYPERTENSION, UNSPECIFIED ESSENTIAL 07/17/2010 NEGRETE ASHOK PADILLA K 465.9 Upper Respiratory Infection 07/17/2010 278.01 Obesity Morbid Bmi >40 07/17/2010 381.01 Otitis Media, Acute Serous 07/17/2010 401.9 HYPERTENSION, UNSPECIFIED ESSENTIAL 07/17/2010 465.9 Upper Respiratory Infection 07/17/2010 MUSHTAQ QUINTANA MD 278.01 Obesity Morbid Bmi >40 07/17/2010 MUSHTAQ QUINTANA MD 381.01 Otitis Media, Acute Serous 07/17/2010 MUSHTAQ QUINTANA MD 401.9 HYPERTENSION, UNSPECIFIED ESSENTIAL 07/17/2010 MUSHTAQ QUINTANA MD 465.9 Upper Respiratory Infection 07/17/2010 278.01 Obesity Morbid Bmi >40 07/17/2010 381.01 Otitis Media, Acute Serous 07/17/2010 401.9 HYPERTENSION, UNSPECIFIED ESSENTIAL 07/17/2010 465.9 Upper Respiratory Infection 07/17/2010 MUSHTAQ QUINTANA MD 278.01 Obesity Morbid Bmi >40 07/17/2010 MUSHTAQ QUINTANA MD 381.01 Otitis Media, Acute Serous 07/17/2010 MUSHTAQ QUINTANA MD 401.9 HYPERTENSION, UNSPECIFIED ESSENTIAL 07/17/2010 MUSHTAQ QUINTANA MD 465.9 Upper Respiratory Infection 07/17/2010 ASHOK NEGRETE DO 278.01 Obesity Morbid Bmi >40 07/17/2010 ASHOK NEGRETE DO 381.01 Otitis Media, Acute Serous 07/17/2010 ASHOK NEGRETE DO 401.9 HYPERTENSION, UNSPECIFIED ESSENTIAL 07/17/2010 ASHOK NEGRETE DO 465.9 Upper Respiratory Infection 07/17/2010 MUSHTAQ QUINTANA MD 278.01 Obesity Morbid Bmi >40 07/17/2010 MUSHTAQ QUINTANA MD 381.01 Otitis Media, Acute Serous 07/17/2010 MUSHTAQ QUINTANA MD 401.9 HYPERTENSION, UNSPECIFIED ESSENTIAL 07/17/2010 MUSHTAQ QUINTANA MD 465.9 Upper Respiratory Infection 07/17/2010 MUSHTAQ QUINTANA MD 278.01 Obesity Morbid Bmi >40 07/17/2010 MUSHTAQ QUINTANA MD 381.01 Otitis Media, Acute Serous 07/17/2010 MUSHTAQ QUINATNA MD 401.9 HYPERTENSION, UNSPECIFIED ESSENTIAL 07/17/2010 HUERTER MD, MUSHTAQ 465.9 Upper Respiratory Infection 07/17/2010 LAINE LATHE WINDER STEVEN R 278.01 Obesity Morbid Bmi >40 07/17/2010 LAINE LATHE WINDER STEVEN R 381.01 Otitis Media, Acute Serous 07/17/2010 LAINE LATHE WINDER STEVEN R 401.9 HYPERTENSION, UNSPECIFIED ESSENTIAL 07/17/2010 LAINE LATHE WINDER STEVEN R 465.9 Upper Respiratory Infection 07/17/2010 NEGRETE DO, ASHOK K 278.01 Obesity Morbid Bmi >40 07/17/2010 NEGRETE DO, ASHOK K 381.01 Otitis Media, Acute Serous 07/17/2010 NEGRETE DO, ASHOK K 401.9 HYPERTENSION, UNSPECIFIED ESSENTIAL 07/17/2010 NEGRETE DO, ASHOK K 465.9 Upper Respiratory Infection 07/17/2010 EDWIN HARRISON APRNRICIA R 278.01 Obesity Morbid Bmi >40 07/17/2010 EDWIN HARRISON APRNRICIA R 381.01 Otitis Media, Acute Serous 07/17/2010 EDWIN HARRISON APRNRICIA R 401.9 HYPERTENSION, UNSPECIFIED ESSENTIAL 07/17/2010 EDWIN HARRISON APRNRICIA R 465.9 Upper Respiratory Infection 07/17/2010 HUNTER HOWARD LAKESHA R 278.01 Obesity Morbid Bmi >40 07/17/2010 HUNTER HOWARD LAKESHA R 381.01 Otitis Media, Acute Serous 07/17/2010 EDWIN HARRISON APRNRICIA R 401.9 HYPERTENSION, UNSPECIFIED ESSENTIAL 07/17/2010 HUNTER HOWARD LAKESHA R 465.9 Upper Respiratory Infection 07/17/2010 STACEY HOWARD АННА S 278.01 Obesity Morbid Bmi >40 07/17/2010 STACEY HOWARD АННА S 381.01 Otitis Media, Acute Serous 07/17/2010 STACEY ECHAVARRIAN АННА S 401.9 HYPERTENSION, UNSPECIFIED ESSENTIAL 07/17/2010 STACEY LATHE WINDER АННА S 465.9 Upper Respiratory Infection 07/17/2010 NEGRETE DO, ASHOK K 278.01 Obesity Morbid Bmi >40 07/17/2010 NEGRETE DO, ASHOK K 381.01 Otitis Media, Acute Serous 07/17/2010 NEGRETE DO, ASHOK K 401.9 HYPERTENSION, UNSPECIFIED ESSENTIAL 07/17/2010 NEGRETE DO, ASHOK K 465.9 Upper Respiratory Infection 08/03/2010 NEGRETE DO, ASHOK K 461.9 Acute Sinusitis Unspecified 08/03/2010 461.9 Acute Sinusitis Unspecified 08/03/2010 MARIANO DOYLE, MUSHTAQ 461.9 Acute Sinusitis Unspecified 08/03/2010 461.9 Acute Sinusitis Unspecified 08/03/2010 MARIANO DOYLE, MUSHTAQ 461.9 Acute Sinusitis Unspecified 08/03/2010 ASHOK NEGRETE DO 461.9 Acute Sinusitis Unspecified 08/03/2010 MARIANO DOYLE, MUSHTAQ 461.9 Acute Sinusitis Unspecified 08/03/2010 MARIANO DOYLE, MUSHTAQ 461.9 Acute Sinusitis Unspecified 08/03/2010 LAINE LATHE WINDER, STEVEN R 461.9 Acute Sinusitis Unspecified 08/03/2010 ASHOK NEGRETE DO K 461.9 Acute Sinusitis Unspecified 08/03/2010 HUNTER LATHE WINDER, LAKESHA R 461.9 Acute Sinusitis Unspecified 08/03/2010 HUNTER LATHE WINDER, LAKESHA R 461.9 Acute Sinusitis Unspecified 08/03/2010 STACEY LATHE WINDER, АННА S 461.9 Acute Sinusitis Unspecified 08/03/2010 ASHOK NEGRETE DO K 461.9 Acute Sinusitis Unspecified 10/13/2010 ASHOK NEGRETE DO 386.30 Labyrinthitis Unspecified 10/13/2010 ASHOK NEGRETE DO 704.00 Alopecia Unspecified 10/13/2010 386.30 Labyrinthitis Unspecified 10/13/2010 704.00 Alopecia Unspecified 10/13/2010 MUSHTAQ QUINTANA MD 386.30 Labyrinthitis Unspecified 10/13/2010 MARIANO DOYLE, MUSHTAQ 704.00 Alopecia Unspecified 10/13/2010 386.30 Labyrinthitis Unspecified 10/13/2010 704.00 Alopecia Unspecified 10/13/2010 MUSHTAQ QUINTANA MD 386.30 Labyrinthitis Unspecified 10/13/2010 MUSHTAQ QUINTANA MD 704.00 Alopecia Unspecified 10/13/2010 ASHOK NEGRETE DO 386.30 Labyrinthitis Unspecified 10/13/2010 ASHOK NEGRETE DO 704.00 Alopecia Unspecified 10/13/2010 MUSHTAQ QUINTANA MD 386.30 Labyrinthitis Unspecified 10/13/2010 MUSHTAQ QUINTANA MD 704.00 Alopecia Unspecified 10/13/2010 MARIANO DOYLE, MUSHTAQ 386.30 Labyrinthitis Unspecified 10/13/2010 MUSHTAQ QUINTANA MD 704.00 Alopecia Unspecified 10/13/2010 LAINE ECHAVARRIAN, SETVEN R 386.30 Labyrinthitis Unspecified 10/13/2010 LAINE HOWARD, STEVEN R 704.00 Alopecia Unspecified 10/13/2010 CADEN PADILLA, ASHOK K 386.30 Labyrinthitis Unspecified 10/13/2010 CADEN PADILLA, ASHOK K 704.00 Alopecia Unspecified 10/13/2010 HUNTER HOWARD LAKESHA R 386.30 Labyrinthitis Unspecified 10/13/2010 HUNTER HOWARD, LAKESHA R 704.00 Alopecia Unspecified 10/13/2010 EDWIN HARRISON APRNRICIA R 386.30 Labyrinthitis Unspecified 10/13/2010 EDWIN HARRISON APRNRICIA R 704.00 Alopecia Unspecified 10/13/2010 STACEY HOWARD АННА S 386.30 Labyrinthitis Unspecified 10/13/2010 STACEY HOWARD АННА S 704.00 Alopecia Unspecified 10/13/2010 CADEN PADILLA, ASHOK K 386.30 Labyrinthitis Unspecified 10/13/2010 CADEN PADILLA, ASHOK K 704.00 Alopecia Unspecified 01/19/2011 CADEN PADILLA ASHOK K 564.1 IRRITABLE BOWEL SYNDROME 01/19/2011 564.1 IRRITABLE BOWEL SYNDROME 01/19/2011 MUSHTAQ QUINTANA MD 564.1 IRRITABLE BOWEL SYNDROME 01/19/2011 564.1 IRRITABLE BOWEL SYNDROME 01/19/2011 MUSHTAQ QUINTANA MD 564.1 IRRITABLE BOWEL SYNDROME 01/19/2011 ASHOK NEGRETE DO K 564.1 IRRITABLE BOWEL SYNDROME 01/19/2011 MUSHTAQ QUINTANA MD 564.1 IRRITABLE BOWEL SYNDROME 01/19/2011 MUSHTAQ QUINTANA MD 564.1 IRRITABLE BOWEL SYNDROME 01/19/2011 STEVEN JANG APRN R 564.1 IRRITABLE BOWEL SYNDROME 01/19/2011 TAYLOR NEGRETE DOA K 564.1 IRRITABLE BOWEL SYNDROME 01/19/2011 LAKESHA HARRISON APRN R 564.1 IRRITABLE BOWEL SYNDROME 01/19/2011 HARRISON LATHE WINDER, LAKESHA R 564.1 IRRITABLE BOWEL SYNDROME 01/19/2011 STACEY HOWARD, АННА S 564.1 IRRITABLE BOWEL SYNDROME 01/19/2011 NEGRETE DO, ASHOK K 564.1 IRRITABLE BOWEL SYNDROME 02/09/2011 NEGRETE DO, ASHOK K 578.0 HEMATEMESIS 02/09/2011 578.0 Hematemesis 02/09/2011 MARIANO DOYLE, MUSHTAQ 578.0 Hematemesis 02/09/2011 578.0 Hematemesis 02/09/2011 MARIANO DOYLE, MUSHTAQ 578.0 Hematemesis 02/09/2011 NEGRETE DO, ASHOK K 578.0 HEMATEMESIS 02/09/2011 MUSHTAQ QUINTANA MD 578.0 Hematemesis 02/09/2011 MARIANO DOYLE, MUSHTAQ 578.0 Hematemesis 02/09/2011 STEVEN JANG APRN R 578.0 Hematemesis 02/09/2011 NEGRETE DO, ASHOK K 578.0 Hematemesis 02/09/2011 JACK HARRISON APRNIA R 578.0 Hematemesis 02/09/2011 EDWIN HARRISON APRNRICIA R 578.0 Hematemesis 02/09/2011 STACEY HOWARD, АННА S 578.0 Hematemesis 02/09/2011 NEGRETE DO, ASHOK K 578.0 Hematemesis 09/27/2011 NEGRETE DO, ASHOK K 074.0 HERPANGINA 09/27/2011 074.0 Herpangina 09/27/2011 MARIANO DOYLE, MUSHTAQ 074.0 Herpangina 09/27/2011 074.0 Herpangina 09/27/2011 MARIANO DOYLE, MUSHTAQ 074.0 Herpangina 09/27/2011 NEGRETE DO, ASHOK K 074.0 HERPANGINA 09/27/2011 MARIANO DOYLE, MUSHTAQ 074.0 Herpangina 09/27/2011 MARIANO DOYLE, MUSHTAQ 074.0 Herpangina 09/27/2011 STEVEN JANG APRN R 074.0 Herpangina 09/27/2011 NEGRETE DO, ASHOK K 074.0 Herpangina 09/27/2011 LAKESHA HARRISON APRN R 074.0 Herpangina 09/27/2011 LAKESHA HARRISON APRN R 074.0 Herpangina 09/27/2011 АННА IBARRA APRN 074.0 Herpangina 09/27/2011 ASHOK NEGRETE DO K 074.0 Herpangina 10/01/2011 NEGRETE TAYLOR PADILLAA K 528.5 DISEASES OF LIPS 10/01/2011 528.5 Diseases Of Lips 10/01/2011 MUSHTAQ QUINTANA MD 528.5 Diseases Of Lips 10/01/2011 528.5 Diseases Of Lips 10/01/2011 MUSHTAQ QUINTANA MD 528.5 Diseases Of Lips 10/01/2011 ASHOK NEGRETE DO 528.5 DISEASES OF LIPS 10/01/2011 MUSHTAQ QUINTANA MD 528.5 Diseases Of Lips 10/01/2011 MUSHTAQ QUINTANA MD 528.5 Diseases Of Lips 10/01/2011 STEVEN JANG APRN 528.5 Diseases Of Lips 10/01/2011 ASHOK NEGRETE DO 528.5 Diseases Of Lips 10/01/2011 LAKESHA HARRISON APRN R 528.5 Diseases Of Lips 10/01/2011 LAKESHA HARRISON APRN R 528.5 Diseases Of Lips 10/01/2011 АННА IBARRA APRN S 528.5 Diseases Of Lips 10/01/2011 NEGRETE ASHOK PADILLA K 528.5 Diseases Of Lips 01/04/2012 ASHOK NEGRETE DO 786.09 RESPIRATORY ABNORMALITY OTHER 01/04/2012 786.09 Respiratory Abnormality Other 01/04/2012 MUSHTAQ QUINTANA MD 786.09 Respiratory Abnormality Other 01/04/2012 786.09 Respiratory Abnormality Other 01/04/2012 MUSHTAQ QUINTANA MD 786.09 Respiratory Abnormality Other 01/04/2012 ASHOK NEGRETE DO K 786.09 RESPIRATORY ABNORMALITY OTHER 01/04/2012 MUSHTAQ QUINTANA MD 786.09 Respiratory Abnormality Other 01/04/2012 MUSHTAQ QUINTANA MD 786.09 Respiratory Abnormality Other 01/04/2012 STEVEN JANG APRN R 786.09 Respiratory Abnormality Other 01/04/2012 ASHOK NEGRETE DO K 786.09 Respiratory Abnormality Other 01/04/2012 LAKESHA HARRISON APRN 786.09 Respiratory Abnormality Other 01/04/2012 HARRISON LATHE WINDER, LAKESHA R 786.09 Respiratory Abnormality Other 01/04/2012 АННА IBARRA APRN 786.09 Respiratory Abnormality Other 01/04/2012 ASHOK NEGRETE DO K 786.09 Respiratory Abnormality Other 01/24/2012 ASHOK NEGRETE DO 008.8 GASTROENTERITIS VIRAL 01/24/2012 ASHOK NEGRETE DO K 388.70 earache 01/24/2012 ASHOK NEGRETE DO 733.92 CHONDROMALACIA 01/24/2012 008.8 Gastroenteritis Viral 01/24/2012 388.70 Earache 01/24/2012 733.92 CHONDROMALACIA 01/24/2012 MUSHTAQ QUINTANA MD 008.8 Gastroenteritis Viral 01/24/2012 MUSHTAQ QUINTANA MD 388.70 Earache 01/24/2012 MUSHTAQ QUINTANA MD 733.92 CHONDROMALACIA 01/24/2012 008.8 Gastroenteritis Viral 01/24/2012 388.70 Earache 01/24/2012 733.92 CHONDROMALACIA 01/24/2012 MUSHTAQ QUINTANA MD 008.8 Gastroenteritis Viral 01/24/2012 MUSHTAQ QUINTANA MD 388.70 Earache 01/24/2012 MUSHTAQ QUINTANA MD 733.92 CHONDROMALACIA 01/24/2012 ASHOK NEGRETE DO 008.8 GASTROENTERITIS VIRAL 01/24/2012 ASHOK NEGRETE DO 388.70 earache 01/24/2012 ASHOK NEGRETE DO 733.92 CHONDROMALACIA 01/24/2012 MUSHTAQ QUINTANA MD 008.8 Gastroenteritis Viral 01/24/2012 MUSHTAQ QUINTANA MD 388.70 Earache 01/24/2012 MUSHTAQ QUINTANA MD 733.92 CHONDROMALACIA 01/24/2012 MUSHTAQ QUINTANA MD 008.8 Gastroenteritis Viral 01/24/2012 MUSHTAQ QUINTANA MD 388.70 Earache 01/24/2012 MUSHTAQ QUINTANA MD 733.92 CHONDROMALACIA 01/24/2012 STEVEN JANG APRN R 008.8 Gastroenteritis Viral 01/24/2012 STEVEN JANG APRN R 388.70 Earache 01/24/2012 STEVEN JANG APRN R 733.92 CHONDROMALACIA 01/24/2012 ASHOK NEGRETE DO 008.8 Gastroenteritis Viral 01/24/2012 ASHOK NEGRETE DO 388.70 Earache 01/24/2012 NEGRETE DO, ASHOK K 733.92 CHONDROMALACIA 01/24/2012 HUNTER LATHE WINDEREDWINLAKESHA R 008.8 Gastroenteritis Viral 01/24/2012 HUNTER LATHE WINDEREDWIN StaffordLAKESHA R 388.70 Earache 01/24/2012 HARRISON LATHE WINDER LAKESHA R 733.92 CHONDROMALACIA 01/24/2012 HUNTER LATHE WINDEREDWINLAKESHA R 008.8 Gastroenteritis Viral 01/24/2012 HUNTER HOWARD LAKESHA R 388.70 Earache 01/24/2012 HUNTER ECHAVARRIAN LAKESHA R 733.92 CHONDROMALACIA 01/24/2012 ALLAN IBARRA APRNNDA S 008.8 Gastroenteritis Viral 01/24/2012 STACEYALLAN DOMINGUEZ APRNNDA S 388.70 Earache 01/24/2012 STACEY HOWARD АННА S 733.92 CHONDROMALACIA 01/24/2012 ASHOK NEGRETE DO K 008.8 Gastroenteritis Viral 01/24/2012 ASHOK NEGRETE DO K 388.70 Earache 01/24/2012 ASHOK NEGRETE DO K 733.92 CHONDROMALACIA 07/04/2012 461.9 ACUTE SINUSITIS UNSPECIFIED 07/04/2012 MUSHTAQ QUINTANA MD 461.9 ACUTE SINUSITIS UNSPECIFIED 07/04/2012 461.9 ACUTE SINUSITIS UNSPECIFIED 07/04/2012 MUSHTAQ QUINTANA MD 461.9 ACUTE SINUSITIS UNSPECIFIED 07/04/2012 MUSHTAQ QUINTANA MD 461.9 ACUTE SINUSITIS UNSPECIFIED 07/04/2012 MUSHTAQ QUINTANA MD 461.9 ACUTE SINUSITIS UNSPECIFIED 07/04/2012 MARJORIE JANG APRNINA R 461.9 ACUTE SINUSITIS UNSPECIFIED 07/04/2012 ASHOK NEGRETE DO K 461.9 ACUTE SINUSITIS UNSPECIFIED 07/04/2012 EDWIN HARRISON APRNRICIA R 461.9 ACUTE SINUSITIS UNSPECIFIED 07/04/2012 EDWIN HARRISON APRNRICIA R 461.9 ACUTE SINUSITIS UNSPECIFIED 07/04/2012 АННА IBARRA APRN S 461.9 ACUTE SINUSITIS UNSPECIFIED 07/04/2012 ASHOK NEGRETE DO K 461.9 ACUTE SINUSITIS UNSPECIFIED 08/14/2012 451.82 PHLEBITIS AND THROMBOPHLEBITIS OF SUPERFICIAL VEINS OF UPPER EXTREMITIES 08/14/2012 785.6 ENLARGEMENT OF LYMPH NODES 08/14/2012 MUSHTAQ QUINTANA MD 451.82 PHLEBITIS AND THROMBOPHLEBITIS OF SUPERFICIAL VEINS OF UPPER EXTREMITIES 08/14/2012 MUSHTAQ QUINTANA MD 785.6 ENLARGEMENT OF LYMPH NODES 08/14/2012 MUSHTAQ QUINTANA MD 451.82 PHLEBITIS AND THROMBOPHLEBITIS OF SUPERFICIAL VEINS OF UPPER EXTREMITIES 08/14/2012 MUSHTAQ QUINTANA MD 785.6 ENLARGEMENT OF LYMPH NODES 08/14/2012 MUSHTAQ QUINTANA MD 451.82 PHLEBITIS AND THROMBOPHLEBITIS OF SUPERFICIAL VEINS OF UPPER EXTREMITIES 08/14/2012 MUSHTAQ QUINTANA MD 785.6 ENLARGEMENT OF LYMPH NODES 08/14/2012 LAINE LATHE WINDER STEVEN R 451.82 PHLEBITIS AND THROMBOPHLEBITIS OF SUPERFICIAL VEINS OF UPPER EXTREMITIES 08/14/2012 LAINE LATHE WINDER, STEVEN R 785.6 ENLARGEMENT OF LYMPH NODES 08/14/2012 CADEN PADILLA ASHOK K 451.82 PHLEBITIS AND THROMBOPHLEBITIS OF SUPERFICIAL VEINS OF UPPER EXTREMITIES 08/14/2012 TAYLOR NEGRETE DOA K 785.6 ENLARGEMENT OF LYMPH NODES 08/14/2012 HUNTER LATHE WINDER, LAKESHA R 451.82 PHLEBITIS AND THROMBOPHLEBITIS OF SUPERFICIAL VEINS OF UPPER EXTREMITIES 08/14/2012 HUNTER LATHE WINDER, LAKESHA R 785.6 ENLARGEMENT OF LYMPH NODES 08/14/2012 HUNTER LATHE WINDER, LAKESHA R 451.82 PHLEBITIS AND THROMBOPHLEBITIS OF SUPERFICIAL VEINS OF UPPER EXTREMITIES 08/14/2012 HUNTER HOWARD, LAKESHA R 785.6 ENLARGEMENT OF LYMPH NODES 08/14/2012 STACEY HOWARD АННА S 451.82 PHLEBITIS AND THROMBOPHLEBITIS OF SUPERFICIAL VEINS OF UPPER EXTREMITIES 08/14/2012 STACEY HOWARD, АННА S 785.6 ENLARGEMENT OF LYMPH NODES 08/14/2012 CADEN PADILLA ASHOK K 451.82 PHLEBITIS AND THROMBOPHLEBITIS OF SUPERFICIAL VEINS OF UPPER EXTREMITIES 08/14/2012 TAYLOR NEGRETE DOA K 785.6 ENLARGEMENT OF LYMPH NODES 04/06/2013 MUSHTAQ QUINTANA MD 466.0 ACUTE BRONCHITIS 04/06/2013 MUSHTAQ QUINTANA MD 616.10 VAGINITIS AND VULVOVAGINITIS UNSPECIFIED 04/06/2013 MUSHTAQ QUINTANA MD 466.0 ACUTE BRONCHITIS 04/06/2013 MUSHTAQ QUINTANA MD 616.10 VAGINITIS AND VULVOVAGINITIS UNSPECIFIED 04/06/2013 LAINE LATHE WINDER, STEVEN R 466.0 ACUTE BRONCHITIS 04/06/2013 LAINE LATHE WINDER, STEVEN R 616.10 VAGINITIS AND VULVOVAGINITIS UNSPECIFIED 04/06/2013 NEGRETE DO, ASHOK K 466.0 ACUTE BRONCHITIS 04/06/2013 NEGRETE DO, ASHOK K 616.10 VAGINITIS AND VULVOVAGINITIS UNSPECIFIED 04/06/2013 HARRISON LATHE WINDER, LAKESHA R 466.0 ACUTE BRONCHITIS 04/06/2013 HARRISON LATHE WINDER, LAKESHA R 616.10 VAGINITIS AND VULVOVAGINITIS UNSPECIFIED 04/06/2013 HARRISON LATHE WINDER, LAKESHA R 466.0 ACUTE BRONCHITIS 04/06/2013 HUNTER LATHE WINDER, LAKESHA R 616.10 VAGINITIS AND VULVOVAGINITIS UNSPECIFIED 04/06/2013 STACEY HOWARD, АННА S 466.0 ACUTE BRONCHITIS 04/06/2013 STACEY LATHE WINDER, АННА S 616.10 VAGINITIS AND VULVOVAGINITIS UNSPECIFIED 04/06/2013 NEGRETE DO, ASHOK K 466.0 ACUTE BRONCHITIS 04/06/2013 NEGRETE DO, ASHOK K 616.10 VAGINITIS AND VULVOVAGINITIS UNSPECIFIED 07/17/2013 MUSHTAQ QUINTANA MD 782.3 EDEMA 07/17/2013 MUSHTAQ QUINTANA MD 786.50 UNSPECIFIED CHEST PAIN 07/17/2013 LAINE LATHE WINDER, STEVEN R 782.3 EDEMA 07/17/2013 LAINE LATHE WINDER, STEVEN R 786.50 UNSPECIFIED CHEST PAIN 07/17/2013 NEGRETE DO, ASHOK K 782.3 EDEMA 07/17/2013 NEGRETE DO, ASHOK K 786.50 UNSPECIFIED CHEST PAIN 07/17/2013 HUNTER LATHE WINDER, LAKESHA R 782.3 EDEMA 07/17/2013 HUNTER LATHE WINDER, LAKESHA R 786.50 UNSPECIFIED CHEST PAIN 07/17/2013 HUNTER LATHE WINDER, LAKESHA R 782.3 EDEMA 07/17/2013 HUNTER LATHE WINDER, LAKESHA R 786.50 UNSPECIFIED CHEST PAIN 07/17/2013 STACEY HOWARD, АННА S 782.3 EDEMA 07/17/2013 ALLAN IBARRA APRNNDA S 786.50 UNSPECIFIED CHEST PAIN 07/17/2013 NEGRETE DO, ASHOK K 782.3 EDEMA 07/17/2013 NEGRETE DO, ASHOK K 786.50 UNSPECIFIED CHEST PAIN 08/22/2013 LAINE LATHE WINDER, STEVEN R 599.70 HEMATURIA 08/22/2013 LAINE LATHE WINDER, STEVEN R 789.07 ABDOMINAL PAIN GENERALIZED 08/22/2013 NEGRETE DO, ASHOK K 599.70 HEMATURIA 08/22/2013 NEGRETE DO, ASHOK K 789.07 ABDOMINAL PAIN GENERALIZED 08/22/2013 HARRISON LATHE WINDER LAKESHA R 599.70 HEMATURIA 08/22/2013 HUNTER ECHAVARRIAN, LAKESHA R 789.07 ABDOMINAL PAIN GENERALIZED 08/22/2013 HUNTER HOWARD LAKESHA R 599.70 HEMATURIA 08/22/2013 HUNTER HOWARD LAKESHA R 789.07 ABDOMINAL PAIN GENERALIZED 08/22/2013 MARKUS IBARRA APRNA S 599.70 HEMATURIA 08/22/2013 MARKUS IBARRA APRNA S 789.07 ABDOMINAL PAIN GENERALIZED 08/22/2013 NEGRETE DO, ASHOK K 599.70 HEMATURIA 08/22/2013 NEGRETE DO, ASHOK K 789.07 ABDOMINAL PAIN GENERALIZED 09/04/2013 NEGRETE DO, ASHOK K 401.1 HYPERTENSION, BENIGN ESSENTIAL 09/04/2013 EDWIN HARRISON APRNRICIA R 401.1 HYPERTENSION, BENIGN ESSENTIAL 09/04/2013 EDWIN HARRISON APRNRICIA R 401.1 HYPERTENSION, BENIGN ESSENTIAL 09/04/2013 MARKUS IBARRA APRNA S 401.1 HYPERTENSION, BENIGN ESSENTIAL 09/04/2013 NEGRETE DO, ASHOK K 401.1 HYPERTENSION, BENIGN ESSENTIAL 10/27/2013 JACK HARRISON APRNIA R 461.9 SINUSITIS ACUTE 10/27/2013 JACK HARRISON APRNIA R 461.9 SINUSITIS ACUTE 10/27/2013 АННА IBARRA APRN S 461.9 SINUSITIS ACUTE 10/27/2013 CADEN PADILLA ASHOK K 461.9 SINUSITIS ACUTE 01/11/2014 MARKUS IBARRA APRNA S 465.9 UPPER RESPIRATORY INFECTION 01/11/2014 АННА IBARRA APRN S 782.1 RASH 01/11/2014 ASHOK NEGRETE DO K 465.9 UPPER RESPIRATORY INFECTION 01/11/2014 ASHOK NEGRETE DO K 782.1 RASH 02/13/2014 ASHOK NEGRETE DO K 372.14 OTHER CHRONIC ALLERGIC CONJUNCTIVITIS 03/08/2014 MARIANO DOYLE, MUSHTAQ Brown Ot 553.3 03/08/2014 MARIANO DOYLE, MUSHTAQ Brown Ot 591 03/08/2014 MARIANO DOYLE, MUSHTAQ Brown Ot 789.09 03/08/2014 MAGO ROSS, KYRA Geraldo Ot 401.1 03/08/2014 MAGO ROSS, KYRA K Ot 786.50 03/08/2014 MAGO ROSS, KYRA K Ot 793.99 01/12/2015 MARIANO DOYLE, MUSHTAQ Brown Ot 553.3 01/12/2015 MUSHTAQ QUINTANA MD Ot 591 01/12/2015 MARIANO DOYLE, MUSHTAQ Brown Ot 789.09 01/12/2015 MAGO ROSS, KYRA K Ot 401.1 01/12/2015 MAGO ROSS, KYRA K Ot 786.50 01/12/2015 MAGO ROSS, KYRA K Ot 793.99 01/14/2015 MUSHTAQ QUINTANA MD Ot 239.89 08/09/2015 MUSHTAQ QUINTANA MD Ot 553.3 DIAPHRAGMATIC HERNIA 08/09/2015 MUSHTAQ QUINTANA MD Ot 591 HYDRONEPHROSIS 08/09/2015 MUSHTAQ QUINTANA MD Ot 789.09 ABDOMINAL PAIN, OTHER SPECIFIED SITE 08/09/2015 MAGO ROSS, KYRA K Ot 401.1 BENIGN HYPERTENSION 08/09/2015 MAGO ROSS, KYRA K Ot 786.50 CHEST PAIN NOS 08/09/2015 MAGO ROSS, KYRA K Ot 793.99 OTH NOSP (ABN) FINDINGS RADIOLOGICAL O 08/09/2015 MUSHTAQ QUINTANA MD Ot 239.89 NEOPLASMS OF UNSPECIFIED NATURE, OTHER S 08/09/2015 MUSHTAQ QUINTANA MD Ot M25.862 OTHER SPECIFIED JOINT DISORDERS, LEFT KN 08/11/2015 MUSHTAQ QUINTANA MD Ot 553.3 DIAPHRAGMATIC HERNIA 08/11/2015 MUSHTAQ QUINTANA MD Ot 591 HYDRONEPHROSIS 08/11/2015 MUSHTAQ QUINTANA MD Ot 789.09 ABDOMINAL PAIN, OTHER SPECIFIED SITE 08/11/2015 KYRA BOOTH Ot 401.1 BENIGN HYPERTENSION 08/11/2015 KYRA BOOTH Ot 786.50 CHEST PAIN NOS 08/11/2015 KYRA BOOTH Ot 793.99 OTH NOSP (ABN) FINDINGS RADIOLOGICAL O 08/11/2015 MUSHTAQ QUINTANA MD Ot 239.89 NEOPLASMS OF UNSPECIFIED NATURE, OTHER S 08/11/2015 MUSHTAQ QUINTANA MD Ot M25.862 OTHER SPECIFIED JOINT DISORDERS, LEFT KN 08/12/2015 ZAMZAM ARCOS MD Ot I10 ESSENTIAL (PRIMARY) HYPERTENSION 08/12/2015 ZAMZAM ARCOS MD Ot I20.9 ANGINA PECTORIS, UNSPECIFIED 08/12/2015 ZAMZAM ARCOS MD Ot R00.2 PALPITATIONS 08/12/2015 ZAMZAM ARCOS MD Ot R06.02 SHORTNESS OF BREATH 08/12/2015 ZAMZAM ARCOS MD Ot R07.9 CHEST PAIN, UNSPECIFIED 08/23/2015 ZAMZAM ARCOS MD Ot I10 ESSENTIAL (PRIMARY) HYPERTENSION 08/23/2015 ZAMZAM ARCOS MD Ot I20.9 ANGINA PECTORIS, UNSPECIFIED 08/23/2015 ZAMZAM ARCOS MD Ot R00.2 PALPITATIONS 08/23/2015 ZAMZAM ARCOS MD Ot R06.02 SHORTNESS OF BREATH 08/23/2015 ZAMZAM ARCOS MD Ot R07.9 CHEST PAIN, UNSPECIFIED 08/24/2015 ZAMZAM ARCOS MD Ot I10 ESSENTIAL (PRIMARY) HYPERTENSION 08/24/2015 ZAMZAM ARCOS MD Ot I20.9 ANGINA PECTORIS, UNSPECIFIED 08/24/2015 ZAMZAM ARCOS MD Ot R00.2 PALPITATIONS 08/24/2015 ZAMZAM ARCOS MD Ot R06.02 SHORTNESS OF BREATH 08/24/2015 ZAMZAM ARCOS MD Ot R07.9 CHEST PAIN, UNSPECIFIED 08/24/2015 ZAMZAM ARCOS MD Ot I10 ESSENTIAL (PRIMARY) HYPERTENSION 08/24/2015 ZAMZAM ARCOS MD Ot I20.9 ANGINA PECTORIS, UNSPECIFIED 08/24/2015 ZAMZAM ARCOS MD Ot R00.2 PALPITATIONS 08/24/2015 ZAMZAM ARCOS MD Ot R06.02 SHORTNESS OF BREATH 08/24/2015 ZAMZAM ARCOS MD Ot R07.9 CHEST PAIN, UNSPECIFIED 08/25/2015 ZAMZAM ARCOS MD Ot I10 ESSENTIAL (PRIMARY) HYPERTENSION 08/25/2015 ZAMZAM ARCOS MD Ot I20.9 ANGINA PECTORIS, UNSPECIFIED 08/25/2015 ZAMZAM ARCOS MD Ot R00.2 PALPITATIONS 08/25/2015 ZAMZAM ARCOS MD Ot R06.02 SHORTNESS OF BREATH 08/25/2015 ZAMZAM ARCOS MD Ot R07.9 CHEST PAIN, UNSPECIFIED 08/31/2015 ZAMZAM ARCOS MD Ot I10 ESSENTIAL (PRIMARY) HYPERTENSION 08/31/2015 ZAMZAM ARCOS MD Ot I20.9 ANGINA PECTORIS, UNSPECIFIED 08/31/2015 ZAMZAM ARCOS MD Ot R00.2 PALPITATIONS 08/31/2015 ZAMZAM ARCOS MD Ot R06.02 SHORTNESS OF BREATH 08/31/2015 ZAMZAM ARCOS MD Ot R07.9 CHEST PAIN, UNSPECIFIED 09/28/2015 ZAMZAM ARCOS MD Ot E78.5 HYPERLIPIDEMIA, UNSPECIFIED 09/28/2015 ZAMZAM ARCOS MD Ot I10 ESSENTIAL (PRIMARY) HYPERTENSION 09/28/2015 ZAMZAM ARCOS MD Ot I25.10 ATHSCL HEART DISEASE OF [place] CORONARY 09/28/2015 ZAMZAM ARCOS MD Ot K44.9 DIAPHRAGMATIC HERNIA WITHOUT OBSTRUCTION 09/28/2015 ZAMZAM ARCOS MD Ot R00.0 TACHYCARDIA, UNSPECIFIED 09/28/2015 ZAMZAM ARCOS MD Ot R07.9 CHEST PAIN, UNSPECIFIED 09/28/2015 ZAMZAM ARCOS MD Ot Z72.0 TOBACCO USE 09/28/2015 ZAMZAM ARCOS MD Ot Z79.899 OTHER JAIL (CURRENT) DRUG THERAPY 09/28/2015 ZAMZAM ARCOS MD Ot Z80.41 FAMILY HISTORY OF MALIGNANT NEOPLASM OF 09/28/2015 ZAMZAM ARCOS MD Ot Z82.49 FAMILY HX OF ISCHEM HEART DIS AND OTH DI 10/27/2015 ZAMZAM ARCOS MD Ot E78.5 HYPERLIPIDEMIA, UNSPECIFIED 10/27/2015 ZAMZAM ARCOS MD, Ot I10 ESSENTIAL (PRIMARY) HYPERTENSION 10/27/2015 ZAMZAM ARCOS MD Ot I25.10 ATHSCL HEART DISEASE OF [place] CORONARY 10/27/2015 ZAMZAM ARCOS MD Ot K44.9 DIAPHRAGMATIC HERNIA WITHOUT OBSTRUCTION 10/27/2015 ZAMZAM ARCOS MD Ot R00.0 TACHYCARDIA, UNSPECIFIED 10/27/2015 ZAMZAM ARCOS MD Ot R07.9 CHEST PAIN, UNSPECIFIED 10/27/2015 ZAMZAM ARCOS MD, Ot Z72.0 TOBACCO USE 10/27/2015 ZAMZAM ARCOS MD Ot Z79.899 OTHER RADIOGRAPHIC TECHNOLOGIST (CURRENT) DRUG THERAPY 10/27/2015 ZAMZAM ARCOS MD, Ot Z80.41 FAMILY HISTORY OF MALIGNANT NEOPLASM OF 10/27/2015 ZAMZAM ARCOS MD Ot Z82.49 FAMILY HX OF ISCHEM HEART DIS AND OTH DI 11/25/2015 MUSHTAQ QUINTANA MD Ot 553.3 DIAPHRAGMATIC HERNIA 11/25/2015 MUSHTAQ QUINTANA MD Ot 591 HYDRONEPHROSIS 11/25/2015 MUSHTAQ QUINTANA MD Ot 789.09 ABDOMINAL PAIN, OTHER SPECIFIED SITE 11/25/2015 KYRA BOOTH Ot 401.1 BENIGN HYPERTENSION 11/25/2015 KYRA BOOTH Ot 786.50 CHEST PAIN NOS 11/25/2015 KYRA BOOTH Ot 793.99 OTH NOSP (ABN) FINDINGS RADIOLOGICAL O 11/25/2015 MUSHTAQ QUINTANA MD Ot 239.89 NEOPLASMS OF UNSPECIFIED NATURE, OTHER S 11/25/2015 MUSHTAQ QUINTANA MD Ot M25.862 OTHER SPECIFIED JOINT DISORDERS, LEFT KN 11/25/2015 ZAMZAM ARCOS MD Ot I10 ESSENTIAL (PRIMARY) HYPERTENSION 11/25/2015 ZAMZAM ARCOS MD, Ot I20.9 ANGINA PECTORIS, UNSPECIFIED 11/25/2015 ZAMZAM ARCOS MD Ot R00.2 PALPITATIONS 11/25/2015 ZAMZAM ARCOS MD Ot R06.02 SHORTNESS OF BREATH 11/25/2015 ZAMZAM ARCOS MD Ot R07.9 CHEST PAIN, UNSPECIFIED 11/25/2015 ZAMZAM ARCOS MD Ot I10 ESSENTIAL (PRIMARY) HYPERTENSION 11/25/2015 ZAMZAM ARCSO MD Ot I20.9 ANGINA PECTORIS, UNSPECIFIED 11/25/2015 ZAMZAM ARCOS MD Ot R00.2 PALPITATIONS 11/25/2015 ZAMZAM ARCOS MD Ot R06.02 SHORTNESS OF BREATH 11/25/2015 ZAMZAM ARCOS MD Ot R07.9 CHEST PAIN, UNSPECIFIED 11/25/2015 ZAMZAM ARCOS MD Ot I10 ESSENTIAL (PRIMARY) HYPERTENSION 11/25/2015 ZAMZAM ARCOS MD Ot I20.9 ANGINA PECTORIS, UNSPECIFIED 11/25/2015 ZAMZAM ARCOS MD Ot R00.2 PALPITATIONS 11/25/2015 ZAMZAM ARCOS MD Ot R06.02 SHORTNESS OF BREATH 11/25/2015 ZAMZAM ARCOS MD Ot R07.9 CHEST PAIN, UNSPECIFIED 11/25/2015 ZAMZAM ARCOS MD Ot I10 ESSENTIAL (PRIMARY) HYPERTENSION 11/25/2015 ZAMZAM ARCOS MD Ot I20.9 ANGINA PECTORIS, UNSPECIFIED 11/25/2015 ZAMZAM ARCOS MD Ot R00.2 PALPITATIONS 11/25/2015 ZAMZAM ARCOS MD Ot R06.02 SHORTNESS OF BREATH 11/25/2015 ZAMZAM ARCOS MD Ot R07.9 CHEST PAIN, UNSPECIFIED 11/25/2015 YARELY PALMER DO Ot K21.9 GASTRO-ESOPHAGEAL REFLUX DISEASE WITHOUT 11/25/2015 YARELY PALMER DO Ot R07.9 CHEST PAIN, UNSPECIFIED 11/25/2015 YARELY PALMER DO Ot Z01.818 ENCOUNTER FOR OTHER PREPROCEDURAL EXAMIN 11/28/2015 YARELY PALMER DO Ot K21.9 GASTRO-ESOPHAGEAL REFLUX DISEASE WITHOUT 11/28/2015 YARELY PALMER DO Ot R07.9 CHEST PAIN, UNSPECIFIED 11/28/2015 YARELY PALMER DO Ot Z01.818 ENCOUNTER FOR OTHER PREPROCEDURAL EXAMIN 11/28/2015 YANDEL ARCHER APRN Ot K44.9 DIAPHRAGMATIC HERNIA WITHOUT OBSTRUCTION 11/28/2015 YANDEL ARCHER LATHE WINDER Ot R31.9 HEMATURIA, UNSPECIFIED 11/29/2015 YANDEL ARCHER LATHE WINDER Ot K44.9 DIAPHRAGMATIC HERNIA WITHOUT OBSTRUCTION 11/29/2015 YANDEL ARCHER LATHE WINDER Ot R31.9 HEMATURIA, UNSPECIFIED 11/29/2015 PALMER DO, YARELY D Ot K21.0 GASTRO-ESOPHAGEAL REFLUX DISEASE WITH ES 11/29/2015 PALMER DO, YARELY D Ot K44.9 DIAPHRAGMATIC HERNIA WITHOUT OBSTRUCTION 11/30/2015 PALMER DO, YARELY D Ot K21.0 GASTRO-ESOPHAGEAL REFLUX DISEASE WITH ES 11/30/2015 PALMER DO, YARELY D Ot K44.9 DIAPHRAGMATIC HERNIA WITHOUT OBSTRUCTION 01/11/2016 MARIANO DOYLE, MUSHTAQ Brown Ot 553.3 DIAPHRAGMATIC HERNIA 01/11/2016 MARIANO DOYLE, MUSHTAQ Brown Ot 591 HYDRONEPHROSIS 01/11/2016 MARIANO DOYLE, MUSHTAQ Brown Ot 789.09 ABDOMINAL PAIN, OTHER SPECIFIED SITE 01/11/2016 KYRA BOOTH Ot 401.1 BENIGN HYPERTENSION 01/11/2016 KYRA BOOTH Ot 786.50 CHEST PAIN NOS 01/11/2016 KYRA BOOTH Ot 793.99 OTH NOSP (ABN) FINDINGS RADIOLOGICAL O 01/11/2016 MARIANO DOYLE, MUSHTAQ Brown Ot 239.89 NEOPLASMS OF UNSPECIFIED NATURE, OTHER S 01/11/2016 MUSHTAQ QUINTANA MD Ot M25.862 OTHER SPECIFIED JOINT DISORDERS, LEFT KN 01/11/2016 ZAMZAM ARCOS MD Ot I10 ESSENTIAL (PRIMARY) HYPERTENSION 01/11/2016 ZAMZAM ARCOS MD Ot I20.9 ANGINA PECTORIS, UNSPECIFIED 01/11/2016 ZAMZAM ARCOS MD Ot R00.2 PALPITATIONS 01/11/2016 ZAMZAM ARCOS MD Ot R06.02 SHORTNESS OF BREATH 01/11/2016 ZAMZAM ARCOS MD Ot R07.9 CHEST PAIN, UNSPECIFIED 01/11/2016 ZAMZAM ARCOS MD Ot I10 ESSENTIAL (PRIMARY) HYPERTENSION 01/11/2016 ZAMZAM ARCOS MD Ot I20.9 ANGINA PECTORIS, UNSPECIFIED 01/11/2016 ZAMZAM ARCOS MD Ot R00.2 PALPITATIONS 01/11/2016 ISRRAEL DOYLE, ZAMZAM Kasper Ot R06.02 SHORTNESS OF BREATH 01/11/2016 ISRRAEL DOYLE, ZAMZAM Kasper Ot R07.9 CHEST PAIN, UNSPECIFIED 01/11/2016 ZAMZAM ARCOS MD Ot I10 ESSENTIAL (PRIMARY) HYPERTENSION 01/11/2016 ZAMZAM ARCOS MD Ot I20.9 ANGINA PECTORIS, UNSPECIFIED 01/11/2016 ZAMZAM ARCOS MD Ot R00.2 PALPITATIONS 01/11/2016 ISRRAEL DOYLE, ZAMZAM Kasper Ot R06.02 SHORTNESS OF BREATH 01/11/2016 ISRRAEL DYOLE, ZAMZAM Kasper Ot R07.9 CHEST PAIN, UNSPECIFIED 01/11/2016 ZAMZAM ARCOS MD Ot I10 ESSENTIAL (PRIMARY) HYPERTENSION 01/11/2016 ZAMZAM ARCOS MD Ot I20.9 ANGINA PECTORIS, UNSPECIFIED 01/11/2016 ZAMZAM ARCOS MD Ot R00.2 PALPITATIONS 01/11/2016 ISRRAEL DOYLE, ZAMZAM Kasper Ot R06.02 SHORTNESS OF BREATH 01/11/2016 ZAMZAM ARCOS MD Ot R07.9 CHEST PAIN, UNSPECIFIED 01/11/2016 ARCHERYANDEL Vaughan R LATHE WINDER Ot K44.9 DIAPHRAGMATIC HERNIA WITHOUT OBSTRUCTION 01/11/2016 YANDEL ARCHER R LATHE WINDER Ot R31.9 HEMATURIA, UNSPECIFIED 01/11/2016 KVNG ARCHERELE R LATHE WINDER Ot K44.9 DIAPHRAGMATIC HERNIA WITHOUT OBSTRUCTION 01/11/2016 YANDEL ARCHER R LATHE WINDER Ot R31.9 HEMATURIA, UNSPECIFIED 01/11/2016 ZAMZAM ARCOS MD Ot I10 ESSENTIAL (PRIMARY) HYPERTENSION 01/11/2016 ZAMZAM ARCOS MD Ot I20.9 ANGINA PECTORIS, UNSPECIFIED 01/11/2016 ZAMZAM ARCOS MD Ot R00.2 PALPITATIONS 01/11/2016 ZAMZAM ARCOS MD Ot R06.02 SHORTNESS OF BREATH 01/11/2016 ZAMZAM ARCOS MD Ot R07.9 CHEST PAIN, UNSPECIFIED 01/11/2016 ZAMZAM ARCOS MD Ot I10 ESSENTIAL (PRIMARY) HYPERTENSION 01/11/2016 ZAMZAM ARCOS MD Ot I20.9 ANGINA PECTORIS, UNSPECIFIED 01/11/2016 ZAMZAM ARCOS MD Ot R00.2 PALPITATIONS 01/11/2016 ZAMZAM ARCOS MD Ot R06.02 SHORTNESS OF BREATH 01/11/2016 ZAMZAM ARCOS MD Ot R07.9 CHEST PAIN, UNSPECIFIED 01/11/2016 ZAMZAM ARCOS MD Ot I10 ESSENTIAL (PRIMARY) HYPERTENSION 01/11/2016 ZAMZAM ARCOS MD Ot I20.9 ANGINA PECTORIS, UNSPECIFIED 01/11/2016 ZAMZAM ARCOS MD Ot R00.2 PALPITATIONS 01/11/2016 ZAMZAM ARCOS MD Ot R06.02 SHORTNESS OF BREATH 01/11/2016 ZAMZAM ARCOS MD Ot R07.9 CHEST PAIN, UNSPECIFIED 01/11/2016 MARIANO DOYLE, MUSHTAQ Brown Ot M25.862 OTHER SPECIFIED JOINT DISORDERS, LEFT KN 01/11/2016 ZAMZAM ARCOS MD Ot I10 ESSENTIAL (PRIMARY) HYPERTENSION 01/11/2016 ZAMZAM ARCOS MD Ot I20.9 ANGINA PECTORIS, UNSPECIFIED 01/11/2016 ZAMZAM ARCOS MD Ot R00.2 PALPITATIONS 01/11/2016 ZAMZAM ARCOS MD Ot R06.02 SHORTNESS OF BREATH 01/11/2016 ZAMZAM ARCOS MD Ot R07.9 CHEST PAIN, UNSPECIFIED 01/11/2016 MUSHTAQ QUINTANA MD Ot 239.89 NEOPLASMS OF UNSPECIFIED NATURE, OTHER S 01/11/2016 MUSHTAQ QUINTANA MD Ot M25.862 OTHER SPECIFIED JOINT DISORDERS, LEFT KN 01/12/2016 ZAMZAM ARCOS MD Ot I10 ESSENTIAL (PRIMARY) HYPERTENSION 01/12/2016 ZAMZAM ARCOS MD Ot I20.9 ANGINA PECTORIS, UNSPECIFIED 01/12/2016 ZAMZAM ARCOS MD Ot R00.2 PALPITATIONS 01/12/2016 ZAMZAM ARCOS MD Ot R06.02 SHORTNESS OF BREATH 01/12/2016 ZAMZAM ARCOS MD Ot R07.9 CHEST PAIN, UNSPECIFIED 01/12/2016 ZAMZAM ARCOS MD Ot E78.5 HYPERLIPIDEMIA, UNSPECIFIED 01/12/2016 ZAMZAM ARCOS MD Ot I10 ESSENTIAL (PRIMARY) HYPERTENSION 01/12/2016 ZAMZAM ARCOS MD Ot I25.10 ATHSCL HEART DISEASE OF [place] CORONARY 01/12/2016 ZAMZAM ARCOS MD Ot K44.9 DIAPHRAGMATIC HERNIA WITHOUT OBSTRUCTION 01/12/2016 ZAMZAM ARCOS MD Ot R00.0 TACHYCARDIA, UNSPECIFIED 01/12/2016 ZAMZAM ARCOS MD Ot R07.9 CHEST PAIN, UNSPECIFIED 01/12/2016 ZAMZAM ARCOS MD Ot Z72.0 TOBACCO USE 01/12/2016 ZAMZAM ARCOS MD Ot Z79.899 OTHER RADIOGRAPHIC TECHNOLOGIST (CURRENT) DRUG THERAPY 01/12/2016 ZAMZAM ARCOS MD Ot Z80.41 FAMILY HISTORY OF MALIGNANT NEOPLASM OF 01/12/2016 ZAMZAM ARCOS MD Ot Z82.49 FAMILY HX OF ISCHEM HEART DIS AND OTH DI 03/05/2016 YANDEL ARCHER LATHE WINDER Ot K44.9 DIAPHRAGMATIC HERNIA WITHOUT OBSTRUCTION 03/05/2016 YANDEL ARCHER LATHE WINDER Ot R31.9 HEMATURIA, UNSPECIFIED 03/05/2016 ZAMZAM ARCOS MD Ot I10 ESSENTIAL (PRIMARY) HYPERTENSION 03/05/2016 ZAMZAM ARCOS MD Ot I20.9 ANGINA PECTORIS, UNSPECIFIED 03/05/2016 ZAMZAM ARCOS MD Ot R00.2 PALPITATIONS 03/05/2016 ZAMZAM ARCOS MD Ot R06.02 SHORTNESS OF BREATH 03/05/2016 ZAMZAM ARCOS MD Ot R07.9 CHEST PAIN, UNSPECIFIED 03/05/2016 ZAMZAM ARCOS MD Ot I10 ESSENTIAL (PRIMARY) HYPERTENSION 03/05/2016 ZAMZAM ARCOS MD Ot I20.9 ANGINA PECTORIS, UNSPECIFIED 03/05/2016 ZAMZAM ARCOS MD Ot R00.2 PALPITATIONS 03/05/2016 ZAMZAM ARCOS MD Ot R06.02 SHORTNESS OF BREATH 03/05/2016 ZAMZAM ARCOS MD Ot R07.9 CHEST PAIN, UNSPECIFIED 03/05/2016 ZAMZAM ARCOS MD Ot I10 ESSENTIAL (PRIMARY) HYPERTENSION 03/05/2016 ZAMZAM ARCOS MD Ot I20.9 ANGINA PECTORIS, UNSPECIFIED 03/05/2016 ZAMZAM ARCOS MD Ot R00.2 PALPITATIONS 03/05/2016 ZAMZAM ARCOS MD Ot R06.02 SHORTNESS OF BREATH 03/05/2016 ZAMZAM ARCOS MD Ot R07.9 CHEST PAIN, UNSPECIFIED 03/05/2016 MUSHTAQ QUINTANA MD Ot M25.862 OTHER SPECIFIED JOINT DISORDERS, LEFT KN 03/05/2016 MUSHTAQ QUINTANA MD Ot 239.89 NEOPLASMS OF UNSPECIFIED NATURE, OTHER S 03/06/2016 ZAMZAM ARCOS MD Ot I10 ESSENTIAL (PRIMARY) HYPERTENSION 03/06/2016 ZAMZAM ARCOS MD Ot I20.9 ANGINA PECTORIS, UNSPECIFIED 03/06/2016 ZAMZAM ARCOS MD Ot R00.2 PALPITATIONS 03/06/2016 ZAMZAM ARCOS MD Ot R06.02 SHORTNESS OF BREATH 03/06/2016 ZAMZAM ARCOS MD Ot R07.9 CHEST PAIN, UNSPECIFIED 05/03/2016 YARELY PALMER DO Ot Z01.818 ENCOUNTER FOR OTHER PREPROCEDURAL EXAMIN 05/03/2016 YARELY PALMER DO Ot Z12.11 ENCOUNTER FOR SCREENING FOR MALIGNANT NE 05/04/2016 YARELY PALMER DO Ot Z01.818 ENCOUNTER FOR OTHER PREPROCEDURAL EXAMIN 05/04/2016 YARELY PALMER DO Ot Z12.11 ENCOUNTER FOR SCREENING FOR MALIGNANT NE 05/08/2016 MUSHTAQ QUINTANA MD Ot 553.3 DIAPHRAGMATIC HERNIA 05/08/2016 MUSHTAQ QUINTANA MD Ot 591 HYDRONEPHROSIS 05/08/2016 MUSHTAQ QUINTANA MD Ot 789.09 ABDOMINAL PAIN, OTHER SPECIFIED SITE 05/08/2016 KYRA BOOTH Ot 401.1 BENIGN HYPERTENSION 05/08/2016 KYRA BOOTH Ot 786.50 CHEST PAIN NOS 05/08/2016 KYRA BOOTH Ot 793.99 OTH NOSP (ABN) FINDINGS RADIOLOGICAL O 05/08/2016 MUSHTAQ QUINTANA MD Ot 239.89 NEOPLASMS OF UNSPECIFIED NATURE, OTHER S 05/08/2016 MUSHTAQ QUINTANA MD Ot M25.862 OTHER SPECIFIED JOINT DISORDERS, LEFT KN 05/08/2016 ZAMZAM ARCOS MD Ot I10 ESSENTIAL (PRIMARY) HYPERTENSION 05/08/2016 ISRRAEL MD, BASHAR J Ot I20.9 ANGINA PECTORIS, UNSPECIFIED 05/08/2016 ISRRAEL DOYLE, ZAMZAM J Ot R00.2 PALPITATIONS 05/08/2016 ISRRAEL DOYLE, ZAMZAM J Ot R06.02 SHORTNESS OF BREATH 05/08/2016 ISRRAEL DOYLE, ZAMZAM J Ot R07.9 CHEST PAIN, UNSPECIFIED 05/08/2016 ISRRAEL DOYLE, ZAMZAM J Ot I10 ESSENTIAL (PRIMARY) HYPERTENSION 05/08/2016 ISRRAEL DOYLE, ZAMZAM Kasper Ot I20.9 ANGINA PECTORIS, UNSPECIFIED 05/08/2016 ISRRAEL DOYLE, ZAMZAM J Ot R00.2 PALPITATIONS 05/08/2016 ISRRAEL DOYLE, ZAMZAM J Ot R06.02 SHORTNESS OF BREATH 05/08/2016 ISRRAEL DOYLE, ZAMZAM J Ot R07.9 CHEST PAIN, UNSPECIFIED 05/08/2016 ISRRAEL DOYLE, ZAMZAM J Ot I10 ESSENTIAL (PRIMARY) HYPERTENSION 05/08/2016 ISRRAEL DOYLE, ZAMZAM J Ot I20.9 ANGINA PECTORIS, UNSPECIFIED 05/08/2016 ISRRAEL DOYLE, ZAMZAM J Ot R00.2 PALPITATIONS 05/08/2016 ISRRAEL DOYLE, ZAMZAM J Ot R06.02 SHORTNESS OF BREATH 05/08/2016 ISRRAEL DOYLE, ZAMZAM J Ot R07.9 CHEST PAIN, UNSPECIFIED 05/08/2016 ISRRAEL DOYLE, ZAMZAM J Ot I10 ESSENTIAL (PRIMARY) HYPERTENSION 05/08/2016 ISRRAEL DOYLE, ZAMZAM J Ot I20.9 ANGINA PECTORIS, UNSPECIFIED 05/08/2016 ISRRAEL DOYLE, ZAMZAM Kasper Ot R00.2 PALPITATIONS 05/08/2016 ISRRAEL DOYLE, ZAMZAM J Ot R06.02 SHORTNESS OF BREATH 05/08/2016 ISRRAEL DOYLE, ZAMZAM J Ot R07.9 CHEST PAIN, UNSPECIFIED 05/08/2016 YANDEL ARCHER LATHE WINDER Ot K44.9 DIAPHRAGMATIC HERNIA WITHOUT OBSTRUCTION 05/08/2016 YANDEL ARCHER LATHE WINDER Ot R31.9 HEMATURIA, UNSPECIFIED 05/08/2016 MARIANO DOYLE, MUSHTAQ Brown Ot 553.3 DIAPHRAGMATIC HERNIA 05/08/2016 MARIANO DOYLE, MUSHTAQ Brown Ot 591 HYDRONEPHROSIS 05/08/2016 MARIANO DOYLE, MUSHTAQ Brown Ot 789.09 ABDOMINAL PAIN, OTHER SPECIFIED SITE 05/08/2016 KYRA BOOTH Ot 401.1 BENIGN HYPERTENSION 05/08/2016 KYRA BOOTH Ot 786.50 CHEST PAIN NOS 05/08/2016 KYRA BOOTH Ot 793.99 OTH NOSP (ABN) FINDINGS RADIOLOGICAL O 05/08/2016 MUSHTAQ QUINTANA MD Ot 239.89 NEOPLASMS OF UNSPECIFIED NATURE, OTHER S 05/08/2016 MUSHTAQ QUINTANA MD Ot M25.862 OTHER SPECIFIED JOINT DISORDERS, LEFT KN 05/08/2016 ZAMZAM ARCOS MD Ot I10 ESSENTIAL (PRIMARY) HYPERTENSION 05/08/2016 ZAMZAM ARCOS MD Ot I20.9 ANGINA PECTORIS, UNSPECIFIED 05/08/2016 ZAMZAM ARCOS MD Ot R00.2 PALPITATIONS 05/08/2016 ZAMZAM ARCOS MD J Ot R06.02 SHORTNESS OF BREATH 05/08/2016 ZAMZAM ARCOS MD J Ot R07.9 CHEST PAIN, UNSPECIFIED 05/08/2016 ZAMZAM ARCOS MD J Ot I10 ESSENTIAL (PRIMARY) HYPERTENSION 05/08/2016 ZAMZAM ARCOS MD J Ot I20.9 ANGINA PECTORIS, UNSPECIFIED 05/08/2016 ZAMZAM ARCOS MD J Ot R00.2 PALPITATIONS 05/08/2016 ZAMZAM ARCOS MD J Ot R06.02 SHORTNESS OF BREATH 05/08/2016 ZAMZAM ARCOS MD J Ot R07.9 CHEST PAIN, UNSPECIFIED 05/08/2016 ZAMZAM ARCOS MD J Ot I10 ESSENTIAL (PRIMARY) HYPERTENSION 05/08/2016 ZAMZAM ARCOS MD J Ot I20.9 ANGINA PECTORIS, UNSPECIFIED 05/08/2016 ZAMZAM ARCOS MD J Ot R00.2 PALPITATIONS 05/08/2016 ZAMZAM ARCOS MD J Ot R06.02 SHORTNESS OF BREATH 05/08/2016 ZAMZAM ARCOS MD J Ot R07.9 CHEST PAIN, UNSPECIFIED 05/08/2016 ZAMZAM ARCOS MD J Ot I10 ESSENTIAL (PRIMARY) HYPERTENSION 05/08/2016 ZAMZAM ARCOS MD J Ot I20.9 ANGINA PECTORIS, UNSPECIFIED 05/08/2016 ZAMZAM ARCOS MD J Ot R00.2 PALPITATIONS 05/08/2016 ZAMZAM ARCOS MD Ot R06.02 SHORTNESS OF BREATH 05/08/2016 ZAMZAM ARCOS MD Ot R07.9 CHEST PAIN, UNSPECIFIED 05/08/2016 YANDEL ARCHER LATHE WINDER Ot K44.9 DIAPHRAGMATIC HERNIA WITHOUT OBSTRUCTION 05/08/2016 ACRHERYANDEL Vaughan LATHE WINDER Ot R31.9 HEMATURIA, UNSPECIFIED 05/08/2016 PALMER DO, YARELY D Ot R31.9 HEMATURIA, UNSPECIFIED 05/08/2016 PALMER DO, YARELY D Ot Z12.11 ENCOUNTER FOR SCREENING FOR MALIGNANT NE 05/08/2016 PALMER DO, YARELY D Ot Z85.43 PERSONAL HISTORY OF MALIGNANT NEOPLASM O 05/09/2016 PALMER DO, YARELY D Ot R31.9 HEMATURIA, UNSPECIFIED 05/09/2016 PALMER DO, YARELY D Ot Z12.11 ENCOUNTER FOR SCREENING FOR MALIGNANT NE 05/09/2016 PALMER DO, YARELY D Ot Z85.43 PERSONAL HISTORY OF MALIGNANT NEOPLASM O 09/10/2016 MUSHTAQ QUINTANA MD Ot 553.3 DIAPHRAGMATIC HERNIA 09/10/2016 MUSHTAQ QUINTANA MD Ot 591 HYDRONEPHROSIS 09/10/2016 MUSHTAQ QUINTANA MD Ot 789.09 ABDOMINAL PAIN, OTHER SPECIFIED SITE 09/10/2016 KYRA BOOTH Ot 401.1 BENIGN HYPERTENSION 09/10/2016 KYRA BOOTH Ot 786.50 CHEST PAIN NOS 09/10/2016 KYRA BOOTH Ot 793.99 OTH NOSP (ABN) FINDINGS RADIOLOGICAL O 09/10/2016 MUSHTAQ QUINTANA MD Ot 239.89 NEOPLASMS OF UNSPECIFIED NATURE, OTHER S 09/10/2016 MUSHTAQ QUINTANA MD Ot M25.862 OTHER SPECIFIED JOINT DISORDERS, LEFT KN 09/10/2016 ZAMZAM ARCOS MD Ot I10 ESSENTIAL (PRIMARY) HYPERTENSION 09/10/2016 ZAMZAM ARCOS MD Ot I20.9 ANGINA PECTORIS, UNSPECIFIED 09/10/2016 ZAMZAM ARCOS MD Ot R00.2 PALPITATIONS 09/10/2016 ZAMZAM ARCOS MD Ot R06.02 SHORTNESS OF BREATH 09/10/2016 ZAMZAM ARCOS MD Ot R07.9 CHEST PAIN, UNSPECIFIED 09/10/2016 ZAMZAM ARCOS MD Ot I10 ESSENTIAL (PRIMARY) HYPERTENSION 09/10/2016 ZAMZAM ARCOS MD Ot I20.9 ANGINA PECTORIS, UNSPECIFIED 09/10/2016 ZAMZAM ARCOS MD Ot R00.2 PALPITATIONS 09/10/2016 ZAMZAM ARCOS MD Ot R06.02 SHORTNESS OF BREATH 09/10/2016 ZAMZAM ARCOS MD Ot R07.9 CHEST PAIN, UNSPECIFIED 09/10/2016 ZAMZAM ARCOS MD Ot I10 ESSENTIAL (PRIMARY) HYPERTENSION 09/10/2016 ZAMZAM ARCOS MD Ot I20.9 ANGINA PECTORIS, UNSPECIFIED 09/10/2016 ZAMZAM ARCOS MD Ot R00.2 PALPITATIONS 09/10/2016 ZAMZAM ARCOS MD Ot R06.02 SHORTNESS OF BREATH 09/10/2016 ZAMZAM ACROS MD Ot R07.9 CHEST PAIN, UNSPECIFIED 09/10/2016 ZAMZAM ARCOS MD Ot I10 ESSENTIAL (PRIMARY) HYPERTENSION 09/10/2016 ZAMZAM ARCOS MD Ot I20.9 ANGINA PECTORIS, UNSPECIFIED 09/10/2016 ZAMZAM ARCOS MD Ot R00.2 PALPITATIONS 09/10/2016 ZAMZAM ARCOS MD Ot R06.02 SHORTNESS OF BREATH 09/10/2016 ZAMZAM ARCOS MD Ot R07.9 CHEST PAIN, UNSPECIFIED 09/10/2016 YANDEL ARCHER LATHE WINDER Ot K44.9 DIAPHRAGMATIC HERNIA WITHOUT OBSTRUCTION 09/10/2016 YANDEL ARCHER LATHE WINDER Ot R31.9 HEMATURIA, UNSPECIFIED 09/11/2016 MUSHTAQ QUINTANA MD Ot 553.3 DIAPHRAGMATIC HERNIA 09/11/2016 MUSHTAQ QUINTANA MD Ot 591 HYDRONEPHROSIS 09/11/2016 MUSHTAQ QUINTANA MD Ot 789.09 ABDOMINAL PAIN, OTHER SPECIFIED SITE 09/11/2016 KYRA BOOTH Ot 401.1 BENIGN HYPERTENSION 09/11/2016 KYRA BOOTH Ot 786.50 CHEST PAIN NOS 09/11/2016 KYRA BOOTH Ot 793.99 OTH NOSP (ABN) FINDINGS RADIOLOGICAL O 09/11/2016 MUSHTAQ QUINTANA MD, Ot 239.89 NEOPLASMS OF UNSPECIFIED NATURE, OTHER S 09/11/2016 MARIANO DOYLE, MUSHTAQ Brown Ot M25.862 OTHER SPECIFIED JOINT DISORDERS, LEFT KN 09/11/2016 ZAMZAM ARCOS MD Ot I10 ESSENTIAL (PRIMARY) HYPERTENSION 09/11/2016 ZAMZAM ARCOS MD Ot I20.9 ANGINA PECTORIS, UNSPECIFIED 09/11/2016 ZAMZAM ARCOS MD Ot R00.2 PALPITATIONS 09/11/2016 ZAMZAM ARCOS MD Ot R06.02 SHORTNESS OF BREATH 09/11/2016 ZAMZAM ARCOS MD Ot R07.9 CHEST PAIN, UNSPECIFIED 09/11/2016 ZAMZAM ARCOS MD Ot I10 ESSENTIAL (PRIMARY) HYPERTENSION 09/11/2016 ZAMZAM ARCOS MD Ot I20.9 ANGINA PECTORIS, UNSPECIFIED 09/11/2016 ZAMZAM ARCOS MD Ot R00.2 PALPITATIONS 09/11/2016 ZAMZAM ARCOS MD Ot R06.02 SHORTNESS OF BREATH 09/11/2016 ZAMZAM ARCOS MD Ot R07.9 CHEST PAIN, UNSPECIFIED 09/11/2016 ZAMZAM ARCOS MD Ot I10 ESSENTIAL (PRIMARY) HYPERTENSION 09/11/2016 ZAMZAM ARCOS MD Ot I20.9 ANGINA PECTORIS, UNSPECIFIED 09/11/2016 ZAMZAM ARCOS MD Ot R00.2 PALPITATIONS 09/11/2016 ZAMZAM ARCOS MD Ot R06.02 SHORTNESS OF BREATH 09/11/2016 ZAMZAM ARCOS MD Ot R07.9 CHEST PAIN, UNSPECIFIED 09/11/2016 ZAMZAM ARCOS MD Ot I10 ESSENTIAL (PRIMARY) HYPERTENSION 09/11/2016 ZAMZAM ARCOS MD Ot I20.9 ANGINA PECTORIS, UNSPECIFIED 09/11/2016 ZAMZAM ARCOS MD Ot R00.2 PALPITATIONS 09/11/2016 ZAMZAM ARCOS MD Ot R06.02 SHORTNESS OF BREATH 09/11/2016 ZAMZAM ARCOS MD Ot R07.9 CHEST PAIN, UNSPECIFIED 09/11/2016 YANDEL ARCHER LATHE WINDER Ot K44.9 DIAPHRAGMATIC HERNIA WITHOUT OBSTRUCTION 09/11/2016 YANDEL ARCHER LATHE WINDER Ot R31.9 HEMATURIA, UNSPECIFIED 09/12/2016 ANTONIO CUI MD Ot E03.9 HYPOTHYROIDISM, UNSPECIFIED 09/12/2016 ANTONIO CUI MD Ot E78.5 HYPERLIPIDEMIA, UNSPECIFIED 09/12/2016 ANTONIO CUI MD Ot E87.6 HYPOKALEMIA 09/12/2016 ANTONIO CUI MD Ot F17.210 NICOTINE DEPENDENCE, CIGARETTES, UNCOMPL 09/12/2016 ANTONIO CUI MD, Ot F32.9 MAJOR DEPRESSIVE DISORDER, SINGLE EPISOD 09/12/2016 ANTONIO CUI MD Ot G45.9 TRANSIENT CEREBRAL ISCHEMIC ATTACK, UNSP 09/12/2016 ANTONIO CUI MD, Ot I10 ESSENTIAL (PRIMARY) HYPERTENSION 09/12/2016 ANTONIO CUI MD Ot I25.10 ATHSCL HEART DISEASE OF [place] CORONARY 09/12/2016 ANTONIO CUI MD, Ot K21.9 GASTRO-ESOPHAGEAL REFLUX DISEASE WITHOUT 09/12/2016 ANTONIO CUI MD Ot M25.512 PAIN IN LEFT SHOULDER 09/12/2016 ANTONOI CUI MD Ot M25.562 PAIN IN LEFT KNEE 09/12/2016 ANTONIO CUI MD Ot M54.2 CERVICALGIA 09/12/2016 ANTONIO CUI MD Ot M62.81 MUSCLE WEAKNESS (GENERALIZED) 09/12/2016 ANTONIO CUI MD Ot R41.2 RETROGRADE AMNESIA 09/12/2016 ANTONIO CUI MD Ot Z86.73 PRSNL HX OF TIA (TIA), AND CEREB INFRC W 09/26/2016 BROCK ESTES MD Ot E03.9 HYPOTHYROIDISM, UNSPECIFIED 09/26/2016 BROCK ESTES MD Ot E78.5 HYPERLIPIDEMIA, UNSPECIFIED 09/26/2016 BROCK ESTES MD Ot F17.210 NICOTINE DEPENDENCE, CIGARETTES, UNCOMPL 09/26/2016 BROCK ESTES MD, Ot F32.9 MAJOR DEPRESSIVE DISORDER, SINGLE EPISOD 09/26/2016 BROCK ESTES MD Ot I10 ESSENTIAL (PRIMARY) HYPERTENSION 09/26/2016 BROCK ESTES MD Ot I25.10 ATHSCL HEART DISEASE OF [place] CORONARY 09/26/2016 BROCK ESTES MD Ot 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 09/26/2016 BROCK ESTES MD Ot I69.354 HEMIPLGA FOLLOWING CEREBRAL INFRC AFFECT 09/26/2016 BROCK ESTES MD Ot I69.398 OTHER SEQUELAE OF CEREBRAL INFARCTION 09/26/2016 BROCK ESTES MD Ot K21.9 GASTRO-ESOPHAGEAL REFLUX DISEASE WITHOUT 09/26/2016 BROCK ESTES MD Ot K58.9 IRRITABLE BOWEL SYNDROME WITHOUT DIARRHE 09/26/2016 BROCK ESTES MD Ot M19.90 UNSPECIFIED OSTEOARTHRITIS, UNSPECIFIED 09/26/2016 BROCK ESTES MD Ot M79.7 FIBROMYALGIA 09/26/2016 BROCK ESTES MD Ot N95.1 MENOPAUSAL AND FEMALE CLIMACTERIC STATES 09/26/2016 BROCK ESTES MD Ot R00.1 BRADYCARDIA, UNSPECIFIED 09/26/2016 BROCK ESTES MD Ot R26.81 UNSTEADINESS ON FEET Procedures Code Description [place] [address] ROUTINE VENIPUNCTURE 07/17/2012 24440 TSH 07/17/2012 37645 ROUTINE VENIPUNCTURE 08/25/2012 48515 CMP 08/25/2012 02719 LIPID PANEL 08/25 3190104 GFR CALC (RESULT ONLY) 08/25/2012 71116 ROUTINE VENIPUNCTURE 07/20/2013 24839 EKG, TRACING (IN-HOUSE) 07/20/2013 CARDIOLOG ZAMZAM ARCOS 07/20/2013 38150 CBC 07/20/2013 [id number] GFR CALC (RESULT ONLY) 07/20/2013 02522 CMP 07/20/2013 50434 LIPID PANEL 07/20 17773 MAGNESIUM 2013 51259 TSH 07/20/[address] ABDOMEN & PELVIS W/O CONTRAST 08/22/2013 64168 UA W/ CULTURE IF INDICATED 08/22/2013 18851 CULTURE URINE 66401 STRESS TEST, CARDIAC (SPECIFY TYPE) 09/04/2013 30249 ECHO 2D 2013 77401 STREP A (IN-HOUSE) 10/27/2013 Results Test Result Range Complete blood count (CBC) with automated white blood cell (WBC) differential - 09/10/16 12:54 Blood leukocytes automated count (number/volume) 5.2 10*3/ uL 4.3-11.0 Blood erythrocytes automated count (number/volume) 4.97 10*6 /uL 4.35-5.85 Venous blood hemoglobin measurement (mass/volume) 13.8 g/dL 11.5-16.0 Blood hematocrit (volume fraction) 41 % 35-52 Automated erythrocyte mean corpuscular volume 83 [foz_us] 80-99 Automated erythrocyte mean corpuscular hemoglobin (mass per erythrocyte) 28 pg 25-34 Automated erythrocyte mean corpuscular hemoglobin concentration measurement ( mass/volume) 33 g/dL 32-36 Automated erythrocyte distribution width ratio 13.1 % 10.0-14.5 Automated blood platelet count (count/volume) 231 10*3/uL 130-400 Automated blood platelet mean volume measurement 9.4 [foz_us ] 7.4-10.4 Automated blood neutrophils/100 leukocytes 57 % 42-75 Automated blood lymphocytes/100 leukocytes 32 % 12-44 Blood monocytes/100 leukocytes 8 % 0-12 Automated blood eosinophils/100 leukocytes 4 % 0-10 Automated blood basophils/100 leukocytes 0 % 0-10 Blood neutrophils automated count (number/volume) 2.9 10*3 1.8-7.8 Blood lymphocytes automated count (number/volume) 1.6 10*3 1.0-4.0 Blood monocytes automated count (number/volume) 0.4 10*3 0.0-1.0 Automated eosinophil count 0.2 10*3/uL 0.0-0.3 Automated blood basophil count (count/volume) 0.0 10*3/uL 0.0-0.1 PT panel in platelet poor plasma by coagulation assay - 09/10/16 12:54 Prothrombin time (PT) in platelet poor plasma by coagulation assay 13.2 s 12.2-14.7 INR in platelet poor plasma or blood by coagulation assay 1.0 0.8-1.4 Activated partial thromboplastin time (aPTT) in platelet poor plasma bycoagulation assay - 09/10/16 12:54 Activated partial thromboplastin time (aPTT) in platelet poor plasma bycoagulation assay 27 s 24-35 Comprehensive metabolic panel - 09/10/16 12:54 Serum or plasma sodium measurement (moles/volume) 143 mmol/ L 135-145 Serum or plasma potassium measurement (moles/volume) 2.8 mmol/L 3.6-5.0 Serum or plasma chloride measurement (moles/volume) 110 mmol /L 98-107 Carbon dioxide 22 mmol/L 21-32 Serum or plasma anion gap determination (moles/volume) 11 mmol/L 5-14 Serum or plasma urea nitrogen measurement (mass/volume) 6 mg /dL 7-18 Serum or plasma creatinine measurement (mass/volume) 0.71 mg /dL 0.60-1.30 Serum or plasma urea nitrogen/creatinine mass ratio 8 NRG Serum or plasma creatinine measurement with calculation of estimated glomerular filtration rate > NRG Serum or plasma glucose measurement (mass/volume) 127 mg/dL 70-105 Serum or plasma calcium measurement (mass/volume) 9.1 mg/dL 8.5-10.1 Serum or plasma total bilirubin measurement (mass/volume) 0.5 mg/dL 0.1-1.0 Serum or plasma alkaline phosphatase measurement (enzymatic activity/volume) 65 U/L 40-136 Serum or plasma aspartate aminotransferase measurement (enzymatic activity/ volume) 19 U/L 5-34 Serum or plasma alanine aminotransferase measurement (enzymatic activity/volume ) 18 U/L 0-55 Serum or plasma protein measurement (mass/volume) 6.9 g/dL 6.4-8.2 Serum or plasma albumin measurement (mass/volume) 3.9 g/dL 3.2-4.5 Serum or plasma troponin i.cardiac measurement (mass/volume) - 09/10/16 12:54 Serum or plasma troponin i.cardiac measurement (mass/volume) < ng/mL <0.30 Fibrin D-dimer FEU measurement in platelet poor plasma (mass/volume) - 12:54 Fibrin D-dimer FEU measurement in platelet poor plasma (mass/volume) 0.70 ug/mL 0.00-0.49 Serum or plasma creatine kinase measurement (enzymatic activity/volume) - 09/10 12:54 Serum or plasma creatine kinase measurement (enzymatic activity/volume) 42 U/L 29-168 THYROID STIMULATING HORMONE - 09/10/16 12:54 THYROID STIMULATING HORMONE 4.40 u[iU]/mL 0.35-4.94 Serum or plasma thyroxine (T4) free measurement (mass/volume) - 09/10/16 12:54 Serum or plasma thyroxine (T4) free measurement (mass/volume) 1.05 ng/dL 0.70-1.48 Capillary blood glucose measurement by glucometer (mass/volume) - 09/10/16 13: 00 Capillary blood glucose measurement by glucometer (mass/volume) 121 mg/dL 70-110 Complete urinalysis with reflex to culture - 09/10/16 14:03 Urine color determination YELLOW NRG Urine clarity determination CLEAR NRG Urine pH measurement by test strip 6 5- 9 Specific gravity of urine by test strip 1.025 1.016-1.022 Urine protein assay by test strip, semi-quantitative 1+ NEGATIVE Urine glucose detection by automated test strip NEGATIVE NEGATIVE Erythrocytes detection in urine sediment by light microscopy 2+ NEGATIVE Urine ketones detection by automated test strip NEGATIVE NEGATIVE Urine nitrite detection by test strip NEGATIVE NEGATIVE Urine total bilirubin detection by test strip NEGATIVE NEGATIVE Urine urobilinogen measurement by automated test strip (mass/volume) NORMAL NORMAL Urine leukocyte esterase detection by dipstick 1+ NEGATIVE Automated urine sediment erythrocyte count by microscopy (number/high power field) RARE NRG Automated urine sediment leukocyte count by microscopy (number/high power field ) NONE NRG Bacteria detection in urine sediment by light microscopy TRACE NRG Crystals detection in urine sediment by light microscopy N NRG Casts detection in urine sediment by light microscopy NONE NRG Mucus detection in urine sediment by light microscopy NEGATIVE NRG Complete urinalysis with reflex to culture NO NRG Urine drug screening test - 09/10/16 14:03 Urine phencyclidine detection by screening method NEGATIVE NEGATIVE Urine benzodiazepines detection by screening method NEGATIVE NEGATIVE Urine cocaine detection NEGATIVE NEGATIVE Urine amphetamines detection by screening method NEGATIVE NEGATIVE Urine methamphetamine detection by screening method NEGATIVE NEGATIVE Urine cannabinoids detection by screening method NEGATIVE NEGATIVE Urine opiates detection by screening method NEGATIVE NEGATIVE Urine barbiturates detection NEGATIVE NEGATIVE Screening urine tricyclic antidepressants detection NEGATIVE NEGATIVE Urine methadone detection by screening method NEGATIVE NEGATIVE Urine oxycodone detection NEGATIVE NEGATIVE Urine propoxyphene detection NEGATIVE NEGATIVE Complete blood count (CBC) with automated white blood cell (WBC) differential - 09/11/16 04:25 Blood leukocytes automated count (number/volume) 4.5 10*3/ uL 4.3-11.0 Blood erythrocytes automated count (number/volume) 3.95 10*6 /uL 4.35-5.85 Venous blood hemoglobin measurement (mass/volume) 11.1 g/dL 11.5-16.0 Blood hematocrit (volume fraction) 34 % 35-52 Automated erythrocyte mean corpuscular volume 85 [foz_us] 80-99 Automated erythrocyte mean corpuscular hemoglobin (mass per erythrocyte) 28 pg 25-34 Automated erythrocyte mean corpuscular hemoglobin concentration measurement ( mass/volume) 33 g/dL 32-36 Automated erythrocyte distribution width ratio 13.0 % 10.0-14.5 Automated blood platelet count (count/volume) 205 10*3/uL 130-400 Automated blood platelet mean volume measurement 10.2 [foz_ us] 7.4-10.4 Automated blood neutrophils/100 leukocytes 50 % 42-75 Automated blood lymphocytes/100 leukocytes 37 % 12-44 Blood monocytes/100 leukocytes 9 % 0-12 Automated blood eosinophils/100 leukocytes 4 % 0-10 Automated blood basophils/100 leukocytes 0 % 0-10 Blood neutrophils automated count (number/volume) 2.3 10*3 1.8-7.8 Blood lymphocytes automated count (number/volume) 1.7 10*3 1.0-4.0 Blood monocytes automated count (number/volume) 0.4 10*3 0.0-1.0 Automated eosinophil count 0.2 10*3/uL 0.0-0.3 Automated blood basophil count (count/volume) 0.0 10*3/uL 0.0-0.1 Whole blood basic metabolic panel - 09/11/16 04:25 Serum or plasma sodium measurement (moles/volume) 143 mmol/ L 135-145 Serum or plasma potassium measurement (moles/volume) 3.5 mmol/L 3.6-5.0 Serum or plasma chloride measurement (moles/volume) 113 mmol /L 98-107 Carbon dioxide 23 mmol/L 21-32 Serum or plasma anion gap determination (moles/volume) 7 mmol/L 5-14 Serum or plasma urea nitrogen measurement (mass/volume) 7 mg /dL 7-18 Serum or plasma creatinine measurement (mass/volume) 0.68 mg /dL 0.60-1.30 Serum or plasma urea nitrogen/creatinine mass ratio 10 NRG Serum or plasma creatinine measurement with calculation of estimated glomerular filtration rate > NRG Serum or plasma glucose measurement (mass/volume) 108 mg/dL 70-105 Serum or plasma calcium measurement (mass/volume) 8.2 mg/dL 8.5-10.1 Lipid 1996 panel - 09/11/16 04:25 Serum or plasma triglyceride measurement (mass/volume) 151 mg/dL <150 Serum or plasma cholesterol measurement (mass/volume) 154 mg /dL < 200 Serum or plasma cholesterol in HDL measurement (mass/volume) 26 mg/dL 40-60 Cholesterol in LDL [mass/volume] in serum or plasma by direct assay 100 mg/dL 1-129 Serum or plasma cholesterol in VLDL measurement (mass/volume) 30 mg/dL 5-40 Methicillin resistant Staphylococcus aureus (MRSA) screening culture - 11:40 MRSA SCREEN RESULT MRSA ISOLATED NRG Automated blood complete blood count (hemogram) panel - 09/15/16 10:20 Blood leukocytes automated count (number/volume) 6.6 10*3/ uL 4.3-11.0 Blood erythrocytes automated count (number/volume) 4.90 10*6 /uL 4.35-5.85 Venous blood hemoglobin measurement (mass/volume) 13.8 g/dL 11.5-16.0 Blood hematocrit (volume fraction) 41 % 35-52 Automated erythrocyte mean corpuscular volume 85 [foz_us] 80-99 Automated erythrocyte mean corpuscular hemoglobin (mass per erythrocyte) 28 pg 25-34 Automated erythrocyte mean corpuscular hemoglobin concentration measurement ( mass/volume) 33 g/dL 32-36 Automated erythrocyte distribution width ratio 13.2 % 10.0-14.5 Automated blood platelet count (count/volume) 310 10*3/uL 130-400 Automated blood platelet mean volume measurement 10.0 [foz_ us] 7.4-10.4 Whole blood basic metabolic panel - 09/15/16 10:20 Serum or plasma sodium measurement (moles/volume) 141 mmol/ L 135-145 Serum or plasma potassium measurement (moles/volume) 4.3 mmol/L 3.6-5.0 Serum or plasma chloride measurement (moles/volume) 104 mmol /L 98-107 Carbon dioxide 26 mmol/L 21-32 Serum or plasma anion gap determination (moles/volume) 11 mmol/L 5-14 Serum or plasma urea nitrogen measurement (mass/volume) 15 mg/dL 7-18 Serum or plasma creatinine measurement (mass/volume) 0.96 mg /dL 0.60-1.30 Serum or plasma urea nitrogen/creatinine mass ratio 16 NRG Serum or plasma creatinine measurement with calculation of estimated glomerular filtration rate 60 NRG Serum or plasma glucose measurement (mass/volume) 84 mg/dL 70-105 Serum or plasma calcium measurement (mass/volume) 9.4 mg/dL 8.5-10.1 Encounters ACCT No. Visit Date/Time Discharge Status Pt. Type Provider Facility Loc./Unit Complaint [id number] 02/13/2014 12:25:00 02/13/2014 23: 59:59 CLS Outpatient ASHOK NEGRETE DO [id number] 01/11/2014 15:48:00 01/11/2014 23: 59:59 CLS Outpatient АННА IBARRA APRN [id number] 12/17/2013 00:00:00 12/17/2013 23: 59:59 CLS Outpatient LAKESHA HARRISON APRN [id number] 10/27/2013 17:24:00 10/27/2013 23: 59:59 CLS Outpatient LAKESHA HARRISON APRN [id number] 09/04/2013 09:23:00 09/04/2013 23: 59:59 CLS Outpatient ASHOK NEGRETE DO [id number] 08/22/2013 11:09:00 08/22/2013 23: 59:59 CLS Outpatient STEVEN JANG APRN [id number] 07/20/2013 08:09:00 07/20/2013 23: 59:59 CLS Outpatient MUSHTAQ QUINTANA MD [id number] 04/06/2013 14:42:00 04/06/2013 23: 59:59 CLS Outpatient MUSHTAQ QUINTANA MD [id number] 08/25/2012 12:32:00 08/25/2012 23: 59:59 CLS Outpatient MUSHTAQ QUINTANA MD [id number] 07/17/2012 14:24:00 07/17/2012 23: 59:59 CLS Outpatient MUSHTAQ QUINTANA MD [id number] 07/04/2012 15:38:00 07/04/2012 23: 59:59 CLS Outpatient [id number] 03/10/2012 00:00:00 03/10/2012 23: 59:59 [place] [id number] 01/24/2012 15:12:00 01/24/2012 23: 59:59 CLS Outpatient ASHOK NEGRETE DO [id number] 08/14/2012 15:07:00 Document Registration
--- NOTE | 2016-09-27 15:07 | Physical Therapy Daily Note ---
PT Daily Note-Current Subjective Pt sitting in recliner upon arrival. Pt agrees to PT. Mental Status Patient Orientation: Person, Place, Time, Situation Transfers Functional [place] Measure 0=Not Assessed/NA 4=Minimal Assistance 1=Total Assistance 5=Supervision or Setup 2=Maximal Assistance 6=Modified [place] 3=Moderate Assistance 7=Complete IndependenceIRFPAI Quality Coding Scale 6 Independent with activity with or without an assistive device 5 Patient requires set up or clean up by helper. Patient completes activity by themselves 4 Supervision or touching assist (CGA). [place] provide cues , steadying assist 3 The helper provides less than half the effort to complete the activity 2 The helper provides more than half the effort to complete the activity 1 Dependent. The helper does all the effort to complete an activity 7 Patient refused to complete or attempt activity 9 The patient did not perform the activity before the current illness or injury 88 Not attempted due to Medical conditions or safety concerns Scootin Sit to/from Stand: 6 Sit to Stand (QC): 6 Weight Bearing Weight Bearing Restriction: Full Weight Bearing Location Restriction: LE Bilateral Gait Training Does the Patient Walk?: Yes Distance (FIM): 3=150 ft Distance: 200' Walk 10 feet (QC): 5 Walk 50 ft with 2 Turns(QC): 5 Walk 150 ft (QC): 5 Gait Level of Assist: 5 Gait Persons Needed: 1 Gait Assistive Device: Cane Single Point Pt walks with slow but steady gait, no LOB. Pt reports having to focus on gait sequencing. 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 Pt ascends well but more difficulty descending stairs with LE muscle control at knees. Exercises NuStep Minutes: 10 NuStep Workload: 6 Treatments Pt transferred from recliner to standing using SPC at SBA. Pt ambulates using SPC at SBA. Pt uses NuStep to strengthen knees and activity tolerance to increase balance with upright activity. Pt returned to room to rest in recliner at end of tx with all needs met. Assessment Current Status: Good Progress Pt is improving with strength, activity tolerance and balance but still lacks muscle control for stairs. PT Short Term Goals Short Term Goals Time Frame: Sep 19, 2016 Gait (FIM): 4 Stairs (FIM): 4 PT Veneer Jointer Offbearer Goals Residential Goals PT Residential Goals Time Frame: Oct 03, 2016 Transfers (B,C,W/C) (FIM): 7 Sit to Lying (QC): 6 Lying-Sitting on Side/Bed(QC): 6 Sit to Stand (QC): 6 Rollin Roll Left to Right (QC): 6 Chair/Ckp-on-Whvag Xfer(QC): 6 Car Transfer (QC): 6 Does the Patient Walk: Yes Gait (FIM): 6 Gait distance (FIM): 3=150 ft Walk 10 feet (QC): 6 Walk 10ft-Uneven Surface(QC): 6 Walk 50ft with 2 Turns (QC): 6 Walk 150 ft (QC): 6 Gait Assistive Device: FWW Does the Pt use WC or Scooter?: No Stairs (FIM): 6 # of Steps: 12 1 Step (curb) (QC): 6 4 Steps (QC): 6 12 Steps (QC): 6 Picking up an Object (QC): 5 PT Plan Problem List Problem List: Activity Tolerance, Functional Strength, Safety, Balance, Gait Treatment/Plan Treatment Plan: Continue Plan of Care Treatment Plan: Bed Mobility, Education, Functional Activity Joe, Functional Strength, Group Therapy, Gait, Safety, Therapeutic Exercise, Transfers Treatment Duration: Oct 03, 2016 Visits Per Week: 10-15 Minutes/Day (M-F): 60-90 Minutes/Day (Sat/Naqvi): prn Safety Risks/Education Patient Education: Gait Training, Steps, Correct Positioning, Safety Issues Teaching Recipient: Patient Teaching Methods: Discussion Response to Teaching: Verbalize Understanding Time/GCodes Time In: 1300 Time Out: 1330 Total Billed Treatment Time: 30 Total Billed Treatment visit, GT (15m) & EX (15m) ANUEL HASTINGS PTA Sep 27, 2016 15:07
[2016-09-27 18:31] VITALS: BP 126/83
[2016-09-27] MEDS: SIMvastatin 10 MG (ZOCOR) TAB PO SCH (20:46)
[2016-09-27] MEDS: ESTRADIOL 1 MG TAB (ESTRACE) PO SCH (20:47)
[2016-09-27] MEDS: MELOXICAM 7.5 MG (MOBIC) TABLET PO SCH (20:47)
[2016-09-27] MEDS: MULTIVIT W/MINERALS TAB (THERAGRAN M) PO SCH (20:47)
[2016-09-27] MEDS: ASPIRIN E.C. 81 MG (ECOTRIN) TAB PO SCH (20:47)
[2016-09-27] MEDS: HYDROCHLOROTHIAZIDE 12.5 MG (HCTZ) CAP PO SCH (20:47)
[2016-09-27] MEDS: lisINopril 10 MG (PRINIVIL) TAB PO SCH (20:47)
[2016-09-28 06:09] VITALS: BP 114/70
[2016-09-28] MEDS: LEVOTHYROXINE 50 MCG (LEVOTHROID) TAB PO SCH (06:11)
[2016-09-28] MEDS: KCL 20 MEQ TAB (K-DUR) PO SCH (06:11)
[2016-09-28] MEDS: SUCRALFATE 1 GM (CARAFATE) TAB PO SCH ×2 (06:11→16:16)
[2016-09-28] MEDS: PANTOPRAZOLE 40 MG (PROTONIX) TAB PO SCH ×2 (06:11→16:16)
--- NOTE | 2016-09-28 07:40 | Occupational Ther Daily Note ---
OT Current Status-Daily Note Subjective pt sleeping in bed, woke easily to name. Pt agreed to therapy. No c/o pain at this time. Mental Status/Objective Patient Orientation: Person, Place, Time, Situation Functional [place] Measure 0=Not Assessed/NA 4=Minimal Assistance 1=Total Assistance 5=Supervision or Setup 2=Maximal Assistance 6=Modified [place] 3=Moderate Assistance 7=Complete [place] ADL-Treatment Functional [place] Measure 0=Not Assessed/NA 4=Minimal Assistance 1=Total Assistance 5=Supervision or Setup 2=Maximal Assistance 6=Modified [place] 3=Moderate Assistance 7=Complete IndependenceIRFPAI Quality Coding Scale 6 Independent with activity with or without an assistive device 5 Patient requires set up or clean up by helper. Patient completes activity by themselves 4 Supervision or touching assist (CGA). [place] provide cues , steadying assist 3 The helper provides less than half the effort to complete the activity 2 The helper provides more than half the effort to complete the activity 1 Dependent. The helper does all the effort to complete an activity 7 Patient refused to complete or attempt activity 9 The patient did not perform the activity before the current illness or injury 88 Not attempted due to Medical conditions or safety concerns Grooming (FIM): 6 (Using FWW to stand at sink, pt is able to complete grooming by self.) Bathing (FIM): 6 (Using grabbar, hand held shower and tub seat pt is able to complete by self.) Bathing Location: L Arm, R Arm, L Upper Leg, R Upper Leg, L Lower Leg ( including foot), R Lower Leg (including foot), Chest, Abdomen, Buttocks, Perineal Area Upper Body (FIM): 6 (Using FWW to retrieve clothing, pt is able to don/doff by self.) Lower Body Dressing (FIM): 6 (Using FWW to retrieve clothing, pt is able to don /doff by self.) Toileting (FIM): 6 (Using FWW and grabbar, pt is able to complete by self.) Transfers (B, C, W/C) (FIM): 6 (Using FWW or cane, pt is able to complete by self.) Toilet/Commode Transfer (FIM): 6 (Using FWW or cane pt is able to complete by self.) Tub Transfer(FIM): 5 (Using cane, grabbar and tub seat pt is able to complete with close SBA.) Shower Transfer(FIM): 6 (Using grabbar and tub bench, pt is able to complete by self.) OT Short Term Goals Short Term Goals Time Frame: Sep 19, 2016 Bathing(FIM): 5 Lower Body Dressing(FIM): 5 Toileting(FIM): 5 Toilet/Commode Transfer(FIM): 5 Shower Transfer(FIM): 5 Additional Short Term Goals: 1-Demonstrate ADL Tasks, 2-Verbalize Understanding , 3-ImproveStrength/Joe 1=Demonstrate adherence to instructed precautions during ADL tasks. 2=Patient will verbalize/demonstrate understanding of assistive devices/ modifications for ADL. 3=Patient will improve strength/tolerance for activity to enable patient to perform ADL's. OT Crystal Growing Technician Goals Crystal Growing Technician Goals Time Frame: Oct 03, 2016 Eating (FIM): 6 Eating (QC): 6 Groomin Oral Hygiene (QC): 6 Bathing(FIM): 6 Shower/Bathe Self (QC): 6 Upper Body Dressing(FIM): 6 Upper Body Dressing (QC): 6 Lower Body Dressing(FIM): 6 Lower Body Dressing (QC): 6 On/Off Footwear (QC): 6 Toileting(FIM): 6 Toileting Hygiene (QC): 6 Toilet/Commode Transfer(FIM): 6 Toilet/Commode Transfer (QC): 6 Shower Transfer(FIM): 6 Comprehension(FIM): 5 (MET) Expression (FIM): 5 (MET) Social Interaction(FIM): 6 (MET) Problem Solving(FIM): 4 (MET) Memory(FIM): 4 (MET) Additional Goals: 1-Demonstrate ADL Tasks, 2-Verbalize Understanding, 3- ImproveStrength/Joe 1=Demonstrate adherence to instructed precautions during ADL tasks. 2=Patient will verbalize/demonstrate understanding of assistive devices/ modifications for ADL. 3=Patient will improve strength/tolerance for activity to enable patient to perform ADL's. OT Education/Plan Problem List/Assessment Pt admitted with CVA with left side deficits. Pt demonstrates decreased mobility , strength, coordination, activity tolerance and ADL performance. Pt to benefit from skilled OT intervention for ADL training, transfers, strengthening, and safety education to maximize level of function and allow safe return home. Discharge Recommendations Plan/Recommendations: Continue POC Equpiment Recommendations-D/C: Rails on Tub/Shower, Bath Chair Treatment Plan/Plan of Care Patient would benefit from OT for education, treatment and training to promote independence in ADL's, mobility, safety and/or upper extremity function for ADL' s. Plan of Care: ADL Retraining, Functional Mobility, Group Exercise/Act as Ind, UE Funct Exercise/Act, UE Neuromus Re-Ed/Coord Treatment Duration: Oct 03, 2016 Visits Per Week: 10-12 Minutes/Day (M-F): 60-90 Minutes/Day (Sat/Naqvi): PRN Agreement: Yes Rehab Potential: Good Time/GCodes Start Time: 07:00 Stop Time: 08:00 Total Time Billed (hr/min): 60 Billed Treatment Time 1 visit-ADL 2 (30 min) FA 2 (30 min) CRISTIANA HORTON Sep 28, 2016 07:40
[2016-09-28] MEDS: DULoxetine 30 MG (CYMBALTA) CAP PO SCH ×2 (08:03→20:11)
[2016-09-28] MEDS: CLOPIDOGREL 75 MG (PLAVIX) TABLET PO SCH (08:03)
[2016-09-28] MEDS: CYANOCOBALAMIN 500 MCG TAB (VITAMIN B-12) PO SCH (08:03)
[2016-09-28] MEDS: GABAPENTIN 300 MG (NEURONTIN) CAP PO SCH ×2 (08:03→20:10)
[2016-09-28] MEDS: OMEGA 3 (FISH OIL) 1000 MG CAP PO SCH (08:03)
[2016-09-28] MEDS: SENNOSIDES 8.6 MG (SENOKOT) TAB PO SCH ×2 (08:04→20:11)
--- NOTE | 2016-09-28 08:19 | PM & R (SOAP) Progress Note ---
Subjective Time Seen by Provider: 08:00 Subjective/Events-last exam Patient was seen in the apartment this AM Progressing well with therapies HTN well controlled and bradycardia resolved with adjustment in meds Patient SBA for gait with SPC Objective Exam Last Set of Vital Signs Vital Signs Date Time Temp Pulse Resp B/P (MAP) Pulse Ox O2 Delivery O2 Flow Rate FiO2 09/28/16 06:09 97.3 70 16 114/70 96 Room Air Capillary Refill : I&O Intake and Output 09/28/16 00:00 Intake Total 1200 ml Balance 1200 ml Intake Oral 1200 ml # Voids 7 # Bowel Movements 4 General: Alert, Oriented X3, Cooperative, No Acute Distress HEENT: Atraumatic, PERRLA, EOMI, Mucous Memb Moist/[place] Neck: Supple, No JVD Lungs: Clear to Auscultation Heart: Regular Rate Abdomen: Normal Bowel Sounds, Soft, No Tenderness Extremities: No Edema Neuro: Other (Left HP largely resolved) Results Lab Microbiology 09/13/16 MRSA Screen - Final, Complete Assessment/Plan Assessment rt cva with Left HP HTN on 3 meds with decreasing BP DR Ro has adjusted meds-improved with good control of HTN Bradycardia-DR Ro has adjusted meds and resolved Constipation improved with RX S/P biopsy thyroid gland [facility] on meds Hiatal hernia on meds Plan Continue PT/OT ST has signed off Team Conference held 09-26-16-See report for full functional update and POC Current labs reviewed TSH WNL F/U with [facility] re Thyroid biopsy studies Discharge set for 10/02/16 to home with family BROCK ESTSE MD Sep 28, 2016 08:19
--- NOTE | 2016-09-28 09:34 | Physical Therapy Daily Note ---
PT Daily Note-Current Subjective Pt. states she still has some concerns about up/down steps at home. After trialing bilateral canes for up down steps pt. states she feels much more confident and likes this option. SW was called to see if there is an avenue for donated canes etc. Pt. also shares that she has bilat knee pain and dysfunction and looks forward to possibly having TKRs after she is approved for SSI. This REPAIRER WOOD FURNITURE explained that until then it is important to strengthen hips and knees and maintain flexibility Pain Numeric Pain Scale: 3 Location: Left Location Body Site: Knee Pain Description: Ache Appearance observed up ad jyoti in room with FWW doing very well Mental Status Patient Orientation: Normal For Age Transfers Functional [place] Measure 0=Not Assessed/NA 4=Minimal Assistance 1=Total Assistance 5=Supervision or Setup 2=Maximal Assistance 6=Modified [place] 3=Moderate Assistance 7=Complete IndependenceIRFPAI Quality Coding Scale 6 Independent with activity with or without an assistive device 5 Patient requires set up or clean up by helper. Patient completes activity by themselves 4 Supervision or touching assist (CGA). [place] provide cues , steadying assist 3 The helper provides less than half the effort to complete the activity 2 The helper provides more than half the effort to complete the activity 1 Dependent. The helper does all the effort to complete an activity 7 Patient refused to complete or attempt activity 9 The patient did not perform the activity before the current illness or injury 88 Not attempted due to Medical conditions or safety concerns Transfers (B, C, W/C) (FIM): 6 Scootin Rollin Roll Left to Right (QC): 6 Supine to/from Sit: 6 Sit to/from Stand: 6 Sit to Lying (QC): 6 Sit to Stand (QC): 6 Chair/Arj-nf-Awaaj Xfer(QC): 6 Bed to/from Chair: 6 practiced in out chair at table , scooting forward and back and sit to stand to simulate home situation with good success Gait Training Does the Patient Walk?: Yes Gait (FIM): 6 Distance (FIM): 3=150 ft (250x2) Gait Level of Assist: 6 Gait Persons Needed: 0 Gait Assistive Device: FWW gait training as well with SPC with hurry attachment with SBA, improving much Wheelchair Training Does the Pt Use a Wheelchair?: No Stair Training Stair Training: Handrails/: uses cane (2) Stairs (FIM): 5 #of Steps: 12 Stairs: Pattern: Step to Level of Assist: 5 (step by step instruction in use of bilat canes for stair gait) Exercises Supine Ex: Bridging, Ankle pumps, Quad Set, Rolling, Glut sets, Heel Slides, Short Arc Quads, Scooting, Straight leg raise, Hip abd/add Supine Reps: 20 sidelying for clam shells and hip abd all x 15 ea bilat. all LE ther ex to strengthen and improve balance to increase safety and function Treatments side step Left and right .360 deg turns and retro gait with cane, no LOB, slow and careful Assessment Current Status: Good Progress good safety and judgement PT Short Term Goals Short Term Goals Time Frame: Sep 19, 2016 Gait (FIM): 4 Stairs (FIM): 4 PT Wire Coating Machine Operator Goals Wire Coating Machine Operator Goals PT Mcfp Goals Time Frame: Oct 03, 2016 Transfers (B,C,W/C) (FIM): 7 Sit to Lying (QC): 6 Lying-Sitting on Side/Bed(QC): 6 Sit to Stand (QC): 6 Rollin Roll Left to Right (QC): 6 Chair/Ndz-zr-Eerrm Xfer(QC): 6 Car Transfer (QC): 6 Does the Patient Walk: Yes Gait (FIM): 6 Gait distance (FIM): 3=150 ft Walk 10 feet (QC): 6 Walk 10ft-Uneven Surface(QC): 6 Walk 50ft with 2 Turns (QC): 6 Walk 150 ft (QC): 6 Gait Assistive Device: FWW Does the Pt use WC or Scooter?: No Stairs (FIM): 6 # of Steps: 12 1 Step (curb) (QC): 6 4 Steps (QC): 6 12 Steps (QC): 6 Picking up an Object (QC): 5 PT Plan Treatment/Plan Treatment Plan: Continue Plan of Care Treatment Plan: Bed Mobility, Education, Functional Activity Joe, Functional Strength, Group Therapy, Gait, Safety, Therapeutic Exercise, Transfers Treatment Duration: Oct 03, 2016 Visits Per Week: 10-15 Minutes/Day (M-F): 60-90 Minutes/Day (Sat/Naqvi): prn Safety Risks/Education Patient Education: Gait Training, Transfer Techniques, Steps, Issued Written HEP, Correct Positioning, Disease Process, Safety Issues Teaching Recipient: Patient Teaching Methods: Demonstration, Discussion Response to Teaching: Verbalize Understanding, Return Demonstration, Reinforcement Needed (for cane on steps) Time/GCodes Time In: 830 Time Out: 930 Total Billed Treatment Time: 60 Total Billed Treatment 1,GT30m,EX15m,FA15m G Codes Necessary: MIKE Barker REPA[employer]ER [employer] Sep 28, 2016 09:34
--- NOTE | 2016-09-28 15:06 | Therapy Group Daily Note ---
Therapy Daily Group Note Patient Education Topic Other List Below (Memory) Exercises LE Seated Exercise Other/Notes Pt ambulated with SBA using cane. OT/PT group consisted of introductions (name , place living, childhood memory), education on importance of memory, strategies for memory, memory task (matching pictures) and LE seated exercises. Pt was able to contribute to group appropriately. Pt was able to discuss strategies and issues for memory. Pt was able to complete memory task well. Pt then ambulated back to room with FWW by self. Pt is up ad jyoti in room. All needs met in room. Start Time: 13:00 Stop Time: 14:10 Total Billed Treatment Time: 70 Total Billed Treatment 1-GRP CRISTIANA HORTON Sep 28, 2016 15:06
[2016-09-28 17:22] VITALS: BP 117/70
[2016-09-28] MEDS: MELOXICAM 7.5 MG (MOBIC) TABLET PO SCH (20:10)
[2016-09-28] MEDS: HYDROCHLOROTHIAZIDE 12.5 MG (HCTZ) CAP PO SCH (20:11)
[2016-09-28] MEDS: MULTIVIT W/MINERALS TAB (THERAGRAN M) PO SCH (20:11)
[2016-09-28] MEDS: ESTRADIOL 1 MG TAB (ESTRACE) PO SCH (20:11)
[2016-09-28] MEDS: ASPIRIN E.C. 81 MG (ECOTRIN) TAB PO SCH (20:11)
[2016-09-28] MEDS: lisINopril 10 MG (PRINIVIL) TAB PO SCH (20:11)
[2016-09-28] MEDS: SIMvastatin 10 MG (ZOCOR) TAB PO SCH (20:11)
[2016-09-29] MEDS: KCL 20 MEQ TAB (K-DUR) PO SCH (06:26)
[2016-09-29] MEDS: LEVOTHYROXINE 50 MCG (LEVOTHROID) TAB PO SCH (06:27)
[2016-09-29] MEDS: SUCRALFATE 1 GM (CARAFATE) TAB PO SCH ×2 (06:27→16:04)
[2016-09-29] MEDS: PANTOPRAZOLE 40 MG (PROTONIX) TAB PO SCH ×2 (06:27→16:04)
[2016-09-29 06:29] VITALS: BP 127/87
[2016-09-29] MEDS: CLOPIDOGREL 75 MG (PLAVIX) TABLET PO SCH (08:37)
[2016-09-29] MEDS: SENNOSIDES 8.6 MG (SENOKOT) TAB PO SCH ×2 (08:37→20:25)
[2016-09-29] MEDS: CYANOCOBALAMIN 500 MCG TAB (VITAMIN B-12) PO SCH (08:37)
[2016-09-29] MEDS: DULoxetine 30 MG (CYMBALTA) CAP PO SCH ×2 (08:37→20:21)
[2016-09-29] MEDS: GABAPENTIN 300 MG (NEURONTIN) CAP PO SCH ×2 (08:37→20:21)
[2016-09-29] MEDS: OMEGA 3 (FISH OIL) 1000 MG CAP PO SCH (08:37)
--- NOTE | 2016-09-29 13:05 | Physical Therapy Daily Note ---
PT Daily Note-Current Subjective In bed on arrival "Im being lazy" want to practice steps Pain Numeric Pain Scale: 0-No Pain Mental Status Patient Orientation: Normal For Age Transfers Functional [place] Measure 0=Not Assessed/NA 4=Minimal Assistance 1=Total Assistance 5=Supervision or Setup 2=Maximal Assistance 6=Modified [place] 3=Moderate Assistance 7=Complete IndependenceIRFPAI Quality Coding Scale 6 Independent with activity with or without an assistive device 5 Patient requires set up or clean up by helper. Patient completes activity by themselves 4 Supervision or touching assist (CGA). [place] provide cues , steadying assist 3 The helper provides less than half the effort to complete the activity 2 The helper provides more than half the effort to complete the activity 1 Dependent. The helper does all the effort to complete an activity 7 Patient refused to complete or attempt activity 9 The patient did not perform the activity before the current illness or injury 88 Not attempted due to Medical conditions or safety concerns Transfers (B, C, W/C) (FIM): 6 Scootin Rollin Supine to/from Sit: 6 Sit to/from Stand: 6 Bed to/from Chair: 6 Gait Training Does the Patient Walk?: Yes Gait (FIM): 6 Distance (FIM): 3=150 ft (x3) Gait Level of Assist: 6 Gait Persons Needed: 0 Gait Assistive Device: FWW up ad jyoti with FWW, for Rx pt. used SPC with SBA to CGA no LOB Stair Training Stair Training: Handrails/: uses cane (2 canes) Stairs (FIM): 5 #of Steps: 12 Stairs: Pattern: Step to Level of Assist: 5 discussed sequence, no LOB Assessment Current Status: Excellent Progress PT Short Term Goals Short Term Goals Time Frame: Sep 19, 2016 Gait (FIM): 4 Stairs (FIM): 4 PT Senior Care Goals Senior Care Goals PT Senior Care Goals Time Frame: Oct 03, 2016 Transfers (B,C,W/C) (FIM): 7 Sit to Lying (QC): 6 Lying-Sitting on Side/Bed(QC): 6 Sit to Stand (QC): 6 Rollin Roll Left to Right (QC): 6 Chair/Kas-du-Nbgod Xfer(QC): 6 Car Transfer (QC): 6 Does the Patient Walk: Yes Gait (FIM): 6 Gait distance (FIM): 3=150 ft Walk 10 feet (QC): 6 Walk 10ft-Uneven Surface(QC): 6 Walk 50ft with 2 Turns (QC): 6 Walk 150 ft (QC): 6 Gait Assistive Device: FWW Does the Pt use WC or Scooter?: No Stairs (FIM): 6 # of Steps: 12 1 Step (curb) (QC): 6 4 Steps (QC): 6 12 Steps (QC): 6 Picking up an Object (QC): 5 PT Plan Treatment/Plan Treatment Plan: Continue Plan of Care Treatment Plan: Bed Mobility, Education, Functional Activity Joe, Functional Strength, Group Therapy, Gait, Safety, Therapeutic Exercise, Transfers Treatment Duration: Oct 03, 2016 Visits Per Week: 10-15 Minutes/Day (M-F): 60-90 Minutes/Day (Sat/Naqvi): prn Safety Risks/Education Patient Education: Gait Training, Steps Teaching Recipient: Patient Teaching Methods: Demonstration, Discussion Response to Teaching: Verbalize Understanding, Return Demonstration Time/GCodes Time In: 1025 Time Out: 1040 Total Billed Treatment Time: 15 Total Billed Treatment 1,FA15m G Codes Necessary: MIKE Barker GLASS FRAME FITTER Sep 29, 2016 13:05
[2016-09-29 17:25] VITALS: BP 112/72
[2016-09-29] MEDS: ESTRADIOL 1 MG TAB (ESTRACE) PO SCH (20:21)
[2016-09-29] MEDS: MELOXICAM 7.5 MG (MOBIC) TABLET PO SCH (20:22)
[2016-09-29] MEDS: MULTIVIT W/MINERALS TAB (THERAGRAN M) PO SCH (20:22)
[2016-09-29] MEDS: SIMvastatin 10 MG (ZOCOR) TAB PO SCH (20:22)
[2016-09-29] MEDS: HYDROCHLOROTHIAZIDE 12.5 MG (HCTZ) CAP PO SCH (20:22)
[2016-09-29] MEDS: lisINopril 10 MG (PRINIVIL) TAB PO SCH (20:22)
[2016-09-29] MEDS: ASPIRIN E.C. 81 MG (ECOTRIN) TAB PO SCH (20:22)
[2016-09-30 06:13] VITALS: BP 126/71
[2016-09-30] MEDS: SUCRALFATE 1 GM (CARAFATE) TAB PO SCH ×2 (06:14→15:35)
[2016-09-30] MEDS: KCL 20 MEQ TAB (K-DUR) PO SCH (06:14)
[2016-09-30] MEDS: PANTOPRAZOLE 40 MG (PROTONIX) TAB PO SCH ×2 (06:14→15:35)
[2016-09-30] MEDS: LEVOTHYROXINE 50 MCG (LEVOTHROID) TAB PO SCH (06:14)
[2016-09-30] MEDS: DULoxetine 30 MG (CYMBALTA) CAP PO SCH ×2 (09:01→20:30)
[2016-09-30] MEDS: SENNOSIDES 8.6 MG (SENOKOT) TAB PO SCH ×2 (09:01→20:30)
[2016-09-30] MEDS: CYANOCOBALAMIN 500 MCG TAB (VITAMIN B-12) PO SCH (09:01)
[2016-09-30] MEDS: OMEGA 3 (FISH OIL) 1000 MG CAP PO SCH (09:01)
[2016-09-30] MEDS: CLOPIDOGREL 75 MG (PLAVIX) TABLET PO SCH (09:01)
[2016-09-30] MEDS: GABAPENTIN 300 MG (NEURONTIN) CAP PO SCH ×2 (09:01→20:30)
[2016-09-30 17:37] VITALS: BP 119/70
[2016-09-30] MEDS: SIMvastatin 10 MG (ZOCOR) TAB PO SCH (20:30)
[2016-09-30] MEDS: ESTRADIOL 1 MG TAB (ESTRACE) PO SCH (20:30)
[2016-09-30] MEDS: MELOXICAM 7.5 MG (MOBIC) TABLET PO SCH (20:30)
[2016-09-30] MEDS: MULTIVIT W/MINERALS TAB (THERAGRAN M) PO SCH (20:31)
[2016-09-30] MEDS: ASPIRIN E.C. 81 MG (ECOTRIN) TAB PO SCH (20:31)
[2016-09-30] MEDS: lisINopril 10 MG (PRINIVIL) TAB PO SCH (20:31)
[2016-09-30] MEDS: HYDROCHLOROTHIAZIDE 12.5 MG (HCTZ) CAP PO SCH (20:31)
[2016-10-01 05:49] VITALS: BP 100/66
[2016-10-01] MEDS: SUCRALFATE 1 GM (CARAFATE) TAB PO SCH ×2 (06:21→16:51)
[2016-10-01] MEDS: KCL 20 MEQ TAB (K-DUR) PO SCH (06:21)
[2016-10-01] MEDS: PANTOPRAZOLE 40 MG (PROTONIX) TAB PO SCH ×2 (06:21→16:51)
[2016-10-01] MEDS: LEVOTHYROXINE 50 MCG (LEVOTHROID) TAB PO SCH (06:21)
--- NOTE | 2016-10-01 07:34 | Occupational Ther Daily Note ---
OT Current Status-Daily Note Subjective Pt finished up with PT, TELLEZ took over care of pt. Pt agreed to therapy. C/o pain in legs, 3-10 Mental Status/Objective Patient Orientation: Person, Place, Time, Situation Functional [place] Measure 0=Not Assessed/NA 4=Minimal Assistance 1=Total Assistance 5=Supervision or Setup 2=Maximal Assistance 6=Modified [place] 3=Moderate Assistance 7=Complete [place] ADL-Treatment Functional [place] Measure 0=Not Assessed/NA 4=Minimal Assistance 1=Total Assistance 5=Supervision or Setup 2=Maximal Assistance 6=Modified [place] 3=Moderate Assistance 7=Complete IndependenceIRFPAI Quality Coding Scale 6 Independent with activity with or without an assistive device 5 Patient requires set up or clean up by helper. Patient completes activity by themselves 4 Supervision or touching assist (CGA). [place] provide cues , steadying assist 3 The helper provides less than half the effort to complete the activity 2 The helper provides more than half the effort to complete the activity 1 Dependent. The helper does all the effort to complete an activity 7 Patient refused to complete or attempt activity 9 The patient did not perform the activity before the current illness or injury 88 Not attempted due to Medical conditions or safety concerns Other Treatment Pt ambulated with FWW from therapy gym to room. Pt then completed UE tasks with 1# wt attached to wrists. Pt demonstrated good strength and activity tolerance during tasks no fatigue or weakness noted. Activities for strengthening for daily functional tasks. After therapy, pt sitting in recliner with call light/phone in reach. All needs met in room. OT Short Term Goals Short Term Goals Time Frame: Sep 19, 2016 Bathing(FIM): 5 Lower Body Dressing(FIM): 5 Toileting(FIM): 5 Toilet/Commode Transfer(FIM): 5 Shower Transfer(FIM): 5 Additional Short Term Goals: 1-Demonstrate ADL Tasks, 2-Verbalize Understanding , 3-ImproveStrength/Joe 1=Demonstrate adherence to instructed precautions during ADL tasks. 2=Patient will verbalize/demonstrate understanding of assistive devices/ modifications for ADL. 3=Patient will improve strength/tolerance for activity to enable patient to perform ADL's. OT Fci Goals Fci Goals Time Frame: Oct 03, 2016 Eating (FIM): 6 Eating (QC): 6 Groomin Oral Hygiene (QC): 6 Bathing(FIM): 6 Shower/Bathe Self (QC): 6 Upper Body Dressing(FIM): 6 Upper Body Dressing (QC): 6 Lower Body Dressing(FIM): 6 Lower Body Dressing (QC): 6 On/Off Footwear (QC): 6 Toileting(FIM): 6 Toileting Hygiene (QC): 6 Toilet/Commode Transfer(FIM): 6 Toilet/Commode Transfer (QC): 6 Shower Transfer(FIM): 6 Comprehension(FIM): 5 (MET) Expression (FIM): 5 (MET) Social Interaction(FIM): 6 (MET) Problem Solving(FIM): 4 (MET) Memory(FIM): 4 (MET) Additional Goals: 1-Demonstrate ADL Tasks, 2-Verbalize Understanding, 3- ImproveStrength/Joe 1=Demonstrate adherence to instructed precautions during ADL tasks. 2=Patient will verbalize/demonstrate understanding of assistive devices/ modifications for ADL. 3=Patient will improve strength/tolerance for activity to enable patient to perform ADL's. OT Education/Plan Problem List/Assessment Pt admitted with CVA with left side deficits. Pt demonstrates decreased mobility , strength, coordination, activity tolerance and ADL performance. Pt to benefit from skilled OT intervention for ADL training, transfers, strengthening, and safety education to maximize level of function and allow safe return home. Discharge Recommendations Plan/Recommendations: Continue POC Therapy D/C Recommendations: Occupational Therapy Home Care Equpiment Recommendations-D/C: Rails on Tub/Shower, Bath Chair Treatment Plan/Plan of Care Patient would benefit from OT for education, treatment and training to promote independence in ADL's, mobility, safety and/or upper extremity function for ADL' s. Plan of Care: ADL Retraining, Functional Mobility, Group Exercise/Act as Ind, UE Funct Exercise/Act, UE Neuromus Re-Ed/Coord Treatment Duration: Oct 03, 2016 Visits Per Week: 10-12 Minutes/Day (M-F): 60-90 Minutes/Day (Sat/Naqvi): PRN Agreement: Yes Rehab Potential: Good Time/GCodes Start Time: 09:00 Stop Time: 09:30 Total Time Billed (hr/min): 30 Billed Treatment Time 1 visit-FA 2 (30 min) CRISTIANA HORTON Oct 01, 2016 07:34
[2016-10-01] MEDS: GABAPENTIN 300 MG (NEURONTIN) CAP PO SCH ×2 (07:44→20:26)
[2016-10-01] MEDS: CLOPIDOGREL 75 MG (PLAVIX) TABLET PO SCH (07:44)
[2016-10-01] MEDS: DULoxetine 30 MG (CYMBALTA) CAP PO SCH ×2 (07:44→20:26)
[2016-10-01] MEDS: OMEGA 3 (FISH OIL) 1000 MG CAP PO SCH (07:44)
[2016-10-01] MEDS: SENNOSIDES 8.6 MG (SENOKOT) TAB PO SCH ×2 (07:44→20:26)
[2016-10-01] MEDS: CYANOCOBALAMIN 500 MCG TAB (VITAMIN B-12) PO SCH (07:44)
--- NOTE | 2016-10-01 09:07 | Physical Therapy Daily Note ---
PT Daily Note-Current Subjective Pt. agrees to Rx. States she is a little apprehensive about going home. Pain Numeric Pain Scale: 4 Location: Right Location Body Site: Thigh Pain Description: Ache Mental Status Patient Orientation: Normal For Age Transfers Functional [place] Measure 0=Not Assessed/NA 4=Minimal Assistance 1=Total Assistance 5=Supervision or Setup 2=Maximal Assistance 6=Modified [place] 3=Moderate Assistance 7=Complete IndependenceIRFPAI Quality Coding Scale 6 Independent with activity with or without an assistive device 5 Patient requires set up or clean up by helper. Patient completes activity by themselves 4 Supervision or touching assist (CGA). [place] provide cues , steadying assist 3 The helper provides less than half the effort to complete the activity 2 The helper provides more than half the effort to complete the activity 1 Dependent. The helper does all the effort to complete an activity 7 Patient refused to complete or attempt activity 9 The patient did not perform the activity before the current illness or injury 88 Not attempted due to Medical conditions or safety concerns Transfers (B, C, W/C) (FIM): 6 Scootin Rollin Roll Left to Right (QC): 6 Supine to/from Sit: 6 Sit to/from Stand: 6 Sit to Lying (QC): 6 Sit to Stand (QC): 6 Chair/Dyo-ld-Vtalc Xfer(QC): 6 Bed to/from Chair: 6 Gait Training Does the Patient Walk?: Yes Gait (FIM): 6 Distance (FIM): 3=150 ft (500) Walk 10 feet (QC): 6 Walk 50 ft with 2 Turns(QC): 6 Walk 150 ft (QC): 6 Walking 10ft/uneven surface-QC: 6 Gait Level of Assist: 6 Gait Persons Needed: 0 Gait Assistive Device: FWW with therapies pt. uses SPC and walked out of doors on many unlevel surfaces doing well with all, side walks, grades, cracks, thresh holds and curbs Stair Training up down curb step out of doors with SBA and cane Exercises Supine Ex: Bridging, Ankle pumps, Quad Set, Rolling, Glut sets, Heel Slides, Short Arc Quads, Scooting, Straight leg raise, Hip abd/add (supine and sidelying x 15) Assessment Current Status: Good Progress PT Short Term Goals Short Term Goals Time Frame: Sep 19, 2016 Gait (FIM): 4 Stairs (FIM): 4 PT Nursing Home Goals Skin Specialist Goals PT Skin Specialist Goals Time Frame: Oct 03, 2016 Transfers (B,C,W/C) (FIM): 7 Sit to Lying (QC): 6 Lying-Sitting on Side/Bed(QC): 6 Sit to Stand (QC): 6 Rollin Roll Left to Right (QC): 6 Chair/Rtw-fo-Uqdzy Xfer(QC): 6 Car Transfer (QC): 6 Does the Patient Walk: Yes Gait (FIM): 6 Gait distance (FIM): 3=150 ft Walk 10 feet (QC): 6 Walk 10ft-Uneven Surface(QC): 6 Walk 50ft with 2 Turns (QC): 6 Walk 150 ft (QC): 6 Gait Assistive Device: FWW Does the Pt use WC or Scooter?: No Stairs (FIM): 6 # of Steps: 12 1 Step (curb) (QC): 6 4 Steps (QC): 6 12 Steps (QC): 6 Picking up an Object (QC): 5 PT Plan Treatment/Plan Treatment Plan: Continue Plan of Care Treatment Plan: Bed Mobility, Education, Functional Activity Joe, Functional Strength, Group Therapy, Gait, Safety, Therapeutic Exercise, Transfers Treatment Duration: Oct 03, 2016 Visits Per Week: 10-15 Minutes/Day (M-F): 60-90 Minutes/Day (Sat/Naqvi): prn Safety Risks/Education Patient Education: Gait Training, Transfer Techniques, Steps Teaching Recipient: Patient Teaching Methods: Demonstration, Discussion Response to Teaching: Verbalize Understanding, Return Demonstration, Reinforcement Needed Time/GCodes Time In: 800 Time Out: 900 Total Billed Treatment Time: 60 Total Billed Treatment 1,FA20m,GT15m,EX25m G Codes Necessary: No MIKE LARSON ROLL HAULER Oct 01, 2016 09:07
--- NOTE | 2016-10-01 11:27 | Occupational Ther Daily Note ---
OT Current Status-Daily Note Subjective Pt sleeping in bed, woke easily to name. Pt agreed to therapy. No c/o pain at this time. Mental Status/Objective Patient Orientation: Person, Place, Time, Situation Functional [place] Measure 0=Not Assessed/NA 4=Minimal Assistance 1=Total Assistance 5=Supervision or Setup 2=Maximal Assistance 6=Modified [place] 3=Moderate Assistance 7=Complete [place] ADL-Treatment Functional [place] Measure 0=Not Assessed/NA 4=Minimal Assistance 1=Total Assistance 5=Supervision or Setup 2=Maximal Assistance 6=Modified [place] 3=Moderate Assistance 7=Complete IndependenceIRFPAI Quality Coding Scale 6 Independent with activity with or without an assistive device 5 Patient requires set up or clean up by helper. Patient completes activity by themselves 4 Supervision or touching assist (CGA). [place] provide cues , steadying assist 3 The helper provides less than half the effort to complete the activity 2 The helper provides more than half the effort to complete the activity 1 Dependent. The helper does all the effort to complete an activity 7 Patient refused to complete or attempt activity 9 The patient did not perform the activity before the current illness or injury 88 Not attempted due to Medical conditions or safety concerns Eating (FIM): 7 (Pt able to complete all by self.) Eating (QC): 6 (Pt able to complete all by self.) Grooming (FIM): 6 (Using FWW, pt standing at sink to complete all grooming skills.) Oral Hygiene (QC): 6 (Using FWW, pt standing at sink to complete all oral hygiene skills.) Bathing (FIM): 6 (Using grabbar, hand held shower and tub seat pt is able to complete on own.) Bathing Location: L Arm, R Arm, L Upper Leg, R Upper Leg, L Lower Leg ( including foot), R Lower Leg (including foot), Chest, Abdomen, Buttocks, Perineal Area Shower/Bathe Self (QC): 6 (Using grabbar, hand held shower and tub seat pt is able to complete on own.) Upper Body (FIM): 6 (Using FWW to retrieve clothing pt is able to don/doff by self.) Upper Body Dressing (QC): 6 (Using FWW to retrieve clothing pt is able to don/ doff by self.) Lower Body Dressing (FIM): 6 (Using FWW to retrieve clothing pt is able to don/ doff by self.) Lower Body Dressing (QC): 6 (Using FWW to retrieve clothing pt is able to don/ doff by self.) On/Off Footwear (QC): 6 (Using FWW to retrieve clothing pt is able to don/doff by self.) Toileting (FIM): 6 (Using FWW, pt is able to complete by self.) Toileting Hygiene (QC): 6 (Using FWW, pt is able to complete by self.) Transfers (B, C, W/C) (FIM): 6 (Using FWW, pt is able to complete by self.) Toilet/Commode Transfer (FIM): 6 (Using FWW, pt is able to complete by self.) Toilet Transfer (QC): 6 (Using FWW, pt is able to complete by self.) Tub Transfer(FIM): 6 (Using FWW and tub seat, pt is able to complete by self.) Shower Transfer(FIM): 6 (Using FWW, pt is able to complete by self.) Other Treatment Pt was able to demonstrate ability to make the bed and pick items up off the floor using FWW, no LOB. After therapy, pt sitting in recliner with call light/ phone in reach. All needs met in room. OT Short Term Goals Short Term Goals Time Frame: Sep 19, 2016 Bathing(FIM): 5 Lower Body Dressing(FIM): 5 Toileting(FIM): 5 Toilet/Commode Transfer(FIM): 5 Shower Transfer(FIM): 5 Additional Short Term Goals: 1-Demonstrate ADL Tasks, 2-Verbalize Understanding , 3-ImproveStrength/Joe 1=Demonstrate adherence to instructed precautions during ADL tasks. 2=Patient will verbalize/demonstrate understanding of assistive devices/ modifications for ADL. 3=Patient will improve strength/tolerance for activity to enable patient to perform ADL's. OT Grinder Set Up Operator Surface Goals Grinder Set Up Operator Surface Goals Time Frame: Oct 03, 2016 Eating (FIM): 6 (met-10/01/2016) Eating (QC): 6 (met-10/01/2016) Groomin (met-10/01/2016) Oral Hygiene (QC): 6 (met-10/01/2016) Bathing(FIM): 6 (met-10/01/2016) Shower/Bathe Self (QC): 6 (met-10/01/2016) Upper Body Dressing(FIM): 6 (met-10/01/2016) Upper Body Dressing (QC): 6 (met-10/01/2016) Lower Body Dressing(FIM): 6 (met-10/01/2016) Lower Body Dressing (QC): 6 (met-10/01/2016) On/Off Footwear (QC): 6 (met-10/01/2016) Toileting(FIM): 6 (met-10/01/2016) Toileting Hygiene (QC): 6 (met-10/01/2016) Toilet/Commode Transfer(FIM): 6 (met-10/01/2016) Toilet/Commode Transfer (QC): 6 (met-10/01/2016) Shower Transfer(FIM): 6 (met-10/01/2016) Comprehension(FIM): 5 (MET) Expression (FIM): 5 (MET) Social Interaction(FIM): 6 (MET) Problem Solving(FIM): 4 (MET) Memory(FIM): 4 (MET) Additional Goals: 1-Demonstrate ADL Tasks, 2-Verbalize Understanding, 3- ImproveStrength/Joe 1=Demonstrate adherence to instructed precautions during ADL tasks. 2=Patient will verbalize/demonstrate understanding of assistive devices/ modifications for ADL. 3=Patient will improve strength/tolerance for activity to enable patient to perform ADL's. OT Education/Plan Problem List/Assessment Pt admitted with CVA with left side deficits. Pt demonstrates decreased mobility , strength, coordination, activity tolerance and ADL performance. Pt to benefit from skilled OT intervention for ADL training, transfers, strengthening, and safety education to maximize level of function and allow safe return home. Discharge Recommendations Plan/Recommendations: Continue POC Therapy D/C Recommendations: Occupational Therapy Home Care Equpiment Recommendations-D/C: Rails on Tub/Shower, Bath Chair Treatment Plan/Plan of Care Patient would benefit from OT for education, treatment and training to promote independence in ADL's, mobility, safety and/or upper extremity function for ADL' s. Plan of Care: ADL Retraining, Functional Mobility, Group Exercise/Act as Ind, UE Funct Exercise/Act, UE Neuromus Re-Ed/Coord Treatment Duration: Oct 03, 2016 Visits Per Week: 10-12 Minutes/Day (M-F): 60-90 Minutes/Day (Sat/Naqvi): PRN Agreement: Yes Rehab Potential: Good Time/GCodes Start Time: 07:00 Stop Time: 08:00 Total Time Billed (hr/min): 60 Billed Treatment Time 1 visit-ADL 3 (45 min) FA 1 (15 min) CRISTIANA HORTON Oct 01, 2016 11:27
--- NOTE | 2016-10-01 13:34 | Physical Therapy Daily Note ---
PT Daily Note-Current Subjective Pt. again states she is a little apprehensive about going home. Agrees to Rx. Mental Status Patient Orientation: Normal For Age Transfers Functional Reader Measure 0=Not Assessed/NA 4=Minimal Assistance 1=Total Assistance 5=Supervision or Setup 2=Maximal Assistance 6=Modified Reader 3=Moderate Assistance 7=Complete IndependenceIRFPAI Quality Coding Scale 6 Independent with activity with or without an assistive device 5 Patient requires set up or clean up by helper. Patient completes activity by themselves 4 Supervision or touching assist (CGA). [place] provide cues , steadying assist 3 The helper provides less than half the effort to complete the activity 2 The helper provides more than half the effort to complete the activity 1 Dependent. The helper does all the effort to complete an activity 7 Patient refused to complete or attempt activity 9 The patient did not perform the activity before the current illness or injury 88 Not attempted due to Medical conditions or safety concerns all TRFs Mod I Gait Training Gait Assistive Device: FWW up ad jyoti with FWW Stair Training Stair Training: Handrails/: uses cane (2 canes) Stairs (FIM): 5 #of Steps: 12 Stairs: Pattern: Step to Level of Assist: 5 pt. uses 2 canes as she will not have rails at home Exercises NuStep Minutes: 12 NuStep Workload: 4 Assessment Current Status: Excellent Progress meets goals PT Short Term Goals Short Term Goals Time Frame: Sep 19, 2016 Gait (FIM): 4 Stairs (FIM): 4 PT Choker Hooker Goals Choker Hooker Goals PT Choker Hooker Goals Time Frame: Oct 03, 2016 Transfers (B,C,W/C) (FIM): 7 Sit to Lying (QC): 6 Lying-Sitting on Side/Bed(QC): 6 Sit to Stand (QC): 6 Rollin Roll Left to Right (QC): 6 Chair/Kux-sq-Upuey Xfer(QC): 6 Car Transfer (QC): 6 Does the Patient Walk: Yes Gait (FIM): 6 Gait distance (FIM): 3=150 ft Walk 10 feet (QC): 6 Walk 10ft-Uneven Surface(QC): 6 Walk 50ft with 2 Turns (QC): 6 Walk 150 ft (QC): 6 Gait Assistive Device: FWW Does the Pt use WC or Scooter?: No Stairs (FIM): 6 # of Steps: 12 1 Step (curb) (QC): 6 4 Steps (QC): 6 12 Steps (QC): 6 Picking up an Object (QC): 5 PT Plan Treatment/Plan Treatment Plan: Continue Plan of Care Treatment Plan: Bed Mobility, Education, Functional Activity Joe, Functional Strength, Group Therapy, Gait, Safety, Therapeutic Exercise, Transfers Treatment Duration: Oct 03, 2016 Visits Per Week: 10-15 Minutes/Day (M-F): 60-90 Minutes/Day (Sat/Naqvi): prn Safety Risks/Education Patient Education: Gait Training, Transfer Techniques, Steps Teaching Recipient: Patient Teaching Methods: Demonstration, Discussion Response to Teaching: Verbalize Understanding, Return Demonstration, Reinforcement Needed Time/GCodes Time In: 1300 Time Out: 1330 Total Billed Treatment Time: 30 Total Billed Treatment 1,FA15m,EX15m G Codes Necessary: MIKE Barker SOUP PERSON Oct 01, 2016 13:34
[2016-10-01 18:23] VITALS: BP 126/74
[2016-10-01] MEDS: ASPIRIN E.C. 81 MG (ECOTRIN) TAB PO SCH (20:26)
[2016-10-01] MEDS: ESTRADIOL 1 MG TAB (ESTRACE) PO SCH (20:26)
[2016-10-01] MEDS: MELOXICAM 7.5 MG (MOBIC) TABLET PO SCH (20:26)
[2016-10-01] MEDS: lisINopril 10 MG (PRINIVIL) TAB PO SCH (20:26)
[2016-10-01] MEDS: MULTIVIT W/MINERALS TAB (THERAGRAN M) PO SCH (20:26)
[2016-10-01] MEDS: HYDROCHLOROTHIAZIDE 12.5 MG (HCTZ) CAP PO SCH (20:26)
[2016-10-01] MEDS: SIMvastatin 10 MG (ZOCOR) TAB PO SCH (20:26)
[2016-10-02 05:48] VITALS: BP 101/67
[2016-10-02] MEDS: PANTOPRAZOLE 40 MG (PROTONIX) TAB PO SCH ×2 (06:11→16:15)
[2016-10-02] MEDS: KCL 20 MEQ TAB (K-DUR) PO SCH (06:11)
[2016-10-02] MEDS: SUCRALFATE 1 GM (CARAFATE) TAB PO SCH ×2 (06:11→16:15)
[2016-10-02] MEDS: LEVOTHYROXINE 50 MCG (LEVOTHROID) TAB PO SCH (06:11)
--- NOTE | 2016-10-02 07:46 | PM & R (SOAP) Progress Note ---
Subjective Time Seen by Provider: 07:30 Subjective/Events-last exam Patient was seen in her room this AM Has progressed well Patient Modified Independent in apartment on IRU with walker Bllod pressure trending low and Apical pulse up a bit Meds reviewed Beta kaden d/cd but still on low dose Lisinopril/HCTZ DR Goodman et ghislaine will review on an outpatient basis Objective Exam Last Set of Vital Signs Vital Signs Date Time Temp Pulse Resp B/P (MAP) Pulse Ox O2 Delivery O2 Flow Rate FiO2 10/02/16 05:48 96.9 92 18 101/67 99 Room Air Capillary Refill : I&O Intake and Output 10/02/16 00:00 Intake Total 1500 ml Balance 1500 ml Intake Oral 1500 ml # Voids 9 # Bowel Movements 1 General: Alert, Oriented X3, Cooperative, No Acute Distress HEENT: Atraumatic, PERRLA, EOMI, Mucous Memb Moist/[place]ch[place] Neck: Supple, No JVD Lungs: Clear to Auscultation Heart: Regular Rate Abdomen: Normal Bowel Sounds, Soft, No Tenderness Extremities: No Edema Neuro: Other (Left HP largely resolved) Results Lab Microbiology 09/13/16 MRSA Screen - Final, Complete Assessment/Plan Assessment rt cva with Left HP HTN on 3 meds with decreasing BP DR Ro has adjusted meds-improved with good control of HTN but on low side Bradycardia-DR oR has adjusted meds and resolved -now trending toward high 90s Constipation improved with RX S/P biopsy thyroid gland [facility] on meds Hiatal hernia on meds Plan Discharge today to home with family and [facility] F/U with DR Mcclain See orders Current labs reviewed TSH WNL F/U with [facility] re Thyroid biopsy studies BROCK ESTES MD Oct 02, 2016 07:46
[2016-10-02] MEDS: SENNOSIDES 8.6 MG (SENOKOT) TAB PO SCH (09:01)
[2016-10-02] MEDS: GABAPENTIN 300 MG (NEURONTIN) CAP PO SCH (09:01)
[2016-10-02] MEDS: DULoxetine 30 MG (CYMBALTA) CAP PO SCH (09:01)
[2016-10-02] MEDS: OMEGA 3 (FISH OIL) 1000 MG CAP PO SCH (09:01)
[2016-10-02] MEDS: CLOPIDOGREL 75 MG (PLAVIX) TABLET PO SCH (09:01)
[2016-10-02] MEDS: CYANOCOBALAMIN 500 MCG TAB (VITAMIN B-12) PO SCH (09:01)
--- NOTE | 2016-10-02 11:21 | Therapy Team Discharge Summary ---
Therapy Discharge Summary Discharge Recommendations Date of Discharge Therapy D/C Recommendations: Occupational Therapy Home Care Physical Therapy Patient came to rehab following a TIA/CVA. Upon evaluation patient performed bed mobility with Memo/modA, transfers with min A, ambulated 50' with a rolling walker with min/CGA, and went up and down 1 step using a rolling walker with min /CGA. Patient has been performing bed mobility and transfer training, balance and endurance training, functional strengthening, stair training, gait training , and education. Patient has made good progress and has met all of her chcf goals except for stairs. Now, patient performs bed mobility and transfers with mod I, ambulates 500' with a rolling walker with mod I (including 50' with at least 2 turns of 90 degrees, and 10' over an uneven surface), and can go up and down 12 steps using 2 canes with SBA. Patient is discharging from this facility today and will be discharged from PT at this time. PT Nursing Home Goals Nursing Home Goals PT Nursing Home Goals Time Frame: Oct 03, 2016 Transfers (B,C,W/C) (FIM): 7 Roll Left to Right (QC): 6 Sit to Lying (QC): 6 Lying-Sitting on Side/Bed(QC): 6 Sit to Stand (QC): 6 Chair/Fmq-mk-Vjltd Xfer(QC): 6 Car Transfer (QC): 6 Does the Patient Walk: Yes Gait (FIM): 6 Gait distance (FIM): 3=150 ft Walk 10 feet (QC): 6 Walk 10ft-Uneven Surface(QC): 6 Walk 50ft with 2 Turns (QC): 6 Walk 150 ft (QC): 6 Gait Assistive Device: FWW Does the Pt use WC or Scooter?: No Stairs (FIM): 6 # of Steps: 12 1 Step (curb) (QC): 6 4 Steps (QC): 6 12 Steps (QC): 6 Picking up an Object (QC): 5 OT Nursing Home Goals Nursing Home Goals Time Frame: Oct 03, 2016 Eating (FIM): 6 (met-10/01/2016) Eating (QC): 6 (met-10/01/2016) Oral Hygiene (QC): 6 (met-10/01/2016) Grooming(FIM): 6 (met-10/01/2016) Bathing(FIM): 6 (met-10/01/2016) Shower/Bathe Self (QC): 6 ([facility]-10/01/2016) Upper Body Dressing(FIM): 6 ([facility]-10/01/2016) Upper Body Dressing (QC): 6 ([facility]-10/01/2016) Lower Body Dressing(FIM): 6 ([facility]/01/2016) Lower Body Dressing (QC): 6 ([facility]10/01/2016) On/Off Footwear (QC): 6 ([facility]/01/2016) Toileting(FIM): 6 ([facility]-10/01/2016) Toileting Hygiene (QC): 6 ([facility]-10/01/2016) Toilet/Commode Transfer(FIM): 6 ([facility]) Toilet/Commode Transfer (QC): 6 ([facility]-10/01/2016) Shower Transfer(FIM): 6 ([facility]01[facility]) Comprehension(FIM): 5 (MET) Expression (FIM): 5 (MET) Social Interaction(FIM): 6 (MET) Problem Solving(FIM): 4 (MET) Memory(FIM): 4 (MET) Additional Goals: 1-Demonstrate ADL Tasks, 2-Verbalize Understanding, 3- ImproveStrength/Joe 1=Demonstrate adherence to instructed precautions during ADL tasks. 2=Patient will verbalize/demonstrate understanding of assistive devices/ modifications for ADL. 3=Patient will improve strength/tolerance for activity to enable patient to perform ADL's. Speech Certified Teacher Assistant Goals Nursing Home Goals 1. The patient will demonstrate improved cognitive linguistic skills for increased function and safety with ADL's in the least restrictive setting. Time Frame: Four Weeks Comprehension: 5 (MET) Expression: 5 (MET) Social Interaction: 6 (MET) Problem Solvin (MET) Memory: 4 (MET) JENARO ESTRADA PT Oct 02, 2016 11:21
[2016-10-02 18:00] VITALS: BP 110/70
--- NOTE | 2016-10-03 08:15 | Therapy Team Discharge Summary ---
Therapy Discharge Summary Discharge Recommendations Date of Discharge Oct 02, 2016 at 19:33 Therapy D/C Recommendations: Occupational Therapy Home Care Occupational Therapy Pt admitted to ARU following TIA/CVA. On admission pt required minimal assistance with LE ADLs and transfers. Skilled OT intervention focused on ADL training, transfers, strengthening, and home safety education. Pt made good progress with therapy and by discharge is completing ADLs and transfers with modified independence. Pt has met all OT LTG. Pt discharged home. D/c ARU OT. PT Complaint Evaluation Supervisor Goals Complaint Evaluation Supervisor Goals PT Complaint Evaluation Supervisor Goals Time Frame: Oct 03, 2016 Transfers (B,C,W/C) (FIM): 7 Roll Left to Right (QC): 6 Sit to Lying (QC): 6 Lying-Sitting on Side/Bed(QC): 6 Sit to Stand (QC): 6 Chair/Fkf-rs-Ficla Xfer(QC): 6 Car Transfer (QC): 6 Does the Patient Walk: Yes Gait (FIM): 6 Gait distance (FIM): 3=150 ft Walk 10 feet (QC): 6 Walk 10ft-Uneven Surface(QC): 6 Walk 50ft with 2 Turns (QC): 6 Walk 150 ft (QC): 6 Gait Assistive Device: FWW Does the Pt use WC or Scooter?: No Stairs (FIM): 6 # of Steps: 12 1 Step (curb) (QC): 6 4 Steps (QC): 6 12 Steps (QC): 6 Picking up an Object (QC): 5 OT Complaint Evaluation Supervisor Goals Complaint Evaluation Supervisor Goals Time Frame: Oct 03, 2016 Eating (FIM): 6 (met-10/01/2016) Eating (QC): 6 (met-10/01/2016) Oral Hygiene (QC): 6 (met-10/01/2016) Grooming(FIM): 6 (met-10/01/2016) Bathing(FIM): 6 (met-10/01/2016) Shower/Bathe Self (QC): 6 (met-10/01/2016) Upper Body Dressing(FIM): 6 (met-10/01/2016) Upper Body Dressing (QC): 6 (met-10/01/2016) Lower Body Dressing(FIM): 6 (met-10/01/2016) Lower Body Dressing (QC): 6 (met-10/01/2016) On/Off Footwear (QC): 6 (met-10/01/2016) Toileting(FIM): 6 (met-10/01/2016) Toileting Hygiene (QC): 6 (met-10/01/2016) Toilet/Commode Transfer(FIM): 6 (met-10/01/2016) Toilet/Commode Transfer (QC): 6 (met-10/01/2016) Shower Transfer(FIM): 6 (met-10/01/2016) Comprehension(FIM): 5 (MET) Expression (FIM): 5 (MET) Social Interaction(FIM): 6 (MET) Problem Solving(FIM): 4 (MET) Memory(FIM): 4 (MET) Additional Goals: 1-Demonstrate ADL Tasks, 2-Verbalize Understanding, 3- ImproveStrength/Joe 1=Demonstrate adherence to instructed precautions during ADL tasks. 2=Patient will verbalize/demonstrate understanding of assistive devices/ modifications for ADL. 3=Patient will improve strength/tolerance for activity to enable patient to perform ADL's. Speech Complaint Evaluation Supervisor Goals Complaint Evaluation Supervisor Goals 1. The patient will demonstrate improved cognitive linguistic skills for increased function and safety with ADL's in the least restrictive setting. Time Frame: Four Weeks Comprehension: 5 (MET) Expression: 5 (MET) Social Interaction: 6 (MET) Problem Solvin (MET) Memory: 4 (MET) ALVIN RIVERA OT Oct 03, 2016 08:15
== END 2016-10-02 19:33 | disposition home health service (06) | DRG 57 ==
LOC: ENPENDDIS 10-02 12:00
PROVIDERS: ADMIT Physical Medicine & Rehabilitation; ATTEND Physical Medicine & Rehabilitation
DX: I69.354 Hemiplegia and hemiparesis following cerebral infarction affecting left non-dominant side (principal); I69.311 Memory deficit following cerebral infarction; I69.398 Other sequelae of cerebral infarction; R26.81 Unsteadiness on feet; F17.210 Nicotine dependence, cigarettes, uncomplicated; I25.10 Atherosclerotic heart disease of native coronary artery without angina pectoris; K21.9 Gastro-esophageal reflux disease without esophagitis; I10 Essential (primary) hypertension; E03.9 Hypothyroidism, unspecified; M79.7 Fibromyalgia; M19.90 Unspecified osteoarthritis, unspecified site; E78.5 Hyperlipidemia, unspecified; R00.1 Bradycardia, unspecified; K58.9 Irritable bowel syndrome, unspecified; F32.9 Major depressive disorder, single episode, unspecified; N95.1 Menopausal and female climacteric states; K59.00 Constipation, unspecified; K44.9 Diaphragmatic hernia without obstruction or gangrene
CPT/HCPCS: 36415; 74220; 80048; 85027; 87081

== ENCOUNTER 2017-01-11 12:25 | Outpatient (RCR) | payer OTHER ==
[~2017-01-11 12:25] MED LIST changes: +CLOP75TA28 PO
== END 2017-01-12 | disposition home or self-care (01) ==
PROVIDERS: ATTEND Nurse Practitioner Adult Health
DX: I69.354 Hemiplegia and hemiparesis following cerebral infarction affecting left non-dominant side (principal)

== ENCOUNTER 2017-01-18 13:45 | Outpatient (RCR) | payer SELFPAY ==
[~2017-01-18 13:45] MED LIST changes: +OXYC-529 PO; -OXYC5TAB71 PO
[2017-02-20] MEDS ORDERED: HYDR12.56 PO (15:50)
[2017-02-20] MEDS ORDERED: LISI-556 PO (15:50)
[2017-02-20] MEDS ORDERED: POTA10TA10 PO (15:50)
[2017-02-20] MEDS ORDERED: VENL37.57 PO (15:54)
== END 2017-03-05 11:13 | disposition home or self-care (01) ==
PROVIDERS: ATTEND Nurse Practitioner Adult Health
DX: I69.354 Hemiplegia and hemiparesis following cerebral infarction affecting left non-dominant side (principal)

== ENCOUNTER 2017-04-11 17:48 | Emergency (ER) | payer SELFPAY ==
[~2017-04-11] VITALS: Ht 165.1 cm; Wt 93.0 kg
[~2017-04-11 17:48] MED LIST changes: +HYDR12.56 PO; +LISI-556 PO; +POTA10TA10 PO; +VENL37.57 PO
--- NOTE | 2017-04-11 18:31 | ED Neck-Back Pain/Injury ---
General Chief Complaint: Head/Cervical Problems Stated Complaint: RIGHT NECK PAIN Source of Information: Patient Exam Limitations: No Limitations History of Present Illness Time Seen by Provider: 18:29 Initial Comments To ER with a tender nodule inferior to the right ear and just posterior to the angle of the mandible on the right. No known cause. She awakened with this this morning. No fevers or chills. She has had a sore on her forehead that is a bit large but started as a pimple. It's now about nickel size. Timing/Duration: 12-24 Hours Severity: Mild Allergies and Home Medications Allergies Coded Allergies: Penicillins (Verified Allergy, Intermediate, RASH, 02/20/17) Sulfa (Sulfonamide Antibiotics) (Verified Adverse Reaction, Mild, DIARRHEA , 02/20/17) Home Medications Aspirin 81 Mg Tablet.dr, 81 MG PO HS, (Reported) Clopidogrel Bisulfate 75 Mg Tablet, 75 MG PO DAILY, (Reported) Cyanocobalamin 100 Mcg Tablet, 100 MCG PO DAILY, (Reported) Duloxetine HCl 60 Mg Capsule.dr, 60 MG PO BID, (Reported) Gabapentin 300 Mg Capsule, 300 MG PO BID, (Reported) Hydrochlorothiazide 12.5 Mg Tablet, 12.5 MG PO HS, (Reported) Levothyroxine Sodium 50 Mcg Tablet, 50 MCG PO DAILY, (Reported) Lisinopril 5 Mg Tablet, 10 MG PO HS, (Reported) TAKES 2 (5MG) TABLETS Loratadine 10 Mg Capsule, 10 MG PO DAILY PRN for ALLERGIES, (Reported) Multivitamin 1 Each Tablet, 1 TAB PO HS, (Reported) Nitroglycerin 0.4 Mg Tab.subl, 0.4 MG SL UD PRN for CHEST PAIN, (Reported) DISSOLVE 1 TAB UNDER TONGUE EVERY 5 MINUTES / NOT TO EXCEED 3 DOSES IN 15 MINUTES [place]-3/Dha/Epa/Fish Oil 1 Each Capsule, 1,000 MG PO DAILY, (Reported) Pantoprazole Sodium 40 Mg Tablet.dr, 40 MG PO DAILY, (Reported) Potassium Chloride 10 Meq Tablet.er, 20 MEQ PO DAILY, (Reported) TAKES 2 (10MEQ) TABLETS Pravastatin Sodium 20 Mg Tablet, 20 MG PO HS, (Reported) Sennosides/Docusate Sodium 1 Each Tablet, 1 TAB PO DAILY PRN for CONSTIPATION- 6TH LINE, (Reported) Sucralfate 1 Gm/10 Ml Oral.susp, 10 ML PO BID, (Reported) Sulfamethoxazole/Trimethoprim 1 Each Tablet, 1 EACH PO BID, #10 Prescribed by: SAMIR PATTERSON on 04/11/172021 Venlafaxine HCl 37.5 Mg Tab.er.24, 37.5 MG PO DAILY, (Reported) Constitutional: see HPI EENTM: see HPI Respiratory: no symptoms reported Cardiovascular: no symptoms reported Genitourinary: no symptoms reported Musculoskeletal: no symptoms reported Skin: no symptoms reported Psychiatric/Neurological: No Symptoms Reported Past Nygqpuz-Fpiobm-Llhmpk Hx Patient Social History Type Used: Cigarettes Former Smoker, Quit: Sep 14, 2015 Recent Foreign Travel: No Contact w/Someone Who Travel: No Recent Hopitalizations: No Immunizations Up To Date PED Vaccines UTD: No Seasonal Allergies Seasonal Allergies: No (None that patient is aware of) Surgeries History of Surgeries: Yes Surgeries: Cystectomy, Hysterectomy, Oophorectomy, Orthopedic, Thyroidectomy Respiratory History of Respiratory Disorde: No Currently Using CPAP: No Currently Using BIPAP: No Cardiovascular History of Cardiac Disorders: Yes Cardiac Disorders: Palpitations Neurological History of Neurological Disord: Yes Neurological Disorders: Stroke Reproductive System Sexually Transmitted Disease: No HIV/AIDS: No Female Reproductive Disorders: Ovarian Cyst Genitourinary History of Genitourinary Disor: No Gastrointestinal History of Gastrointestinal Di: Yes Gastrointestinal Disorders: Irritable Bowel Musculoskeletal History of Musculoskeletal Dis: Yes Musculoskeletal Disorders: Fibromyalgia Endocrine History of Endocrine Disorders: Yes Endocrine Disorders: Hypothyroidsim HEENT History of HEENT Disorders: Yes HEENT Disorders: Chronic Eye Infection Loss of Vision: Denies Hearing Impairment: Denies Cancer History of Cancer: Yes Cancer: Ovarian Did You Recieve Any Treatments: Yes Type of Tx Receive: Surgical Intervention Psychosocial History of Psychiatric Problem: Yes Behavioral Health Disorders: Depression Integumentary History of Skin or Integumenta: No Blood Transfusions History of Blood Disorders: Yes (elevated red blood cells) Adverse Reaction to a Blood Tr: No Family Medical History Significant Family History: Diabetes, Vascular Disease Family Medial History: Cardiovascular disease 19 MOTHER Diabetes mellitus 19 MOTHER Psychosocial problem 19 MOTHER daughter Physical Exam Vital Signs Vital Sign - Last 12Hours 04/11/17 18:17 Temp 96.9 Pulse 103 Resp 18 B/P (MAP) 139/88 (105) Pulse Ox 98 O2 Delivery Room Air Capillary Refill : General Appearance: No Apparent Distress, WD/WN, Other (small abscess to the forehead about nickel sized.) HEENT: PERRL/EOMI, TMs Normal, Pharynx Normal Neck: Full Range of Motion, Normal Inspection, Other (palpable nodule about 1 cm wide and 4 cm long without overlying skin changes just posterior to the right angle of the mandible.) Cardiovascular: Regular Rate, Rhythm, Normal Peripheral Pulses Respiratory: Normal Breath Sounds, No Accessory Muscle Use, No Respiratory Distress Gastrointestinal: Normal Bowel Sounds, Non Tender, Soft Extremity: Normal Capillary Refill, Normal Inspection Neurologic/Psychiatric: Alert, Oriented x3, No Motor/Sensory Deficits Skin: Normal Color, Warm/Dry Progress/Results/Core Measures Results/Orders Lab Results Laboratory Tests Test 04/11/17 18:25 Range/Units White Blood Count 5.8 4.3-11.0 10^3/uL Red Blood Count 5.16 4.35-5.85 10^6/uL Hemoglobin 14.1 11.5-16.0 G/DL Hematocrit 41 35-52 % Mean Corpuscular Volume 80 80-99 FL Mean Corpuscular Hemoglobin 27 25-34 PG Mean Corpuscular Hemoglobin Concent 34 32-36 G/DL Red Cell Distribution Width 13.2 10.0-14.5 % Platelet Count 283 130-400 10^3/uL Mean Platelet Volume 10.0 7.4-10.4 FL Neutrophils (%) (Auto) 58 42-75 % Lymphocytes (%) (Auto) 30 12-44 % Monocytes (%) (Auto) 10 0-12 % Eosinophils (%) (Auto) 3 0-10 % Basophils (%) (Auto) 0 0-10 % Neutrophils # (Auto) 3.4 1.8-7.8 X 10^3 Lymphocytes # (Auto) 1.7 1.0-4.0 X 10^3 Monocytes # (Auto) 0.6 0.0-1.0 X 10^3 Eosinophils # (Auto) 0.2 0.0-0.3 10^3/uL Basophils # (Auto) 0.0 0.0-0.1 10^3/uL Sodium Level 139 135-145 MMOL/L Potassium Level 3.8 3.6-5.0 MMOL/L Chloride Level 104 98-107 MMOL/L Carbon Dioxide Level 24 21-32 MMOL/L Anion Gap 11 5-14 MMOL/L Blood Urea Nitrogen 14 7-18 MG/DL Creatinine 0.80 0.60-1.30 MG/DL Estimat Glomerular Filtration Rate > 60 BUN/Creatinine Ratio 18 Glucose Level 91 70-105 MG/DL Calcium Level 9.7 8.5-10.1 MG/DL My Orders Orders - SAMIR PATTERSON [employer] Cbc With Automated Diff (04/11/17 18:28) Basic Metabolic Panel (04/11/17 18:28) Saline Lock/Iv-Start (04/11/17 18:28) Ct Neck (Soft Tissue) W (04/11/17 18:28) Iohexol Injection (Omnipaque 350 Mg/Ml 1 (04/11/17 19:15) Sodium Chloride Flush (Catheter Flush Sy (04/11/17 19:15) Ns (Ivpb) (Sodium Chloride 0.9% Ivpb Bag (04/11/17 19:15) Pharmacy Communication (Pharmacy Communi (04/11/17 19:06) Medications Given in ED Current Medications Medications Dose Ordered Sig/Damion Route Start Time Stop Time Status Last Admin Dose Admin Iohexol 100 ml ONCE ONCE IV 04/11/17 19:15 04/11/17 19:16 DC 04/11/17 19:08 75 ML Sodium Chloride 10 ml NEEDED PRN IV 04/11/17 19:15 04/11/17 19:08 10 ML Sodium Chloride 100 ml ONCE ONCE IV 04/11/17 19:15 04/11/17 19:16 DC 04/11/17 19:08 80 ML Vital Signs/I&O Vital Sign - Last 12Hours 04/11/17 18:17 Temp 96.9 Pulse 103 Resp 18 B/P (MAP) 139/88 (105) Pulse Ox 98 O2 Delivery Room Air Departure Communication (Admissions) Progress Notes I clarified the patient's allergy list with her. She states that she has an allergy to "some" sulfas but she has taken Bactrim without troubles before. Impression Impression: Primary Impression: Furuncle of forehead Additional Impression: Reactive lymphadenopathy Disposition: 01 HOME, SELF-CARE Condition: Stable Departure-Patient Inst. Decision time for Depature: 20:21 Referrals: SUE ARIAS MD (PCP) Primary Care Physician Patient Instructions: LYMPH NODE SWELLING Add. Discharge Instructions: 1. Return to ER for any concerns 2. Antibiotics as directed 3. Follow-up with your doctor this week for recheck. All discharge instructions reviewed with patient and/or family. Voiced understanding. Scripts Sulfamethoxazole/Trimethoprim (Bactrim Ds Tablet) 1 Each Tablet 1 EACH PO BID, #10 TAB Prov: SAMIR PATTERSON APRN 04/11/17 SAMIR PATTERSON APRN Apr 11, 2017 18:31
[2017-04-11 18:33] LABS: BASOPHILS % (AUTO) 0 % (0-10); EOSINOPHILS # (AUTO) 0.2 10^3/uL (0.0-0.3); EOSINOPHILS % (AUTO) 3 % (0-10); LYMPHOCYTES # (AUTO) 1.7 X 10^3 (1.0-4.0); LYMPHOCYTES % (AUTO) 30 % (12-44); MEAN CORPUSCULAR HEMOGLOBIN 27 PG (25-34); MEAN CORPUSCULAR HGB CONC 34 G/DL (32-36); MEAN CORPUSCULAR VOLUME 80 FL (80-99); MONOCYTES # (AUTO) 0.6 X 10^3 (0.0-1.0); MONOCYTES % (AUTO) 10 % (0-12); NEUTROPHILS # (AUTO) 3.4 X 10^3 (1.8-7.8); NEUTROPHILS % (AUTO) 58 % (42-75); PLATELET COUNT 283 10^3/uL (130-400); RED BLOOD COUNT 5.16 10^6/uL (4.35-5.85); RED CELL DISTRIBUTION WIDTH 13.2 % (10.0-14.5); WHITE BLOOD COUNT 5.8 10^3/uL (4.3-11.0)
[2017-04-11 18:48] LABS: ANION GAP 11 MMOL/L (5-14); BLOOD UREA NITROGEN 14 MG/DL (7-18); BUN/CREATININE RATIO 18; CALCIUM 9.7 MG/DL (8.5-10.1); CARBON DIOXIDE 24 MMOL/L (21-32); CHLORIDE 104 MMOL/L (98-107); GFR ESTIMATED > 60; GLUCOSE 91 MG/DL (70-105); POTASSIUM 3.8 MMOL/L (3.6-5.0); SODIUM 139 MMOL/L (135-145)
[2017-04-11] MEDS: IOHEXOL 350 MG/ML 100 ML (OMNIPAQUE 350) VIAL IV ONE (19:08)
[2017-04-11] MEDS: NS 100 ML (IVPB) BAG IV ONE (19:08)
[2017-04-11] MEDS: CATHETER FLUSH 10 ML SYR IV PRN (19:08)
--- NOTE | 2017-04-11 20:11 | Diagnostic Imaging Report ---
PROCEDURE: CT neck soft tissue with contrast. TECHNIQUE: Multiple contiguous axial images were obtained through the neck after the administration of contrast. INDICATION: Cervical swelling, right-sided neck swelling, history of stroke. History of thyroid surgery. COMPARISON: None. FINDINGS: External BB marker was placed on the right lateral aspect of the neck at the level of the mandibular angle. There is a prominent but nonpathologic appearing lymph node just inferior to the parotid gland measuring approximately 7 mm in cross-section. Scattered bilateral jugular lymph nodes are present. There is no bulky lymphadenopathy or mass. Bilateral parotid and submandibular glands appear unremarkable. There is a small nodule on the left thyroid lobe measuring 10 mm. The right thyroid gland appears grossly unremarkable. Vascular structures are intact. Central airway and true vocal cords are grossly unremarkable. There is no fluid collection or abscess. Tonsils are grossly normal. Visualized upper lung zones are grossly unremarkable. Skull base anatomy is intact. Osseous structures are grossly unremarkable. IMPRESSION: 1. External BB marker in the right is adjacent to a benign-appearing lymph node just inferior to the parotid gland. No inflammatory process, fluid collection or mass is identified. 2. Left thyroid nodule. Consider ultrasound correlation on a nonemergent basis. 3. No airway compromise. 4. No obvious vascular abnormality identified. Dictated by: Dictated on workstation # [id number]
[2017-04-11] MEDS ORDERED: SULF1TAB35 PO (20:22)
[2017-04-11 20:43] VITALS: BP 136/87
[2017-04-11] MEDS: TRIM/SULFAMETH 160/800 (SEPTRA DS) TAB PO ONE (20:43)
== END 2017-04-11 20:43 | disposition home or self-care (01) ==
LOC: EDUNIT# 17:48 → ER 17:50
DX: L02.02 Furuncle of face (principal); R59.0 Localized enlarged lymph nodes; E03.9 Hypothyroidism, unspecified; F32.9 Major depressive disorder, single episode, unspecified; Z82.49 Family history of ischemic heart disease and other diseases of the circulatory system; Z85.43 Personal history of malignant neoplasm of ovary; Z79.82 Long term (current) use of aspirin; Z87.891 Personal history of nicotine dependence; Z90.710 Acquired absence of both cervix and uterus; Z90.6 Acquired absence of other parts of urinary tract; Z90.89 Acquired absence of other organs; Z86.73 Personal history of transient ischemic attack (TIA), and cerebral infarction without residual deficits; Z87.448 Personal history of other diseases of urinary system; Z87.19 Personal history of other diseases of the digestive system
CPT/HCPCS: 36415; 70491; 80048; 85025

== ENCOUNTER → 2017-05-21 | Outpatient (CLI) | payer SELFPAY ==
[~2017-05-21] MED LIST changes: +SULF1TAB35 PO
--- NOTE | 2017-05-21 15:02 | Diagnostic Imaging Report ---
Procedure: Ultrasound of soft tissue head and neck. Indication: Painful lump near the right ear. Findings: By history, the patient has a painful palpable abnormality in the right neck just below the right ear. The CT neck exam performed on 04/11/2017 suggests a lymph node along the inferior margin of the right parotid gland. By my measurements, this nodule measured approximately 1.6 x 0.8 x 1.1 cm, 8 x 16 mm. On this exam, there is a region of mixed echogenicity in this same area. This area measures approximately 5.0 x 1.6 x 2.7 cm. This area of mixed echogenicity does not have the typical appearance of an abscess and I suspect that this is a lymph node involved by an inflammatory/infectious process. It would be unlikely that this is secondary to a neoplastic process but that possibly should still be considered. An ENT consult would be recommended for further evaluation. There is no other mass or adenopathy noted. Impression: 1. There is an area of mixed echogenicity in the same region as the lymph node seen on the prior CT neck exam. This area of mixed echogenicity has increased in size since the prior exam and is probably due to an inflammatory/infectious process. It would be unlikely that this finding is neoplastic in nature. Recommendations as above. 2. There is no other abnormality identified. 3. These results were discussed with Dr. Mahsa Jarquin. Dictated by: Dictated on workstation # [id number]
== END ==
LOC: RAD 13:01
PROVIDERS: ATTEND Family Medicine
DX: R22.0 Localized swelling, mass and lump, head (principal); I10 Essential (primary) hypertension
CPT/HCPCS: 76536

== ENCOUNTER → 2017-12-17 | Outpatient (CLI) | payer MEDICAID ==
[2017-12-17 13:31] LABS: BUN/CREATININE RATIO 18; CREATININE SERUM 0.76 MG/DL (0.60-1.30); GFR ESTIMATED > 60
--- NOTE | 2017-12-17 15:03 | Diagnostic Imaging Report ---
PROCEDURE: CT abdomen and pelvis with contrast. TECHNIQUE: Multiple contiguous axial images were obtained through the abdomen and pelvis after administration of intravenous contrast. INDICATION: History of ovarian carcinoma. Patient has bilateral kidney pain. COMPARISON: Correlation is made with prior CT from 11/25/2015. FINDINGS: The lung bases are clear. The patient does have a large hiatal hernia. No discrete liver mass is identified. The gallbladder appears to be surgically absent. The pancreas and spleen are unremarkable. No adrenal mass is identified. The left kidney is unremarkable. Right kidney does contain a circumscribed low-density mass posteriorly measuring 2.4 cm. This compares with 1.8 cm on prior exam and again is consistent with an enlarging cyst. There is a smaller cortical low density lesion in anterior lower pole of the right kidney which also demonstrates some increase in size measuring 12 mm compared with 10 mm. No hydronephrosis is seen. Aorta is nonaneurysmal. The small and large bowel loops are normal caliber. There is no ascites. No lymphadenopathy is seen. The bony structures are nonacute. IMPRESSION: There has been some mild increase in size of low-density masses in the right kidney when compared with prior CT from 11/25/2015. These are most suggestive of enlarging cysts. Continued followup is recommended. Dictated by: Dictated on workstation # [id number]
== END ==
LOC: RAD 13:02
PROVIDERS: ATTEND Family Medicine
DX: N28.89 Other specified disorders of kidney and ureter (principal); Z85.43 Personal history of malignant neoplasm of ovary
CPT/HCPCS: 36415; 74177; 82565; 84520

== ENCOUNTER → 2018-07-04 | Outpatient (CLI) | payer MEDICAID ==
[~2018-07-04] MED LIST changes: +CATHETER FLUSH 10 ML SYR IV PRN; +HOLD METFORMIN - RECEIVED CONTRAST 20 ML VIAL IV SCH; +IOHEXOL 350 MG/ML 100 ML (OMNIPAQUE 350) VIAL IV ONE
[2018-07-04 12:04] LABS: BUN/CREATININE RATIO 15; CREATININE SERUM 0.72 MG/DL (0.60-1.30); GFR ESTIMATED > 60
--- NOTE | 2018-07-04 13:20 | Diagnostic Imaging Report ---
PROCEDURE: CT abdomen and pelvis with contrast. TECHNIQUE: Multiple contiguous axial images were obtained through the abdomen and pelvis after administration of intravenous contrast. Auto Exposure Controls were utilized during the CT exam to meet ALARA standards for radiation dose reduction. INDICATION: History of hiatal hernia. Weight loss. Loss of appetite. Abdominal pain. COMPARISON: 12/17/2017. FINDINGS: Included portions of the lung bases are clear. Note is made of moderate hiatal hernia. CT abdomen: Note is made of somewhat thickened appearance to the wall of the proximal and mid portion of the transverse colon. Colonic wall at this area measures approximately 6 mm in thickness. Normal appendix cannot adequately identified, but there is no pericecal inflammation. Small bowel loops are nondistended. Benign right renal cysts are noted. Otherwise, kidneys, adrenal glands, spleen, pancreas, and liver have a normal CT appearance. There is no loculated fluid collection, free fluid, or free air within the abdomen. No abnormal mesenteric or retroperitoneal adenopathy is seen. Bony structures show no acute abnormalities. CT pelvis: Urinary bladder is grossly unremarkable. There is no loculated fluid collection, free fluid, or free air within the pelvis. No abnormal adenopathy is seen. Bony structures show no acute abnormalities. IMPRESSION: 1. Asymmetric thickened appearance to the wall of the proximal and mid portion of the transverse colon. This may be artifactual and related to incomplete distention, but also raises concern for potential nonspecific infectious or inflammatory colitis. Colonic malignancy may also present in a similar manner. Correlation with colonoscopy may be of benefit. 2. No other acute abnormalities are seen within the abdomen or pelvis. 3. Moderate hiatal hernia. Dictated by: Dictated on workstation # [id number]
== END ==
LOC: RAD 11:34
PROVIDERS: ATTEND Family Medicine
DX: K44.9 Diaphragmatic hernia without obstruction or gangrene (principal); K63.89 Other specified diseases of intestine; N28.1 Cyst of kidney, acquired; R63.4 Abnormal weight loss
CPT/HCPCS: 36415; 74177; 82565; 84520

== ENCOUNTER → 2018-08-04 | Outpatient (CLI) | payer MEDICAID ==
[~2018-08-04] MED LIST changes: -CATHETER FLUSH 10 ML SYR IV PRN; -CYAN100T PO; +CYAN100T3 PO; -HOLD METFORMIN - RECEIVED CONTRAST 20 ML VIAL IV SCH; -IOHEXOL 350 MG/ML 100 ML (OMNIPAQUE 350) VIAL IV ONE
== END ==
LOC: CARD 10:48
PROVIDERS: ATTEND Internal Medicine Cardiovascular Disease
DX: R06.09 Other forms of dyspnea (principal); I10 Essential (primary) hypertension; I34.0 Nonrheumatic mitral (valve) insufficiency; I20.9 Angina pectoris, unspecified
CPT/HCPCS: 93306

== ENCOUNTER 2018-12-24 06:10 | Outpatient (CLI) | payer MEDICAID ==
[~2018-12-24] VITALS: Ht 165.1 cm; Wt 61.3 kg
[2018-12-24] MEDS ORDERED: CETI10TA17 PO (14:12)
[2018-12-24] MEDS ORDERED: LEVO25TA5 PO (14:12)
[2018-12-24] MEDS ORDERED: LISI1TAB6 PO (14:12)
[2018-12-24] MEDS ORDERED: PROP60TA17 PO (14:12)
== END 2018-12-24 14:14 | disposition home or self-care (01) ==
LOC: PREOP 06:10
PROVIDERS: ATTEND Specialist
DX: Z01.818 Encounter for other preprocedural examination (principal)

== ENCOUNTER 2018-12-26 08:17 | Day surgery (SDC) | payer MEDICAID ==
[~2018-12-26] VITALS: Ht 139.7 cm; Wt 61.3 kg
[~2018-12-26 08:17] MED LIST changes: +CETI10TA17 PO; +LEVO25TA5 PO; +PROP60TA17 PO
[2018-12-26] MEDS ORDERED: LIDOCAINE PF 1% 2 ML AMP IR PRN (08:30)
[2018-12-26] MEDS ORDERED: MOXIFLOXACIN OPHTH SOLN 5 MG/ML 0.3 ML SYRINGE OP ONE (08:30)
[2018-12-26] MEDS ORDERED: POVIDONE (BETADINE) OPHTH SOLN 5% 30 ML OP ONE (08:30)
[2018-12-26] MEDS ORDERED: TIMOLOL MALEATE 0.5% 5 ML (TIMOPTIC) BTL OU PRN (08:30)
[2018-12-26] MEDS: TETRACAINE 0.5% OPHTH SOLN 4 ML BTL (SINGLE DOSE ONLY) OU PRN ×4 (08:44→09:04)
[2018-12-26 08:45] VITALS: BP 100/53
[2018-12-26] MEDS: CYCLOPENTOLATE 1% (CYCLOGYL) 2 ML DROPS OP SCH ×3 (08:54→09:04)
[2018-12-26] MEDS: PHENYLEPHRINE 10% OPHTH (NEO-SYN) 5 ML BTL OU SCH ×3 (08:55→09:04)
--- NOTE | 2018-12-26 09:22 | Ophthalmologist Pre-Op Note ---
Pre-Operative Progress Note H&P Reviewed The H&P was reviewed, patient examined and no changes noted. Date H&P Reviewed: Dec 26, 2018 Time H&P Reviewed: 09:22 Pre-Op Dx Cataract, Right Eye QUYNH TABARES MD Dec 26, 2018 09:22
[2018-12-26] MEDS ORDERED: MIDAZOLAM 2 MG/2 ML (VERSED) VIAL ONE (09:27)
--- NOTE | 2018-12-26 09:55 | Ophthalmology Operative Report ---
Cataract removal/placement IOL PREOPERATIVE DIAGNOSIS: Cataract Right Eye POSTOPERATIVE DIAGNOSIS: Cataract Right Eye PROCEDURE: Cataract removal and placement of posterior chamber implant, right eye SURGEON: Anupam Tabares ANESTHESIA: Topical with sedation COMPLICATIONS: None ESTIMATED BLOOD LOSS: Minimal DESCRIPTION OF PROCEDURE: After proper informed consent was obtained, the patient, a 58 female, was taken to the Operating Room and the right eye was anesthetized with tetracaine. The right eye was then prepped and draped in the usual manner. A wire lid speculum was placed. A paracentesis was made at the left hand position. Preservative free lidocaine was injected into the anterior chamber followed by viscoelastic. A clear corneal incision was made in the temporal position. A capsulorrhexis was preformed and the central nuclear and cortical material were removed. The posterior capsule was polished and Anil 7.0 AU00T0 IOL was placed into the capsular bag. The residual viscoelastic was aspirated and balanced saline solution was injected into the anterior chamber. Moxifloxacin was injected into the anterior chamber. The wound was checked and found to be water tight. The patient tolerated the procedure well without complications. ANUPAM TABARES MD Dec 26, 2018 09:55
[2018-12-26 10:00] VITALS: BP 104/55
== END 2018-12-26 10:00 | disposition home or self-care (01) ==
LOC: SDC 08:17
PROVIDERS: ATTEND Specialist
DX: H25.11 Age-related nuclear cataract, right eye (principal); I11.9 Hypertensive heart disease without heart failure; E03.9 Hypothyroidism, unspecified; M19.90 Unspecified osteoarthritis, unspecified site; F32.9 Major depressive disorder, single episode, unspecified; Z88.0 Allergy status to penicillin; Z88.2 Allergy status to sulfonamides; Z86.73 Personal history of transient ischemic attack (TIA), and cerebral infarction without residual deficits; Z90.710 Acquired absence of both cervix and uterus; Z90.89 Acquired absence of other organs; Z90.49 Acquired absence of other specified parts of digestive tract; Z80.3 Family history of malignant neoplasm of breast; Z83.42 Family history of familial hypercholesterolemia

== ENCOUNTER 2019-01-14 05:57 | Outpatient (CLI) | payer MEDICAID ==
[~2019-01-14] VITALS: Ht 165 cm; Wt 61.3 kg
== END 2019-01-14 15:59 | disposition home or self-care (01) ==
LOC: PREOP 05:57
PROVIDERS: ATTEND Specialist
DX: Z01.818 Encounter for other preprocedural examination (principal)

== ENCOUNTER 2019-01-16 08:35 | Day surgery (SDC) | payer MEDICAID ==
[~2019-01-16] VITALS: Ht 165.1 cm; Wt 61.3 kg
[2019-01-16] MEDS ORDERED: TIMOLOL MALEATE 0.5% 5 ML (TIMOPTIC) BTL OU PRN (09:00)
[2019-01-16] MEDS ORDERED: LIDOCAINE PF 1% 2 ML AMP IR PRN (09:00)
[2019-01-16] MEDS ORDERED: POVIDONE (BETADINE) OPHTH SOLN 5% 30 ML OP ONE (09:00)
[2019-01-16] MEDS ORDERED: MOXIFLOXACIN OPHTH SOLN 5 MG/ML 0.3 ML SYRINGE OP ONE (09:00)
[2019-01-16] MEDS: TETRACAINE 0.5% OPHTH SOLN 4 ML BTL (SINGLE DOSE ONLY) OU PRN ×4 (09:04→09:26)
[2019-01-16 09:06] VITALS: BP 121/67
[2019-01-16] MEDS: PHENYLEPHRINE 10% OPHTH (NEO-SYN) 5 ML BTL OU SCH ×3 (09:15→09:26)
[2019-01-16] MEDS: CYCLOPENTOLATE 1% (CYCLOGYL) 2 ML DROPS OP SCH ×3 (09:15→09:26)
--- NOTE | 2019-01-16 09:56 | Ophthalmologist Pre-Op Note ---
Pre-Operative Progress Note H&P Reviewed The H&P was reviewed, patient examined and no changes noted. Date H&P Reviewed: Jan 16, 2019 Time H&P Reviewed: 09:56 Pre-Op Dx Cataract, Left Eye QUYNH TABARES MD Jan 16, 2019 09:56
[2019-01-16] MEDS ORDERED: MIDAZOLAM 2 MG/2 ML (VERSED) VIAL ONE (09:58)
--- NOTE | 2019-01-16 10:15 | Ophthalmology Operative Report ---
Cataract removal/placement IOL PREOPERATIVE DIAGNOSIS: Cataract Left Eye POSTOPERATIVE DIAGNOSIS: Cataract Left Eye PROCEDURE: Cataract removal and placement of posterior chamber implant, left eye SURGEON: Anupam Tabares ANESTHESIA: Topical with sedation COMPLICATIONS: None ESTIMATED BLOOD LOSS: Minimal DESCRIPTION OF PROCEDURE: After proper informed consent was obtained, the patient, a 58 female, was taken to the Operating Room and the left eye was anesthetized with tetracaine. The left eye was then prepped and draped in the usual manner. A wire lid speculum was placed. A paracentesis was made at the left hand position. Preservative free lidocaine was injected into the anterior chamber followed by viscoelastic. A clear corneal incision was made in the temporal position. A capsulorrhexis was preformed and the central nuclear and cortical material were removed. The posterior capsule was polished and an Anil 6.5 AU00T0 was placed into the capsular bag. The residual viscoelastic was aspirated and balanced saline solution was injected into the anterior chamber. Moxifloxacin was injected into the anterior chamber. The wound was checked and found to be water tight. The patient tolerated the procedure well without complications. ANUPAM TABARES MD Jan 16, 2019 10:15
[2019-01-16 10:25] VITALS: BP 107/53
--- NOTE | 2019-01-16 12:37 | Anesthesia-General Post-Op ---
MAC Patient Condition Mental Status/LOC: Same as Preop Cardiovascular: Satisfactory Nausea/Vomiting: Absent Respiratory: Satisfactory Pain: Controlled Complications: Absent Post Op Complications Complications None Follow Up Care/Instructions Patient Instructions None needed. Anesthesiology Discharge Order Discharge Order Patient is doing well, no complaints, stable vital signs, no apparent adverse anesthesia problems. No complications reported per nursing. CHARLOTTE ALEJO CRNA Jan 16, 2019 12:37
== END 2019-01-16 10:25 | disposition home or self-care (01) ==
LOC: SDC 08:35
PROVIDERS: ATTEND Specialist
DX: H25.12 Age-related nuclear cataract, left eye (principal); K21.9 Gastro-esophageal reflux disease without esophagitis; I10 Essential (primary) hypertension; E03.9 Hypothyroidism, unspecified; F41.9 Anxiety disorder, unspecified; Z90.710 Acquired absence of both cervix and uterus; Z79.899 Other long term (current) drug therapy; Z88.0 Allergy status to penicillin; Z90.89 Acquired absence of other organs; Z88.2 Allergy status to sulfonamides; Z80.3 Family history of malignant neoplasm of breast; Z80.41 Family history of malignant neoplasm of ovary

== ENCOUNTER → 2019-06-09 | Outpatient (CLI) | payer MEDICAID ==
[~2019-06-09] MED LIST changes: +LISI1TAB29 PO; -LISI1TAB6 PO; -TRAM50TA2 PO; +TRM50T PO
[2019-06-09 13:24] LABS: HEMOGLOBIN 11.7 G/DL (11.5-16.0); MEAN PLATELET VOLUME 9.2 FL (7.4-10.4); RED CELL DISTRIBUTION WIDTH 14.9 % (10.0-14.5); WHITE BLOOD COUNT 7.6 10^3/uL (4.3-11.0)
[2019-06-09 13:51] LABS: ALANINE AMINOTRANSFERASE 14 U/L (0-55); ALBUMIN 3.8 GM/DL (3.2-4.5); ALKALINE PHOSPHATASE 188 U/L (40-136); BILIRUBIN,TOTAL 0.3 MG/DL (0.1-1.0); BUN/CREATININE RATIO 24; CALCIUM 8.9 MG/DL (8.5-10.1); CARBON DIOXIDE 26 MMOL/L (21-32); CHLORIDE 109 MMOL/L (98-107); CREATININE SERUM 0.78 MG/DL (0.60-1.30); GFR ESTIMATED > 60; GLUCOSE 106 MG/DL (70-105); POTASSIUM 3.8 MMOL/L (3.6-5.0); SODIUM 141 MMOL/L (135-145)
== END ==
LOC: LAB 13:07
PROVIDERS: ATTEND Otolaryngology
DX: Z01.818 Encounter for other preprocedural examination (principal); E04.1 Nontoxic single thyroid nodule
CPT/HCPCS: 36415; 80053; 85027

== ENCOUNTER 2019-07-17 12:17 | Outpatient (RCR) | payer MEDICAID ==
[2019-06-15 16:45] LABS: BUN/CREATININE RATIO 21; CALCIUM 8.2 MG/DL (8.5-10.1); CARBON DIOXIDE 25 MMOL/L (21-32); CHLORIDE 102 MMOL/L (98-107); CREATININE SERUM 0.89 MG/DL (0.60-1.30); GFR ESTIMATED > 60; GLUCOSE 85 MG/DL (70-105); POTASSIUM 4.3 MMOL/L (3.6-5.0); SODIUM 138 MMOL/L (135-145)
[2019-06-19 13:42] LABS: BUN/CREATININE RATIO 24; CARBON DIOXIDE 27 MMOL/L (21-32); CHLORIDE 103 MMOL/L (98-107); CREATININE SERUM 0.79 MG/DL (0.60-1.30); GFR ESTIMATED > 60; GLUCOSE 94 MG/DL (70-105); POTASSIUM 3.9 MMOL/L (3.6-5.0); SODIUM 138 MMOL/L (135-145)
[2019-06-23 12:49] LABS: BUN/CREATININE RATIO 25; CALCIUM 8.3 MG/DL (8.5-10.1); CARBON DIOXIDE 27 MMOL/L (21-32); CHLORIDE 107 MMOL/L (98-107); GFR ESTIMATED > 60; GLUCOSE 104 MG/DL (70-105); POTASSIUM 4.9 MMOL/L (3.6-5.0); SODIUM 141 MMOL/L (135-145)
[2019-06-26 10:20] LABS: BUN/CREATININE RATIO 29; CALCIUM 9.9 MG/DL (8.5-10.1); CARBON DIOXIDE 26 MMOL/L (21-32); CHLORIDE 105 MMOL/L (98-107); CREATININE SERUM 0.72 MG/DL (0.60-1.30); GFR ESTIMATED > 60; GLUCOSE 86 MG/DL (70-105); POTASSIUM 4.3 MMOL/L (3.6-5.0); SODIUM 139 MMOL/L (135-145)
[2019-07-02 13:59] LABS: BUN/CREATININE RATIO 27; CALCIUM 8.8 MG/DL (8.5-10.1); CARBON DIOXIDE 27 MMOL/L (21-32); CHLORIDE 102 MMOL/L (98-107); CREATININE SERUM 0.83 MG/DL (0.60-1.30); GFR ESTIMATED > 60; GLUCOSE 79 MG/DL (70-105); POTASSIUM 4.1 MMOL/L (3.6-5.0); SODIUM 137 MMOL/L (135-145)
[2019-07-09 12:11] LABS: BUN/CREATININE RATIO 15; CALCIUM 9.2 MG/DL (8.5-10.1); CARBON DIOXIDE 25 MMOL/L (21-32); CHLORIDE 104 MMOL/L (98-107); CREATININE SERUM 0.85 MG/DL (0.60-1.30); GFR ESTIMATED > 60; GLUCOSE 102 MG/DL (70-105); POTASSIUM 3.8 MMOL/L (3.6-5.0); SODIUM 139 MMOL/L (135-145)
[~2019-07-17 12:17] MED LIST changes: -OXYC-529 PO; +OXYC5TAB96 PO
[2019-07-17 12:46] LABS: CALCIUM 8.8 MG/DL (8.5-10.1); CREATININE SERUM 0.95 MG/DL (0.60-1.30); POTASSIUM 3.9 MMOL/L (3.6-5.0)
== END 2019-09-13 | disposition home or self-care (01) ==
LOC: LAB 12:17
PROVIDERS: ATTEND Internal Medicine Endocrinology, Diabetes & Metabolism
DX: E83.51 Hypocalcemia (principal); E04.1 Nontoxic single thyroid nodule
CPT/HCPCS: 36415; 80048

== ENCOUNTER → 2019-07-17 | Outpatient (CLI) | payer MEDICAID ==
[2019-07-17 13:09] LABS: FREE T4 (FREE THYROXINE) 1.53 NG/DL (0.70-1.48)
== END ==
LOC: LAB 11:56
PROVIDERS: ATTEND Internal Medicine Endocrinology, Diabetes & Metabolism
DX: E89.0 Postprocedural hypothyroidism (principal); E20.8 Other hypoparathyroidism; E55.9 Vitamin D deficiency, unspecified
CPT/HCPCS: 36415; 82306; 83970; 84439; 84443

== ENCOUNTER → 2020-09-20 | Outpatient (CLI) | payer MEDICAID ==
[~2020-09-20] MED LIST changes: +ASPI-1238 PO; -ASPI-983 PO; -CYAN100T3 PO; +CYAN100T37 PO; -LISI-556 PO; +LISI-729 PO; +MULT-567 PO; -MULT1TAB69 PO; +OXC5T PO; -OXYC5TAB96 PO; -PANT40TA3 PO; +PANT40TA52 PO
--- NOTE | 2020-09-21 19:34 | Diagnostic Imaging Report ---
INDICATION: Screening. At this time there is no current complaint. EXAMINATION: Bilateral breast digital diagnostic mammogram with CAD. 3D tomographic images were obtained and reviewed. The current study was also evaluated with a Computer Aided Detection (CAD) system. COMPARISON: This study was compared to the prior exams of 03/25/2015. FINDINGS: There are scattered fibroglandular densities in both breasts which could obscure a lesion. Overall, there does not appear to have been any significant change when compared to the prior exam. No primary or secondary sign of malignancy is noted. IMPRESSION: 1. There is no evidence for malignancy. 2. The patient should have her annual bilateral screening mammogram on schedule in September of 2021. ACR BI-RADS Category 1: Negative. Result letter will be mailed to the patient. Note: At least 10% of breast cancer is not imaged by mammography. Dictated by: Dictated on workstation # [id number]
== END ==
LOC: RAD 13:45
PROVIDERS: ATTEND Family Medicine
DX: Z12.31 Encounter for screening mammogram for malignant neoplasm of breast (principal)
CPT/HCPCS: 77063; 77067

== ENCOUNTER 2022-03-26 07:32 | Emergency (ER) | payer MEDICAID ==
[~2022-03-26] VITALS: Ht 162.5 cm; Wt 96.1 kg
[~2022-03-26 07:32] MED LIST changes: +CLOP-31 PO; -CLOP75TA69 PO; -DULO60CA6 PO; +DULO60CA7 PO; -LISI-729 PO; -LISI1TAB29 PO; +LISI1TAB44 PO; +LISI5TAB20 PO; -SULF1TAB35 PO; +SULF1TAB38 PO
[2022-03-26] MEDS ORDERED: ASPIRIN 81 MG CHEW (CHILDREN'S ASA) PO ONE (07:45)
[2022-03-26] MEDS ORDERED: NITROGLYCERIN 0.4 MG SL TABS BTL 25'S SL PRN (07:45)
--- NOTE | 2022-03-26 07:51 | ED Chest Pain ---
General Chief Complaint: Chest Pain Stated Complaint: CHEST PAINS Source: patient Exam Limitations: no limitations History of Present Illness Date Seen by Provider: Mar 26, 2022 Time Seen by Provider: 07:35 Initial Comments Patient is a 61-year-old female who presents to the emergency department with a chief complaint of substernal chest pain that she describes as "somebody grabbing me". She states she woke up with this discomfort around 330 or 4:00 in the morning. She took 3 sublingual nitro. She describes a little bit of nausea and a little bit of shortness of breath. The pain radiates down into her abdomen. She noticed some left ear swelling yesterday and has an appointment with her primary care doctor tomorrow. No recent fevers, chills, productive cough. No flulike complaints. Nothing makes the pain any worse. She has a his tory of a remote heart cath without intervention many years ago by Dr. Turpin. She does smoke. She has a history of hypertension. She has a history of prior stroke. She is on Plavix daily. She did not take aspirin prior to arrival. Currently rates the discomfort at a "5 or 6". 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: Yes Associated Symptoms: abdominal pain (epigastric), nausea/vomiting, shortness of breath Allergies and Home Medications Allergies Coded Allergies: Penicillins (Verified Allergy, Intermediate, RASH, 02/20/17) Sulfa (Sulfonamide Antibiotics) (Verified Adverse Reaction, Mild, DIARRHEA, 02/20/17) Patient Home Medication List Home Medication List Reviewed: Yes Aspirin (Aspirin EC) 81 Mg Tablet., 81 MG PO HS, (Reported) Entered as Reported by: GUILLE MUELLER on 09/28/15 1233 Cetirizine HCl (Cetirizine HCl) 10 Mg Tablet, 10 MG PO DAILY, (Reported) Entered as Reported by: CHRISTIANO ASENCIO on 12/24/18 1412 Clopidogrel Bisulfate (Plavix) 75 Mg Tablet, 75 MG PO DAILY, (Reported) Entered as Reported by: KATHY CHAPARRO on 09/21/16 1344 Cyanocobalamin (Vitamin B-12) 100 Mcg Tablet, 100 MCG PO DAILY, (Reported) Entered as Reported by: GUILLE MUELLER on 09/28/15 1233 Duloxetine HCl (Cymbalta) 60 Mg Capsule.dr, 60 MG PO BID, (Reported) Entered as Reported by: GUILLE MUELLER on 09/28/15 1233 Gabapentin (Gabapentin) 300 Mg Capsule, 300 MG PO TID, (Reported) Entered as Reported by: GUILLE MUELLER on 09/28/15 1233 Levothyroxine Sodium (Levothyroxine Sodium) 25 Mcg Tablet, 25 MCG PO DAILY, (Reported) Entered as Reported by: CHRISTIANO ASENCIO on 12/24/18 1412 Lisinopril/Hydrochlorothiazide (Lisinopril-Hctz 10-12.5 mg Tab) 1 Each Tablet, 1 EACH PO DAILY, (Reported) Entered as Reported by: CHRISTIANO ASENCIO on 12/24/18 1412 Multivitamin (Multivitamins) 1 Each Tablet, 1 TAB PO HS, (Reported) Entered as Reported by: GUILLE MUELLER on 09/28/15 1233 Nitroglycerin (Nitrostat) 0.4 Mg Tab.subl, 0.4 MG SL UD PRN for CHEST PAIN, (Reported) Entered as Reported by: GUILLE MUELLER on 09/28/15 1233 [place]-3/Dha/Epa/Fish Oil (Fish Oil 1,000 mg Softgel) 1 Each Capsule, 1,000 MG PO DAILY, (Reported) Entered as Reported by: GUILLE MUELLER on 09/28/15 1233 Pantoprazole Sodium (Pantoprazole Sodium) 40 Mg Tablet.dr, 40 MG PO DAILY, (Reported) Entered as Reported by: CHRISTIANO ASENCIO on 05/03/16 1528 Potassium Chloride (Potassium Chloride) 10 Meq Tablet.er, 20 MEQ PO DAILY, (Reported) Entered as Reported by: ROSLYN ZELAYA on 02/20/17 1550 Pravastatin Sodium (Pravastatin Sodium) 20 Mg Tablet, 20 MG PO HS, (Reported) Entered as Reported by: GUILLE MUELLER on 09/28/15 1233 Propranolol HCl (Propranolol HCl) 60 Mg Tablet, 60 MG PO BID, (Reported) Entered as Reported by: CHRISTIANO ASENCIO on 12/24/18 1412 Venlafaxine HCl (Venlafaxine HCl ER) 37.5 Mg Tab.er.24, 37.5 MG PO DAILY, (Reported) Entered as Reported by: ROSLYN ZELAYA on 02/20/17 8114 Review of Systems Review of Systems Constitutional: see HPI EENTM: No Symptoms Reported Respiratory: Shortness of Air Cardiovascular: Chest Pain Gastrointestinal: Nausea Genitourinary: No Symptoms Reported Musculoskeletal: no symptoms reported Psychiatric/Neurological: No Symptoms Reported All Other Systems Reviewed Negative Unless Noted: Yes Past Obhfsdj-Htiezw-Zpbtai Hx Immunizations Up To Date PED Vaccines UTD: No Seasonal Allergies Seasonal Allergies: No (None that patient is aware of) Past Medical History Surgeries: Yes Cystectomy, Hysterectomy, Oophorectomy, Orthopedic, Thyroidectomy Respiratory: No Currently Using CPAP: No Currently Using BIPAP: No Cardiac: Yes Palpitations Neurological: Yes Stroke Female Reproductive Disorders: Ovarian Cyst Sexually Transmitted Disease: No HIV/AIDS: No Genitourinary: No Gastrointestinal: Yes Irritable Bowel Musculoskeletal: Yes Fibromyalgia Endocrine: Yes Hypothyroidsim HEENT: Yes Chronic Eye Infection Loss of Vision: Denies Hearing Impairment: Denies Cancer: Yes Ovarian Did You Recieve Any Treatments: Yes What Type of Treatment Did You: Surgical Intervention Psychosocial: Yes Depression Integumentary: No Blood Disorders: Yes (elevated red blood cells) Adverse Reaction/Blood Tranf: No Family Medical History Cardiovascular disease 19 MOTHER Diabetes mellitus 19 MOTHER Psychosocial problem 19 MOTHER daughter Diabetes, Vascular Disease Physical Exam Vital Signs Vital Signs - First Documented 03/26/22 07:32 Temp 35.8 Pulse 56 Resp 22 B/P (MAP) 163/99 (120) Pulse Ox 100 O2 Delivery Room Air Capillary Refill : Height, Weight, BMI Height: 5'5.00" Weight: 205lbs. 5.0oz. 92.916886ux; 34.5 BMI Method:Stated General Appearance: WD/WN, Anxious (tearful) HEENT: PERRL/EOMI, Other (fillness just under the pinna left; tender to palpation, not mobile; noerythema) Neck: Normal Inspection Respiratory: Lungs Clear, Normal Breath Sounds, No Accessory Muscle Use, No Respiratory Distress Cardiovascular: Regular Rate, Rhythm, Normal Peripheral Pulses, Bradycardia (50's) Gastrointestinal: Non Tender, Soft Extremity: Normal Capillary Refill, Normal Inspection, Normal Range of Motion, Non Tender, No Calf Tenderness, No Pedal Edema Neurologic/Psychiatric: Alert, Oriented x3, No Motor/Sensory Deficits, 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 Norm as Tested, Other (tearful/anxious) Skin: Normal Color, Warm/Dry Progress/Results/Core Measures Results/Orders Lab Results Laboratory Tests Test 03/26/22 07:43 03/26/22 09:58 Range/Units White Blood Count 7.1 4.3-11.0 10^3/uL Red Blood Count 4.39 3.80-5.11 10^6/uL Hemoglobin 13.3 11.5-16.0 g/dL Hematocrit 40 35-52 % Mean Corpuscular Volume 90 80-99 fL Mean Corpuscular Hemoglobin 30 25-34 pg Mean Corpuscular Hemoglobin Concent 34 32-36 g/dL Red Cell Distribution Width 12.8 10.0-14.5 % Platelet Count 287 130-400 10^3/uL Mean Platelet Volume 9.6 9.0-12.2 fL Immature Granulocyte % (Auto) 0 % Neutrophils (%) (Auto) 60 42-75 % Lymphocytes (%) (Auto) 29 12-44 % Monocytes (%) (Auto) 8 0-12 % Eosinophils (%) (Auto) 2 0-10 % Basophils (%) (Auto) 1 0-10 % Neutrophils # (Auto) 4.3 1.8-7.8 10^3/uL Lymphocytes # (Auto) 2.0 1.0-4.0 10^3/uL Monocytes # (Auto) 0.6 0.0-1.0 10^3/uL Eosinophils # (Auto) 0.1 0.0-0.3 10^3/uL Basophils # (Auto) 0.0 0.0-0.1 10^3/uL Immature Granulocyte # (Auto) 0.0 0.0-0.1 10^3/uL Prothrombin Time 13.0 12.2-14.7 SEC INR Comment 0.9 0.8-1.4 Activated Partial Thromboplast Time 27 24-35 SEC Sodium Level 140 135-145 MMOL/L Potassium Level 4.3 3.6-5.0 MMOL/L Chloride Level 106 98-107 MMOL/L Carbon Dioxide Level 24 21-32 MMOL/L Anion Gap 10 5-14 MMOL/L Blood Urea Nitrogen 30 H 7-18 MG/DL Creatinine 1.29 0.60-1.30 MG/DL Estimat Glomerular Filtration Rate 47 BUN/Creatinine Ratio 23 Glucose Level 95 70-105 MG/DL Calcium Level 9.5 8.5-10.1 MG/DL Corrected Calcium 9.2 8.5-10.1 MG/DL Magnesium Level 1.8 1.6-2.4 MG/DL Total Bilirubin 0.5 0.1-1.0 MG/DL Aspartate Amino Transf (AST/SGOT) 28 5-34 U/L Alanine Aminotransferase (ALT/SGPT) 41 0-55 U/L Alkaline Phosphatase 71 40-136 U/L Myoglobin 51.5 10.0-92.0 NG/ML Troponin I < 0.028 < 0.028 <0.028 NG/ML Total Protein 7.8 6.4-8.2 GM/DL Albumin 4.4 3.2-4.5 GM/DL My Orders Orders - KRISTEN MAYORGA MD Cbc With Automated Diff (03/26/22 07:45) Magnesium (03/26/22 07:45) Chest 1 View, Ap/Pa Only (03/26/22 07:45) Ekg Tracing (03/26/22 07:45) Comprehensive Metabolic Panel (03/26/22 07:45) Myoglobin Serum (03/26/22 07:45) Protime With Inr (03/26/22 07:45) Partial Thromboplastin Time (03/26/22 07:45) O2 (03/26/22 07:45) Monitor-Rhythm Ecg Trace Only (03/26/22 07:45) Lipid Panel (03/27/22 06:00) Ed Iv/Invasive Line Start (03/26/22 07:45) Troponin I [place] (03/26/22 07:45) Aspirin Chewable Tablet (Baby Aspirin Ch (03/26/22 07:45) Nitroglycerin 0.4 Mg Btl 25's (Nitrostat (03/26/22 07:45) Sucralfate Tablet (Carafate Tablet) (03/26/22 08:45) Antacid Suspension (Mylanta Suspension (03/26/22 08:45) Lidocaine 2% Viscous 15 Ml (Xylocaine Vi (03/26/22 08:45) Troponin I [place] (03/26/22 09:55) Medications Given in ED Current Medications Medications Dose Ordered Sig/Damion Route Start Time Stop Time Status Last Admin Dose Admin Al Hydrox/Mg Hydrox/Simethicone 30 ml ONCE ONCE PO 03/26/22 08:45 03/26/22 08:46 DC 03/26/22 09:10 30 ML Aspirin 324 mg ONCE ONCE PO 03/26/22 07:45 03/26/22 07:46 DC 03/26/22 07:54 324 MG Lidocaine HCl 5 ml ONCE ONCE PO 03/26/22 08:45 03/26/22 08:46 DC 03/26/22 09:09 5 ML Nitroglycerin 0.4 mg NEEDED PRN SL 03/26/22 07:45 03/26/22 07:54 0.4 MG Sucralfate 1 gm ONCE ONCE PO 03/26/22 08:45 03/26/22 08:46 DC 03/26/22 09:11 1 GM Vital Signs/I&O 03/26/22 07:32 Temp 35.8 Pulse 56 Resp 22 B/P (MAP) 163/99 (120) Pulse Ox 100 O2 Delivery Room Air Progress Progress Note : Time: 11:03 Progress Note Patient seen and evaluated, 61-year-old with chest tightness. Evaluation today includes chest pain protocol, repeat troponin. Patient's vital signs have been stable, serial troponins are negative. Normal EKG without ectopy or ST segment elevation or depression. Patient does have some risk factors for coronary artery disease including age, hypertension, smoking history. She has no clinical or objective findings to warrant admission to the emergency department. She has had previous heart cath with Dr. Turpin many years ago. Likely time for repeat evaluation as she has not seen him recently. She has had relief with medications here in the emergency department including GI cocktail. Patient has history of prior [place] repair. She states that she is compliant with her daily medications. Return precautions provided. She verbalized understanding. All questions are sought and answered Initial ECG Impression Date: Mar 26, 2022 Initial ECG Impression Time: 07:38 Initial ECG Rate: 56 Initial ECG Rhythm: S.Imtiaz Initial ECG Intervals: Normal Initial ECG Impression: Normal Diagnostic Imaging Diagonstic Imaging: Xray Plain Films/CT/US/NM/MRI: chest Comments [facility]. [place], [place] NAME: JESSICA GALINDO [facility] REC#: [id number] PT STATUS: REG ER : 1960 PHYSICIAN: KRISTEN MAYORGA MD ADMIT DATE: 03/26/22/ER Signed Date of Exam:03/26/22 CHEST 1 VIEW, AP/PA ONLY EXAMINATION: Chest 1 view HISTORY: Chest pain. COMPARISON: 09/10/2016. FINDINGS: The lung volumes are low. No focal consolidation is seen. No large pleural effusion or pneumothorax is seen. The cardiomediastinal silhouette is normal in size and contour. No acute osseous abnormality is seen. IMPRESSION: 1. Low lung volumes, which may be due to poor inspiratory effort. No focal consolidation or pleural effusion. Dictated by: Dictated on workstation # [id number] Dict: 03/26/22811 Trans: 03/26/22829 [facility] [id number] Interpreted by: KEM CAMPBELL DO Electronically signed by: KEM CAMPBELL DO 03/26/22829 Departure Impression Primary Impression: Chest pain Qualified Codes: R07.9 - Chest pain, unspecified Disposition: 01 HOME, SELF-CARE Condition: Improved Departure-Patient Inst. Decision time for Depature: 11:11 Referrals: HEATHER JOHN MD (PCP/Family) Primary Care Physician Patient Instructions: Chest Pain That Is Not Caused by the Heart (DC) Add. Discharge Instructions: Continue your daily medications as prescribed. Take your protonix 40mg daily (I have written you a new prescription for this). If you have a return of chest pain especially with shortness of breath, nausea, sweating or change in location of the pain please come back to the emergency room for reevaluation. Please call your primary care doctor's office today for a follow-up appointment this week. Scripts Pantoprazole Sodium (Protonix) 40 Mg 40 MG PO DAILY for 30 Days, #30 TAB Prov: KRISTEN MAYORGA MD 03/26/22 Work/School Note: Work Release Form Date Seen in the Emergency Department: Mar 26, 2022 Return to Work: Mar 27, 2022 Copy Copies To 1: HEATHER JOHN MD, KATHRYN M MD Mar 26, 2022 07:51
[2022-03-26 07:58] LABS: BASOPHILS % (AUTO) 1 % (0-10); EOSINOPHILS # (AUTO) 0.1 10^3/uL (0.0-0.3); EOSINOPHILS % (AUTO) 2 % (0-10); HEMATOCRIT 40 % (35-52); HEMOGLOBIN 13.3 g/dL (11.5-16.0); LYMPHOCYTES % (AUTO) 29 % (12-44); MEAN CORPUSCULAR HEMOGLOBIN 30 pg (25-34); MEAN CORPUSCULAR HGB CONC 34 g/dL (32-36); MEAN CORPUSCULAR VOLUME 90 fL (80-99); MEAN PLATELET VOLUME 9.6 fL (9.0-12.2); MONOCYTES # (AUTO) 0.6 10^3/uL (0.0-1.0); MONOCYTES % (AUTO) 8 % (0-12); NEUTROPHILS # (AUTO) 4.3 10^3/uL (1.8-7.8); NEUTROPHILS % (AUTO) 60 % (42-75); PLATELET COUNT 287 10^3/uL (130-400); WHITE BLOOD COUNT 7.1 10^3/uL (4.3-11.0)
[2022-03-26 08:12] LABS: ALBUMIN 4.4 GM/DL (3.2-4.5); BILIRUBIN,TOTAL 0.5 MG/DL (0.1-1.0); CALCIUM 9.5 MG/DL (8.5-10.1); CREATININE SERUM 1.29 MG/DL (0.60-1.30); MAGNESIUM 1.8 MG/DL (1.6-2.4); POTASSIUM 4.3 MMOL/L (3.6-5.0); TOTAL PROTEIN 7.8 GM/DL (6.4-8.2)
--- NOTE | 2022-03-26 08:14 | Diagnostic Imaging Report ---
EXAMINATION: Chest 1 view HISTORY: Chest pain. COMPARISON: 09/10/2016. FINDINGS: The lung volumes are low. No focal consolidation is seen. No large pleural effusion or pneumothorax is seen. The cardiomediastinal silhouette is normal in size and contour. No acute osseous abnormality is seen. IMPRESSION: 1. Low lung volumes, which may be due to poor inspiratory effort. No focal consolidation or pleural effusion. Dictated by: Dictated on workstation # [id number]
[2022-03-26 08:18] LABS: INR 0.9 (0.8-1.4)
[2022-03-26] MEDS ORDERED: SUCRALFATE 1 GM (CARAFATE) TAB PO ONE (08:45)
[2022-03-26] MEDS ORDERED: LIDOCAINE 2% VISCOUS 15 ML UDC PO ONE (08:45)
[2022-03-26] MEDS ORDERED: ANTACID SUSP 30 ML UDC (MYLANTA) PO ONE (08:45)
[2022-03-26] MEDS ORDERED: PANT40SU PO (11:13)
[2022-03-26 11:38] VITALS: BP 166/85
== END 2022-03-26 11:39 | disposition home or self-care (01) ==
LOC: EDUNIT# 07:32 → ER 07:34
DX: R07.2 Precordial pain (principal); Z87.891 Personal history of nicotine dependence; Z86.73 Personal history of transient ischemic attack (TIA), and cerebral infarction without residual deficits; Z79.02 Long term (current) use of antithrombotics/antiplatelets; Z98.61 Coronary angioplasty status; Z28.310 Unvaccinated for COVID-19
CPT/HCPCS: 36415; 71045; 80053; 83735; 83874; 84484; 85025; 85610; 85730; 93005; 93041

== ENCOUNTER → 2022-04-24 | Outpatient (CLI) | payer MEDICAID ==
[~2022-04-24] VITALS: Ht 162.5 cm; Wt 96.1 kg
[~2022-04-24] MED LIST changes: +BUPR100T7 PO; +MELO15TA39 PO; +PANT40SU PO; +PROP60CA36 PO
== END | disposition home or self-care (01) ==
LOC: PREOP 05:38
PROVIDERS: ATTEND Surgery
DX: Z01.818 Encounter for other preprocedural examination (principal); R10.13 Epigastric pain; R19.4 Change in bowel habit

== ENCOUNTER → 2022-11-12 | Outpatient (CLI) | payer MEDICAID ==
[~2022-11-12] MED LIST changes: +POTA-330 PO; -POTA-51 PO
== END ==
LOC: CARD 09:44
PROVIDERS: ATTEND Physician Assistant
DX: I10 Essential (primary) hypertension (principal); I25.10 Atherosclerotic heart disease of native coronary artery without angina pectoris
CPT/HCPCS: 93306

== ENCOUNTER → 2023-01-02 | Outpatient (CLI) | payer MEDICAID ==
[~2023-01-02] MED LIST changes: +CATHETER FLUSH 10 ML SYR IVP PRN; +REGADENOSON 0.4 MG/5 ML SYR IV ONE
[2023-01-02 08:57] VITALS: BP 152/84
[2023-01-02 09:01] VITALS: BP 124/65
[2023-01-02 09:05] VITALS: BP 138/77
--- NOTE | 2023-01-02 11:19 | Cardiology Stress Test Report ---
Stress Test Report Date of Procedure/Referring: Date of Procedure: Jan 02, 2023 PCP Mahsa Jarquin MD Admitting Physician Admitting Physician: Attending Physician: Shilpa Khan Baseline Heart Rate: 53 Baseline Blood Pressure: Blood Pressure Systolic: 138 Blood Pressure Diastolic: 77 Baseline Vitals Vital Signs Date Time Temp Pulse Resp B/P (MAP) Pulse Ox O2 Delivery O2 Flow Rate FiO2 01/02/23 08:57 52 17 152/84 (106) 98 Baseline EKG: Baseline EKG: NSR Summary After explaining the procedure to the patient, she signed a consent and then brought to the stress nuclear laboratory. Patient received 0.4 mg Lexiscan for stress test, ECG, heart rate and blood pressure were monitored continuously. Resting and stress dose of radio tracer were injected, imaging was acquired and reviewed in short axis, horizontal long axis and vertical long axis views. TID: 1.02 SSS: 2 SDS: 2 EF: 79 Breast attenuation with mild ischemia involving the mid to apical anterior wall Normal left ventricular size, ejection fraction 79% Copy Copies To 1: [facility]/ZAMZAM CODY MD Jan 02, 2023 11:19
== END ==
LOC: CARD 07:30
PROVIDERS: ATTEND Physician Assistant
DX: N64.89 Other specified disorders of breast (principal); I25.89 Other forms of chronic ischemic heart disease; I65.23 Occlusion and stenosis of bilateral carotid arteries
CPT/HCPCS: 78452; 93017; A9502

== ENCOUNTER 2023-01-29 05:35 | Outpatient (CLI) | payer MEDICAID ==
[~2023-01-29] VITALS: Ht 162.6 cm; Wt 90.9 kg
[~2023-01-29 05:35] MED LIST changes: -CATHETER FLUSH 10 ML SYR IVP PRN; -REGADENOSON 0.4 MG/5 ML SYR IV ONE
[2023-01-29] MEDS ORDERED: LEVO125T6 PO (10:12)
== END 2023-01-29 10:20 | disposition home or self-care (01) ==
LOC: PREOP 05:35
PROVIDERS: ATTEND Specialist
DX: Z01.818 Encounter for other preprocedural examination (principal)

== ENCOUNTER 2023-02-01 09:01 | Day surgery (SDC) | payer MEDICAID ==
[~2023-02-01] VITALS: Ht 162.6 cm; Wt 90.9 kg
[~2023-02-01 09:01] MED LIST changes: +LEVO125T6 PO
[2023-02-01] MEDS: TETRACAINE 0.5% OPHTH SOLN 4 ML BTL (SINGLE DOSE ONLY) OU PRN ×2 (09:24→09:28)
[2023-02-01 09:26] VITALS: BP 105/71
[2023-02-01] MEDS ORDERED: TROPICAMIDE 1% OPH SOLN (MYDRIACYL) 15 ML BTL OU PRN (09:30)
[2023-02-01] MEDS ORDERED: PHENYLEPHRINE 10% OPHTH SOLN 5 ML BTL OU PRN (09:30)
--- NOTE | 2023-02-01 09:41 | Ophthalmologist Pre-Op Note ---
Pre-Operative Progress Note H&P Reviewed The H&P was reviewed, patient examined and no changes noted. Date H&P Reviewed: Feb 01, 2023 Time H&P Reviewed: 09:41 Pre-Op Dx Secondary Cataract, Right Eye QUYNH TABARES MD Feb 01, 2023 09:41
--- NOTE | 2023-02-01 09:47 | Ophthalmology Operative Report ---
YAG Capsulotomy PREOPERATIVE DIAGNOSIS: Secondary Cataract Left Eye POSTOPERATIVE DIAGNOSIS: Secondary Cataract Left Eye PROCEDURE: YAG Capsulotomy, left eye SURGEON: Anupam Tabares ANESTHESIA: Topical anesthesia COMPLICATIONS: None ESTIMATED BLOOD LOSS: Minimal DESCRIPTION OF PROCEDURE: After proper informed consent was obtained, the patient's, a 62 female left eye received one drop of Tropicamide and one drop of Tetracaine. The patient was then placed at the YAG laser and using a power of [ 4.9] millijoules and [ 23] bursts were used to fashion a central capsulotomy. The patient tolerated the procedure well without complications. ANUPAM TABARES MD Feb 01, 2023 09:47
== END 2023-02-01 09:45 | disposition home or self-care (01) ==
LOC: SDC 09:01
PROVIDERS: ATTEND Specialist
DX: H26.40 Unspecified secondary cataract (principal)